=== PATIENT | male | born 1965 | race Caucasian/White ===

== ENCOUNTER 2018-06-21 12:00 | Outpatient (RCR) | payer MEDICARE, MEDICAID, SELFPAY ==
--- NOTE | 2018-04-27 09:53 | HP.PTEVAL_ITS ---
Patient's Visit Information NEYMAR ROME is a 52 year old M referred to Physical Therapy by Andrew Camp MD with a diagnosis of BACK AND NECK PAIN. Date of Evaluation: 04/27/18 Physical Therapist: Jarrod Durham PT, Cert MDT, OCS - Visit Plan Frequency: 2x /Week Duration: 4 Weeks Plan: slow grade DLS,postural ex's,ROM CERVICAL/LUMBAR,MODALTIES FOR PAIN RELEIVE - Subjective Findings: This male presents to physical therapy with back and back pain. Patient has had lumbar pain 2004 injuried at work. Otherwise patient has neck back pain many years. Patient has left cervical and left UT and symmtrical lumbar. Patient symptoms worse with bending ,lifting,siting,walking and standing affects ADL'S. Symptoms better with rest. Patient cerrvical pain worse with UE lifting,turning neck. Patient symptoms affect sleeping. Patient bowel/bladder. Denies parathesia/tingling . Patient denies dizziness/tinnutis/. Patient c/o GEIGER. Patient has PT in past. Patient is under pain managemnt received prior injections.Patient symptosm affeCT QOL and ADL'S.Patient did x-rays DDD. SOCIAL: lives with daughter. VOCATION: disablity - Pain Left Neck Pain Intensity (Out of 10): 6 Pain Intensity Range: 10 Bilateral Buttocks Pain Intensity (Out of 10): 5 Pain Intensity Range: 10 - Objective POSTURE: mild foward head. PALAPTION: tender UT /paraspoinals/ercetor spinals. NEURO: denies parathesia/tingling,C5-6-7 1/3,L3-4,L4-5,L5-S1 1/3. CERVICAL ROM: flexion min loss,lateral flexion /rotation mod loss,extension min loss with pain. BUE: WFL. MMT: BUE 4/5 ,grossly 4-/5 shoulder. LUMBAR ROM: flexion min loss,side glides min loss,extension min loss. FLEXABLITY: hams mod tight. LUMBAR ROM: flexion mod loss,extension - Special Tests C/S Radiculapathy - Left Upper limb tension test: Negative C/S Radiculapathy - Right Upper limb tension test: Negative C/S Radiculapathy - Left Spurlings: Positive C/S Radiculapathy - Right Spurlings: Positive C/S Radiculapathy - Left Cervical distraction: Negative C/S Radiculapathy - Right Cervical distraction: Negative Sharp Laura: Negative Vertebral Artery Test: Negative Alar Ligament Test: Negative Cervical Sitting: Protrusion - Mechanical Response: No effect Cervical Sitting: Protrusion - Symptoms During Testing: Increases Cervical Sitting: Protrusion - Symptoms After Testing: Worse Cervical Sitting: Retraction - Mechanical Response: No effect Cervical Sitting: Retraction - Symptoms During Testing: Increases Cervical Sitting: Retraction - Symptoms After Testing: No better Cervical Sitting: Sidebend Right - Mechanical Response: No effect Cervical Sitting: Sidebend Right - Symptoms During Testing: Increases Cervical Sitting: Sidebend Right - Symptoms After Testing: Worse Cervical Sitting: Sidebend Left - Symptoms During Testing: Increases Cervical Sitting: Sidebend Left - Symptoms After Testing: Worse Cervical Sitting: Rotation Right - Mechanical Response: No effect Cervical Sitting: Rotation Right - Symptoms During Testing: Increases Cervical Sitting: Rotation Right - Symptoms After Testing: Worse Cervical Sitting: Rotation Left - Mechanical Response: No effect Cervical Sitting: Rotation Left - Symptoms During Testing: Increases Cervical Sitting: Rotation Left - Symptoms After Testing: Worse L/S Slump test left side: Negative L/S Slump test right side: Negative L/S Left Straight Leg Raise: Negative L/S Right Straight Leg Raise: Negative Lumbar Standing: Flexion - Mechanical Response: No effect Lumbar Standing: Flexion - Symptoms During Testing: Increases Lumbar Standing: Flexion - Symptoms After Testing: Worse Lumbar Standing: Extension - Mechanical Response: No effect Lumbar Standing: Extension - Symptoms During Testing: Increases Lumbar Standing: Extension - Symptoms After Testing: Worse - Goals Goal 1:: Independant with HEP Goal Time Frame: 4-6 Weeks Goal 2:: Independant with posture for ADL'S Goal Time Frame: 4-6 Weeks Goal 3:: Patient to decrease lumbar pain 50% to improve function. Goal Time Frame: 4-6 Weeks Goal 4:: Patient to improve cervical and lumbar flexion to improve function of recovery Goal Time Frame: 4-6 Weeks Goal 5:: Patient to improve BACK PACO score by 5 points to improve QOL. Goal Time Frame: 4-6 Weeks Goal 6:: Patient to improve function with ADL'S to improve function Goal Time Frame: 4-6 Weeks - Rehabilitation Potential Physical Therapy Diagnosis: This patient has chronic lumbar and cervical pain for many years affects function,motion ,strength,ADL'S thus benifit from skilled PT Rehabilitation Potential: Good - Anticipated Interventions Patient/Client Instruction: Educate patient on: Condition, Plan of Care For the Purpose of:: To decrease pain, To increase ROM, To improve muscle perf ormance and motor function, To improve ability to perform ADL's, To improve performance and independence with ADL's, To improve ability of physical actions for home/community/work/leisure, To improve health of tissue, To decrease soft tissue restriction, To increase flexibility/ROM, To reduce risk of recurrence, To improve ability to perform tasks related to life management Therapeutic Exercise to Include: Strength training, Postural training, Flexibilty training, Active ROM, Dynamic Lumbar Stabilization For the Purpose of:: To decrease pain, To increase ROM, To increase oxygenation perfusion, To improve muscle performance and motor function, To increase tolerance to activity/condition/position, To improve ability of physical actions for home/community/work/leisure, To improve gait and locomotor functions, To improve health of tissue, To decrease soft tissue restriction, To reduce risk of recurrence, To improve ability to perform tasks related to life management TENS: No IF ES: No Cryotherapy (ice pack, ice massage): No Thermo therapy (hot pack): No Ultrasound (thermal/non thermal): No For the Purpose of:: To decrease pain, To increase ROM, To improve muscle performance and motor function, To increase tolerance to activity/condition/position, To improve ability of physical actions for home/community/work/leisure, To improve health of tissue, To decrease soft tissue restriction, To reduce risk of recurrence, To improve ability to perform tasks related to life management Thank you for the opportunity to evaluate your patient. For Medicare and Medicare HMO plans, please review the plan of care and approve it. It will need to be FAXED BACK to us at [phone] for Medicare purposes. For Medicare only, by signing this I certify the plan of care. Please let me know if there are questions or concerns regarding this plan of care. Physician Signature: Date:
--- NOTE | 2018-08-03 10:45 | HP.PT.NRP ---
HP - Discharge Summary (1) - Patient Information NEYMAR ROME was seen in my office for initial evaluation on 04/27/18. The following Plan of Care was established for this patient: Initial Frequency: 2x /Week Initial Duration: 4 Weeks - Anticipated Interventions Patient/Client Instruction: Educate patient on: Condition, Plan of Care For the Purpose of:: To decrease pain, To increase ROM, To improve muscle performance and motor function, To improve ability to perform ADL's, To improve performance and independence with ADL's, To improve ability of physical actions for home/community/work/leisure, To improve health of tissue, To decrease soft tissue restriction, To increase flexibility/ROM, To reduce risk of recurrence, To improve ability to perform tasks related to life management Therapeutic Exercise to Include: Strength training, Postural training, Flexibilty training, Active ROM, Dynamic Lumbar Stabilization For the Purpose of:: To decrease pain, To increase ROM, To increase oxygenation perfusion, To improve muscle performance and motor function, To increase tolerance to activity/condition/position, To improve ability of physical actions for home/community/work/leisure, To improve gait and locomotor functions, To improve health of tissue, To decrease soft tissue restriction, To reduce risk of recurrence, To improve ability to perform tasks related to life management TENS: No IF ES: No Cryotherapy (ice pack, ice massage): No Thermo therapy (hot pack): No Ultrasound (thermal/non thermal): No For the Purpose of:: To decrease pain, To increase ROM, To improve muscle performance and motor function, To increase tolerance to activity/condition/position, To improve ability of physical actions for home/community/work/leisure, To improve health of tissue, To decrease soft tissue restriction, To reduce risk of recurrence, To improve ability to perform tasks related to life management This patient was last seen in our office 06/21/18. Pertinent comments regarding their Physical therapy will appear below: Patient seen for PT neck and back pain focusing on Manual therapy,cervicla traction,DLS ,POSTURAL EX'S . Thus patient is d/c. At this point I will be discontinuing this patient from physical therapy. I would be happy to see this patient again in the future if found appropriate by the physician. Thank you! Jarrod Durham, PT, Cert MDT, OCS
== END 2018-06-21 19:00 | disposition home or self-care (01) ==
LOC: PT 12:00
PROVIDERS: Family Provider Family Medicine; PCP Family Medicine; Referring Provider Anesthesiology Pain Medicine; Visit Provider Anesthesiology Pain Medicine
DX: M54.9 Dorsalgia, unspecified (principal); M54.2 Cervicalgia
CPT/HCPCS: 97012; 97014; 97035; 97110; 97140; 97162; G0283

== ENCOUNTER → 2018-09-20 12:26 | Outpatient (CLI) | payer MEDICARE, MEDICAID, SELFPAY ==
[2018-09-20 14:13] LABS: Amphetamine Urine VISTA NEGATIVE (<1000 ng/mL); Barbiturate Urine VISTA NEGATIVE (< 200 ng/mL); Benzodiazepine Urine VISTA NEGATIVE (< 200 ng/mL); Cocaine Urine VISTA NEGATIVE (< 300 ng/mL); Ecstacy Urine VISTA NEGATIVE (< 500 ng/mL); Methadone Urine VISTA NEGATIVE (< 300 ng/mL); PCP Urine VISTA NEGATIVE (< 25 ng/mL); THC Urine VISTA NEGATIVE (< 50 ng/mL); Vista UDS pH Range 5
== END ==
PROVIDERS: Family Provider Internal Medicine; PCP Internal Medicine; Referring Provider Anesthesiology Pain Medicine; Visit Provider Anesthesiology Pain Medicine
DX: F11.20 Opioid dependence, uncomplicated (principal)
CPT/HCPCS: 80307

== ENCOUNTER → 2019-02-08 11:41 | Outpatient (CLI) | payer MEDICARE, MEDICAID, SELFPAY ==
[2013-07-23 03:07] VITALS: BMI 31.4
[2019-02-08 13:46] LABS: Amphetamine Urine VISTA NEGATIVE (<1000 ng/mL); Barbiturate Urine VISTA NEGATIVE (< 200 ng/mL); Benzodiazepine Urine VISTA NEGATIVE (< 200 ng/mL); Cocaine Urine VISTA NEGATIVE (< 300 ng/mL); Ecstacy Urine VISTA NEGATIVE (< 500 ng/mL); Methadone Urine VISTA NEGATIVE (< 300 ng/mL); PCP Urine VISTA NEGATIVE (< 25 ng/mL); THC Urine VISTA NEGATIVE (< 50 ng/mL); Vista UDS pH Range 5
== END ==
PROVIDERS: Family Provider Internal Medicine; PCP Internal Medicine; Referring Provider Anesthesiology Pain Medicine; Visit Provider Anesthesiology Pain Medicine
DX: F11.20 Opioid dependence, uncomplicated (principal)
CPT/HCPCS: 80307

== ENCOUNTER → 2019-04-05 10:46 | Outpatient (CLI) | payer MEDICARE, MEDICAID, SELFPAY ==
[2013-07-23 03:07] VITALS: BMI 31.4
[2019-04-05 11:21] LABS: Amphetamine Urine VISTA NEGATIVE (<1000 ng/mL); Barbiturate Urine VISTA NEGATIVE (< 200 ng/mL); Benzodiazepine Urine VISTA POSITIVE (< 200 ng/mL); Cocaine Urine VISTA NEGATIVE (< 300 ng/mL); Ecstacy Urine VISTA NEGATIVE (< 500 ng/mL); Methadone Urine VISTA NEGATIVE (< 300 ng/mL); PCP Urine VISTA NEGATIVE (< 25 ng/mL); THC Urine VISTA NEGATIVE (< 50 ng/mL); Vista UDS pH Range 5
== END ==
PROVIDERS: Family Provider Internal Medicine; PCP Internal Medicine; Referring Provider Anesthesiology Pain Medicine; Visit Provider Anesthesiology Pain Medicine
DX: F11.20 Opioid dependence, uncomplicated (principal)
CPT/HCPCS: 80307

== ENCOUNTER → 2019-12-19 11:33 | Outpatient (CLI) | payer MEDICARE, MEDICAID, SELFPAY ==
[2013-07-23 03:07] VITALS: BMI 31.4
[2019-12-19 13:10] LABS: Amphetamine Urine VISTA NEGATIVE (<1000 ng/mL); Barbiturate Urine VISTA NEGATIVE (< 200 ng/mL); Benzodiazepine Urine VISTA NEGATIVE (< 200 ng/mL); Cocaine Urine VISTA NEGATIVE (< 300 ng/mL); Ecstacy Urine VISTA NEGATIVE (< 500 ng/mL); Methadone Urine VISTA NEGATIVE (< 300 ng/mL); PCP Urine VISTA NEGATIVE (< 25 ng/mL); THC Urine VISTA NEGATIVE (< 50 ng/mL); Vista UDS pH Range 6
== END ==
PROVIDERS: PCP Internal Medicine; Referring Provider Anesthesiology Pain Medicine; Visit Provider Anesthesiology Pain Medicine
DX: F11.20 Opioid dependence, uncomplicated (principal)
CPT/HCPCS: 80307

== ENCOUNTER → 2020-05-14 11:57 | Outpatient (CLI) | payer MEDICARE, MEDICAID, SELFPAY ==
[2013-07-23 03:07] VITALS: BMI 31.4
[2020-05-14 12:55] LABS: Amphetamine Urine VISTA NEGATIVE (<1000 ng/mL); Barbiturate Urine VISTA NEGATIVE (< 200 ng/mL); Benzodiazepine Urine VISTA NEGATIVE (< 200 ng/mL); Cocaine Urine VISTA NEGATIVE (< 300 ng/mL); Ecstacy Urine VISTA NEGATIVE (< 500 ng/mL); Methadone Urine VISTA NEGATIVE (< 300 ng/mL); PCP Urine VISTA NEGATIVE (< 25 ng/mL); THC Urine VISTA NEGATIVE (< 50 ng/mL); Vista UDS pH Range 5
== END ==
PROVIDERS: PCP Internal Medicine; Referring Provider Anesthesiology Pain Medicine; Visit Provider Anesthesiology Pain Medicine
DX: F11.20 Opioid dependence, uncomplicated (principal)
CPT/HCPCS: 80307

== ENCOUNTER → 2020-12-25 10:28 | Outpatient (CLI) | payer MEDICARE, MEDICAID, SELFPAY ==
[2020-12-25 12:00] LABS: Amphetamine Urine VISTA NEGATIVE (<1000 ng/mL); Barbiturate Urine VISTA NEGATIVE (< 200 ng/mL); Benzodiazepine Urine VISTA NEGATIVE (< 200 ng/mL); Cocaine Urine VISTA NEGATIVE (< 300 ng/mL); Ecstacy Urine VISTA NEGATIVE (< 500 ng/mL); Methadone Urine VISTA NEGATIVE (< 300 ng/mL); PCP Urine VISTA NEGATIVE (< 25 ng/mL); THC Urine VISTA NEGATIVE (< 50 ng/mL); Vista UDS pH Range 5
== END ==
PROVIDERS: PCP Internal Medicine; Referring Provider Anesthesiology Pain Medicine; Visit Provider Anesthesiology Pain Medicine
DX: F11.20 Opioid dependence, uncomplicated (principal)
CPT/HCPCS: 80307

== ENCOUNTER → 2021-09-03 | Outpatient (CLI) | payer MEDICARE, MEDICAID, SELFPAY ==
[2021-09-03 13:05] LABS: Amphetamine Urine VISTA NEGATIVE (<1000 ng/mL); Barbiturate Urine VISTA NEGATIVE (< 200 ng/mL); Benzodiazepine Urine VISTA NEGATIVE (< 200 ng/mL); Cocaine Urine VISTA NEGATIVE (< 300 ng/mL); Ecstacy Urine VISTA NEGATIVE (< 500 ng/mL); Methadone Urine VISTA NEGATIVE (< 300 ng/mL); PCP Urine VISTA NEGATIVE (< 25 ng/mL); THC Urine VISTA NEGATIVE (< 50 ng/mL); Vista UDS pH Range 5
== END | disposition home or self-care (01) ==
PROVIDERS: PCP Internal Medicine; Referring Provider Anesthesiology Pain Medicine; Visit Provider Anesthesiology Pain Medicine
DX: F11.20 Opioid dependence, uncomplicated (principal)
CPT/HCPCS: 80307

== ENCOUNTER 2022-03-18 11:44 | Outpatient (CLI) | payer MEDICARE, MEDICAID, SELFPAY ==
[2022-03-18 12:57] LABS: Color, Urine Yellow (Yellow); Glucose, Dipstick Normal (Normal); Ketone-Dipstick 5 mg/dl (Negative); Leukocyte Esterase-Dipstick 500 /ul (Negative); Nitrite-Dipstick Negative (Negative); Occult Blood-Urine 250 /ul (Negative); Protein-Dipstick 30 mg/dl (Negative); Urine Bilirubin Dipstick Negative (Negative); Urine Clarity Sl. Cloudy (Clear); Urine Urobilinogen 1 mg/dl (Normal)
[2022-03-18 13:11] LABS: Amphetamine Urine VISTA NEGATIVE (<1000 ng/mL); Barbiturate Urine VISTA NEGATIVE (< 200 ng/mL); Benzodiazepine Urine VISTA NEGATIVE (< 200 ng/mL); Cocaine Urine VISTA NEGATIVE (< 300 ng/mL); Ecstacy Urine VISTA NEGATIVE (< 500 ng/mL); Methadone Urine VISTA NEGATIVE (< 300 ng/mL); PCP Urine VISTA NEGATIVE (< 25 ng/mL); THC Urine VISTA NEGATIVE (< 50 ng/mL); Vista UDS pH Range 5
== END 2022-03-18 23:59 | disposition home or self-care (01) ==
PROVIDERS: PCP Internal Medicine; Referring Provider Anesthesiology Pain Medicine; Visit Provider Anesthesiology Pain Medicine
DX: F11.20 Opioid dependence, uncomplicated (principal); M51.36 Other intervertebral disc degeneration, lumbar region
CPT/HCPCS: 80307; 81002

== ENCOUNTER 2022-08-11 13:18 | Emergency (ER) | payer MEDICARE, MEDICAID, SELFPAY ==
[2022-08-11 13:19] VITALS: BP 160/101; PULSE 133; RESP 26; TEMP 36.8; O2SAT 93; BMI 32.3
--- NOTE | 2022-08-11 13:24 | EKG12_ITS ---
Test Reason : SOB Blood Pressure : / mmHG Vent. Rate : 125 BPM Atrial Rate : 125 BPM P-R Int : 146 ms QRS Dur : 080 ms QT Int : 292 ms P-R-T Axes : 059 050 061 degrees QTc Int : 421 ms Sinus tachycardia Otherwise normal ECG Confirmed by MICHELLE RITTER, LULI ([id number]), videotape editor LUCILLE CRAWFORD ([id number]) on 08/17/2022 9:59:08 AM Referred By: ALISIA/URSULA Confirmed By:LULI MARTINEZ MD
--- NOTE | 2022-08-11 14:06 | RAD_ITS ---
STUDY: X-RAY CHEST REASON FOR EXAM: Male, 57 years old. Cough and shortness of breath with chest congestion. TECHNIQUE: Single AP portable view of the chest. COMPARISON: Comparison is made with prior study July 24, 2013. FINDINGS: Increased bilateral perihilar markings suggest some bilateral perihilar bronchitis. Hyperinflation. There is no demonstrated pleural abnormality. Normal size heart. Normal mediastinum and camron. Normal visualized pulmonary arteries. Normal visualized aortic arch and descending thoracic aorta. Normal visualized thoracic spine. Normal visualized ribs, clavicles, and shoulders. There is no demonstrated abnormality of the visualized soft tissue structures of the upper abdomen. RAD/Chest 1 View (Portable) IMPRESSION: Findings suggestive of bilateral perihilar bronchitis. Electronically Signed: Ciro Gee MD at 14:31 EDT ,
[2022-08-11 14:37] LABS: Absolute Lymphocyte Count 1.66 X10^3/uL (0.83-4.51); Absolute Neutrophil Count 4.9 X10^3/uL (2.0-7.7); Basophil# 0.02 X10^3/uL; Basophil% 0.3 % (0-1); Eosinophil# 0.17 X10^3/uL; Eosinophils% 2.3 % (0-5); Hematocrit 48.3 % (40-54); Hemoglobin 16.5 g/dL (13.0-16.5); Lymphocyte # 1.66 X10^3/ul (0.83-4.51); Lymphocyte % 22.3 % (19-41); Mean Corp Hgb Conc 34.2 g/dL (32-36); Mean Corpuscular Hgb 29.8 pg (27.0-32.0); Mean Corpuscular Volume 87.3 fL (80-94); Mean Platelet Vol. 10.3 fl (6.2-12.0); Monocyte# 0.64 X10^3/uL; Monocyte% 8.6 % (0-10); NRBC Flagged by Analyzer 0 % (0-5); Neutrophil # 4.92 X10^3/uL (2.7-7.7); Neutrophil % 66.2 % (47-70); POSITIVE MORPHOLOGY YES; Platelet Count 199 K/mm3 (150-450); RBC Distribution Width CV 12.6 % (11.6-14.6); RBC Distribution Width SD 40.5 fl (35.1-43.9); Red Blood Count 5.53 M/mm3 (4.6-6.2); White Blood Count 7.4 K/mm3 (4.4-11.0)
[2022-08-11 14:41] LABS: Differential Indicated SCAN CRITERIA MET
[2022-08-11 14:49] LABS: Anion Gap 1 (5-15); BUN 11 mg/dL (7-18); BUN/Creat Ratio 9.8 RATIO (10-20); Calcium,Total 9.1 mg/dL (8.5-10.1); Chloride 101 mmol/L (98-107); Creatinine, Serum 1.12 mg/dL (0.70-1.30); EST Glomerular Filtration Rate 72 mL/min (>60); Est Glom Filt Rate - Afr Amer 87 mL/min (>60); Estimated Creatinine Clearance 76.57 ml/min; Glucose 135 mg/dL (74-106); Potassium 3.8 mmol/L (3.5-5.1); Sodium Level 134 mmol/L (136-145)
[2022-08-11 14:53] VITALS: BP 128/84; PULSE 108; RESP 18; O2SAT 94
[2022-08-11 15:09] LABS: Differential Comment SCANNED; Reactive Lymphocyte 1+
--- NOTE | 2022-08-11 15:42 | ED.VIS.DYS ---
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 He states he has had symptoms for 3 to 4 days. Started with sinus drainage that moved to the back of his throat and then moved into his chest. He has had some sputum production described as white and yellow. He had worsening cough. He does feel short of breath. He does not have any inhalers at home. Denies any fever. Denies any chest pain. Denies any new swelling of his legs. Has not missed any doses of his Xarelto. Has been hesitant to take anything [id number] because he is on anticoagulation. Notes he has been trying to drink fluids but has not been eating much lately. Denies any other symptoms at this time. [facility] Medical History Bronchitis Home Medications amitriptyline 25 mg tablet 25 mg PO QHS 07/22/13 [History Last Taken Unknown] docusate sodium 100 mg capsule (DOK) 100 mg PO DAILY PRN PRN Constipation 07/22/13 [History Last Taken Unknown] fenofibrate 160 mg tablet (Lofibra) 160 mg PO DAILY 07/22/13 [History Last Taken Unknown] fentanyl 75 mcg/hr transdermal patch 75 mcg TRANSDERM. Q72H 07/22/13 [History Last Taken Unknown] ipratropium 20 mcg-albuterol 100 mcg/actuation mist for inhalation (Combivent Respimat) 1 puff inhalation 07/22/13 [History Last Taken Unknown] lisinopril 5 mg tablet 5 mg PO DAILY 07/22/13 [History Last Taken Unknown] meloxicam 7.5 mg tablet 7.5 mg PO DAILY 07/22/13 [History Last Taken Unknown] simvastatin 40 mg tablet 40 mg PO QHS 07/22/13 [History Last Taken Unknown] doxycycline hyclate 100 mg capsule 100 mg PO BID #14 caps 08/11/22 [Rx Last Taken Unknown] prednisone 20 mg tablet 40 mg PO DAILY #8 tabs 08/11/22 [Rx Last Taken Unknown] Allergy/AdvReac Type Severity Reaction Status Date / Time paroxetine Allergy PT UNSURE Verified 08/11/22 13:22 OF REACTION tramadol Allergy Other Verified 08/11/22 13:22 venlafaxine Allergy PT UNSURE Verified 08/11/22 13:22 OF REACTION acetaminophen [From Vicodin] AdvReac Other Verified 08/11/22 13:22 formaldehyde AdvReac Other Verified 08/11/22 13:22 hydrocodone [From Vicodin] AdvReac Other Verified 08/11/22 13:22 Social History Smoking Status: Current every day smoker tobacco type: cigarettes ROS ROS ED Constitutional Constitutional ED: Denies chills or fever(s) Eyes Eyes: Denies change in vision ENT ENT ED: Reports sore throat; Denies rhinorrhea Cardiovascular Cardiovascular: Denies chest pain or palpitations Respiratory/Chest Respiratory/Chest: Reports cough and dyspnea Gastrointestinal Gastrointestinal: Denies abdominal pain, nausea or vomiting Musculoskeletal Musculoskeletal: Denies arthralgias or myalgias Integumentary Denies rash Neurologic Neurologic: Denies weakness Psychiatric Psychiatric: Denies anxiety Hematologic/Lymphatic Hematologic/Lymphatic: Reports easy bleeding and easy bruising EXAM Physical Exam Const Vital Signs: 08/11/22 13:19 08/11/22 14:53 08/11/22 15:58 Temperature 98.3 F 96.7 F L Temperature Source Temporal Temporal Pulse Rate 133 H 108 H 104 H Respiratory Rate 26 H 18 18 Blood Pressure 160/101 H 128/84 H 143/85 H Blood Pressure Mean 120 98 104 Pulse Ox 93 94 93 Oxygen Delivery Method Room Air Room Air Room Air 08/11/22 15:59 08/11/22 19:04 Temperature Temperature Source Pulse Rate 102 H 100 Respiratory Rate 18 18 Blood Pressure Blood Pressure Mean Pulse Ox 93 Oxygen Delivery Method Positive well nourished and well developed General Appearance ED: well developed and NAD HEENT Reports dry mucous membranes HEENT Narrative: Normal oropharynx atraumatic Mouth ED: Yes dry mucous membranes Mouth: dry mucous membranes Eyes PERRL and EOMs intact bilaterally Neck supple Resp normal respiratory effort Resp Narrative: Scattered wheezing. Diminished breath sounds at the bases with coarse breath sounds. Auscultation: wheezes Cardio regular rhythm Rate: tachycardic GI non-tender and non-distended Extremity normal to inspection Extremity Narrative: Hematoma on left proximal rodríguez from recent fall General Extremety ED: Negative for edema General Extremity: Negative for edema Neuro oriented x3 Sensorium / Orientation: alert Speech: speech normal Motor Exam: Negative for general weakness Psych mental status grossly normal Skin no wounds MDM MDM MDM Narrative Medical decision making narrative: Patient evaluated for cough and chest congestion. Presentation most consistent with bronchitis/COPD exacerbation. Differential diagnosis also includes pneumonia. Is been compliant with his Xarelto as well as suspicion for pulmonary emboli. Chest x-ray, CBC and BMP obtained per protocol orders. Chest x-ray to read by myself as well as radiology is consistent with perihilar bronchitis. Patient is given IV fluids for tachycardia, a DuoNeb and a started on prednisone. Will Reevaluate ambulate pulse ox after these interventions. Patient does not have significant movement after DuoNeb. Is given albuterol. He still is pretty coarse and has tight breath sounds. Patient states he is feeling a little better. Is ambulated in the ER and does not desaturate under 90. Discussed admission for COPD exacerbation versus outpatient treatment with close return precautions. Patient states he prefer to go home. Discussed extensively the importance of tobacco cessation. Patient started on doxycycline as well given first dose in the ER just because of his underlying COPD with exacerbation per Gold 2 criteria. Do not think this is community-acquired pneumonia. Patient is given an albuterol inhaler to use at home in the emergency room with instructions. Given strict return precautions. Counseled if he feels like he is getting worse he will need to return to the emergency room. He verbalizes agreement understanding with this. Discharged home in improved and stable condition. Lab Data Attestation: I reviewed the patient's lab results. Labs: Laboratory Results - last 24 hr 08/11/22 08/11/22 14:25 14:25 WBC 7.4 RBC 5.53 Hgb 16.5 Hct 48.3 MCV 87.3 MCH 29.8 MCHC 34.2 RDW Std Deviation 40.5 RDW Coeff of Rafa 12.6 Plt Count 199 MPV 10.3 Immature Gran % (Auto) 0.300 Neut % (Auto) 66.2 Lymph % (Auto) 22.3 [place] % (Auto) 8.6 Eos % (Auto) 2.3 Baso % (Auto) 0.3 Absolute Neuts (auto) 4.9 Absolute Lymphs (auto) 1.66 Nucleated RBC % 0 Differential Comment SCANNED Reactive Lymphocytes 1+ Sodium 134 L Potassium 3.8 Chloride 101 Carbon Dioxide 32.0 Anion Gap 1 L BUN 11 Creatinine 1.12 Estim Creat Clear Calc 76.57 Est GFR (MDRD) Af Amer 87 Est GFR (MDRD) Non-Af 72 BUN/Creatinine Ratio 9.8 L Glucose 135 H Calcium 9.1 Radiography Chest X-Ray - ED: 1 View, Read by ED Physician, Read by Radiologist and No Acute Disease Diagnostic Testing: Clinical Impression(s) from Imaging Studies Chest X-Ray 08/11/22 14:06 IMPRESSION: Findings suggestive of bilateral perihilar bronchitis. Electronically Signed: Ciro Gee MD at 14:31 EDT , Rhythm Strip Rhythm Strip: Sinus Tach Rate: 125 Ectopy: None EKG Initial EKG: Attestation: I personally reviewed and interpreted this EKG as follows: Interpretation: Sinus Tachycardia Comments: Sinus tachycardia rate of 125 bpm Normal intervals Normal axis Normal ST segments No change compared to prior EKG on 07/22/2013 Discharge Plan Triage Chief Complaint: Shortness of Breath ED Provider: Karina Julian Dx/Rx/DC Orders Clinical Impression: COPD with acute exacerbation, Tobacco abuse Instructions: ED COPD Flare Prescriptions: New prednisone 20 mg tablet 40 mg PO DAILY Qty: 8 0RF doxycycline hyclate 100 mg capsule 100 mg PO BID Qty: 14 0RF No Action simvastatin 40 MG tablet 40 mg PO QHS Label Comments: CHOLESTEROL meloxicam 7.5 MG tablet 7.5 mg PO DAILY Label Comments: ARTHRITIS amitriptyline 25 MG tablet 25 mg PO QHS Label Comments: DEPRESSION docusate sodium [DOK] 100 MG capsule 100 mg PO DAILY PRN PRN (Reason: Constipation) Label Comments: STOOL SOFTENER lisinopril 5 MG tablet 5 mg PO DAILY Label Comments: HEART/BLOOD PRESSURE fentanyl 75 MCG patch 75 mcg TRANSDERM. Q72H Label Comments: PAIN fenofibrate [Lofibra] 160 MG tablet 160 mg PO DAILY Label Comments: CHOLESTEROL ipratropium-albuterol [Combivent Respimat] 1 PUFF inhaler 1 puff inhalation Label Comments: BREATHING Primary Care Provider: Kvng Fu Referrals: Kvng Fu MD [Primary Care Provider] - Activity Restrictions/Additional Instructions: Take all medications as prescribed. Use your inhaler 1 to 2 puffs every 4-6 hours as needed for shortness of breath. If you feel like your breathing is worsening you may need to return to the emergency room. Please try to abstain from smoking. Follow-up with your primary care doctor later this week for recheck. Disposition Disposition: Home, Self Care Discharge Date/Time: 08/11/22 19:27
[2022-08-11] MEDS: predniSONE 20 MG Tablet 60 MG PO (15:54)
[2022-08-11] MEDS: 0.9% Normal Saline 1,000 ML 999 ML IV (15:54)
[2022-08-11 15:58] VITALS: BP 143/85; PULSE 104; RESP 18; TEMP 35.9; O2SAT 93
[2022-08-11] MEDS: Ipratropium/Albuterol Sulfate 3 ML AMPUL.NEB INHALATION (15:58)
[2022-08-11 15:59] VITALS: PULSE 102; RESP 18
[2022-08-11] MEDS: Albuterol 2.5 MG/3 ML VIAL.NEB. INHALATION (17:05)
[2022-08-11 19:04] VITALS: PULSE 100; RESP 18; O2SAT 93
[2022-08-11] MEDS: Doxycycline 100 MG CAPSULE PO (19:19)
[2022-08-11] MEDS: Albuterol Sulfate 8 gm Inhaler (60 puffs) 2 PUFF INHALATION (19:19)
== END 2022-08-11 19:27 | disposition home or self-care (01) ==
PROVIDERS: Emergency Provider Emergency Medicine; PCP Internal Medicine; Visit Provider Emergency Medicine
DX: J44.1 Chronic obstructive pulmonary disease with (acute) exacerbation (principal); I10 Essential (primary) hypertension; F17.210 Nicotine dependence, cigarettes, uncomplicated; J32.9 Chronic sinusitis, unspecified; G89.29 Other chronic pain; M54.9 Dorsalgia, unspecified; Z79.01 Long term (current) use of anticoagulants; Z86.718 Personal history of other venous thrombosis and embolism
CPT/HCPCS: 71045; 80048; 85025; 87428; 93005; 94640; 94760; 96360; 99284; A4216

== ENCOUNTER 2022-11-04 10:23 | Emergency (ER) | payer MEDICARE, MEDICAID, SELFPAY ==
[2022-11-04 10:24] VITALS: BP 159/112; PULSE 136; RESP 18; TEMP 38.8; O2SAT 94; BMI 33.7
--- NOTE | 2022-11-04 11:05 | EDS_ITS ---
HPI History of Present Illness Chief Complaint: Sore Throat Informant: patient Narrative Narrative: Patient presents with a sore throat with odynophagia for 1 week. Left ear is hurts some. No coughing or shortness of breath. Some chills today but no fevers that he knows of although he has a fever here in triage. He states his daughter has a sore throat as well for the same period of time. Also, the patient states that he has had a sore swollen area on his right leg that became that way from picking at it, now it is painful and red. He has been able to walk without difficulty. [facility] Medical History (Updated 11/04/22 @ 11:[address] Ankit Vazquez MD) Asthma Bronchitis Chronic back pain HTN (hypertension) Infestation by bed bug Narcotic dependence Home Medications amitriptyline 25 mg tablet 25 mg PO QHS 07/22/13 [History Last Taken Unknown] docusate sodium 100 mg capsule (DOK) 100 mg PO DAILY PRN PRN Constipation 07/22/13 [History Last Taken Unknown] fenofibrate 160 mg tablet (Lofibra) 160 mg PO DAILY 07/22/13 [History Last Taken Unknown] fentanyl 75 mcg/hr transdermal patch 75 mcg TRANSDERM. Q72H 07/22/13 [History Last Taken Unknown] ipratropium 20 mcg-albuterol 100 mcg/actuation mist for inhalation (Combivent Respimat) 1 puff inhalation 07/22/13 [History Last Taken Unknown] lisinopril 5 mg tablet 5 mg PO DAILY 07/22/13 [History Last Taken Unknown] meloxicam 7.5 mg tablet 7.5 mg PO DAILY 07/22/13 [History Last Taken Unknown] simvastatin 40 mg tablet 40 mg PO QHS 07/22/13 [History Last Taken Unknown] doxycycline hyclate 100 mg capsule 100 mg PO BID #14 caps 08/11/22 [Rx Last Taken Unknown] prednisone 20 mg tablet 40 mg (2 x 20 mg) PO DAILY #8 tabs 08/11/22 [Rx Last Taken Unknown] cephalexin 500 mg capsule 500 mg PO Q6 #40 CAPSULES 11/04/22 [Rx Last Taken Unknown] Allergy/AdvReac Type Severity Reaction Status Date / Time paroxetine Allergy PT UNSURE Verified 11/04/22 10:26 OF REACTION tramadol Allergy Other Verified 11/04/22 10:26 venlafaxine Allergy PT UNSURE Verified 11/04/22 10:26 OF REACTION acetaminophen [From Vicodin] AdvReac Other Verified 11/04/22 10:26 formaldehyde AdvReac Other Verified 11/04/22 10:26 hydrocodone [From Vicodin] AdvReac Other Verified 11/04/22 10:26 Social History Smoking Status: Current every day smoker tobacco type: cigarettes ROS ROS ED Constitutional Constitutional ED: Reports chills; Denies fever(s) Eyes Eyes: Denies blurry vision or diplopia ENT ENT ED: Reports ear pain left and sore throat; Denies rhinorrhea Cardiovascular Cardiovascular: Denies chest pain or orthopnea Respiratory/Chest Respiratory/Chest: Reports cough and other Details: Cough chronic no different according to patient ; Denies dyspnea, dyspnea on exertion, orthopnea or sputum Gastrointestinal Gastrointestinal: Denies abdominal pain, nausea or vomiting Musculoskeletal Musculoskeletal: Denies extremity pain or neck pain Integumentary Reports rash Neurologic Neurologic: Denies headache(s) EXAM Physical Exam Const Vital Signs: 11/04/22 10:24 Temperature 101.8 F H Temperature Source Temporal Pulse Rate 136 H Respiratory Rate 18 Blood Pressure 159/112 H Blood Pressure Mean 127 Pulse Ox 94 Oxygen Delivery Method Room Air Positive well nourished, well developed and unkempt General Appearance ED: unkempt, well developed and NAD HEENT Reports TM's clear and moist mucous membranes HEENT Narrative: PIP mild erythema but otherwise clear. No exudates. No asymmetry. No trismus. Tongue normal no elevation. Cerumen bilateral EAC otherwise normal. Tympanic Membrane ED: Yes TM's clear Eyes PERRL and EOMs intact bilaterally Neck no lymphadenopathy and supple Resp normal respiratory effort and clear to auscultation bilaterally Cardio regular rate and regular rhythm Rate: tachycardic Extremity Extremity Narrative: There is a scabbed wound on the right distal rodríguez with surrounding erythema that is mildly tender there is no subcutaneous emphysema, bony tenderness, or lymphangitis. He has full range of motion of all joints and walks without difficulty. It is limited to the rodríguez/anterior lower leg, maybe 5 or 6 cm in diameter total. With uncovering the patient's leg by taking his pants up, 3 bedbugs crawl out. Neuro oriented x3, CN's II-XII intact bilaterally and no sensory deficits noted Sensorium / Orientation: alert Motor Exam: strength 5/5 throughout Psych mental status grossly normal Appearance: unkempt Skin Skin Narrative: Right lower leg wound without abscess. No erythema in the left leg. See above. MDM MDM MDM Narrative Medical decision making narrative: Discussed with the patient, we could test him for strep which this may or may not be, I do not think he has mononucleosis, but is cellulitis from a wound that apparently picked at and looks like it has become secondarily infected looks amenable to antibiotics. There is nothing to drain here, it is not necrotizing fasciitis, and he states it has been there for longer than the sore throat. I think putting him on cephalexin would be reasonable, he is in agreement with that plan. He is not septic although he does have a temperature here. He is advised to come back if this does not help and he is comfortable with that plan. Discharge Plan Triage Chief Complaint: Sore Throat ED Provider: Ankit Vazquez Dx/Rx/DC Orders Clinical Impression: Cellulitis of leg without foot, right, Pharyngitis Instructions: ED Cellulitis Prescriptions: New cephalexin [cephalexin] 500 mg capsule 500 mg PO Q6 Qty: 40 0RF No Action simvastatin 40 MG tablet 40 mg PO QHS Patient Comments: CHOLESTEROL meloxicam 7.5 MG tablet 7.5 mg PO DAILY Patient Comments: ARTHRITIS amitriptyline 25 MG tablet 25 mg PO QHS Patient Comments: DEPRESSION docusate sodium [DOK] 100 MG capsule 100 mg PO DAILY PRN PRN (Reason: Constipation) Patient Comments: STOOL SOFTENER lisinopril 5 MG tablet 5 mg PO DAILY Patient Comments: HEART/BLOOD PRESSURE fentanyl 75 MCG patch 75 mcg TRANSDERM. Q72H Patient Comments: PAIN fenofibrate [Lofibra] 160 MG tablet 160 mg PO DAILY Patient Comments: CHOLESTEROL ipratropium-albuterol [Combivent Respimat] 1 PUFF inhaler 1 puff inhalation Patient Comments: BREATHING prednisone 20 mg tablet 40 mg PO DAILY Qty: 8 0RF doxycycline hyclate 100 mg capsule 100 mg PO BID Qty: 14 0RF Primary Care Provider: Kvng Fu Referrals: Kvng Fu MD [Primary Care Provider] - 3-5 Days (call for appt; may always return to ER if you are feelin worse despite taking the antibiotic for a day or 2, or if you develop trouble breathing) Disposition Disposition: Home, Self Care
[2022-11-04] MEDS: Acetaminophen 500 MG Tablet 1000 MG PO (11:26)
[2022-11-04] MEDS: Cephalexin 250 MG Capsule 500 MG PO (11:26)
[2022-11-04 11:34] VITALS: BP 124/69; PULSE 72; RESP 15; O2SAT 98
== END 2022-11-04 11:34 | disposition home or self-care (01) ==
LOC: ED 11:18
PROVIDERS: Emergency Provider Emergency Medicine; PCP Internal Medicine; Visit Provider Emergency Medicine
DX: L03.115 Cellulitis of right lower limb (principal); J02.9 Acute pharyngitis, unspecified; F17.210 Nicotine dependence, cigarettes, uncomplicated; I10 Essential (primary) hypertension; J45.909 Unspecified asthma, uncomplicated; Z79.899 Other long term (current) drug therapy
CPT/HCPCS: 99283

== ENCOUNTER 2022-11-05 14:17 | Emergency (ER) | payer MEDICARE, MEDICAID, SELFPAY ==
[2022-11-05 14:18] VITALS: BP 129/71; PULSE 135; RESP 16; TEMP 37.1; O2SAT 96
[2022-11-05 14:32] VITALS: BP 134/81; PULSE 127; RESP 18
[2022-11-05 14:36] VITALS: BMI 32.5
--- NOTE | 2022-11-05 14:59 | EX.ED.DYSGE1 ---
HPI History of Present Illness Chief Complaint: Cellulitis Informant: patient and family Onset/Context/Timing Onset: Yesterday Context: Gradual Onset Timing: Continuous Quality: Sharp Location: Right lower leg Worsened by: Weightbearing Relieved by: Nothing Narrative Narrative: Patient presents with cellulitis to his right leg that became worse today. Patient was seen here for this yesterday and was started on antibiotics. Patient took 2 doses of his antibiotics today. Patient states the redness is now spreading up his leg. Patient admits to a low-grade fever of 100 at home. Patient states he is having difficulty ambulating due to the pain in his leg. Patient admits to some nausea and vomiting. Patient states he has been unable to keep anything down today. Patient denies any chest pain or shortness of breath. Patient denies any paresthesias or weakness. PFSH PFSH Medical History Asthma Bronchitis Chronic back pain HTN (hypertension) Infestation by bed bug Narcotic dependence Smoker Home Medications amitriptyline 25 mg tablet 25 mg PO QHS 07/22/13 [History Last Taken Unknown] docusate sodium 100 mg capsule (DOK) 100 mg PO DAILY PRN PRN Constipation 07/22/13 [History Last Taken Unknown] fenofibrate 160 mg tablet (Lofibra) 160 mg PO DAILY 07/22/13 [History Last Taken Unknown] fentanyl 75 mcg/hr transdermal patch 75 mcg TRANSDERM. Q72H 07/22/13 [History Last Taken Unknown] ipratropium 20 mcg-albuterol 100 mcg/actuation mist for inhalation (Combivent Respimat) 1 puff inhalation 07/22/13 [History Last Taken Unknown] lisinopril 5 mg tablet 5 mg PO DAILY 07/22/13 [History Last Taken Unknown] meloxicam 7.5 mg tablet 7.5 mg PO DAILY 07/22/13 [History Last Taken Unknown] simvastatin 40 mg tablet 40 mg PO QHS 07/22/13 [History Last Taken Unknown] doxycycline hyclate 100 mg capsule 100 mg PO BID #14 caps 08/11/22 [Rx Last Taken Unknown] prednisone 20 mg tablet 40 mg (2 x 20 mg) PO DAILY #8 tabs 08/11/22 [Rx Last Taken Unknown] cephalexin 500 mg capsule 500 mg PO Q6 #40 CAPSULES 11/04/22 [Rx Last Taken Unknown] Allergy/AdvReac Type Severity Reaction Status Date / Time paroxetine Allergy PT UNSURE Verified 11/04/22 10:26 OF REACTION tramadol Allergy Other Verified 11/04/22 10:26 venlafaxine Allergy PT UNSURE Verified 11/04/22 10:26 OF REACTION formaldehyde AdvReac Other Verified 11/04/22 10:26 hydrocodone [From Vicodin] AdvReac Other Verified 11/04/22 10:26 Surgical History (Updated 11/05/22 @ 15:[address] Landen Crenshaw DO) History of total replacement of right hip Social History Smoking Status: Heavy Smoker (>10/day) ROS ROS ED Constitutional Constitutional ED: Reports chills and fever(s) Eyes Eyes: Denies blurry vision or change in vision ENT ENT ED: Reports rhinorrhea and sore throat Cardiovascular Cardiovascular: Denies chest pain or palpitations Respiratory/Chest Respiratory/Chest: Denies cough or dyspnea Gastrointestinal Gastrointestinal: Reports nausea and vomiting Genitourinary Genitourinary ED: Denies dysuria or hematuria Musculoskeletal Musculoskeletal: Reports back pain and neck pain Integumentary Reports rash; Denies abscess Neurologic Neurologic: Denies headache(s) or weakness Allergic/Immunologic Allergic/Immunologic ED: Denies mouth swelling or urticaria EXAM Physical Exam Const Vital Signs: 11/05/22 14:18 11/05/22 14:30 11/05/22 14:32 Temperature 98.8 F Temperature Source Temporal Pulse Rate 135 H 127 H Respiratory Rate 16 18 Respiratory Pattern Tachypnea Blood Pressure 129/71 H 134/81 H Blood Pressure Mean 90 98 Pulse Ox 96 Oxygen Delivery Method Room Air Room Air Oxygen Flow Rate (L/min) 93 11/05/22 15:20 11/05/22 16:54 Temperature 98.9 F Temperature Source Oral Pulse Rate 94 100 Respiratory Rate 17 18 Respiratory Pattern Blood Pressure 115/80 119/79 Blood Pressure Mean 91 92 Pulse Ox 95 95 Oxygen Delivery Method Room Air Room Air Oxygen Flow Rate (L/min) Positive well nourished and well developed General Appearance ED: well developed and NAD HEENT Reports moist mucous membranes Neck supple and no JVD Resp normal respiratory effort and clear to auscultation bilaterally Cardio regular rate and regular rhythm GI normal to inspection, nondistended, normoactive bowel sounds and non-tender Palpation: soft Extremity Extremity Narrative: There is erythema and warmth over the right lower leg. There is a small area of erythema over the distal thigh as well. There are no vesicles or pustules noted. There is no discharge or drainage noted. There are some mild tenderness. There is good range of motion of the right lower leg. Pedal pulses are equal bilateral. Sensation was intact to light touch in all digits. Strength is 5/5 bilaterally in the lower extremities. General Extremety ED: Negative for edema General Extremity: Negative for edema Neuro oriented x3, CN's II-XII intact bilaterally and no sensory deficits noted Sensorium / Orientation: alert Motor Exam: strength 5/5 throughout Psych mental status grossly normal Skin no rashes or lesions noted MDM MDM MDM Narrative Medical decision making narrative: Differential diagnosis includes cellulitis, sepsis, dehydration, electrolyte abnormality, and acute kidney injury. CBC will be obtained to assess for leukocytosis and anemia. Basic metabolic profile will be obtained to assess for electrolyte abnormality and renal function. Serum lactate will be obtained to assess for sepsis. History & Record Review Discussion w/independent historian: Patient Additional record(s) reviewed:: Prior ED visit and Prior labs Lab Data Attestation: I reviewed the patient's lab results. Lab results narrative: CBC was reviewed. White blood cell count was slightly elevated at 13.0. The remainder is within normal limits. Basic metabolic profile was reviewed and was essentially within normal limits. Serum lactate was reviewed and was normal at 1.5. Labs: Laboratory Results - last 24 hr 11/05/22 15:25 WBC 13.0 H RBC 5.26 Hgb 15.8 Hct 47.5 MCV 90.3 MCH 30.0 MCHC 33.3 RDW Std Deviation 45.1 H RDW Coeff of Rafa 13.6 Plt Count 219 MPV 9.9 Immature Gran % (Auto) 0.500 Neut % (Auto) 82.7 H Lymph % (Auto) 10.8 L [place] % (Auto) 5.4 Eos % (Auto) 0.3 Baso % (Auto) 0.3 Absolute Neuts (auto) 10.7 H Absolute Lymphs (auto) 1.40 Nucleated RBC % 0 Sodium 135 L Potassium 4.1 Chloride 102 Carbon Dioxide 25.0 Anion Gap 8 BUN 15 Creatinine 1.32 H Estim Creat Clear Calc 62.98 Est GFR (MDRD) Af Amer 72 Est GFR (MDRD) Non-Af 59 L BUN/Creatinine Ratio 11.4 Glucose 90 Lactic Acid 1.5 Calcium 9.0 Treatment and Re-Evaluation :: Patient was given IV fluids. Patient was given morphine and Unasyn. Patient was advised of his findings. Since he was just started on antibiotics yesterday, I do not feel that this is the reason to change his antibiotics. Patient was instructed to continue his antibiotics as prescribed. Patient was instructed to follow-up with his primary care physician in 3 to 5 days. Patient was advised that at that time his blood culture should be resulted. Patient understands and is agreeable with the plan. All questions were answered. Discharge Plan Triage Chief Complaint: Cellulitis ED Provider: Landen Crenshaw Dx/Rx/DC Orders Clinical Impression: Cellulitis of leg without foot, right Instructions: ED Cellulitis Prescriptions: No Action simvastatin 40 MG tablet 40 mg PO QHS Patient Comments: CHOLESTEROL meloxicam 7.5 MG tablet 7.5 mg PO DAILY Patient Comments: ARTHRITIS amitriptyline 25 MG tablet 25 mg PO QHS Patient Comments: DEPRESSION docusate sodium [DOK] 100 MG capsule 100 mg PO DAILY PRN PRN (Reason: Constipation) Patient Comments: STOOL SOFTENER lisinopril 5 MG tablet 5 mg PO DAILY Patient Comments: HEART/BLOOD PRESSURE fentanyl 75 MCG patch 75 mcg TRANSDERM. Q72H Patient Comments: PAIN fenofibrate [Lofibra] 160 MG tablet 160 mg PO DAILY Patient Comments: CHOLESTEROL ipratropium-albuterol [Combivent Respimat] 1 PUFF inhaler 1 puff inhalation Patient Comments: BREATHING prednisone 20 mg tablet 40 mg PO DAILY Qty: 8 0RF doxycycline hyclate 100 mg capsule 100 mg PO BID Qty: 14 0RF cephalexin [cephalexin] 500 mg capsule 500 mg PO Q6 Qty: 40 0RF Primary Care Provider: Kvng Fu Referrals: Kvng Fu MD [Primary Care Provider] - 3-5 Days Activity Restrictions/Additional Instructions: Continue your antibiotics as prescribed until gone. Disposition Disposition: Home, Self Care
[2022-11-05 15:20] VITALS: BP 115/80; PULSE 94; RESP 17; TEMP 37.2; O2SAT 95
[2022-11-05] MEDS: 0.9% Normal Saline 1,000 ML 1000 ML IV (15:29)
[2022-11-05] MEDS: Morphine 4 MG/ML Syringe IV (15:29)
[2022-11-05 15:42] LABS: Absolute Neutrophil Count 10.7 X10^3/uL (2.0-7.7); Basophil# 0.04 X10^3/uL; Basophil% 0.3 % (0-1); Eosinophil# 0.04 X10^3/uL; Eosinophils% 0.3 % (0-5); Hematocrit 47.5 % (40-54); Hemoglobin 15.8 g/dL (13.0-16.5); Lymphocyte % 10.8 % (19-41); Mean Corp Hgb Conc 33.3 g/dL (32-36); Mean Corpuscular Volume 90.3 fL (80-94); Mean Platelet Vol. 9.9 fl (6.2-12.0); Monocyte% 5.4 % (0-10); NRBC Flagged by Analyzer 0 % (0-5); Neutrophil # 10.71 X10^3/uL (2.7-7.7); Neutrophil % 82.7 % (47-70); Platelet Count 219 K/mm3 (150-450); RBC Distribution Width CV 13.6 % (11.6-14.6); RBC Distribution Width SD 45.1 fl (35.1-43.9); Red Blood Count 5.26 M/mm3 (4.6-6.2)
[2022-11-05 15:52] LABS: Anion Gap 8 (5-15); BUN 15 mg/dL (7-18); BUN/Creat Ratio 11.4 RATIO (10-20); Chloride 102 mmol/L (98-107); Creatinine, Serum 1.32 mg/dL (0.70-1.30); EST Glomerular Filtration Rate 59 mL/min (>60); Est Glom Filt Rate - Afr Amer 72 mL/min (>60); Estimated Creatinine Clearance 62.98 ml/min; Glucose 90 mg/dL (74-106); Potassium 4.1 mmol/L (3.5-5.1); Sodium Level 135 mmol/L (136-145)
[2022-11-05 16:31] LABS: Lactic Acid 1.5 mmol/L (0.4-1.9)
[2022-11-05 16:54] VITALS: BP 119/79; PULSE 100; RESP 18; O2SAT 95
[2022-11-05 17:20] VITALS: BP 133/69; PULSE 72; RESP 14; O2SAT 98
== END 2022-11-05 17:40 | disposition home or self-care (01) ==
PROVIDERS: Emergency Provider Emergency Medicine; PCP Internal Medicine; Visit Provider Emergency Medicine
DX: L03.115 Cellulitis of right lower limb (principal); I10 Essential (primary) hypertension; F17.200 Nicotine dependence, unspecified, uncomplicated; M54.9 Dorsalgia, unspecified
CPT/HCPCS: 80048; 83605; 85025; 87040; 96365; 96375; 99285; J7030; A4216; J0295

== ENCOUNTER → 2023-07-28 | Outpatient (CLI) | payer MEDICARE, MEDICAID, SELFPAY ==
[2023-07-28 13:13] LABS: Amphetamine Urine VISTA NEGATIVE (<1000 ng/mL); Barbiturate Urine VISTA NEGATIVE (< 200 ng/mL); Benzodiazepine Urine VISTA NEGATIVE (< 200 ng/mL); Cocaine Urine VISTA NEGATIVE (< 300 ng/mL); Ecstacy Urine VISTA NEGATIVE (< 500 ng/mL); Methadone Urine VISTA NEGATIVE (< 300 ng/mL); PCP Urine VISTA NEGATIVE (< 25 ng/mL); THC Urine VISTA NEGATIVE (< 50 ng/mL); Vista UDS pH Range 5
== END | disposition home or self-care (01) ==
PROVIDERS: PCP Internal Medicine; Referring Provider Anesthesiology Pain Medicine; Visit Provider Anesthesiology Pain Medicine
DX: F11.20 Opioid dependence, uncomplicated (principal)
CPT/HCPCS: 80307

== ENCOUNTER → 2024-02-09 | Outpatient (CLI) | payer MEDICARE, SELFPAY ==
--- NOTE | 2024-02-09 12:55 | RAD_ITS ---
STUDY: X-RAY - LUMBAR SPINE REASON FOR EXAM: Male, 58 years old. FALL TECHNIQUE: 2 view(s) of the lumbar spine were obtained. COMPARISON: None FINDINGS: Normal lumbar lordosis. There is no substantial scoliosis. There is a normal alignment of the vertebrae. Normal vertebral bodies and endplates. Normal disc space heights. Possible transitional vertebrae L5-S1. Possible bilateral uroliths measuring up to 9 x 17 mm on the left. Right total hip arthroplasty and surgical clips. The soft tissue structures are unremarkable. RAD/Lumbar Spine 2 or 3 Views IMPRESSION: Transitional vertebrae. No acute fracture noted. Possible bilateral nephroliths. Electronically Signed: Stephen Hernandez MD at 20:12 EDT ,
--- NOTE | 2024-02-09 12:55 | RAD_ITS ---
STUDY: X-RAY - SACRUM/COCCYX REASON FOR EXAM: Male, 58 years old. FALL TECHNIQUE: 3 views of the sacrum and coccyx were obtained. COMPARISON: None. FINDINGS: There is a right hip arthroplasty in place. There are multiple yojana overlying the right pelvis. Normal bilateral sacroiliac joints. Normal visualized sacral ala and fused sacral bodies. Normal sacrococcygeal junction with a normal angulation. Normal coccygeal segments. The presacral soft tissue structures are unremarkable. There is no demonstrated fracture or destructive osseous process. RAD/Sacrum-Coccyx min 2 Views IMPRESSION: No demonstrated fracture. Electronically Signed: Cisco Kc MD at 16:07 EDT ,
== END | disposition home or self-care (01) ==
PROVIDERS: PCP Internal Medicine; Referring Provider Anesthesiology Pain Medicine; Visit Provider Anesthesiology Pain Medicine
DX: M47.817 Spondylosis without myelopathy or radiculopathy, lumbosacral region (principal); M53.3 Sacrococcygeal disorders, not elsewhere classified
CPT/HCPCS: 72100; 72220

== ENCOUNTER → 2024-06-22 | Outpatient (CLI) | payer MEDICARE, SELFPAY ==
[2024-06-22 16:31] LABS: Amphetamine Urine NEGATIVE (<1000 ng/mL); Barbiturate Urine NEGATIVE (< 200 ng/mL); Benzodiazepine Urine NEGATIVE (< 200 ng/mL); Buprenorphine Urine NEGATIVE (< 200 ng/mL); Cocaine Urine NEGATIVE (< 300 ng/mL); Fentanyl, Urine NEGATIVE; Methadone Urine NEGATIVE (< 300 ng/mL); Opiates Urine PRESUMPTIVE POSITIVE (< 300 ng/mL); Oxycodone, Urine NEGATIVE (< 100 ng/mL); PCP Urine NEGATIVE (< 25 ng/mL); THC Urine NEGATIVE (< 50 ng/mL)
== END | disposition home or self-care (01) ==
PROVIDERS: PCP Internal Medicine; Referring Provider Anesthesiology Pain Medicine; Visit Provider Anesthesiology Pain Medicine
DX: F11.20 Opioid dependence, uncomplicated (principal)
CPT/HCPCS: 80307

== ENCOUNTER 2024-11-06 13:18 | Emergency (ER) | payer MEDICARE, SELFPAY ==
[2024-11-06 13:18] VITALS: BP 143/77; PULSE 118; RESP 14; TEMP 36.8; O2SAT 98; BMI 28.1
[2024-11-06 13:20] VITALS: BP 126/75; PULSE 107; RESP 16; TEMP 36.9; O2SAT 99
--- NOTE | 2024-11-06 14:07 | EX.ED.DYSGE1 ---
HPI History of Present Illness Chief Complaint: Cellulitis Informant: patient Onset/Context/Timing Onset: Days (4) Context: Gradual Onset Timing: Continuous Quality: Cramping, tightness Location: Right lower extremity Worsened by: Walking Relieved by: Nothing Narrative Narrative: Patient presents with cellulitis to his right lower extremity that has been getting worse over the past 4 days. Patient denies any trauma or injury. Patient states the pain is constant. Patient describes it as cramping and tightness. Patient states the pain is worse with walking. Patient states nothing makes it better. Patient denies any paresthesias or weakness. Patient denies any fevers or chills. Patient states he recently stopped his Eliquis due to preparation for bronchoscopy. Patient states that his bronchoscopy was canceled because he had a bedbug on him at the time. [facility] Medical History Smoker Infestation by bed bug Bronchitis Asthma HTN (hypertension) Narcotic dependence Chronic back pain Home Medications ?Medication ?Instructions ?Recorded ?Last Taken ?Type amitriptyline 25 mg tablet 25 mg PO QHS 07/22/13 11/05/24 History docusate sodium 100 mg capsule 100 mg PO DAILY PRN PRN 07/22/13 Unknown History (DOK) Constipation atorvastatin 10 mg tablet 10 mg PO QHS 11/06/24 11/05/24 History cephalexin 500 mg capsule 500 mg PO Q6 #40 CAPSULES 11/06/24 Unknown Rx cetirizine 10 mg tablet 10 mg PO DAILY 11/06/24 11/05/24 History morphine 15 mg tablet,extended 15 mg PO DAILY 11/06/24 11/05/24 History release pregabalin 100 mg capsule 100 mg PO BID 11/06/24 11/05/24 History rivaroxaban 20 mg tablet (Xarelto) 20 mg PO QPM 11/06/24 11/05/24 History tizanidine 4 mg tablet 4 mg PO TID 11/06/24 Unknown History triamcinolone acetonide 0.5 % 1 applic topical TID PRN rash 11/06/24 Unknown History topical cream Allergy/AdvReac Type Severity Reaction Status Date / Time paroxetine Allergy PT UNSURE Verified 11/06/24 13:20 OF REACTION tramadol Allergy Other Verified 11/06/24 13:20 venlafaxine Allergy PT UNSURE Verified 11/06/24 13:20 OF REACTION formaldehyde AdvReac Other Verified 11/06/24 13:20 hydrocodone (From Vicodin) AdvReac Other Verified 11/06/24 13:20 Surgical History History of total replacement of right hip Social History Smoking Status: Heavy Smoker (>10/day) ROS ROS ED Constitutional Constitutional ED: Denies chills or fever(s) Eyes Eyes: Reports blurry vision; Denies diplopia ENT ENT ED: Denies rhinorrhea or sore throat Cardiovascular Cardiovascular: Denies chest pain or palpitations Respiratory/Chest Respiratory/Chest: Denies cough or dyspnea Gastrointestinal Gastrointestinal: Denies nausea or vomiting Genitourinary Genitourinary ED: Denies dysuria or hematuria Musculoskeletal Musculoskeletal: Reports back pain and neck pain Integumentary Reports rash; Denies abscess Neurologic Neurologic: Denies headache(s) or weakness Allergic/Immunologic Allergic/Immunologic ED: Denies mouth swelling or urticaria EXAM Physical Exam Const Vital Signs: 11/06/24 13:18 11/06/24 13:20 11/06/24 14:38 Temperature 98.2 F 98.4 F 98.4 F Temperature Source Oral Oral Oral Pulse Rate 118 H 107 H 108 H Respiratory Rate 14 16 16 Blood Pressure 143/77 H 126/75 H 126/75 H Blood Pressure Mean 99 92 92 Pulse Ox 98 99 97 Oxygen Delivery Method Room Air Room Air 11/06/24 15:24 11/06/24 15:27 11/06/24 16:19 Temperature 98.3 F 98.3 F Temperature Source Temporal Pulse Rate 108 H 108 H 108 H Respiratory Rate 18 19 H 19 H Blood Pressure 125/81 H 125/81 H Blood Pressure Mean 95 95 Pulse Ox 96 95 95 Oxygen Delivery Method Room Air Positive well nourished and well developed General Appearance ED: well developed and NAD HEENT Reports moist mucous membranes Neck supple and no JVD Resp normal respiratory effort and clear to auscultation bilaterally Cardio regular rhythm Rate: tachycardic GI non-tender and non-distended Palpation: soft Extremity Extremity Narrative: There is tenderness, edema, erythema, and warmth over the right lower leg. There are no vesicles or pustules noted. There is no discharge or drainage noted. There is full range of motion. Strength is 5/5 bilaterally in the lower extremities. There are no sensory deficits noted. Pedal pulses are equal bilaterally. Neuro oriented x3, CN's II-XII intact bilaterally and no sensory deficits noted Sensorium / Orientation: alert Motor Exam: strength 5/5 throughout Psych mental status grossly normal MDM MDM MDM Narrative Medical decision making narrative: Differential diagnosis includes DVT, cellulitis, peripheral edema, electrolyte abnormality, and anxiety. Venous duplex of the right lower extremity will be obtained to assess for DVT. CBC will be obtained to assess for leukocytosis and anemia. Basic metabolic profile will be obtained to assess for electrolyte abnormality and renal function. History & Record Review Additional record(s) reviewed:: Prior outpatient record and Prior labs Lab Data Attestation: I reviewed the patient's lab results. Lab results narrative: CBC was reviewed. There is a mild leukocytosis of 11.9. Basic metabolic profile was reviewed. Sodium was slightly low at 130 chloride was slightly low at 93. The remainder is within normal limits. Labs: Laboratory Results - last 24 hr 11/06/24 14:30 WBC 11.9 H RBC 4.66 Hgb 13.9 Hct 38.4 L MCV 82.4 MCH 29.8 MCHC 36.2 H RDW Std Deviation 45.1 H RDW Coeff of Rafa 15.0 H Plt Count 214 MPV 11.4 Immature Gran % (Auto) 0.600 Neut % (Auto) 82.3 H Lymph % (Auto) 7.8 L [place] % (Auto) 8.5 Eos % (Auto) 0.6 Baso % (Auto) 0.2 Absolute Neuts (auto) 9.8 H Absolute Lymphs (auto) 0.93 Nucleated RBC % 0 Sodium 130 L Potassium 3.5 Chloride 93 L Carbon Dioxide 25.1 Anion Gap 13 BUN 11 Creatinine 0.90 Estim Creat Clear Calc 97.98 Est GFR (MDRD) Non-Af 98 BUN/Creatinine Ratio 11.8 Glucose 111 H Calcium 8.4 Radiography Diagnostic Testing: Clinical Impression(s) from Imaging Studies Venous Doppler Study 11/06/24 14:40 Interpretation Summary Chronic venous changes are noted in the right gastrocnemius vein, which is partially compressible and demonstrates bright intraluminal echogenicity. The remainder of the right lower extremity deep venous system is patent and compressible. Valvular competence appears intact within the proximal deep venous system on the right . The right great saphenous vein appears patent and compressible segmentally. The left common femoral vein is patent and compressible . Ordering Physician: Landen Crenshaw Referring Physician: Kvng Fu M.D. Performed By: Lizette Olivera RVT Venous duplex of the right lower extremity was obtained. There is no evidence of DVT. Treatment and Re-Evaluation :: Patient was given a dose of Ancef here. Patient was advised of his findings. I do not feel the patient needs to be admitted to the hospital for IV antibiotics. Patient was given a prescription for Keflex. Patient was instructed to take it 4 times daily. Patient was instructed to continue his other medications as prescribed. Patient was instructed to follow-up with his primary care physician in 3 to 5 days. Patient was instructed to return if worse in any way. Patient understood and was agreeable with the plan. All questions were answered. Discharge Plan Triage Chief Complaint: Cellulitis ED Provider: Landen Crenshaw Dx/Rx/DC Orders Clinical Impression: Cellulitis of right lower leg, Tobacco use Instructions: ED Cellulitis Prescriptions: New cephalexin 500 mg capsule 500 mg PO Q6 Qty: 40 0RF No Action amitriptyline 25 MG tablet 25 mg PO QHS Patient Comments: DEPRESSION docusate sodium [DOK] 100 MG capsule 100 mg PO DAILY PRN PRN (Reason: Constipation) Patient Comments: STOOL SOFTENER cetirizine 10 mg tablet 10 mg PO DAILY atorvastatin 10 mg tablet 10 mg PO QHS morphine 15 mg tablet extended release 15 mg PO DAILY pregabalin 100 mg capsule 100 mg PO BID Xarelto 20 mg tablet 20 mg PO QPM tizanidine 4 mg tablet 4 mg PO TID triamcinolone acetonide 0.5 % cream 1 applic topical TID PRN (Reason: rash) Primary Care Provider: Kvng Fu Referrals: Kvng Fu MD [Primary Care Provider] - 3-5 Days Print Language: Turkmen Disposition Disposition: Home, Self Care Discharge Date/Time: 11/06/24 16:26
[2024-11-06 14:38] VITALS: BP 126/75; PULSE 108; RESP 16; TEMP 36.9; O2SAT 97
--- NOTE | 2024-11-06 14:40 | VDLE_ITS ---
Reason For Study Reason For Study: Right leg pain RIGHT LEFT GSV is normal. CFV is compressible, spontaneous, phasic, competent, CFV is compressible, spontaneous, phasic, competent and demonstrates normal augmentation. and demonstrates normal augmentation. FV is compressible, spontaneous, phasic, competent and demonstrates normal augmentation. POP V is compressible, spontaneous, phasic, competent and demonstrates normal augmentation. T/P Trunk is compressible. PTV is compressible. RT PerV is compressible. GastrocV is partially comrpessible with bright intraluminal echoes consistent with Chronic DVT. Procedure This is a venous duplex using B-mode, color flow and spectral Doppler. Exam performed portable in ED. A preliminary report was called and/or faxed to Dr. Crenshaw. VL/Venous Duplex US, Unilateral Interpretation Summary Chronic venous changes are noted in the right gastrocnemius vein, which is part ially compressible and demonstrates bright intraluminal echogenicity. The remainder of the right lower extremity de ep venous system is patent and compressible. Valvular competence appears intact within the proximal deep venou s system on the right . The right great saphenous vein appears patent and compressible segmentally. The left common fem oral vein is patent and compressible . Ordering Physician: Landen Crenshaw Referring Physician: Kvng Fu M.D. Performed By: Lizette Olivera RVT
[2024-11-06 15:15] LABS: Hematocrit 38.4 % (40-54); Hemoglobin 13.9 g/dL (13.0-16.5); Immature Granulocytes Count 0.070 X10^3/uL (0.0-0.0); Mean Corp Hgb Conc 36.2 g/dL (32-36); Mean Corpuscular Volume 82.4 fL (80-94); Mean Platelet Vol. 11.4 fl (6.2-12.0); NRBC Flagged by Analyzer 0 % (0-5); Platelet Count 214 K/mm3 (150-450); RBC Distribution Width CV 15.0 % (11.6-14.6); RBC Distribution Width SD 45.1 fl (35.1-43.9); Red Blood Count 4.66 M/mm3 (4.6-6.2); White Blood Count 11.9 K/mm3 (4.4-11.0)
[2024-11-06] MEDS: Cefazolin 1 GM/50 ML BAG IV (15:21)
[2024-11-06 15:24] VITALS: PULSE 108; RESP 18; O2SAT 96
[2024-11-06 15:27] VITALS: BP 125/81; PULSE 108; RESP 19; TEMP 36.8; O2SAT 95
[2024-11-06 15:31] LABS: Anion Gap 13 (5-15); BUN 11 mg/dL (4-19); BUN/Creat Ratio 11.8 RATIO (10-20); Calcium,Total 8.4 mg/dL (7.6-11.0); Carbon Dioxide 25.1 mmol/L (21.0-32.0); Chloride 93 mmol/L (98-108); Estimated Creatinine Clearance 97.98 ml/min (50-250); Glucose 111 mg/dL (70-99); Potassium 3.5 mmol/L (3.3-5.1)
[2024-11-06 16:19] VITALS: BP 125/81; PULSE 108; RESP 19; TEMP 36.8; O2SAT 95
--- OUTSIDE RECORDS SUMMARY | 2024-11-06 22:56 | XMS RPT_ITS | CCD ---
Author Organization [facility] Care Team Providers Care Rail Layer Name Role Phone ANA DEL CID Unavailable Unavailable ANA DEL CID Unavailable Unavailable Kvng Fu MD Primary Care Provider Tank RITTER, Kvng Dsouza Primary Care Provider Tank RITTER, Kvng Dsouza Primary Care Provider [phone] Tank RITTER, Kvng Dsouza Primary Care Provider Naomi Light APRN.CNP Unavailable Andrew Camp Attending Unavailable Kvng Fu Primary Care Unavailable Andrew Camp Referring Unavailable Andrew Camp Attending Unavailable Kvng Fu Primary Care Unavailable BasaliAndrew Referring Unavailable Basali, Andrew Referring Unavailable Basali, Andrew Attending Unavailable Kvng Fu Primary Care Unavailable Tank RITTER, Dr. Calderon Primary Care Provider Dr. Andrew Camp MD Attending Provider Dr. Andrew Camp MD Referring Provider [phone] PROVIDER, UNKNOWN Referring Unavailable KVNG FU Primary Care Unavailable KVNG FU Primary Care Unavailable NAOMI LIGHT Referring Unavailable SHAQUILLE BOOKER Attending Unavailable KVNG FU Primary Care Unavailable SHAQUILLE BOOKER Referring Unavailable RENEA RAMSEY Referring Unavailable KVNG FU Primary Care Unavailable TANK, KVNG Dsouza Primary Care Unavailable JIM BOOKERA Referring Unavailable KVNG FU Primary Care Unavailable ADE, SHAQUILLE Referring Unavailable KVNG FU Primary Care Unavailable JIM BOOKERA Referring Unavailable KVNG FU Primary Care Unavailable SHAQUILLE BOOKER Referring Unavailable NAOMI LIGHT Attending Unavailable KVNG FU Primary Care Unavailable NAOMI LIGHT Attending Unavailable KVNG FU Primary Care Unavailable KVNG FU Attending Unavailable KVNG FU Primary Care Unavailable Tank RITTER, Dr. Calderon Primary Care Provider Dr. Landen Crenshaw DO Referring Provider [phone] [address] Landen Crenshaw DO Emergency Provider Allergies Allergy Classification Reported Allergen(s) Allergy Type Date of Onset Reaction(s) Facility (20 sources) Acetaminophen / HYDROcodone; Translations: [HYDROCODONE-ACET AMINOPHEN] Drug Allergy 6 Other: See Comments [facility] Rep[facility] (20 sources) Formaldehyde; Translations: [FORMALDEHYDE] Drug Allergy 3 Other: See Comments [facility] (20 sources) Latex; Translations: [LATEX] Propensity to adverse reactions to drug (disorder) 6 [facility] (20 sources) PARoxetine; Translations: [PAROXETINE HCL] Drug Allergy 3 Other: See Comments [facility] (20 sources) traMADol; Translations: [TRAMADOL] Drug Allergy 7 Mental Status Change [facility] (20 sources) venlafaxine; Translations: [VENLAFAXINE HCL] Drug Allergy 3 Other: See Comments [facility] (1 source) Acetaminophen Drug Allergy 3 Other [facility] (5 sources) HYDROcodone Drug Allergy 3 Other [facility] (5 sources) PARoxetine Drug Allergy 3 PT UNSURE OF REACTION [facility] (5 sources) venlafaxine Drug Allergy 3 PT UNSURE OF REACTION [facility] (1 source) HYDROcodone Drug Allergy 3 [facility] Repository (1 source) PARoxetine Drug Allergy 3 [facility] Repository (1 source) venlafaxine Drug Allergy 3 [facility] Repository Medications Current Medications Medication Drug Class(es) Dates Sig (Normalized) Sig (Original) [id number] actuat albuterol 0.09 mg/actuat metered dose inhaler (20 sources) beta2-Adrenergic Agonist Start: 01-25-2024 take 2 puff(s) by inhalation every four hours as needed albuterol HFA (PROAIR HFA) 90 mcg/actuation inhaler Indications: Chronic obstructive pulmonary disease, unspecified COPD type (HCC) Inhale 2 Puffs as instructed every 4 hours as needed. 18 g 2 01/25/2024 Active Start: 01-16-2021 End: 08-04-2022 take 2 puff(s) by inhalation every four hours as needed albuterol HFA (PROAIR HFA) 90 mcg/actuation inhaler Indications: Chronic obstructive pulmonary disease, unspecified COPD type (HCC) Inhale 2 Puffs as instructed every 4 hours as needed. 18 g 2 01/16/2021 08/04/2022 Discontinued (Course of therapy completed) Comment on above: Inhale 2 Puffs as in structed every 4 hours as needed. amitriptyline hydrochloride 25 mg oral tablet (20 sources) Tricyclic Antidepressant Start: 07-23-19 14 take 1 tablet by mouth once daily at bedtime amitriptyline (ELAVIL) 25 mg tablet Take 1 tablet by mouth daily at bedtime. Dr. Camp 01/10/2021 Active Comment on above: Take 1 tablet by imelda th daily at bedtime. Dr. Camp atorvastatin 10 mg oral tablet (20 sources) HMG-CoA Reductase Inhibitor Start: 03-03-20 End: 09-06-19 take 1 tablet by mouth at bedtime Atorvastatin 10 mg tablet Active 10 mg PO AT BEDTIME November 06, 2024 12:00am Start: 09-27-2020 End: 09-01-2022 take 1 tablet by mouth once daily at bedtime for hyperlipidemia atorvastatin (LIPITOR) 10 mg tablet Indications: Hyperlipidemia, unspecified hyperlipidemia type Take 1 tablet by mouth daily at bedtime. For cholesterol. 30 tablet 5 02/13/2022 09/01/2022 Discontinued Comment on above: Take 1 tablet by imelda th daily at bedtime. For cholesterol. cephalexin 500 mg oral capsule (11 sources) Cephalosporin Antibacterial Start: 3 End: 5 take 1 capsule by mouth every six hours Cephalexin 500 mg capsule Active 500 mg PO EVERY 6 HOURS 40 0 November 06, 2024 12:00am Start: 07-28-2022 End: 08-04-2022 take 1 capsule by mouth four times daily cephALEXin (KEFLEX) 500 mg capsule Take 1 capsule by mouth four times daily for 7 days. 28 capsule 07/28/2022 08/04/2022 End: 10-01-2021 take 1 capsule by mouth every six hours cephALEXin (KEFLEX) 500 mg capsule Take 500 mg by mouth every 6 hours. 0 10/01/2021 Discontinued (Course of therapy completed) Comment on above: Take 500 mg by mouth every 6 hours. Take 1 capsule by mo [facility] four times daily for 7 days. cetirizine hydrochloride 10 mg oral tablet (20 sources) Histamine-1 Receptor Antagonist Start: 4 take 1 tablet by mouth once daily Cetirizine 10 mg tablet Active 10 mg PO DAILY November 06, 2024 12:00am Start: 05-03-2023 End: 02-03-2024 take 1 tablet by mouth once daily cetirizine (ZYRTEC) 10 mg tablet Take 1 tablet by mouth once daily. 30 tablet 2 11/05/2023 02/03/2024 Discontinued Start: 05-01-2022 End: 02-01-2023 take 1 tablet by mouth once daily cetirizine (ZYRTEC) 10 mg tablet Take 1 tablet by mouth once daily. 30 tablet 2 07/28/2022 11/02/2022 Discontinued Start: 01-16-2021 End: 01-26-2022 take 1 tablet by mouth once daily cetirizine (ZYRTEC) 10 mg tablet Indications: Rhinitis, unspecified type Take 1 tablet by mouth once daily. 30 tablet 2 01/26/2022 Active Comment on above: [facility] COMPOUNDED PRESCRIPTION (20 sources) COMPOUNDED PRESC RIPTION 1 capsule as needed. OTC stool softner Active COMPOUNDED PRESC RIPTION 1 capsule as needed. OTC stool softner 0 Active Comment on above: 1 capsule as needed. OTC stool softner docusate sodium 100 mg oral capsule (7 sources) Start: 03-29-201 4 take 1 capsule by mouth once daily as needed for constipation Docusate Sodium (Dok) 100 MG capsule Active 100 mg PO DAILY NEEDED as needed for Constipation July 22, 2013 12:00am furosemide 20 mg oral tablet (20 sources) Loop Diuretic Start: End: take 1 tablet by mouth once daily as needed furosemide (LASIX) 20 mg tablet Take 1 tablet by mouth once daily as needed. 30 tablet 2 01/25/2024 Active Start: 11-18-2022 End: 02-03-2023 take 1 tablet by mouth once daily furosemide (LASIX) 20 mg tablet Indications: Cellulitis of right leg , Edema of right lower leg Take 1 tablet by mouth once daily for 7 days. 7 tablet 0 11/18/2022 02/03/2023 Discontinued (Course of therapy completed) Comment on above: Take 1 tablet by imelda th once daily for 7 days. morphine sulfate 15 mg extended release oral tablet (20 sources) Opioid Agonist Start: 07-28-2024 take 1 tablet by mouth once daily Morphine 15 mg tablet extended release Active 15 mg PO DAILY November 06, 2024 12:00am End: 09-08-2023 take 1 tablet by mouth once daily, then take 1 tablet by mouth every twelve hours morphine SR (MS CONTIN, ORAMORPH SR) 15 mg 12 hr tablet Indications: Intervertebral lumbar disc disorder with myelopathy, lumbar region Take 15 mg by mouth once daily. 09/08/2023 Discontinued Comment on above: Take 15 mg by mouth once daily. polyethylene glycol 3350 282233 mg / potassium chloride 2970 mg / sodium bicarbonate 6740 mg / sodium chloride 5860 mg / sodium sulfate 05061 mg powder for oral solution (13 sources) Osmotic Laxative Start: 11-24-2022 End: 11-24-2022 peg 3350-Electrolytes (GOLYTELY) 236-22.74-6.74 -5.86 gram suspension Take 4,000 mL by mouth one time only for 1 dose. 1 Each 0 11/24/2022 11/24/2022 Active Start: 04-08-2021 End: 08-04-2022 peg 3350-Electrolytes (GOLYT JONEL) 236-22.74-6.74 -5.86 gram suspension Refer to printed prep instructions from your provider. 4000 mL 04/08/2021 08/04/2022 Discontinued Comment on above: Refer to printed pre p instructions from your provider. Take 4,000 mL by imelda th one time only for 1 dose. pregabalin 100 mg oral capsule (20 sources) Start: take 1 capsule by mouth twice daily Pregabalin 100 mg capsule Active 100 mg PO TWICE A DAY November 06, 2024 12:00am Comment on above: Take 1 capsule by mo [facility] twice daily. Per Dr. Camp. rivaroxaban 20 mg oral tablet (20 sources) Factor Xa Inhibitor Start: End: take 1 tablet by mouth once daily at dinner rivaroxaban (XARELTO) 20 mg tablet Take 1 tablet by mouth daily with dinner. 30 tablet 5 09/26/2024 03/25/2025 Active Start: 08-04-2022 End: 09-20-2024 take 1 tablet by mouth once daily at dinner rivaroxaban (XARELTO) 20 mg tablet Take 1 tablet by mouth daily with dinner. 30 tablet 08/21/2024 09/20/2024 Active Comment on above: Take 1 tablet by imelda th daily with dinner. tiZANidine 4 mg oral tablet (20 sources) Central alpha-2 Adrenergic Agonist Start: 08-05-2023 take 1 tablet by mouth three times daily Tizanidine 4 mg tablet Active 4 mg PO THREE TIMES A DAY November 06, 2024 12:00am Start: 10-21-2017 End: 08-05-2023 take 1 tablet by mouth once tiZANidine (ZANAFLEX) 4 mg tablet Take 1 tablet by mouth once daily. Per Dr. Camp 10/21/2017 08/05/2023 Discontinued Comment on above: Take 1 tablet by imelda th once daily. Per Dr. Camp Take 1 tablet by imelda th three times a day. Per Dr. Camp triamcinolone acetonide 5 mg/ml topical cream (20 sources) Corticosteroid Start: 11-06-2024 Triamcinolone Acetonide 0.5 % cream Active 1 NMA TOPICAL THREE TIMES A DAY as needed for rash November 06, 2024 12:00am Start: 02-03-2023 End: 01-18-2024 triamcinolone acetonide (LEON ALOG) 0.5 % cream Apply 1 application to affected area three times a day as needed. For rash/itching. Apply sparingly. Avoid face/skin fold. 30 g 3 08/05/2023 01/18/2024 Discontinued Comment on above: Apply 1 application to affected area three times a day as needed. For rash/itching. Apply sparingly. Avoid face/skin fold. Completed/Discontinued Medications Medication Drug Class(es) Dates Sig (Normalized) Sig (Original) 120 actuat albuterol 0.1 mg/actuat / ipratropium bromide 0.02 mg/actuat inhalation spray (7 sources) Anticholinergic, beta2-Adrenergic Agonist Start: 07-22-2013 End: 11-06-2024 Ipratropium-Albuter ol (Combivent Respimat) 1 PUFF inhaler Discontinued 1 NMA INHALATION July 22, 2013 12:00am November 06, 2024 2:30pm Start: 07-22-2013 Ipratropium-Al buterol (Combivent Respimat) 1 PUFF inhaler Active 1 PUFF INHALATION July 22, 2013 12:00am apixaban 5 mg oral tablet (12 sources) Factor Xa Inhibitor Start: 05-12-2021 End: 08-04-2022 take 1 tablet by mouth twice daily apixaban (ELIQUIS) 5 mg tab(s) Indications: Recurrent deep vein thrombosis (DVT) (HCC) Take 1 tablet by mouth twice daily. 60 tablet 5 02/13/2022 08/04/2022 Discontinued (Clinical Decision) Comment on above: Take 1 tablet by [facility] twice daily. betamethasone 0.5 mg/ml topical lotion (8 sources) Corticosteroid Start: 01-18-2024 End: 07-28-2024 Betamethasone Dipropionate 0.05 % lotion Apply to right lower leg twice a day 60 mL 2 01/18/2024 07/28/2024 Discontinued (Course of therapy completed) doxycycline hyclate 100 mg oral capsule (5 sources) Tetracycline-class Drug Start: 08-11-2022 End: 11-06-2024 take 1 capsule by mouth twice daily Doxycycline Hyclate 100 mg capsule Discontinued 100 mg PO TWICE A DAY 14 0 August 11, 2022 12:00am [place] 14th, 2025 1:46pm DULoxetine 60 mg delayed release oral capsule (7 sources) Serotonin and Norepinephrine Reuptake Inhibitor Start: 07-22-2013 End: 07-24-2013 take 1 capsule by mouth once daily Duloxetine [address] Discontinued 60 mg PO DAILY July 22, 2013 12:00am July 24, 2013 4:24pm fenofibrate 160 mg oral tablet (7 sources) Peroxisome Proliferator Receptor alpha Agonist Start: 07-22-2013 End: 11-06-2024 take 1 tablet by mouth once daily Fenofibrate (Lofibra) 160 MG tablet Discontinued 160 mg PO DAILY July 22, 2013 12:00am November 06, 2024 2:33pm 72 hr fentaNYL 0.075 mg/hr transdermal system (7 sources) Opioid Agonist Start: 07-22-2013 End: 11-06-2024 Fentanyl 75 MCG patch Discontinued 75 ug TRANSDERM. Q72H July 22, 2013 12:00am November 06, 2024 2:30pm hydrOXYzine hydrochloride 25 mg oral tablet (7 sources) Antihistamine Start: 02-03-2023 End: 08-05-2023 take 25-50 mg by mouth every six hours as needed hydrOXYzine HCl (ATARAX) 25 mg tablet Take 1-2 tablets by mouth four times a day as needed for itching/rash. 30 tablet 1 02/03/2023 08/05/2023 Discontinued Comment on above: Take 1-2 tablets by mouth four times a day as needed for itching/rash. lisinopril 5 mg oral tablet (7 sources) Angiotensin Converting Enzyme Inhibitor Start: 07-22-2013 End: 11-06-2024 take 1 tablet by mouth once daily Lisinopril 5 MG tablet Discontinued 5 mg PO DAILY July 22, 2013 12:00am November 06, 2024 2:31pm meloxicam 7.5 mg oral tablet (7 sources) Nonsteroidal Anti-inflammatory Drug Start: 07-22-2013 End: 11-06-2024 take 1 tablet by mouth once daily Meloxicam 7.5 MG tablet Discontinued 7.5 mg PO DAILY July 22, 2013 12:00am November 06, 2024 2:31pm predniSONE 20 mg oral tablet (5 sources) Start: 08-11-2022 End: 11-06-2024 take 2 tablets by mouth once daily Prednisone 20 mg tablet Discontinued 40 mg PO DAILY 8 August 11, 2022 12:00am November 06, 2024 2:31pm Start: 08-11-2022 take 40 mg by mouth once daily Prednisone Active 40 MG PO DAILY August 11, 2022 12:00am simvastatin 40 mg oral tablet (7 sources) HMG-CoA Reductase Inhibitor Start: 07-22-2013 End: 11-06-2024 take 1 tablet by mouth at bedtime Simvastatin 40 MG tablet Discontinued 40 mg PO AT BEDTIME July 22, 2013 12:00am November 06, 2024 2:33pm Problems Active Problems Problem Classification Problem Date Documented Da te Episodic/Chronic Abdominal hernia (3 sources) Umbilical hernia; Translations: [Umbilical hernia without obstruction or gangrene] 09-01-2023 Episodic Allergic reactions (20 sources) Allergic disorder of skin; Translations: [Allergic contact dermatitis, unspecified cause] 04-21-2021 Episodic Blindness and vision defects (20 sources) Blind right eye; 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, one eye, unspecified eye] Onset: 01-11-2015 01-11-2015 Chronic Blindness and vision defects (1 source) Blind right eye; 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, one eye, unspecified eye] 03-15-2023 Chronic Chronic obstructive pulmonary disease and bronchiectasis (20 sources) Chronic obstructive lung disease; Translations: [Chronic obstructive pulmonary disease, unspecified] Onset: 2017 2017 Chronic Diabetes mellitus without complication (3 sources) Increased glucose level; Translations: [Other abnormal glucose] Onset: 08-23-2024 08-05-2023 Episodic Disorders of lipid metabolism (20 sources) Hyperlipidemia; Translations: [Hyperlipidemia, unspecified] Onset: 05-06-2013 05-06-2013 Chronic E Codes: Natural/environment (1 source) Bitten or stung by nonvenomous insect and other nonvenomous arthropods, subsequent encounter; Translations: [Other specified aftercare] 02-03-2023 Episodic Fever of unknown origin (1 source) Low grade pyrexia; Translations: [Fever, unspecified] 11-06-2024 Episodic Immunizations and screening for infectious disease (1 source) Vaccination needed; Translations: [Encounter for immunization] Episodic Other aftercare (2 sources) Long-term current use of anticoagulant; Translations: [FCI (current) use of anticoagulants] Episodic Other and unspecified benign neoplasm (1 source) History of polyp of colon; Translations: [Personal history of colonic polyps] 11-24-2022 Episodic Other connective tissue disease (20 sources) History of total replacement of right hip joint; Translations: [Presence of right artificial hip joint] Onset: 03-15-2023 03-15-2023 Chronic Other diseases of veins and lymphatics (2 sources) Stasis dermatitis; Translations: [Venous insufficiency (chronic) (peripheral)] 01-18-2024 Episodic Other injuries and conditions due to external causes (2 sources) Injury of left knee; Translations: [Unspecified injury of left lower leg, subsequent encounter] Episodic Other liver diseases (20 sources) Steatosis of liver; Translations: [Fatty (change of) liver, not elsewhere classified] Onset: 03-15-2023 03-15-2023 Chronic Other lower respiratory disease (3 sources) Multiple nodules of lung; Translations: [Other nonspecific abnormal finding of lung field] Episodic Other lower respiratory disease (1 source) Hemoptysis; Translations: [Hemoptysis] 10-25-2024 Episodic Other non-traumatic joint disorders (4 sources) Pain in left knee; Translations: [Pain in joint, lower leg] Episodic Other non-traumatic joint disorders (1 source) Hip pain; Translations: [Pain in right hip] 07-20-2022 Episodic Other nutritional; endocrine; and metabolic disorders (20 sources) Obese class I; Translations: [Obesity, unspecified] Onset: 05-12-2021 05-12-2021 Chronic Other upper respiratory disease (1 source) Rhinitis; Translations: [Chronic rhinitis] Chronic Other upper respiratory infections (5 sources) Pharyngitis; Translations: [Acute pharyngitis, unspecified] 11-04-2022 Episodic Phlebitis; thrombophlebitis and thromboembolism (20 sources) Acute deep vein thrombosis of lower limb; Translations: [Acute embolism and thrombosis of unspecified deep veins of right proximal lower extremity] Onset: 08-30-2013 Resolved: 02-13-2022 04-26-2021 Episodic Residual codes; unclassified (1 source) Family history of malignant neoplasm of digestive organs; Translations: [Family history of malignant neoplasm of digestive organs] Onset: 03-23-2018 Episodic Residual codes; unclassified (8 sources) Tobacco user; Translations: [Tobacco use] 08-19-2022 Episodic Residual codes; unclassified (2 sources) Edema of right lower leg; Translations: [Localized edema] 01-18-2024 Episodic Residual codes; unclassified (1 source) Tobacco use; Translations: [Tobacco use current] Onset: 10-25-2024 Episodic Residual codes; unclassified (1 source) Tobacco use and exposure - finding; Translations: [Tobacco use] 11-06-2024 Episodic Screening and history of mental health and substance abuse codes (2 sources) Patient encounter status; Translations: [Encounter for screening for depression] 07-28-2024 Episodic Skin and subcutaneous tissue infections (10 sources) Infection of skin; Translations: [Local infection of the skin and subcutaneous tissue, unspecified] Episodic Spondylosis; intervertebral disc disorders; other back problems (20 sources) Intervertebral disc disorder of lumbar region with myelopathy; Translations: [Intervertebral disc disorders with myelopathy, lumbar region] Onset: 05-17-2006 04-21-2021 Chronic Spondylosis; intervertebral disc disorders; other back problems (7 sources) Chronic back pain ; Translations: [Dorsalgia, unspecified] 11-04-2022 Episodic Substance-related disorders (20 sources) Controlled drug dependence ; Translations: [Opioid dependence, uncomplicated] Onset: 04-07-2016 04-07-2016 Chronic Superficial injury; contusion (2 sources) Hematoma of left knee region; Translations: [Contusion of left knee, initial encounter] Episodic Past or Other Problems Problem Classification Problem Date Documented Date Episodic/Chronic Alcohol-related disorders (20 sources) H/O: alcoholism; Translations: [Alcohol dependence, in remission] Onset: 2017 Resolved: 02-23-2018 02-23-2018 Chronic Asthma (20 sources) Asthma; Translations: [Unspecified asthma, uncomplicated] Onset: 01-10-2015 Resolved: 10-21-2017 11-04-2022 Chronic Calculus of urinary tract (20 sources) Kidney stone; Translations: [Calculus of kidney] Onset: 04-08-2007 Resolved: 08-10-2016 07-23-2013 Episodic Essential hypertension (20 sources) Hypertensive disorder; Translations: [Essential (primary) hypertension] Resolved: 05-13-2015 11-04-2022 Chronic Genitourinary symptoms and ill-defined conditions (20 sources) Blood in urine; Translations: [Hematuria, unspecified] Onset: 10-04-2013 Resolved: 08-10-2016 08-10-2016 Episodic Hyperplasia of prostate (20 sources) Benign prostatic hyperplasia; Translations: [Benign prostatic hyperplasia without lower urinary tract symptoms] Onset: 11-18-2015 Resolved: 07-28-2024 11-18-2015 Chronic Mood disorders (20 sources) Depressive disorder; Translations: [Depression] Resolved: 06-03-2017 06-03-2017 Chronic Osteoarthritis (20 sources) Arthritis of hip; Translations: [Unilateral primary osteoarthritis, unspecified hip] Onset: 08-07-2013 Resolved: 08-10-2016 08-10-2016 Chronic Other aftercare (20 sources) Anticoagulant control - finding; Translations: [car supplier (current) use of anticoagulants] Onset: 10-04-2013 Resolved: 05-13-2015 05-13-2015 Episodic Other and unspecified benign neoplasm (20 sources) Tubular adenoma of colon; Translations: [Benign neoplasm of colon, unspecified] Onset: 04-07-2018 09-20-2018 Episodic Other connective tissue disease (20 sources) History of repair of hip joint; Translations: [Presence of unspecified artificial hip joint] Onset: 11-21-2013 Resolved: 08-10-2016 08-10-2016 Chronic Other diseases of veins and lymphatics (1 source) Venous insufficiency (chronic) (peripheral); Translations: [Venous stasis dermatitis] Onset: 01-25-2024 Episodic Other infections; including parasitic (20 sources) Infestation by bed bug; Translations: [Other specified infestations] Onset: 03-15-2023 02-03-2023 Episodic Other screening for suspected conditions (not mental disorders or infectious disease) (20 sources) Encounter for screening for malignant neoplasm of colon; Translations: [Patient encounter status] Onset: 03-23-2018 Resolved: 09-20-2018 Episodic Pulmonary heart disease (20 sources) H/O: pulmonary embolus; Translations: [Personal history of pulmonary embolism] Onset: 08-12-2012 Resolved: 01-11-2015 01-11-2015 Episodic Residual codes; unclassified (20 sources) Family history of cancer of colon; Translations: [Family history of malignant neoplasm of digestive organs] Onset: 03-23-2018 03-23-2018 Episodic Residual codes; unclassified (1 source) Localized edema; Translations: [Edema of right lower leg] Onset: 01-25-2024 Episodic Unclassified (1 source) Patient encounter status 10-26-2024 Results Test Name Value Interpretation Reference Range Facility Absolute lymphocyte countOrd ered By: Landen Crenshaw on 11-06-2024 Lymphocytes Auto (Unsp spec) [#/Vol] 0.93 10*3/uL 0.83-4.51 [facility] Absolute neutrophil countOrd ered By: Landen Crenshaw on 11-06-2024 Neutrophils (Bld) [#/Vol] 9.8 10*3/uL High 2.0-7.7 [facility] Anion gap in Serum or Plasma Ordered By: Landen Crenshaw on 11-06-2024 Anion gap [Moles/Vol] 13 mmol/L 5-15 [facility] Automated lymphocyte count a s percentage of total leukocytesOrdered By: Landen Crenshaw on 11-06-2024 Lymphocytes/100 WBC Auto (Unsp spec) 7.8 % Low 19-41 [facility] BUN/creatinine ratioOrdered By: Landen Crenshaw on 11-06-2024 Urea nitrogen/Creatinine [Mass ratio] 11.8 mg/mg 10-20 [facility] Basophil percentageOrdered B y: Landen Crenshaw on 11-06-2024 Basophils/100 WBC (Bld) 0.2 % 0-1 [facility] Carbon dioxide, total [Moles /volume] in Central venous bloodOrdered By: Landen Crenshaw on 11-06-2024 CO2 [Moles/Vol] 25.1 mmol/L 21.0-32.0 [facility] Chloride assayOrdered By: Yung Crenshaw on 11-06-2024 Chloride [Moles/Vol] 93 mmol/L Low 98-108 [facility] Eosinophil percentageOrdered By: Landen Crenshaw on 11-06-2024 Eosinophils/100 WBC (Bld) 0.6 % 0-5 [facility] Erythrocyte distribution wid th ratioOrdered By: Landen Crenshaw on 11-06-2024 Erythrocyte distribution width (RBC) [Ratio] 15.0 % High 11.6-14.6 [facility] Erythrocyte distribution wid th standard deviationOrdered By: Landen Crenshaw on 11-06-2024 Erythrocyte distribution width (RBC) [Ratio] 45.1 fl High 35.1-43.9 [facility] Glomerular filtration rate ( GFR) estimation/1.73 sq m using serum, plasma, or whole bOrdered By: Landen Crenshaw on 11-06-2024 GFR/1.73 sq M.predicted among non-blacks MDRD (S/P/Bld) [Vol rate/Area] 98 mL/min/{1.73_m2} >60 [facility] Comment on above: mL/min/1.73m2 CKD-EP I Creatinine Equation (2020) Hematocrit Auto (Bld) [Volum e fraction]Ordered By: Landen Crenshaw on 11-06-2024 Hematocrit (Bld) [Volume fraction] 38.4 % Low 40-54 [facility] Hemoglobin measurementOrdere d By: Landen Crenshaw on 11-06-2024 Hemoglobin (Bld) [Mass/Vol] 13.9 g/dL 13.0-16.5 [facility] Immature granulocytes/100 WB C Auto (Bld)Ordered By: Landen Crenshaw on 11-06-2024 Immature granulocytes/100 WBC (Bld) 0.600 % 0.0-0.9 [facility] Comment on above: IG% - Immature Granu locytes (promyelocytes, myelocytes and metamyelocytes) > 1% indicates that a LEFT SHIFT is Present. MCV (mean corpuscular volume ) determinationOrdered By: Landen Crenshaw on 11-06-2024 MCV (RBC) [Entitic vol] 82.4 fL 80-94 [facility] Mean corpuscular hemoglobin (MCH) determinationOrdered By: Landen Crenshaw on 11-06-2024 MCH (RBC) [Entitic mass] 29.8 pg 27.0-32.0 [facility] Mean corpuscular hemoglobin concentration (MCHC) determinationOrdered By: Landen Crenshaw 11-06-2024 MCHC (RBC) [Mass/Vol] 36.2 g/dL High 32-36 [facility] Mean platelet volume determi nationOrdered By: Landen Crenshaw 11-06-2024 Platelet mean volume (Bld) [Entitic vol] 11.4 fL 6.2-12.0 [facility] Monocyte percentageOrdered B y: Landen Crenshaw on 11-06-2024 Monocytes/100 WBC (Bld) 8.5 % 0-10 [facility] Neutrophil percentageOrdered By: Landen Crenshaw on 11-06-2024 Neutrophils/100 WBC (Bld) 82.3 % High 47-70 [facility] Nucleated red blood cell per centageOrdered By: Landen Crenshaw on 11-06-2024 Nucleated RBC/100 WBC (Bld) [Ratio] 0 % 0-5 [facility] Platelet countOrdered By: Yung Crenshaw on 11-06-2024 Platelets (Bld) [#/Vol] 214 10*3/uL 150-450 [facility] Potassium measurement (mass/ volume)Ordered By: Landen Crenshaw on 11-06-2024 Potassium (Unsp spec) [Mass/Vol] 3.5 mmol/L 3.3-5.1 [facility] RBC Auto (Bld) [#/Vol]Ordere d By: Landen Crenshaw on 11-06-2024 RBC (Bld) [#/Vol] 4.66 10*6/uL 4.6-6.2 [facility] Serum creatinine measurement (mass/volume)Ordered By: Landen Crenshaw on 11-06-2024 Creatinine [Mass/Vol] 0.90 mg/dL 0.70-1.20 [facility] Serum glucose measurement (m ass/volume)Ordered By: Landen Crenshaw on 11-06-2024 Glucose [Mass/Vol] 111 mg/dL High 70-99 [facility] Serum or plasma calcium liam urement (mass/volume)Ordered By: Landen Crenshaw on 11-06-2024 Calcium [Mass/Vol] 8.4 mg/dL 7.6-11.0 [facility] Serum or plasma urea nitroge n measurement (mass/volume)Ordered By: Landen Crenshaw on 11-06-2024 Urea nitrogen [Mass/Vol] 11 mg/dL 4-19 [facility] Sodium levelOrdered By: Landen Crenshaw on 11-06-2024 Sodium [Moles/Vol] 130 mmol/L Low 133-145 [facility] White blood cell (WBC) count Ordered By: Landen Crenshaw on 11-06-2024 WBC (Bld) [#/Vol] 11.9 10*3/uL High 4.4-11.0 [facility] LUNG DIFFUSION CAPACITY (DARRIAN O)on 11-02-2024 LUNG DIFFUSION CAPACITY (DLCO) [facility] [address] [place] [address] Test Date: 2024-11-02 Pat Name: NEYMAR ROME Department: Room: Gender: Male 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 No contraindications or sensitivities were noted. Meds taken: No inhaled respiratory medications taken before testing. The two largest FEV1s were repeatable. The two largest FVCs were repeatable. Extrapolated volume greater than ATS/ERS allows; FEV1 may not be valid. DLCO is repeatable. Best IVC for DLCO is 86% of target. Lung Volumes are repeatable x2. IMPRESSION: Spirometry indicates no obstruction. The reduced FVC could indicate restriction, recommend lung volumes for definitive determination. Decrease in TLC indicates restriction. Elevated lung volumes (RV and/or RV/TLC) indicate air trapping. The diffusion capacity (uncorrected for hemoglobin) is normal. Electronically Signed On 11-02-2024 14:35:25 EDT by María Elena Ribeiro MD ID: [id number] Name: NEYMAR ROME Race: White Ht: 70.67 in Wt: 203.00 lbs Age: 59 Gender: Male : 1965 Dx: Centrilobular emphysema Smoking Hx: Non-smoker Doctor: SHAQUILLE BOOKER Test Date: 11/02/2024 Site: Tech: Alisson Clinton PRE-BRONCH POST-BRONCH Liam LLN Pred ULN %Pred ZScore Liam %Pred %Chg ZScore SPIROMETRY FVC 3.11 3.35 4.46 5.58 69 -2.01 FEV1 2.34 2.56 3.46 4.30 67 -2.04 FEV1/FVC 0.75 0.66 0.78 0.88 96 -0.38 FEFMax 6.71 6.99 9.35 11.71 71 -1.84 FEF50 2.80 2.41 4.53 6.65 61 -1.34 FIF50 3.26 FEF50/FIF50 0.86 90-100 FIVC 2.58 KNH27-28 1.80 1.48 3.02 5.11 59 -1.25 ExpiredTime 8.55 TimeToFEFMax 0.10 JUNAID 0.16 VolExtrap% 5 LUNG VOLUMES FRC(Pleth) 3.67 2.59 3.75 5.21 97 -0.11 ERV 0.81 1.49 54 RV(Pleth) 2.86 1.39 2.27 3.31 125 0.96 SVC 3.23 3.35 4.46 5.58 72 -1.83 IC 2.32 2.97 77 TLC(Pleth) 5.98 5.91 7.37 8.85 81 -1.57 RV/TLC(Pleth) 48 21 30 40 157 2.82 LUNG DIFFUSION DLCOunc 21.26 21.04 28.07 36.37 75 -1.59 DLCOStdPB 20.86 21.04 28.07 36.37 74 -1.69 VA 4.65 5.41 6.69 8.07 69 -2.70 Kco 4.49 3.20 4.22 5.34 106 0.40 Comments: Medications and Allergies were reviewed for possible drug interactions per policy. No contraindications or sensitivities were noted. Meds taken: No inhaled respiratory medications taken before testing. The two largest FEV1s were repeatable. The two largest FVCs were repeatable. Extrapolated volume greater than ATS/ERS allows; FEV1 may not be valid. DLCO is repeatable. Best IVC for DLCO is 86% of target. Lung Volumes are repeatable x2. Normal [facility] LUNG VOLUMESon 11-02-2024 LUNG VOLUMES [facility] [address] 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 No contraindications or sensitivities were noted. Meds taken: No inhaled respiratory medications taken before testing. The two largest FEV1s were repeatable. The two largest FVCs were repeatable. Extrapolated volume greater than ATS/ERS allows; FEV1 may not be valid. DLCO is repeatable. Best IVC for DLCO is 86% of target. Lung Volumes are repeatable x2. IMPRESSION: Spirometry indicates no obstruction. The reduced FVC could indicate restriction, recommend lung volumes for definitive determination. Decrease in TLC indicates restriction. Elevated lung volumes (RV and/or RV/TLC) indicate air trapping. The diffusion capacity (uncorrected for hemoglobin) is normal. Electronically Signed On 11-02-2024 14:35:25 EDT by María Elena Ribeiro MD ID: [id number] Name: NEYMAR ROME Race: White Ht: 70.67 in Wt: 203.00 lbs Age: 59 Gender: Male : 1965 Dx: Centrilobular emphysema Smoking Hx: Non-smoker Doctor: SHAQUILLE BOOKER Test Date: 11/02/2024 Site: Tech: Alisson Clinton PRE-BRONCH POST-BRONCH Liam LLN Pred ULN %Pred ZScore Liam %Pred %Chg ZScore SPIROMETRY FVC 3.11 3.35 4.46 5.58 69 -2.01 FEV1 2.34 2.56 3.46 4.30 67 -2.04 FEV1/FVC 0.75 0.66 0.78 0.88 96 -0.38 FEFMax 6.71 6.99 9.35 11.71 71 -1.84 FEF50 2.80 2.41 4.53 6.65 61 -1.34 FIF50 3.26 FEF50/FIF50 0.86 90-100 FIVC 2.58 EVI87-34 1.80 1.48 3.02 5.11 59 -1.25 ExpiredTime 8.55 TimeToFEFMax 0.10 JUNAID 0.16 VolExtrap% 5 LUNG VOLUMES FRC(Pleth) 3.67 2.59 3.75 5.21 97 -0.11 ERV 0.81 1.49 54 RV(Pleth) 2.86 1.39 2.27 3.31 125 0.96 SVC 3.23 3.35 4.46 5.58 72 -1.83 IC 2.32 2.97 77 TLC(Pleth) 5.98 5.91 7.37 8.85 81 -1.57 RV/TLC(Pleth) 48 21 30 40 157 2.82 LUNG DIFFUSION DLCOunc 21.26 21.04 28.07 36.37 75 -1.59 DLCOStdPB 20.86 21.04 28.07 36.37 74 -1.69 VA 4.65 5.41 6.69 8.07 69 -2.70 Kco 4.49 3.20 4.22 5.34 106 0.40 Comments: Medications and Allergies were reviewed for possible drug interactions per policy. No contraindications or sensitivities were noted. Meds taken: No inhaled respiratory medications taken before testing. The two largest FEV1s were repeatable. The two largest FVCs were repeatable. Extrapolated volume greater than ATS/ERS allows; FEV1 may not be valid. DLCO is repeatable. Best IVC for DLCO is 86% of target. Lung Volumes are repeatable x2. Normal [facility] No Panel Informationon 11-02 [facility] [address] 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 No contraindications or sensitivities were noted. Meds taken: No inhaled respiratory medications taken before testing. The two largest FEV1s were repeatable. The two largest FVCs were repeatable. Extrapolated volume greater than ATS/ERS allows; FEV1 may not be valid. DLCO is repeatable. Best IVC for DLCO is 86% of target. Lung Volumes are repeatable x2. IMPRESSION: Spirometry indicates no obstruction. The reduced FVC could indicate restriction, recommend lung volumes for definitive determination. Decrease in TLC indicates restriction. Elevated lung volumes (RV and/or RV/TLC) indicate air trapping. The diffusion capacity (uncorrected for hemoglobin) is normal. Electronically Signed On 11-02-2024 14:35:25 EDT by María Elena Ribeiro MD ID: [id number] Name: NEYMAR ROME Race: White Ht: 70.67 in Wt: 203.00 lbs Age: 59 Gender: Male : 1965 Dx: Centrilobular emphysema Smoking Hx: Non-smoker Doctor: SHAQUILLE BOOKER Test Date: 11/02/2024 Site: Tech: Alisson Clinton PRE-BRONCH POST-BRONCH Liam LLN Pred ULN %Pred ZScore Liam %Pred %Chg ZScore SPIROMETRY FVC 3.11 3.35 4.46 5.58 69 -2.01 FEV1 2.34 2.56 3.46 4.30 67 -2.04 FEV1/FVC 0.75 0.66 0.78 0.88 96 -0.38 FEFMax 6.71 6.99 9.35 11.71 71 -1.84 FEF50 2.80 2.41 4.53 6.65 61 -1.34 FIF50 3.26 FEF50/FIF50 0.86 90-100 FIVC 2.58 MJS23-31 1.80 1.48 3.02 5.11 59 -1.25 ExpiredTime 8.55 TimeToFEFMax 0.10 JUNAID 0.16 VolExtrap% 5 LUNG VOLUMES FRC(Pleth) 3.67 2.59 3.75 5.21 97 -0.11 ERV 0.81 1.49 54 RV(Pleth) 2.86 1.39 2.27 3.31 125 0.96 SVC 3.23 3.35 4.46 5.58 72 -1.83 IC 2.32 2.97 77 TLC(Pleth) 5.98 5.91 7.37 8.85 81 -1.57 RV/TLC(Pleth) 48 21 30 40 157 2.82 LUNG DIFFUSION DLCOunc 21.26 21.04 28.07 36.37 75 -1.59 DLCOStdPB 20.86 21.04 28.07 36.37 74 -1.69 VA 4.65 5.41 6.69 8.07 69 -2.70 Kco 4.49 3.20 4.22 5.34 106 0.40 Comments: Medications and Allergies were reviewed for possible drug interactions per policy. No contraindications or sensitivities were noted. Meds taken: No inhaled respiratory medications taken before testing. The two largest FEV1s were repeatable. The two largest FVCs were repeatable. Extrapolated volume greater than ATS/ERS allows; FEV1 may not be valid. DLCO is repeatable. Best IVC for DLCO is 86% of target. Lung Volumes are repeatable x2. PULMONARY FUNCTION LAB [facility] SIX MINUTE WALKon 11-02-2024 Renea Lopes M D 11/02/2024 10:23 AM RESPIRATORY THERAPY SIX MINUTE WALK TEST OXIMETRY REPORT Six Minute Walk Test for This Encounter Oxygen Device Liters FIO2 SpO2% HR Activity Feet Speed (MPH) R/A 95 115 Resting R/A 97 125 Six Minute Walk 740 1.4 R/A 100 118 Recovery General Information Height Weight Pulse Oximetry Site Pre Blood Pressure Post Recovery Blood Pressure 179.5 cm (5' 10.67) 92.1 kg (203 lb) Forehead 111/70 116/73 _ Distance Walked (meters) Distance Walked (feet) Male Predicted Walk Distance (feet) Male Lower Limit of Normal (feet) Male % Predicted Total Duration Of The Stops (seconds) 225.55 740 1924.21 1422.21 38.5 -- _ Lowest SpO2 During 6 Minute Walk Pre-Tarun Dyspnea Rating Pre-Tarun Fatigue Rating Post Tarun Dyspnea Rating Post Tarun Fatigue Rating Walking Assistance/O2 Supply Carrier 95 % 0 0 2 3 Wheeled Walker Six Minute Walk Trend (Previous Encounters) None SIGNATURE: PARTH Childs PATIENT NAME: Neymar Rome DATE: November 02, 2024 TIME: 10:20 AM [facility] SIX MINUTE WALKOrdered By: Flor Lopes on 11-02-2024 [facility] Work Phone: SPIROMETRY WITH DILATOR IF O BSTRUCTEDon 11-02-2024 DLCO (ml/min/mmHg) 21.26 ml/min/mmHg [facility] DLCO LLN (ml/min/mmHg) 21.04 ml/min/mmHg [facility] DLCO PREDICTED (ml/min/mmHg) 28.07 ml/min/mmHg [facility] DLCO ULN (ml/min/mmHg) 36.37 ml/min/mmHg [facility] DLCO/VA (ml/min/mmHg/L) 0.05 ml/min/mmHg /L [facility] DLCO/VA PREDICTED (ml/min/mmHg/L) 0.04 ml/min/mmHg /L [facility] DLCO/VAcor (ml/min/mmHg/L) 0.04 ml/min/mmHg /L [facility] DLCOcor (ml/min/mmHg) 20.86 ml/min/mmHg [facility] DLCOcor PREDICTED (ml/min/mmHg) 28.07 ml/min/mmHg [facility] ERV BOX (L) 0.81 L [facility] ERV PREDICTED (L) 1.49 L/S [facility] FEF25% PRE (L/S) 6.4 L[facility] OYY68-73% LLN (L/S) 1.48 L/S [facility] land [facility] EOK91-07% PRE (L/S) 1.8 L/S [facility] SLC98-87% PREDICTED (L/S) 3.02 L/S [facility] FEF75% LLN (L/S) 0.37 L/S [facility] FEF75% PRE (L/S0 0.52 L/S [facility] FEF75% PREDICTED (L/S) 0.93 L/S [facility] FEF75% ULN (L/S) 2.17 L/S [facility] FET PRE (S) 8.55 S [facility] FEV1 LLN (L) 2.56 L [facility] FEV1 PRE (L) 2.34 L [facility] FEV1 PREDICTED (L) 3.46 L [facility] FEV1 ULN (L) 4.3 L [facility] FEV1/FVC LLN (%) 66 % [facility] FEV1/FVC PRE (%) 75 % [facility] FEV1/FVC PREDICTED (%) 78 % Cl [facility] FRC Box (L) 3.67 L [facility] FVC LLN (L) 3.35 L [facility] FVC PRE (L) 3.11 L [facility] FVC PREDICTED (L) 4.46 L [facility] FVC ULN (L) 5.58 L [facility] IC BOX (L) 2.32 L [facility] IC PREDICTED (L) 2.97 L/S [facility] PEF LLN (L/S) 6.99 L/S [facility] PEF PRE (L/S) 6.71 L/S [facility] PEF ULN (L/S) 11.71 L/S [facility] RV Box (L) 2.86 L [facility] RV Box PREDICTED (L) 2.27 L [facility] RV/TLC Box (%) 48 % [facility] RV/TLC Box PREDICTED (%) 30 % [facility] SVC LLN (L) 3.35 L/S [facility] SVC PREDICTED (L) 4.46 L/S [facility] SVC ULN (L) 5.58 L/S [facility] TLC Box (L) 5.98 L [facility] TLC Box PREDICTED (L) 7.37 L [facility] (L) 4.65 L [facility] VA PREDICTED (L) 6.69 L [facility] VC (L) BOX 3.23 L [facility] SPIROMETRY WITH DILATOR IF OBSTRUCTED [facility] [address] [place] [address] Test Date: 2024-11-02 Pat Name: NEYMAR ROME Department: Room: Gender: Male 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 No contraindications or sensitivities were noted. Meds taken: No inhaled respiratory medications taken before testing. The two largest FEV1s were repeatable. The two largest FVCs were repeatable. Extrapolated volume greater than ATS/ERS allows; FEV1 may not be valid. DLCO is repeatable. Best IVC for DLCO is 86% of target. Lung Volumes are repeatable x2. IMPRESSION: Spirometry indicates no obstruction. The reduced FVC could indicate restriction, recommend lung volumes for definitive determination. Decrease in TLC indicates restriction. Elevated lung volumes (RV and/or RV/TLC) indicate air trapping. The diffusion capacity (uncorrected for hemoglobin) is normal. Electronically Signed On 11-02-2024 14:35:25 EDT by María Elena Ribeiro MD ID: [id number] Name: NEYMAR ROME Race: White Ht: 70.67 in Wt: 203.00 lbs Age: 59 Gender: Male : 1965 Dx: Centrilobular emphysema Smoking Hx: Non-smoker Doctor: SHAQUILLE BOOKER Test Date: 11/02/2024 Site: Tech: Alisson Clinton PRE-BRONCH POST-BRONCH Liam LLN Pred ULN %Pred ZScore Liam %Pred %Chg ZScore SPIROMETRY FVC 3.11 3.35 4.46 5.58 69 -2.01 FEV1 2.34 2.56 3.46 4.30 67 -2.04 FEV1/FVC 0.75 0.66 0.78 0.88 96 -0.38 FEFMax 6.71 6.99 9.35 11.71 71 -1.84 FEF50 2.80 2.41 4.53 6.65 61 -1.34 FIF50 3.26 FEF50/FIF50 0.86 90-100 FIVC 2.58 1.80 1.48 3.02 5.11 59 -1.25 ExpiredTime 8.55 TimeToFEFMax 0.10 JUNAID 0.16 VolExtrap% 5 LUNG VOLUMES FRC(Pleth) 3.67 2.59 3.75 5.21 97 -0.11 ERV 0.81 1.49 54 RV(Pleth) 2.86 1.39 2.27 3.31 125 0.96 SVC 3.23 3.35 4.46 5.58 72 -1.83 IC 2.32 2.97 77 TLC(Pleth) 5.98 5.91 7.37 8.85 81 -1.57 RV/TLC(Pleth) 48 21 30 40 157 2.82 LUNG DIFFUSION DLCOunc 21.26 21.04 28.07 36.37 75 -1.59 DLCOStdPB 20.86 21.04 28.07 36.37 74 -1.69 VA 4.65 5.41 6.69 8.07 69 -2.70 Kco 4.49 3.20 4.22 5.34 106 0.40 Comments: Medications and Allergies were reviewed for possible drug interactions per policy. No contraindications or sensitivities were noted. Meds taken: No inhaled respiratory medications taken before testing. The two largest FEV1s were repeatable. The two largest FVCs were repeatable. Extrapolated volume greater than ATS/ERS allows; FEV1 may not be valid. DLCO is repeatable. Best IVC for DLCO is 86% of target. Lung Volumes are repeatable x2. FVC_PRE (L) : 3.11 L FVC_PRED (L) : 4.46 L FVC_LLN (L) : 3.35 L FVC_ULN (L) : 5.58 L FEV1_PRE (L) : 2.34 L FEV1_PRED (L) : 3.46 L FEV1_LLN (L) : 2.56 L FEV1_ULN (L) : 4.30 L FEV1/FVC_PRE (%) : 75 % FEV1/FVC_PRED (%) : 78 % FEV1/FVC_LLN (%) : 66 % BPA58_LSU (L/S) : 6.40 L/S WVR19_XHT (L/S) : 0.52 L/S TOT46_JDJU (L/S) : 0.93 L/S OHL37_XTL (L/S) : 0.37 L/S OUI32_ZIY (L/S) : 2.17 L/S MTD66-29%_PRE (L/S) : 1.80 L/S MKR85-40%_PRED (L/S) : 3.02 L/S UDC84-63%_LLN (L/S) : 1.48 L/S PEF_PRE (L/S) : 6.71 L/S PEFMAX_LLN (L/S) : 6.99 L/S PEFMAX_ULN (L/S) : 11.71 L/S VC BOX (L) : 3.23 L SVC_PRED (L) : 4.46 L/S SVC_LLN (L) : 3.35 L/S SVC_ULN (L/S) : 5.58 L/S IC BOX (L) : 2.32 L IC_PRED (L) : 2.97 L/S ERV BOX (L) : 0.81 L ERV_PREDICTED (L) : 1.49 L/S DLCO (ML/MIN/MMHG) : 21.26 ml/min/mmHg DLCO_PRED (ML/MIN/MMHG) : 28.07 ml/min/mmHg DLCO_LLN(ML/MIN/MMHG) : 21.04 ml/min/mmHg DLCO_ULN (ML/MIN/MMHG) : 36.37 ml/min/mmHg FET_PRE (S) : 8.55 S FRC BOX (L) : 3.67 L RV BOX (L) : 2.86 L RV_PLETH_PRED (L) : 2.27 L TLC BOX (L) : 5.98 L TLC_PLETH_PRED (L) : 7.37 L RV/TLC BOX (%) : 48 % RV_TLC_PLETH_PRED (%) : 30 % VA (L) : 4.65 L VA_PRD (L) : 6.69 L DLCO/VA (ML/MIN/MMHG/L) : 0.05 ml/min/mmHg/L DLCO_VA_PRED (L) : 0.04 ml/min/mmHg/L DLCOCOR (ML/MIN/MMHG) : 20.86 ml/min/mmHg DLCOCOR_PRED (ML/MIN/MMHG) : 28.07 ml/min/mmHg DLCO/VACOR (ML/MIN/MMHG/L) : 0.04 ml/min/mmHg/L Normal [facility] NURSING PROGon 10-30-2024 NURSING PROG HNO ID: [id number] Author: FAINA EMERSON RN Service: Nursing Author Type: Registered Nurse Type: Nursing Progress Note Filed: 10/30/2024 11:32 Note Text: AMBULATORY PATIENT EDUCATION TOPIC: Bronchoscopy READINESS TO LEARN COGNITIVE ABILITY: Alert and oriented MOTIVATION TO LEARN: Interested FAMILY SUPPORT: High - Very involved in pt care INSTRUCTION PROVIDED TO: Patient and Daughter PATIENT LEARNS BEST BY: Individual Instruction Verbal Instruction FACTORS AFFECTING LEARNING: None PHYSICAL LIMITATIONS AFFECTING LEARNING: None LEARNING RESPONSE DIAGNOSIS: Lung disease METHOD OF INSTRUCTION: Verbal instructions PATIENT / FAMILY RESPONSE: Verbalizes understanding of: PRE-PROCEDURE INSTRUCTIONS-Correct action to take to follow pre-procedure instructions FOLLOW-UP PLAN: Complete - No need for follow-up SUPPLEMENTAL MATERIAL: None REFERRAL (RECOMMENDATION): None Normal [facility] CNPNichole 10-26-2024 CNPN Telephone ([id number]) NEYMAR ROME ([id number]) 1965 M Date Time Provider Department 10/26/24 [facility] [id number] During your visit today, we recorded the following information about you: Allergies As of Date: 10/26/2024 Noted Allergy Reaction FORMALDEHYDE 08/12/2012 14 - Other: See Comments Comments: blisters LATEX 03/19/2006 PAROXETINE HCL 08/12/2012 14 - Other: See Comments Comments: sexual dysfunction TRAMADOL 10/29/2006 1 - Mental Status Change VENLAFAXINE HCL 08/12/2012 14 - Other: See Comments Comments: increased BP VICODIN (HYDROCODONE-ACETAMINOPHE*1 05/19/2005 14 - Other: See Comments Comments: causes pain Date Reviewed: 10/25/2024 Reviewed by: Alma Bullock LPN - Fully Assessed Reason for Visit: Appointment [[id number]] Cmt: PreOp Bronch Prescriptions as of 10/26/2024 - rivaroxaban (XARELTO) 20 mg tablet Take 1 tablet by mouth daily with dinner. - atorvastatin (LIPITOR) 10 mg tablet Take 1 tablet by mouth daily at bedtime. For cholesterol. - morphine SR (MS CONTIN) 15 mg 12 hr tablet Take 1 tablet by mouth once daily as needed (per Dr. Camp). - cetirizine (ZYRTEC) 10 mg tablet Take 1 tablet by mouth once daily. - furosemide (LASIX) 20 mg tablet Take 1 tablet by mouth once daily as needed. - albuterol HFA (PROAIR HFA) 90 mcg/actuation inhaler Inhale 2 Puffs as instructed every 4 hours as needed. - tiZANidine (ZANAFLEX) 4 mg tablet Take 1 tablet by mouth three times a day. Per Dr. Camp - amitriptyline (ELAVIL) 25 mg tablet Take 1 tablet by mouth daily at bedtime. Dr. Camp - pregabalin (LYRICA) 100 mg capsule Take 1 capsule by mouth twice daily. Per Dr. Camp. - COMPOUNDED PRESCRIPTION 1 capsule as needed. 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 Renal colic [N23] 04/08/2007 01/10/2015 Calculus of kidney [N20.0] 04/08/2007 01/10/2015 History of pulmonary embolism [Z86.711] 08/12/2012 01/11/2015 HTN (hypertension) [I10] 05/13/2015 Hyperlipemia [E78.5] Depression [F32.A] 06/03/2017 Hip arthritis [M16.10] 08/07/2013 08/10/2016 Acute venous embolism and thrombosis of unspeci*08/30/2013 05/13/2015 DVT (deep venous thrombosis) (HCC) [I82.409] 09/04/2013 05/13/2015 Allergic dermatitis [L23.9] Hematuria [R31.9] 10/04/2013 08/10/2016 Kidney stones [N20.0] 10/04/2013 08/10/2016 Anticoagulation adequate [Z79.01] 10/04/2013 05/13/2015 Hip joint replacement status [Z96.649] 11/21/2013 08/10/2016 Asthmatic bronchitis [J45.909] 01/10/2015 10/21/2017 Blindness of right eye [H54.40] 01/11/2015 Benign non-nodular prostatic hyperplasia withou*11/18/2015 07/28/2024 Tobacco use disorder [F17.200] 04/07/2016 COPD (chronic obstructive pulmonary disease) (H*2017 History of alcoholism (HCC) [F10.21] 2017 02/23/2018 Screening for colon cancer [Z12.11] 03/23/2018 09/20/2018 Family history of colon cancer [Z80.0] 03/23/2018 Tubular adenoma of colon [D12.6] 04/07/2018 Acute deep vein thrombosis (DVT) of proximal ve*04/15/2021 02/13/2022 Recurrent deep vein thrombosis (DVT) (HCC) [I82*04/26/2021 Obesity, Class I, BMI 30-34.9 [E66.811] 05/12/2021 Infestation by humberto lagos [B88.8] 03/15/2023 History of total hip replacement, right [Z96.64*03/15/2023 Fatty liver [K76.0] 03/15/2023 Narcotic dependence (HCC) [F11.20] 08/05/2023 Encounter Status:Closed by UMU SANTIAGO on 10/26/24 [facility] CNOVon 10-25-2024 CNOV Office Visit ([facility] ) NEYMAR ROME ([id number]) 1965 M Date Time Provider Department 10/25/24 11:30 AM SHAQUILLE BOOKER [facility] During your visit today, we recorded the following information about you: Pulse Blood pressure Weight 88/minute 127/86 92.5 kg Shaquille Booker APRN.SEED ANALYST 10/25/2024 2:13 PM Addendum LUNG SCREENING ANNUAL VISIT PRIMARY CARE PHYSICIAN: Kvng Fu MD PULMONARY PROVIDER: none Results will be communicated via letter or electronic record if applicable. Visit Delivery: In Person Patient Visit Type: established Current or Ex-smoker? [Current Exam Type: annual LDCT Number of Pack Years: 50 Current smoker (=0) The patient's smoking history is similar to prior year shared decision visit. The reason for the discrepancy is NA Chief Complaint: Established patient in lung cancer screening program here for annual follow-up. Impression / Recommendations Neymar Rome presents for annual lung cancer screening annual exam and nodule evaluation. Plan: Indeterminate pulmonary nodules: RLL branching opacity has increased in size and now contains cavitations. Case sent for physician review. Discussed possible options for further workup including NM PET, and bronchoscopy. 2. Encounter for screening for malignant neoplasm of respiratory organs I have determined that the patient is eligible for continued low dose CT screening based on age, absence of signs or symptoms of lung cancer, smoking history and total pack years. The patient was counseled on the importance of adherence to annual LDCT lung cancer screening, impact of comorbidities and ability or willingness to undergo diagnosis and treatment. The patient understands and feels comfortable with it: Yes. 3. Nicotine Dependence The patient was counseled on the importance of smoking cessation if current smoker and, if appropriate, offered additional tobacco cessation counseling services - Smoking Cessation Counseling-deferred 4. Centrilobular emphysema (HCC) (Primary) Recommended PFT - SPIROMETRY WITH DILATOR IF OBSTRUCTED; Future - SIX MINUTE WALK ; Future - LUNG VOLUMES; Future - LUNG DIFFUSION CAPACITY (DLCO); Future 5. Hemoptysis: He had one episode a few months ago. He was advised to report these episodes. Shaquille Booker APRN.[facility] October 25, 2024 7:47 AM History of Present Illness: Neymar Rome is a 59 year old male who is presenting today for annual lung cancer screening LDCT and nodule surveillance/management. Patient has multiple nodules found on previous lung cancer screening LDCT. Last LDCT was performed on 09/29/2023 and was LUNG RADS Category 2. Previous potentially significant incidental findings on imaging: None. Patient is a current smoker with a 50 pack year history. Patient is currently still smoking 1 pack cigarettes daily. Patient will continue to be eligible for lung cancer screening until age 76. The patient does not have any symptoms or signs of lung cancer. Patient denies SOB with their daily activity. No wheezing or dyspnea. Patient denies feeling of chest tightness/congestion in the chest. Patient does not have a new or concerning cough, and denies hemoptysis. Patient does not have a chronic daily cough. Denies regular or recent fevers/chills. Patient does have 20 lbs unintentional weight loss over the last year. Patient denies having any respiratory infections or COVID-19 in the past few months. Does not use any maintenance inhaler for COPD. A couple months ago coughed up some red sputum one time in the morning. Has chronic rash to lower legs with redness and scabs, R>L. Modified Medical Research [place] Dyspnea Scale (MMRC) I only get breathless with strenous exercise 0 Last 12 Encounter Wt Readings: Date: Wt: 10/25/2024 92.5 kg (203 lb 14.8 oz) 07/28/2024 93.3 kg (205 lb 11 oz) 01/25/2024 99.2 kg (218 lb 11.1 oz) 01/18/2024 101.2 kg (223 lb 1.7 oz) 09/29/2023 100.6 kg (221 lb 12.5 oz) 09/07/2023 102.1 kg (225 lb) 09/02/2023 102.1 kg (225 lb) 09/02/2023 99.8 kg (220 lb) 09/01/2023 101.6 kg (224 lb) 08/05/2023 101.6 kg (224 lb) 03/12/2023 104.8 kg (231 lb) 02/03/2023 101.2 kg (223 lb)] Social History Tobacco Use: Types: Cigarettes Past Medical History: PAST MEDICAL HISTORY Diagnosis Date Acute deep vein thrombosis (DVT) of proximal vein of right lower extremity ([facility]) 04/15/2021 Acute venous embolism and thrombosis of unspecified deep vessels of lower extremity ([facility]) 08/30/2013 Allergic dermatitis formaldehyde, Carba mix Asthmatic bronchitis ([facility]) 01/10/2015 Benign non-nodular prostatic hyperplasia without lower urinary tract symptoms 11/18/2015 Colon polyps COPD (chronic obstructive pulmonary disease) ([facility]) 07/15 (more content not included)... Normal [facility] Richard 10-25-2024 JALYNN Telephone ([facility]) NEYMAR ROME ([id number]) 1965 M Date Time Provider Department 10/25/24 SHAQUILLE BOOKER [facility] During your visit today, we recorded the following information about you: Shaquille Booker APRN.CNP 10/25/2024 2:17 PM Signed Phone call to patient to discuss recommendations after review with physician champion Dr. Klein. We will proceed with bronchoscopy airway exam and biopsy or lavage as needed. Patient prefers main campus and an E consult was placed. Once approved they will call patient to schedule. He was advised he will need a preop EKG, which can be done at [facility]. FELISHA Blanco Melinda, APRN.CNP 10/25/2024 2:17 PM Signed Correspondence sent to PCP regarding 48 hour hold for Xarelto for bronchoscopy. Shaquille Booker APRN.Kvng Colunga MD 10/25/2024 3:06 PM Signed He can hold Xarelto for 48 hours prior to bronchoscopy. Allergies As of Date: 10/25/2024 Noted Allergy Reaction FORMALDEHYDE 08/12/2012 14 - Other: See Comments Comments: blisters LATEX 03/19/2006 PAROXETINE HCL 08/12/2012 14 - Other: See Comments Comments: sexual dysfunction TRAMADOL 10/29/2006 1 - Mental Status Change VENLAFAXINE HCL 08/12/2012 14 - Other: See Comments Comments: increased BP VICODIN (HYDROCODONE-ACETAMINOPHE*1 05/19/2005 14 - Other: See Comments Comments: causes pain Date Reviewed: 10/25/2024 Reviewed by: Alma Bullock LPN - Fully Assessed Reason for Visit: Patient Update [1234] Prescriptions as of 10/25/2024 - rivaroxaban (XARELTO) 20 mg tablet Take 1 tablet by mouth daily with dinner. - atorvastatin (LIPITOR) 10 mg tablet Take 1 tablet by mouth daily at bedtime. For cholesterol. - morphine SR (MS CONTIN) 15 mg 12 hr tablet Take 1 tablet by mouth once daily as needed (per Dr. Camp). - cetirizine (ZYRTEC) 10 mg tablet Take 1 tablet by mouth once daily. - furosemide (LASIX) 20 mg tablet Take 1 tablet by mouth once daily as needed. - albuterol HFA (PROAIR HFA) 90 mcg/actuation inhaler Inhale 2 Puffs as instructed every 4 hours as needed. - tiZANidine (ZANAFLEX) 4 mg tablet Take 1 tablet by mouth three times a day. Per Dr. Camp - amitriptyline (ELAVIL) 25 mg tablet Take 1 tablet by mouth daily at bedtime. Dr. Camp - pregabalin (LYRICA) 100 mg capsule Take 1 capsule by mouth twice daily. Per Dr. Camp. - COMPOUNDED PRESCRIPTION 1 capsule as needed. 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 Renal colic [N23] 04/08/2007 01/10/2015 Calculus of kidney [N20.0] 04/08/2007 01/10/2015 History of pulmonary embolism [Z86.711] 08/12/2012 01/11/2015 HTN (hypertension) [I10] 05/13/2015 Hyperlipemia [E78.5] Depression [F32.A] 06/03/2017 Hip arthritis [M16.10] 08/07/2013 08/10/2016 Acute venous embolism and thrombosis of unspeci*08/30/2013 05/13/2015 DVT (deep venous thrombosis) ([facility]) [I82.409] 09/04/2013 05/13/2015 Allergic dermatitis [L23.9] Hematuria [R31.9] 10/04/2013 08/10/2016 Kidney stones [N20.0] 10/04/2013 08/10/2016 Anticoagulation adequate [Z79.01] 10/04/2013 05/13/2015 Hip joint replacement status [Z96.649] 11/21/2013 08/10/2016 Asthmatic bronchitis [J45.909] 01/10/2015 10/21/2017 Blindness of right eye [H54.40] 01/11/2015 Benign non-nodular prostatic hyperplasia withou*11/18/2015 07/28/2024 Tobacco use disorder [F17.200] 04/07/2016 COPD (chronic obstructive pulmonary disease) (H*2017 History of alcoholism (HCC) [F10.21] 2017 02/23/2018 Screening for colon cancer [Z12.11] 03/23/2018 09/20/2018 Family history of colon cancer [Z80.0] 03/23/2018 Tubular adenoma of colon [D12.6] 04/07/2018 Acute deep vein thrombosis (DVT) of proximal ve*04/15/2021 02/13/2022 Recurrent deep vein thrombosis (DVT) (HCC) [I82*04/26/2021 Obesity, Class I, BMI 30-34.9 [E66.811] 05/12/2021 Infestation by bed bug [B88.8] 03/15/2023 History of total hip replacement, right [Z96.64*03/15/2023 Fatty liver [K76.0] 03/15/2023 Narcotic dependence (HCC) [F11.20] 08/05/2023 Encounter Status:Closed by SHAQUILLE BOOKER on 10/25/24 Normal [facility] CT LUNG SCREEN WO IVCONon CT LUNG SCREEN WO IVCON * * *Final Report* * * DATE OF EXAM: Oct 25 2024 10:39AM [facility] 0562 - CT LUNG SCREEN WO IVCON / PROCEDURE REASON: Z72.0-Tobacco use current * * * * Physician Interpretation * * * * EXAMINATION: CHEST CT WITHOUT CONTRAST (LOW-DOSE CT LUNG CANCER SCREENING PROTOCOL) CLINICAL HISTORY: Lung cancer LDCT screening ? absence of signs or symptoms of lung cancer. Nicotine dependence (cigarettes). Subsequent (annual) Technique: Spiral CT acquisition of the chest from the thoracic inlet to the upper abdomen without contrast. MQ: [id number]_6 Patient characteristics: * Kwku-ms-Zvrln: 1965; Age at exam: 59 years * Gender: Male * Lung Disease: Asymptomatic (no signs or symptoms of lung disease) * Number of Pack Years: 50 * Current smoker (=0) or Number of Years since Quit: 0 * Ordering provider and NPI: SHAQUILLE BOOKER [id number] * Interpreting radiologist and NPI: Logan [id number] Exam acquisition parameters: * Exam Date: 10/25/2024 10:39 AM * Site: [facility] * * CT System Plate Put In Worker: Quettra * CT System Model: Revolution Evan * Tube Current-Time (mA-sec): 60 * Peak Voltage (kV): 120V * Scan Time (sec): 4.87 * Scan Volume (z-length, cm): 33.70 * Pitch: 0.984 * Slice Thickness (mm): 1.25 * CT Dose-Length Product: 98.89 mGy*cm * CT Dose Index: 2.65mGy * CT Dose Reduction Method: Automated exposure control(AEC) and iterative recon COMPARISON: CT lung screen 09/29/2023 RESULT: Are nodules present? Yes, 1-5 nodules If No, go to IMPRESSION. If yes, proceed with characterization of the FIVE largest nodules. Nodule 1: This perifissural nodule is located in the right midlung on slice number 302:194 with an average diameter of 2.5 mm, stable since 09/29/2023. Nodule 2: This solid nodule is located in the right upper lobe on slice number 302:105 with an average diameter of 3.0 mm, stable since 09/29/2023. Nodule 3: This solid nodule is located in the right lower lobe on slice number 302:280 with an average diameter of 3.0 mm, stable since 09/29/2023. If this is an ANNUAL LDCT for LCS, please ensure nodule number is the same as in the prior evaluation. Other lung nodule comments: None Other findings: A trace amount of retained or aspirated secretions are adherent to the right lateral wall of the intrathoracic trachea. There is mild diffuse bilateral bronchial wall thickening, consistent with chronic airways inflammation. I suspect a broncholith at the origin of the lateral segmental bronchus to the right lower lobe. This finding has likely been present on prior exams since 04/03/2021. Since the prior exam, there has been development of bronchiectasis distal to the broncholith; a few air-fluid levels are noted within the dilated bronchi (for example, 302:275). A consolidative opacity in the periphery of the right lower lobe (302:302) most likely represents atelectasis, possibly post-obstructive in nature. No pleural effusion or pneumothorax is identified. The thyroid gland appears unremarkable. No supraclavicular lymphadenopathy is identified. There is no region of intrathoracic lymphadenopathy. Multiple subcentimeter lymph nodes are identified in both axillae. The thoracic aorta appears normal in course and caliber. There are mild atherosclerotic calcifications of the thoracic aorta. The main and central pulmonary arteries are within normal limits of diameter. The overall heart size is within normal limits. There is no pericardial effusion. Visualized portions of the upper abdomen disclose no acute process. There are nonobstructing bilateral renal calculi. The vertebral body heights appear symmetric and well-maintained. No lytic or destructive osseous lesion is identified. The soft tissues of the chest wall appear unremarkable. Emphysema: Trivial (<5%), Centrilobular, Upper lobe Coronary Artery Calcifications: Circumflex None; Left Anterior Descending None; Right Coronary None Localizer images: There is a mild scoliosis of the thoracolumbar spine. No additional findings IMPRESSION: LungRADS category: 2 LungRADS modifier: None LungRADS 0 reason: n/a Recommendations: Continue annual screening with LDCT in 12 months. Other actionable findings: Suspected broncholith at the origin of a segmental bronchus to the right lower lobe. There has been development of bronchiectasis distal to the broncholith and a few air-fluid levels are noted within dilated bronchi. Consider further evaluation by bronchoscopy. Reference: [employer]. Lung CT Screening Reporting and Data System (Lung-RADS). Available at: http://www.acr.org/Quality- Safety/Resources/LungRADS Awning Finisher: ANNEL Transcribe Date/Time: Oct 28 2024 1:57P Dictated by : DARIUSZ FORD MD This examination was interpreted and the report review (more content not included)... Normal [facility] CBC panel Auto (Bld)on 08-23 Erythrocyte distribution width (RBC) [Ratio] 14.1 % Normal 11.5-15.0 [facility] Comment on above: Order Comment: Speci men Type: BLOOD SPECIMENOrdering Facility: [facility] Address: [address] [place] [address] Performed By: #### 5 8410-2 ####[facility] LABIA [id number] [place] [address] [place] Hematocrit (Bld) [Volume fraction] 46.0 % Normal 39.0-51.0 [facility] Comment on above: Order Comment: Speci men Type: BLOOD SPECIMENOrdering Facility: [facility] Address: [address] [place] [address] Performed By: #### 5 8410-2 ####[facility] LABIA [id number] [place] [address] [place] Hemoglobin (Bld) [Mass/Vol] 14.8 g/dL Normal 13.0-17.0 [facility] Comment on above: Order Comment: Speci men Type: BLOOD SPECIMENOrdering Facility: [facility] Address: [address] [place] [address] Performed By: #### 5 8410-2 ####[facility] [id number] [place] [address] [place] MCH (RBC) [Entitic mass] 28.2 pg Normal 26.0-34.0 [facility] Comment on above: Order Comment: Speci men Type: BLOOD SPECIMENOrdering Facility: [facility] Address: [address] [place] [address] Performed By: #### 5 8410-2 ####[facility] [id number] [place] [address] [place] MCHC (RBC) [Mass/Vol] 32.2 g/dL Normal 30.5-36.[address] [facility] Comment on above: Order Comment: Speci men Type: BLOOD SPECIMENOrdering Facility: [facility] Address: [address] [place] [address] Performed By: #### 5 8410-2 ####[facility] [id number] [place] [address] [place] MCV (RBC) [Entitic vol] 87.8 fL Normal 80.0-100.0 [facility] Comment on above: Order Comment: Speci men Type: BLOOD SPECIMENOrdering Facility: [facility] Address: [address] [place] [address] Performed By: #### 5 8410-2 ####[facility] LABCLIA [id number] [facility] [address] [place] Nucleated RBC (Bld) [#/Vol] 10*3/uL Normal <0.01 [facility] Comment on above: Order Comment: Speci men Type: BLOOD SPECIMENOrdering Facility: [facility] Address: [address] [place] [address] Performed By: #### 5 8410-2 ####[facility] LABIA [id number] [place] [address] [place] Platelet mean volume (Bld) [Entitic vol] 10.6 fL Normal 9.0-12.7 [facility] Comment on above: Order Comment: Speci men Type: BLOOD SPECIMENOrdering Facility: [facility] Address: [address] [place] [address] Performed By: #### 5 8410-2 ####[facility] LABIA [id number] [place] [address] [place] Platelets (Bld) [#/Vol] 244 10*3/uL Normal 150-400 [facility] Comment on above: Order Comment: Speci men Type: BLOOD SPECIMENOrdering Facility: [facility] Address: [address] [place] [address] Performed By: #### 5 8410-2 ####[facility] LABIA [id number] [place] [address] [place] RBC (Bld) [#/Vol] 5.24 10*6/uL Normal 4.20-6.00 [facility] Comment on above: Order Comment: Speci men Type: BLOOD SPECIMENOrdering Facility: [facility] Address: [address] [place] [address] Performed By: #### 5 8410-2 ####[facility] LABIA [id number] [address] [address] [place] WBC (Bld) [#/Vol] 9.92 10*3/uL Normal 3.70-11.00 [facility] Comment on above: Order Comment: Speci men Type: BLOOD SPECIMENOrdering Facility: [facility] Address: [address] [place] [address] Performed By: #### 5 8410-2 ####[facility] LABIA [id number] [place] [address] [place] [facility] Comprehensive metabolic 2000 panelon 08-23-2024 Albumin [Mass/Vol] 3.9 g/dL Normal 3.9-4.9 [facility] Comment on above: Order Comment: Speci men Type: BLOOD SPECIMENOrdering Facility: [facility] Address: [address] [place] [address] Performed By: #### 2 4331-1, 68020-2 ####[facility] LABIA [id number] [place] [address] [place] ALP [Catalytic activity/Vol] 132 U/L High 38-113 [facility] Comment on above: Order Comment: Speci men Type: BLOOD SPECIMENOrdering Facility: [facility] Address: [address] [place] [address] Performed By: #### 2 4331-1, 03656-2 ####[facility] LABIA [id number] [address] [address] [place] ALT [Catalytic activity/Vol] 12 U/L Normal 10-54 [facility] Comment on above: Order Comment: Speci men Type: BLOOD SPECIMENOrdering Facility: [facility] Address: [address] [place], [place] [address] Performed By: #### 2 4331-1, 21580-0 ####[facility] LABCLIA [id number] [facility] [address] [place] [address] [place] Anion gap [Moles/Vol] 11 mmol/L Normal 8-[address] [facility] Comment on above: Order Comment: Speci men Type: BLOOD SPECIMENOrdering Facility: [facility] Address: [address] [place] [address] Performed By: #### 2 4331-1, 25534-2 ####[facility] LABCLIA [id number] [facility] [address] [place] [address] [place] AST [Catalytic activity/Vol] 15 U/L Normal 14-40 [facility] Comment on above: Order Comment: Speci men Type: BLOOD SPECIMENOrdering Facility: [facility] Address: [address] [place] [address] Performed By: #### 2 4331-1, 25674-9 ####[facility] LABCLIA [id number] [place] [id number] [place] Bilirubin [Mass/Vol] 0.7 mg/dL Normal 0.2-1.3 [facility] Comment on above: Order Comment: Speci men Type: BLOOD SPECIMENOrdering Facility: [facility] Address: [address] [place], [place] [address] Performed By: #### 2 4331-1, 23185-5 ####[facility] LABCLIA [id number] [place] [id number] [place] Calcium [Mass/Vol] 9.5 mg/dL Normal 8.5-10.2 [facility] Comment on above: Order Comment: Speci men Type: BLOOD SPECIMENOrdering Facility: [facility] Address: [address] [place], [place] [address] Performed By: #### 2 4331-1, 56425-3 ####[facility] LABCLIA [id number] [address] [address] [place] Chloride [Moles/Vol] 105 mmol/L Normal 98-107 [facility] Comment on above: Order Comment: Speci men Type: BLOOD SPECIMENOrdering Facility: [facility] Address: [address] [place] [address] Performed By: #### 2 4331-1, ####[facility] LABCLIA [id number] [place] [id number] [place] CO2 [Moles/Vol] 24 mmol/L Normal 22-30 [facility] Comment on above: Order Comment: Speci men Type: BLOOD SPECIMENOrdering Facility: [facility] Address: [address] [place] [address] Performed By: #### 2 4331-1, ####[facility] LABIA [id number] [place] [address] [place] Creatinine [Mass/Vol] 0.81 mg/dL Normal 0.73-1.[address] [facility] Comment on above: Order Comment: Speci men Type: BLOOD SPECIMENOrdering Facility: [facility] Address: [address] [place] [address] Performed By: #### 2 4331-1, ####[facility] LABIA [id number] [place] [address] [place] Creatinine and Glomerular filtration rate.predicted panel (S/P/Bld) 101 mL/min/1.73m??? Normal >=60 [facility] Comment on above: Order Comment: Speci men Type: BLOOD SPECIMENOrdering Facility: [facility] Address: [address] [place] [address] Result Comment: Melany mated Glomerular Filtration Rate (eGFR) is calculated using the 2020 CKD-EPI creatinine equation. This equation utilizes serum creatinine, sex, and age as parameters. The creatinine assay has traceable calibration to isotope dilution-mass spectrometry. Refer to KDIGO guidelines for clinical interpretation. In patients with unstable renal function, e.g. those with acute kidney injury, the eGFR may not accurately reflect actual GFR. Performed By: #### 2 4331-1, 16250-4 ####[facility] LABIA [id number] [address] [address] [place] Glucose [Mass/Vol] 111 mg/dL High 74-99 [facility] Comment on above: Order Comment: Speci men Type: BLOOD SPECIMENOrdering Facility: [facility] Address: [address] [place] [address] Result Comment: The [place] [employer] (ADA) provides guidance for cutoff values for fasting glucose and random glucose. The ADA defines fasting as no caloric intake for at least 8 hours. Fasting plasma glucose results between 100 to 125 mg/dL indicate increased risk for diabetes (prediabetes). Fasting plasma glucose results greater than or equal to 126 mg/dL meet the criteria for diagnosis of diabetes. In the absence of unequivocal hyperglycemia, results should be confirmed by repeat testing. In a patient with classic symptoms of hyperglycemia or hyperglycemic crisis, random plasma glucose results greater than or equal to 200 mg/dL meet the criteria for diagnosis of diabetes. Reference: Standards of Medical Care in Diabetes 2016, [place] Diabetes Association. Diabetes Care. 2016.39(Suppl 1). Performed By: #### 2 4331-1, 02328-4 ####[facility] [id number] [place] [id number] [place] Potassium [Moles/Vol] 4.6 mmol/L Normal 3.7-5.[address] [facility] Comment on above: Order Comment: Speci men Type: BLOOD SPECIMENOrdering Facility: [facility] Address: [address] [id number] Performed By: #### 2 4331-1, 17295-7 ####[facility] [id number] [address] [address] [place] Protein [Mass/Vol] 8.3 g/dL High 6.3-8.0 [facility] Comment on above: Order Comment: Speci men Type: BLOOD SPECIMENOrdering Facility: [facility] Address: [address] [id number] Performed By: #### 2 4331-1, 76587-8 ####[facility] LABCLIA [id number] [address] [address] [place] Sodium [Moles/Vol] 140 mmol/L Normal 136-144 [facility] Comment on above: Order Comment: Speci men Type: BLOOD SPECIMENOrdering Facility: [facility] Address: [address] [place] [address] Performed By: #### 2 4331-1, 74117-7 ####[facility] LABIA [id number] [address] [address] [place] Urea nitrogen [Mass/Vol] 10 mg/dL Normal 9-24 [facility] Comment on above: Order Comment: Speci men Type: BLOOD SPECIMENOrdering Facility: [facility] Address: [address] [place] [address] Performed By: #### 2 4331-1, ####[facility] LABIA [id number] [address] [address] [place] HbA1c (Bld)on 08-23-2024 Average glucose Estimated from glycated hemoglobin (Bld) [Mass/Vol] 120 mg/dL Normal [facility] Comment on above: Order Comment: Speci men Type: BLOOD SPECIMENOrdering Facility: [facility] Address: [address] [place] [address] Result Comment: eAG: (Estimated average glucose) is a calculated value from HgbA1c and is student services representative of the average blood glucose level in the last 2-3 month period. Performed By: #### 5 5454-3 ####[facility] LABIA [id number] [address] [address] [place] HbA1c (Bld) [Mass fraction] 5.8 % High 4.3-5.6 [facility] Comment on above: Order Comment: Speci men Type: BLOOD SPECIMENOrdering Facility: [facility] Address: [address] [place] [address] Result Comment: Amer ican Diabetes Association guidelines indicate that patients with HgbA1c in the range 5.7-6.4% are at increased risk for development of diabetes, and intervention by lifestyle modification may be beneficial. HgbA1c greater or equal to 6.5% is considered diagnostic of diabetes. Performed By: #### 5 5454-3 ####[facility] LABCLIA [id number] [place] [address] [place] Lipid 1996 panelon 5 Cholesterol [Mass/Vol] 115 mg/dL Normal <200 [facility] Comment on above: Order Comment: Bhargav scanlon Type: BLOOD SPECIMENOrdering Facility: [facility] Address: [address] [place] [address] Result Comment: <200 mg/dL, Desirable 200-239 mg/dL, Borderline high >239 mg/dL, High Performed By: #### 2 4331-1, 06479-6 ####[facility] LABIA [id number] [place] [id number] [facility] Cholesterol in HDL [Mass/Vol] 34 mg/dL Low >39 [facility] Comment on above: Order Comment: Bhargav scanlon Type: BLOOD SPECIMENOrdering Facility: [facility] Address: [address] [place] [address] Result Comment: 40-5 9 mg/dL, Acceptable >59 mg/dL, High: Negative risk factor for coronary heart disease <40 mg/dL, Low: Positive risk factor for coronary heart disease Performed By: #### 2 4331-1, 57801-8 ####[facility] LABIA [id number] [address] [address] [facility] [place] Cholesterol in LDL [Mass/Vol] 68 mg/dL Normal <100 [facility] Comment on above: Order Comment: Bhargav scanlon Type: BLOOD SPECIMENOrdering Facility: [facility] Address: [address] [place] [address] Result Comment: <100 mg/dL, Optimal 100-129 mg/dL, Near optimal/above optimal 130-159 mg/dL, Borderline high 160-189 mg/dL, High >189 mg/dL, Very high Secondary prevention optimal LDL Cholesterol levels are recommended to be <70 mg/dL LDL cholesterol is calculated using the Frances-NIH equation. Performed By: #### 2 4331-1, ####[facility] LABCLIA [id number] [place] [address] [place] Cholesterol in LDL/Cholesterol in HDL [Mass ratio] 2.00 {ratio} Normal <2.54 [facility] Comment on above: Order Comment: Speci men Type: BLOOD SPECIMENOrdering Facility: [facility] Address: [address] [place] [address] Result Comment: Sarahi teran: 1. National Cholesterol Education Program ATP III Guideline At-A-Glance Quick Desk Reference: National Heart, Lung, and Blood [place]. National Institutes of Health. 2001: NIH Publication No. 01-3305. 2. An International Atherosclerosis Society position paper: global recommendations for the management of dyslipidemia: executive summary, Atherosclerosis. 2014: 232(2):410-413. Performed By: #### 2 4331-, ####[facility] LABIA [id number] [place] [address] [place] Cholesterol in VLDL [Mass/Vol] 9 mg/dL Normal <30 [facility] Comment on above: Order Comment: Bhargav men Type: BLOOD SPECIMENOrdering Facility: [facility] Address: [address] [place] [address] Performed By: #### 2 4331-1, ####[facility] LABIA [id number] [place] [id number] [place] Cholesterol non HDL [Mass/Vol] 81 mg/dL Normal <130 [facility] Comment on above: Order Comment: Bhargav men Type: BLOOD SPECIMENOrdering Facility: [facility] Address: [address] [place] [address] Result Comment: <130 mg/dL, Optimal 130-159 mg/dL, Near optimal/above optimal 160-189 mg/dL, Borderline high 190-219 mg/dL, High >219 mg/dL, Very high Secondary prevention optimal non HDL Cholesterol levels are recommended to be <100 mg/dL Performed By: #### 2 4331-1, ####[facility] LABCLIA [id number] [facility] [address] [place] [address] [place] [facility] Cholesterol.total/Chol esterol in HDL [Mass ratio] 3.38 {ratio} Normal <5.10 [facility] Comment on above: Order Comment: Speci men Type: BLOOD SPECIMENOrdering Facility: [facility] Address: [address] [place] [address] Performed By: #### 2 4331-1, ####[facility] LABCLIA [id number] [address], [address] FASTING TIME 12 hrs Normal [facility] Comment on above: Order Comment: Culleni men Type: BLOOD SPECIMENOrdering Facility: [facility] Address: [address] [place] [address] Performed By: #### 2 4331-1, ####[facility] LABCLIA [id number] [address], [facility] [place] Triglyceride [Mass/Vol] 62 mg/dL Normal <150 [facility] Comment on above: Order Comment: Culleni men Type: BLOOD SPECIMENOrdering Facility: [facility] Address: [address] [place] [address] Result Comment: <150 mg/dL, Normal 150-199 mg/dL, Borderline high 200-499 mg/dL, High >499 mg/dL, Very high Performed By: #### 2 4331-1, ####[facility] LABCLIA [id number] [facility] [address] [place] [address] [place] CNOVon 07-28-2024 CNOV Office Visit (INTMWS ) NEYMAR ROME ([id number]) 1965 M Date Time Provider Department 07/28/24 10:00 AM KVNG FU INTMWS During your visit today, we recorded the following information about you: Temperature Pulse Respiration Blood pressure 99.1 degrees 97/minute 16/minute 124/58 Weight Height 93.3 kg 1.778 m Kvng Fu MD 07/28/2024 11:21 AM Signed Neymar Rome is a 59 year old male here for a Medicare wellness visit. Medicare Health Risk Assessment General Health Fair Exercise: Minutes/Day 10 min Exercise: Days/Week 5 days Alcohol: Daily Use Never Alcohol: Drinks/Day Patient does not drink Alcohol: 6 or more drinks Never Feel off balance No Concerns: Teeth/Dentures No Concerns: Sexual function No Troubled by feelings Stressed; Lonely Frequency: Eating healthy diet Several days ADLs requiring help Housework Safety precautions in home/vehicle Yes Smoke, vape, chews tobacco Yes, but I'm not ready to quit Difficulty hearing No Difficulty seeing No Current Providers Specialists: I have reviewed specialist-related care of the patient in the medical record. Current care team: Patient Care Team: Kvng Fu MD as PCP - General (Internal Medicine) Naomi Light APRN.SEED ANALYST as [employer] (Internal Medicine) Shaquille Booker APRN CNP (Lung Cancer Screening) Outside specialists seen: Andrew Camp MD (Pain Management) [facility] (Ophthalmology) Medical/Family history review Reviewed and updated problem list, medical/surgical/family/soc ial history, medications, and allergies. Opioid use review Opioid Medications (last 90 days) No data to display Anxiety/Depression screening PHQ-2 Score: 2 (Lower risk for depression) GERARDO-2 Score: 0 (Lower risk for anxiety) Recommendation: no further intervention at this time Cognitive screening Mini Cog Score: 5 Cognitive screening reviewed and No further action needed (score 3-5). Functional Observation Was the patient's Timed Up AND Go test unsteady or >= 12 seconds? No Advance Care Planning Patient did not wish or was not able to name a surrogate decision maker or provide an advance care plan Measurements BP 124/58 (BP Site: Right Arm, BP Position: Sitting, BP Cuff Size: Large Adult) Pulse 97 Temp 37.3 ?C (99.1 ?F) (Temporal) Resp 16 Ht 177.8 cm (5' 10) Wt 93.3 kg (205 lb 11 oz) SpO2 95% BMI 29.51 kg/m? Vision Screening: Follows with optometry/ophthalmology Declines visual acuity screen Assessment/Plan Medicare annual wellness visit, subsequent (Z00.00) - Counseled on healthy diet and regular exercise - Fall avoidance information provided - Personalized prevention plan provided - Discussed need for and benefit of weight loss. BMI 29.51 kg/(m2) - Smoking cessation encouraged; discussed risks to health and quitting strategies. Patient is not ready to quit Kvng Fu MD 07/28/2024 10:42 AM Addendum Screening schedule The following prevention plan is recommended: RSV Vaccine(1 - Risk 60-74 years 1-dose series) Never done Depression Screening due on 08/04/2024 Anxiety Screening due on 08/04/2024 WHAT YOU CAN DO TO PREVENT FALLS Many falls can be prevented. By making some changes, you can lower your chances of falling. Four things YOU can do to prevent falls for you* and your caregiver 1. Begin a regular exercise program Exercise is one of the most important ways to lower your chances of falling. It makes you stronger and helps you feel better. Exercises that improve balance and coordination (like William Chi) are the most helpful. Lack of exercise leads to weakness and increases your chances of falling. Ask your doctor or health care provider about the best type of exercise program for you. 2. Have your health care provider review your medicines Have your doctor or pharmacist review all the medicines you take, even hmum-cyi-yojgnnw medicines. As you get older, the way medicines work in your body can change. Some medicines, or combinations of medicines, can make you sleepy or dizzy and can cause you to fall. 3. Have your vision checked Have your eyes checked by an eye doctor at least once a year. You may be wearing the wrong glasses or have a condition like glaucoma or cataracts that limits your vision. Poor vision can increase your chances of falling. 4. Make your home safer About half of all falls happen at home. To make your home safer: Remove things you can trip over (like papers, books, clothes, and shoes) from stairs and places where you walk. Remove small throw rugs or use double-sided tape to keep the rugs from slipping. Keep items you use often in cabinets you can reach easily without using a step stool. Have grab bars put in next to your toilet and in the tub or shower. Use non-slip mats in the bathtub and on shower floors. Im (more content not included)... Normal [facility] L3410.9998on 07-01-2024 [facility]. Normal [facility] Comment on above: Order Comment: 00772 3 URINE TOXICOLOGY Result Comment: [id number] 6+OXYCODONE-BUND (ng/mL) DRUG RESULT SCREEN CUTOFF ____ Amphetamines,Urine Negative ng/mL 1000 Amphetamine test includes Amphetamine and Methamphetamine. Barbiturates Negative ng/mL 200 Benzodiazepines Negative ng/mL 200 Cannabinoid Negative ng/mL 20 Cocaine (Metab) Negative ng/mL 300 Opiates Positive ng/mL 300 Opiates test includes Codeine, Morphine, Hydromorphone, Hydrocodone. Codeine Negative 300 Morphine Positive Morphine Conf,MS,UR >3000 ng/mL 300 Oxycodone/Oxymorphone,Urine Negative ng/mL 300 Test includes Oxycodone and Oxymorphone. TESTING PERFORMED AT [facility]. ORIGINAL REPORT ON FILE IN LAB CONTAINS ADDITIONAL TEST SITE INFORMATION. Performed By: #### L 3410.9998, L505.5000 #### [facility] [address] [place], [address] Amphetamines Screen method > 1000 ng/mL Ql (U)Ordered By: Andrew Camp on 06-22-2024 Amphetamines Ql (U) Negative <1000 ng/mL [facility] Urine Barbiturates Screen Negative < 200 ng/mL [facility] Methadone, urineOrdered By: Andrew Camp on 06-22-2024 Urine Methadone Screen Negative < 300 ng/mL [facility] No Panel InformationOrdered By: Andrew Camp on 06-22-2024 Urine Buprenorphine Qualitative Negative < 200 ng/mL [facility] Urine Oxycodone Screen Negative < 100 ng/mL [facility] Quantitative urine opiates m easurementOrdered By: Andrew Camp on 06-22-2024 Opiates Ql (U) Positive < 300 ng/mL [facility] Comment on above: If confirmation test ing is needed, a separate order will be required to send out testing to the reference laboratory. Urine Drug Screen (VISTA)on 06-22-2024 AMPHETAMINES Negative Normal <1000 ng/mL [facility] Comment on above: Order Comment: URINE TOX Performed By: #### L 3410.9998, L505.5000 #### [facility] [address] [facility] [address] BARBITIURATES Negative Normal < 200 ng/mL [facility] Comment on above: Order Comment: URINE TOX Performed By: #### L 3410.9998, L505.5000 #### [facility] [address] [facility] [address] BENZODIAZIPINE Negative Normal < 200 ng/mL [facility] Comment on above: Order Comment: URINE TOX Performed By: #### L 3410.9998, L505.5000 #### [facility] [address] [place], [address] BUP Ur Drug Scr Negative Normal < 200 ng/mL [facility] Comment on above: Order Comment: URINE TOX Performed By: #### L 3410.9998, L505.5000 #### [facility] [address] [place], [address] COCAINE Negative Normal < 300 ng/mL [facility] Comment on above: Order Comment: URINE TOX Performed By: #### L 3410.9998, L505.5000 #### [facility] [address] [place], [address] Fentanyl Negative Normal [facility] Comment on above: Order Comment: URINE TOX Performed By: #### L 3410.9998, L505.5000 #### [facility] [address] [place], [address] METHADONE Negative Normal < 300 ng/mL [facility] Comment on above: Order Comment: URINE TOX Performed By: #### L 3410.9998, L505.5000 #### [facility] [address] [facility] [address] OPIATES Positive Normal < 300 ng/mL [facility] Comment on above: Order Comment: URINE TOX Result Comment: If c onfirmation testing is needed, a separate order will be required to send out testing to the reference laboratory. Performed By: #### L 3410.9998, L505.5000 #### [facility] [address] [place], [address] OXYCODONE Negative Normal < 100 ng/mL [facility] Comment on above: Order Comment: URINE TOX Performed By: #### L 3410.9998, L505.5000 #### [facility] [address] [place], [address] PCP Negative Normal < 25 ng/mL [facility] Comment on above: Order Comment: URINE TOX Performed By: #### L 3410.9998, L505.5000 #### [facility] [address] [place], [address] THC Negative Normal < 50 ng/mL [facility] Comment on above: Order Comment: URINE TOX Performed By: #### L 3410.9998, L505.5000 #### [facility] [address] [place], [address] Urine benzodiazepine levelOr dered By: Andrew Camp on 06-22-2024 Benzodiazepines Ql (U) Negative < 200 ng/mL [facility] Urine cocaine levelOrdered B y: Andrew Mariei on 06-22-2024 Cocaine Ql (U) Negative < 300 ng/mL [facility] Urine lwtpl-7-sawztusarkibqe abinol (THC) measurementOrdered By: Andrew Camp on 06-22-2024 Cannabinoids Screen Ql (U) Negative < 50 ng/mL [facility] Urine phencyclidine (PCP) de tectionOrdered By: Andrew Camp on 06-22-2024 Phencyclidine Ql (U) Negative < 25 ng/mL [facility] fentaNYL Screen Ql (U)Ordere d By: Andrew Camp on 06-22-2024 Urine Fentanyl Screen Negative [facility] Lumbar Spine 2 or 3 Viewson 02-09-2024 Lumbar Spine 2 or 3 Views [facility] Services [address] [place], [place] [address] Lumbar Spine 2 or 3 Views MR#: [id number] Acct: [id number] Name: NEYMAR ROME Rep #: [id number] : 1965 M 58 From: Stephen Loco PCP: Dr. Kvng Fu MD Status: [facility] CLI Study: Lumbar Spine 2 or 3 Views Date of Exam: Exam# [id number] Ordering Dr: Andrew Camp MD [id number] STUDY: X-RAY - LUMBAR SPINE REASON FOR EXAM: Male, 58 years old. FALL TECHNIQUE: 2 view(s) of the lumbar spine were obtained. COMPARISON: None FINDINGS: Normal lumbar lordosis. There is no substantial scoliosis. There is a normal alignment of the vertebrae. Normal vertebral bodies and endplates. Normal disc space heights. Possible transitional vertebrae L5-S1. Possible bilateral uroliths measuring up to 9 x 17 mm on the left. Right total hip arthroplasty and surgical clips. The soft tissue structures are unremarkable. RAD/Lumbar Spine 2 or 3 Views IMPRESSION: Transitional vertebrae. No acute fracture noted. Possible bilateral nephroliths. Electronically Signed: Stephen Hernandez MD at 20:12 EDT Reading Location ID and State: [facility] / [place] Tel , Service support , CC: Dr. Andrew Camp MD; Dr. Kvng Fu MD Awning Finisher: Signed Normal [facility] Sacrum-Coccyx min 2 Viewson 02-09-2024 Sacrum-Coccyx min 2 Views [facility] Services [address] [place] [address] Sacrum-Coccyx min 2 Views MR#: [id number] Acct: [id number] Name: NEYMAR ROME Rep #: [id number] : 1965 M 58 From: Cisco Kc MD PCP: Dr. Kvng Fu MD Status: REG CLI Study: Sacrum-Coccyx min 2 Views Date of Exam: Exam# [id number] Ordering Dr: Andrew Camp MD [id number] STUDY: X-RAY - SACRUM/COCCYX REASON FOR EXAM: Male, 58 years old. FALL TECHNIQUE: 3 views of the sacrum and coccyx were obtained. COMPARISON: None. FINDINGS: There is a right hip arthroplasty in place. There are multiple yojana overlying the right pelvis. Normal bilateral sacroiliac joints. Normal visualized sacral ala and fused sacral bodies. Normal sacrococcygeal junction with a normal angulation. Normal coccygeal segments. The presacral soft tissue structures are unremarkable. There is no demonstrated fracture or destructive osseous process. RAD/Sacrum-Coccyx min 2 Views IMPRESSION: No demonstrated fracture. Electronically Signed: Cisco Kc MD at 16:07 EDT , CC: Dr. Andrew Camp MD; Dr. Kvng Fu MD Awning Finisher: Signed Normal [facility] CNOVon 01-25-2024 [facility] Office Visit (INTMWS ) ROMENEYMAR Mary ([id number]) 1965 M Date Time Provider Department 01/25/24 12:00 PM NAOMI LIGHT INTMWS During your visit today, we recorded the following information about you: Pulse Respiration Blood pressure Weight 83/minute 16/minute 120/82 99.2 kg Naomi Light, [employer].SEED ANALYST 01/25/2024 12:59 PM Signed CC: Patient presents with: 1 week follow up HPI Neymar Rome is a 58 year old male who presents today for above and routine six month follow-up. He was evaluated on 01/17 for one week history of edema of the right lower leg along with seeping of clear fluid. He was taking Xarelto consistently as prescribed for chronic DVT. Venous stasis dermatitis and insufficiency suspected and he was prescribed Lasix x 7 days and betamethasone lotion. Patient reports swelling has resolved and dermatitis has improved. COPD. Current symptoms: SOB with exertion. Denies frequent cough, wheezing or chest tightness. Symptoms are not limiting daily activities or exercise. Treatment: none, requesting refill of albuterol inhaler Hearing Therapy Teacher: none He smokes 1 ppd for 50 years No recent exacerbations. 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 electrolyte imbalance False positive serological test for hepatitis C 09/2015 Fatty liver disease, nonalcoholic Hematuria 10/04/2013 Hip arthritis 08/07/2013 Hip joint replacement status 11/21/2013 History of alcoholism ([facility]) 1994 sober since 1997 History of pulmonary embolism 08/12/2012 HTN (hypertension) Hyperlipemia Kidney stones 10/04/2013 LUMB DISC DIS W MYELOPAT 05/17/2006 PE (pulmonary embolism) 01/11/2012 DVT and PE Recurrent deep vein thrombosis (DVT) (HCC) 04/26/2021 Renal colic 04/08/2007 Tubular adenoma of colon 04/07/2018 Zoster 05/28/2007 PAST SURGICAL HISTORY Procedure Laterality Date ARTHRP ACETBLR/PROX FEM PROSTC AGRFT/ALGRFT Right 11/08/2013 right MICHAEL CERVICAL OR THORACIC EPIDURAL INJECTION 03/31/2018 of neck 03-31-18 COLONOSCOPY 04/07/2018 COLONOSCOPY AND POLYPECTOMY 08/09/2012 repeat due 2018 COLONOSCOPY AND POLYPECTOMY 03/22/2023 ERCP W/DESTRUCTN STONE(S)-LITHOTRIPSY 2007 multi times for kidney stones IR IVC FILTER PLACEMENT 11/08/2013 [facility] [place] via [facility] PAST SURGICAL HISTORY OF Right 1996 hernia right groin PAST SURGICAL HISTORY OF 2011 gall bladder removed PAST SURGICAL HISTORY OF 2000 cystoscopy REPAIR UMBILICAL HERNIA 09/08/2023 Dr. Gonzalez ALLERGIES Formaldehyde, Latex, Paroxetine Hcl, Tramadol, Venlafaxine Hcl, and Vicodin [Hydrocodone-Acetaminophen] MEDICATIONS furosemide (LASIX) 20 mg tablet Take 1 tablet by mouth once daily for 7 days. Betamethasone Dipropionate 0.05 % lotion Apply to right lower leg twice a day rivaroxaban (XARELTO) 20 mg tablet Take 1 tablet by mouth daily with dinner. cetirizine (ZYRTEC) 10 mg tablet Take 1 tablet by mouth once daily. atorvastatin (LIPITOR) 10 mg tablet Take 1 tablet by mouth daily at bedtime. For cholesterol. tiZANidine (ZANAFLEX) 4 mg tablet Take 1 tablet by mouth three times a day. Per Dr. Camp amitriptyline (ELAVIL) 25 mg tablet Take 1 tablet by mouth daily at bedtime. Dr. Camp pregabalin (LYRICA) 100 mg capsule Take 1 capsule by mouth twice daily. Per Dr. Camp. COMPOUNDED PRESCRIPTION 1 capsule as needed. OTC stool softner FAMILY HISTORY Problem Relation Age of Onset Hypertension Mother Colon Cancer Mother 65 Liver Cancer Mother Diabetes Father Hypertension Father Stroke Father pt states had over 33 strokes Hypertension Sister Diabetes Sister No Known Problems Sister Kidney stones Brother Hypertension Paternal Grandmother Diabetes Paternal Grandmother Hypertension Paternal Grandfather Hypertension Paternal Aunt Social History Tobacco Use Smoking status: Every Day Current packs/day: 1.00 Average packs/day: 1 pack/day for 49.5 years (49.5 ttl pk-yrs) Types: Cigarettes Start date: 1974 Smokeless tobacco: Never Tobacco comments: Started age 8 Vaping Use Vaping status: Never Used Substance Use Topics Alcohol use: No Comment: Hx alcoholism, sober since quit in 1998 Drug use: No Comment: hx marijuana use 1985 BP 120/82 Pulse 83 Resp 16 Wt 99.2 kg (218 lb 11.1 oz) BMI 31.38 kg/m? Physical Exam Vitals reviewed. Constitutional: Appearance: Normal appearance. Cardiovascular: Rate a (more content not included)... Normal [facility] CNOVon 01-18-2024 CNOV Office Visit (INTMWS ) NEYMAR ROME ([id number]) 1965 M Date Time Provider Department 01/18/24 10:00 AM NAOMI LIGHT INTMWS During your visit today, we recorded the following information about you: Temperature Pulse Respiration Blood pressure 98.7 degrees 87/minute 20/minute 133/81 Weight 101.2 kg Naomi Light, [employer].SEED ANALYST 01/18/2024 10:45 AM Signed CC: Patient presents with: right leg and foot swelling: X 1 week HPI Neymar Rome is a 58 year old male who presents today for above. Patient reports swelling of the right lower leg and foot x 1 week. There is chronic redness and scabbing of the lower legs that is no worse than usual however he notes seeping of clear yellow fluid for the past week as well. Swelling is better in the morning and worse as the day progresses. Denies increased warmth, calf/leg pain, fever, chills, injury, SOB, chest pain, palpitations, cough, PND, orthopnea, changes in weight. He has not been wearing compression socks because of the drainage. He does not keep his legs elevated. He has a history of chronic DVT of the right leg. He is taking Xarelto daily as prescribed, denies missing any doses. 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 electrolyte imbalance False positive serological test for hepatitis C 09/2015 Fatty liver disease, nonalcoholic Hematuria 10/04/2013 Hip arthritis 08/07/2013 Hip joint replacement status 11/21/2013 History of alcoholism (HCC) 1994 sober since 1997 History of pulmonary embolism 08/12/2012 HTN (hypertension) Hyperlipemia Kidney stones 10/04/2013 LUMB DISC DIS W MYELOPAT 05/17/2006 PE (pulmonary embolism) 01/11/2012 DVT and PE Recurrent deep vein thrombosis (DVT) (HCC) 04/26/2021 Renal colic 04/08/2007 Tubular adenoma of colon 04/07/2018 Zoster 05/28/2007 PAST SURGICAL HISTORY Procedure Laterality Date ARTHRP ACETBLR/PROX FEM PROSTC AGRFT/ALGRFT Right 11/08/2013 right MICHAEL CERVICAL OR THORACIC EPIDURAL INJECTION 03/31/2018 of neck 03-31-18 COLONOSCOPY 04/07/2018 COLONOSCOPY AND POLYPECTOMY 08/09/2012 repeat due 2017 COLONOSCOPY AND POLYPECTOMY 03/22/2023 ERCP W/DESTRUCTN STONE(S)-LITHOTRIPSY 2007 multi times for kidney stones IR IVC FILTER PLACEMENT 11/08/2013 [facility] [place] via L [facility] PAST SURGICAL HISTORY OF Right 1996 hernia right groin PAST SURGICAL HISTORY OF 2011 gall bladder removed PAST SURGICAL HISTORY OF 2000 cystoscopy REPAIR UMBILICAL HERNIA 09/08/2023 Dr. Gonzalez ALLERGIES Formaldehyde, Latex, Paroxetine Hcl, Tramadol, Venlafaxine Hcl, and Vicodin [Hydrocodone-Acetaminophen] MEDICATIONS rivaroxaban (XARELTO) 20 mg tablet Take 1 tablet by mouth daily with dinner. cetirizine (ZYRTEC) 10 mg tablet Take 1 tablet by mouth once daily. atorvastatin (LIPITOR) 10 mg tablet Take 1 tablet by mouth daily at bedtime. For cholesterol. triamcinolone acetonide (KENALOG) 0.5 % cream Apply 1 application to affected area three times a day as needed. For rash/itching. Apply sparingly. Avoid face/skin fold. tiZANidine (ZANAFLEX) 4 mg tablet Take 1 tablet by mouth three times a day. Per Dr. Camp amitriptyline (ELAVIL) 25 mg tablet Take 1 tablet by mouth daily at bedtime. Dr. Camp pregabalin (LYRICA) 100 mg capsule Take 1 capsule by mouth twice daily. Per Dr. Camp. COMPOUNDED PRESCRIPTION 1 capsule as needed. OTC stool softner FAMILY HISTORY Problem Relation Age of Onset Hypertension Mother Colon Cancer Mother 65 Liver Cancer Mother Diabetes Father Hypertension Father Stroke Father pt states had over 33 strokes Hypertension Sister Diabetes Sister No Known Problems Sister Kidney stones Brother Hypertension Paternal Grandmother Diabetes Paternal Grandmother Hypertension Paternal Grandfather Hypertension Paternal Aunt Social History Tobacco Use Smoking status: Every Day Current packs/day: 1.00 Average packs/day: 1 pack/day for 49.5 years (49.5 ttl pk-yrs) Types: Cigarettes Start date: 1974 Smokeless tobacco: Never Tobacco comments: Started age 8 Vaping Use Vaping status: Never Used Substance Use Topics Alcohol use: No Comment: Hx alcoholism, sober since quit in 1998 Drug use: No Comment: hx marijuana use 1985 BP 133/81 Pulse 87 Temp 37.1 ?C (98.7 ?F) (Temporal) Resp 20 Wt 101.2 kg (223 lb 1.7 oz) BMI 32.01 kg/m? Physical Exam Vitals reviewed. Con (more content not included)... Normal [facility] CNPNon 10-01-2023 [facility] NEYMAR ROME ([id number]) 1965 M Date Time Provider Department 10/01/23 SHAQUILLE BOOKER [facility] During your visit today, we recorded the following information about you: Shaquille Booker APRN.CNP 10/01/2023 6:34 PM Signed Spoke with patient and the following results were discussed: The radiologist and review with Dr. Lopes physician champion report that the new opacities in RLL are inflammatory/infectious process with mucoid impactions present. And recommend a 12 month follow up. LDCT Lung Screen Results LungRADS category: 2 Incidentals: NA Recommendations: Continue annual screening with LDCT in 12 months. Patient verbalized understanding of the results and had no other questions or concerns at this time. Shaquille Booker APRN.JALYN October 01, 2023 6:30 PM Sharona Jackson 10/06/2023 10:26 AM Signed Per RIQ I was unable to schedule sent staff message to Lung Screening Coordinators to assist in arranging this appointment. Allergies As of Date: 10/01/2023 Noted Allergy Reaction FORMALDEHYDE 08/12/2012 14 - Other: See Comments Comments: blisters LATEX 03/19/2006 PAROXETINE HCL 08/12/2012 14 - Other: See Comments Comments: sexual dysfunction TRAMADOL 10/29/2006 1 - Mental Status Change VENLAFAXINE HCL 08/12/2012 14 - Other: See Comments Comments: increased BP VICODIN (HYDROCODONE-ACETAMINOPHE*1 05/19/2005 14 - Other: See Comments Comments: causes pain Date Reviewed: 09/29/2023 Reviewed by: Lexy Martinez LPN - Fully Assessed Reason for Visit: Results [95] Primary Visit Diagnosis:Tobacco use current [Z72.0] Order(s):CT LUNG SCREEN WO ANNA [[id number]] Order #: [id number] FUTURE Prescriptions as of 10/06/2023 - atorvastatin (LIPITOR) 10 mg tablet Take 1 tablet by mouth daily at bedtime. For cholesterol. - triamcinolone acetonide (KENALOG) 0.5 % cream Apply 1 application to affected area three times a day as needed. For rash/itching. Apply sparingly. Avoid face/skin fold. - tiZANidine (ZANAFLEX) 4 mg tablet Take 1 tablet by mouth three times a day. Per Dr. Camp - cetirizine (ZYRTEC) 10 mg tablet Take 1 tablet by mouth once daily. - rivaroxaban (XARELTO) 20 mg tablet Take 1 tablet by mouth daily with dinner. - amitriptyline (ELAVIL) 25 mg tablet Take 1 tablet by mouth daily at bedtime. Dr. Camp - pregabalin (LYRICA) 100 mg capsule Take 1 capsule by mouth twice daily. Per Dr. Camp. - COMPOUNDED PRESCRIPTION 1 capsule as needed. 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 Renal colic [N23] 04/08/2007 01/10/2015 Calculus of kidney [N20.0] 04/08/2007 01/10/2015 History of pulmonary embolism [Z86.711] 08/12/2012 01/11/2015 HTN (hypertension) [I10] 05/13/2015 Hyperlipemia [E78.5] Depression [F32.A] 06/03/2017 Hip arthritis [M16.10] 08/07/2013 08/10/2016 Acute venous embolism and thrombosis of unspeci*08/30/2013 05/13/2015 DVT (deep venous thrombosis) (HCC) [I82.409] 09/04/2013 05/13/2015 Allergic dermatitis [L23.9] Hematuria [R31.9] 10/04/2013 08/10/2016 Kidney stones [N20.0] 10/04/2013 08/10/2016 Anticoagulation adequate [Z79.01] 10/04/2013 05/13/2015 Hip joint replacement status [Z96.649] 11/21/2013 08/10/2016 Asthmatic bronchitis [J45.909] 01/10/2015 10/21/2017 Blindness of right eye [H54.40] 01/11/2015 Benign non-nodular prostatic hyperplasia withou*11/18/2015 Tobacco use disorder [F17.200] 04/07/2016 COPD (chronic obstructive pulmonary disease) (H*2017 History of alcoholism (HCC) [F10.21] 2017 02/23/2018 Screening for colon cancer [Z12.11] 03/23/2018 09/20/2018 Family history of colon cancer [Z80.0] 03/23/2018 Tubular adenoma of colon [D12.6] 04/07/2018 Acute deep vein thrombosis (DVT) of proximal ve*04/15/2021 02/13/2022 Recurrent deep vein thrombosis (DVT) (HCC) [I82*04/26/2021 Obesity, Class I, BMI 30-34.9 [E66.9] 05/12/2021 Infestation by bed bug [B88.8] 03/15/2023 History of total hip replacement, right [Z96.64*03/15/2023 Fatty liver [K76.0] 03/15/2023 Narcotic dependence (HCC) [F11.20] 08/05/2023 Encounter Status:Closed by SHAQUILLE BOOKER on 10/06/23 [facility] CBC panel Auto (Bld)on 08-04 Erythrocyte distribution width (RBC) [Ratio] 12.9 % 11.5 - 15.0 % [facility] Hematocrit (Bld) [Volume fraction] 48.0 % 39.0 - 51.0 % [facility] Hemoglobin (Bld) [Mass/Vol] 15.5 g/dL 13.0 - 17.0 g/dL [facility] MCH (RBC) [Entitic mass] 29.7 pg 26.0 - 34.0 pg [facility] MCHC (RBC) [Mass/Vol] 32.3 g/dL 30.5 - 36.0 g/dL [facility] MCV (RBC) [Entitic vol] 92.0 fL 80.0 - 100.0 fL [facility] Nucleated RBC (Bld) [#/Vol] <0.01 k/uL [facility] Platelet mean volume (Bld) [Entitic vol] 11.1 fL 9.0 - 12.7 fL [facility] Platelets (Bld) [#/Vol] 213 10*3/uL 150 - 400 k/uL [facility] RBC (Bld) [#/Vol] 5.22 10*6/uL 4.20 - 6.0 0 m/uL [facility] WBC (Bld) [#/Vol] 6.95 10*3/uL 3.70 - 11.00 k/uL [facility] HbA1c (Bld)on 08-05-2023 Average glucose Estimated from glycated hemoglobin (Bld) [Mass/Vol] 114 mg/dL [facility] HbA1c (Bld) [Mass fraction] 5.6 % 4.3 - 5.6 % [facility] Miscellaneous Lab Procedureo n 08-03-2023 [facility] LAB TEST Normal [facility] Comment on above: Order Comment: URINE TOX SCREEN RUN LOWEST TEST RT URINE TOX SCREEN RUN LOWEST TEST RT [id number] Result Comment: [id number] 6+OXYCODONE-BUND (ng/mL) DRUG RESULT SCREEN CUTOFF ____ Amphetamines,Urine Negative ng/mL 1000 Amphetamine test includes Amphetamine and Methamphetamine. Barbiturates Negative ng/mL 200 Benzodiazepines Negative ng/mL 200 Cannabinoid Negative ng/mL 20 Cocaine (Metab) Negative ng/mL 300 Opiates Positive ng/mL 300 Opiates test includes Codeine, Morphine, Hydromorphone, Hydrocodone. Please Note: Confirmation performed by [employer] Codeine Negative 300 Morphine POSITIVE Morphine Conf, MS,UR >3000 ng/mL 300 Hydromorphone Negative 300 Hydrocodone Negative 300 Oxycodone/Oxymorphone,Urine Negative ng/mL 300 Test includes Oxycodone and Oxymorphone. TESTING PERFORMED AT [facility]. ORIGINAL REPORT ON FILE IN LAB CONTAINS ADDITIONAL TEST SITE INFORMATION. Performed By: #### L 505.5000, [id number] #### [facility] [address] [place], [address] Laboratory - Drug toxicology Ordered By: Andrew Camp on 07-28-2023 Amphetamines Ql (U) Negative <1000 ng/mL [facility] Benzodiazepines Ql (U) Negative < 200 ng/mL [facility] Cannabinoids Screen Ql (U) Negative < 50 ng/mL [facility] Cocaine Ql (U) Negative < 300 ng/mL [facility] Opiates Ql (U) Positive < 300 ng/mL [facility] No Panel InformationOrdered By: Andrew Camp on 07-28-2023 MDMA (Ecstasy) Screen Negative < 500 ng/mL [facility] Urine Barbiturates Screen Negative < 200 ng/mL [facility] Urine Drug Screen Comment [facility] Comment on above: CONFIRMATORY TESTING FOR ALL POSITIVE URINE DRUG SCREENRESULTS WILL ONLY BE SENT OUT UPON PHYSICIAN ORDER. VISTA Urine Drug Screen methods provide only preliminaryanalytical test results. A more specific alternate chemicalmethod must be used in order to obtain a confirmedanalytical result. Gas chromatography/mass spectrometery(GC/MS) is the preferred confirmatory method. Clinicalconsideration and professional judgement should be appliedto any drug of abuse test result, particularly whenpreliminary positive results are used. URINE TCA TESTING MUST BE ORDERED SEPARATELY. USE TESTMNEMONIC: [facility] Urine Methadone Screen Negative < 300 ng/mL [facility] Urine Drug Screen (VISTA)on 07-28-2023 AMPHETAMINES Negative Normal <1000 ng/mL [facility] Comment on above: Order Comment: URINE TOX SCREEN RUN LOWEST TEST RT URINE TOX SCREEN RUN LOWEST TEST RT UNKNOWN Performed By: #### L 505.5000, [id number] #### [facility] [address] [facility] [address] BARBITIURATES Negative Normal < 200 ng/mL [facility] Comment on above: Order Comment: URINE TOX SCREEN RUN LOWEST TEST RT URINE TOX SCREEN RUN LOWEST TEST RT UNKNOWN Performed By: #### L 505.5000, [id number] #### [facility] [address] [place] [address] BENZODIAZIPINE Negative Normal < 200 ng/mL [facility] Comment on above: Order Comment: URINE TOX SCREEN RUN LOWEST TEST RT URINE TOX SCREEN RUN LOWEST TEST RT UNKNOWN Performed By: #### L 505.5000, [id number] #### [facility] [address] [place] [address] COCAINE Negative Normal < 300 ng/mL [facility] Comment on above: Order Comment: URINE TOX SCREEN RUN LOWEST TEST RT URINE TOX SCREEN RUN LOWEST TEST RT UNKNOWN Performed By: #### L 505.5000, [id number] #### [facility] [address] [facility] [address] ECSTACY Negative Normal < 500 ng/mL [facility] Comment on above: Order Comment: URINE TOX SCREEN RUN LOWEST TEST RT URINE TOX SCREEN RUN LOWEST TEST RT UNKNOWN Performed By: #### L 505.5000, [id number] #### [facility] [address] [place] [address] METHADONE Negative Normal < 300 ng/mL [facility] Comment on above: Order Comment: URINE TOX SCREEN RUN LOWEST TEST RT URINE TOX SCREEN RUN LOWEST TEST RT UNKNOWN Performed By: #### L 505.5000, [id number] #### [facility] [address] [place], [address] OPIATES Positive Abnormal < 300 ng/mL [facility] Comment on above: Order Comment: URINE TOX SCREEN RUN LOWEST TEST RT URINE TOX SCREEN RUN LOWEST TEST RT UNKNOWN Performed By: #### L 505.5000, [id number] #### [facility] [address] [place], [address] PCP Negative Normal < 25 ng/mL [facility] Comment on above: Order Comment: URINE TOX SCREEN RUN LOWEST TEST RT URINE TOX SCREEN RUN LOWEST TEST RT UNKNOWN Performed By: #### L 505.5000, [id number] #### [facility] [address] [place], [address] THC Negative Normal < 50 ng/mL [facility] Comment on above: Order Comment: URINE TOX SCREEN RUN LOWEST TEST RT URINE TOX SCREEN RUN LOWEST TEST RT UNKNOWN Performed By: #### L 505.5000, [id number] #### [facility] [address] [place], [address] VISTA UDS PH 5 Normal [facility] Comment on above: Order Comment: URINE TOX SCREEN RUN LOWEST TEST RT URINE TOX SCREEN RUN LOWEST TEST RT UNKNOWN Performed By: #### L 505.5000, [id number] #### [facility] [address] [place], [address] Urine phencyclidine (PCP) de tectionOrdered By: Andrew Camp on 07-28-2023 Phencyclidine Ql (U) Negative < 25 ng/mL [facility] Absolute lymphocyte countOrd ered By: Landen Crenshaw on 11-05-2022 Lymphocytes Auto (Unsp spec) [#/Vol] 1.40 10*3/uL 0.83-4.51 [facility] Basophil percentageOrdered B y: Landen Crenshaw on 11-05-2022 Basophils/100 WBC (Bld) 0.3 % 0-1 [facility] Chloride [Moles/Vol] 102 mmol/L 98-107 [facility] Eosinophils/100 WBC (Bld) 0.3 % 0-5 [facility] Glucose [Mass/Vol] 90 mg/dL 74-106 [facility] Lactate [Moles/Vol] 1.5 mmol/L 0.4-2.0 [facility] Neutrophils (Bld) [#/Vol] 10.7 10*3/uL 2.0-7.7 [facility] Neutrophils/100 WBC (Bld) 82.7 % 47-70 [facility] Potassium [Moles/Vol] 4.1 mmol/L 3.5-5.1 [facility] Sodium [Moles/Vol] 135 mmol/L 136-145 [facility] WBC (Bld) [#/Vol] 13.0 10*3/uL 4.4-11.0 [facility] Blood erythrocytes count (nu mber/volume)Ordered By: Landen Crenshaw on 11-05-2022 RBC (Bld) [#/Vol] 5.26 10*6/uL 4.6-6.2 [facility] Blood hemoglobin measurement (mass/volume)Ordered By: Landen Crenshaw on 11-05-2022 Hemoglobin (Bld) [Mass/Vol] 15.8 g/dL 13.0-16.5 [facility] Blood lymphocytes/100 leukoc ytesOrdered By: Landen Crenshaw on 11-05-2022 Lymphocytes/100 WBC (Bld) 10.8 % 19-41 [facility] Blood monocytes/100 leukocyt esOrdered By: Landen Crenshaw on 11-05-2022 Monocytes/100 WBC (Bld) 5.4 % 0-10 [facility] Blood platelet mean volumeOr dered By: Landen Crenshaw on 11-05-2022 Platelet mean volume (Bld) [Entitic vol] 9.9 fL 6.2-12.0 [facility] Determination of erythrocyte mean corpuscular volume (MCV)Ordered By: Landen Crenshaw on 11-05-2022 MCV (RBC) [Entitic vol] 90.3 fL 80-94 [facility] Hematocrit Auto (Bld) [Volum e fraction]Ordered By: Landen Crenshaw on 11-05-2022 Hematocrit (Bld) [Volume fraction] 47.5 % 40-54 [facility] Laboratory - Chemistry and C hemistry - challengeOrdered By: Landen Crenshaw on 11-05-2022 CO2 [Moles/Vol] 25.0 mmol/L 21.0-32.0 [facility] Urea nitrogen/Creatinine [Mass ratio] 11.4 mg/mg 10-20 [facility] Laboratory - Hematology and Cell countsOrdered By: Landen Crenshaw on 11-05-2022 Erythrocyte distribution width (RBC) [Entitic vol] 45.1 fL 35.1-43.9 [facility] Erythrocyte distribution width (RBC) [Ratio] 13.6 % 11.6-14.6 [facility] Immature granulocytes/100 WBC (Bld) 0.500 % 0.0-0.9 [facility] Comment on above: IG% - Immature Granu locytes (promyelocytes, myelocytes and metamyelocytes) > 1% indicates that a LEFT SHIFT is Present. MCH (RBC) [Entitic mass] 30.0 pg 27.0-32.0 [facility] Nucleated RBC/100 WBC (Bld) [Ratio] 0 % 0-5 [facility] MCHC Auto (RBC) [Mass/Vol]Or dered By: Landen Crenshaw on 11-05-2022 MCHC (RBC) [Mass/Vol] 33.3 g/dL 32-36 [facility] No Panel InformationOrdered By: Landen Crenshaw on 11-05-2022 Estimated Creatinine Clearance Calc 62.98 ml/min [facility] Estimated GFR (MDRD) Amer 72 mL/min >60 [facility] Comment on above: GFR Calc Estimated GFR (MDRD) Non-Af Amer 59 mL/min >60 [facility] Comment on above: Non- GFR Calc Platelets bldOrdered By: Tiny Crenshaw on 11-05-2022 Platelets (Bld) [#/Vol] 219 10*3/uL 150-450 [facility] Serum or plasma calcium liam urement (mass/volume)Ordered By: Landen Crenshaw on 11-05-2022 Calcium [Mass/Vol] 9.0 mg/dL 8.5-10.1 [facility] Serum or plasma creatinine m easurement (mass/volume)Ordered By: Landen Crenshaw on 11-05-2022 Creatinine [Mass/Vol] 1.32 mg/dL 0.70-1.30 [facility] Comment on above: The validity of the calculated GFR & GFRAA in patients over 70 years has not been determined. Clinical correlation is essential. Serum or plasma urea nitroge n measurement (mass/volume)Ordered By: Landen Crenshaw on 11-05-2022 Urea nitrogen [Mass/Vol] 15 mg/dL 7-18 [facility] Thin prep Papanicolaou smear with manual screeningOrdered By: Landen Crenshaw on 11-05-2022 Thin prep Papanicolaou smear with manual screening 8 5-15 [facility] Absolute lymphocyte countOrd ered By: ED PROVIDER on 08-11-2022 Lymphocytes Auto (Unsp spec) [#/Vol] 1.66 10*3/uL 0.83-4.51 [facility] Basophil percentageOrdered B y: ED PROVIDER on 08-11-2022 Basophils/100 WBC (Bld) 0.3 % 0-1 [facility] Chloride [Moles/Vol] 101 mmol/L 98-107 [facility] Eosinophils/100 WBC (Bld) 2.3 % 0-5 [facility] Glucose [Mass/Vol] 135 mg/dL 74-106 [facility] Comment on above: Fasting Glucose resu lt greater than or equal to 126 mg/dL suggests DIABETES MELLITUS per A.D.A. criteria. Neutrophils (Bld) [#/Vol] 4.9 10*3/uL 2.0-7.7 [facility] Neutrophils/100 WBC (Bld) 66.2 % 47-70 [facility] Potassium [Moles/Vol] 3.8 mmol/L 3.5-5.1 [facility] Sodium [Moles/Vol] 134 mmol/L 136-145 [facility] WBC (Bld) [#/Vol] 7.4 10*3/uL 4.4-11.0 [facility] Blood erythrocytes count (nu mber/volume)Ordered By: ED PROVIDER on 08-11-2022 RBC (Bld) [#/Vol] 5.53 10*6/uL 4.6-6.2 [facility] Blood hemoglobin measurement (mass/volume)Ordered By: ED PROVIDER on 08-11-2022 Hemoglobin (Bld) [Mass/Vol] 16.5 g/dL 13.0-16.5 [facility] Blood lymphocytes/100 leukoc ytesOrdered By: ED PROVIDER on 08-11-2022 Lymphocytes/100 WBC (Bld) 22.3 % 19-41 [facility] Blood manual differential co mment interpretation (narrative result)Ordered By: ED PROVIDER on 08-11-2022 Manual differential comment [place] (Bld) [Interp] SCANNED [facility] Blood monocytes/100 leukocyt esOrdered By: ED PROVIDER on 08-11-2022 Monocytes/100 WBC (Bld) 8.6 % 0-10 [facility] Blood platelet mean volumeOr dered By: ED PROVIDER on 08-11-2022 Platelet mean volume (Bld) [Entitic vol] 10.3 fL 6.2-12.0 [facility] Determination of erythrocyte mean corpuscular volume (MCV)Ordered By: ED PROVIDER on 08-11-2022 MCV (RBC) [Entitic vol] 87.3 fL 80-94 [facility] Hematocrit Auto (Bld) [Volum e fraction]Ordered By: ED PROVIDER on 08-11-2022 Hematocrit (Bld) [Volume fraction] 48.3 % 40-54 [facility] Influenza virus A and B and SARS-CoV-2 (COVID-19) Ag panel - Upper respiratory specimOrdered By: Karina Julian on 08-11-2022 SARS-CoV-2 (COVID-19) RNA KARLA+probe Ql (Resp) [facility] Laboratory - Chemistry and C hemistry - challengeOrdered By: ED PROVIDER on 08-11-2022 CO2 [Moles/Vol] 32.0 mmol/L 21.0-32.0 [facility] Urea nitrogen/Creatinine [Mass ratio] 9.8 mg/mg 10-20 [facility] Laboratory - Hematology and Cell countsOrdered By: ED PROVIDER on 08-11-2022 Erythrocyte distribution width (RBC) [Entitic vol] 40.5 fL 35.1-43.9 [facility] Erythrocyte distribution width (RBC) [Ratio] 12.6 % 11.6-14.6 [facility] Immature granulocytes/100 WBC (Bld) 0.300 % 0.0-0.9 [facility] Comment on above: IG% - Immature Granu locytes (promyelocytes, myelocytes and metamyelocytes) > 1% indicates that a LEFT SHIFT is Present. MCH (RBC) [Entitic mass] 29.8 pg 27.0-32.0 [facility] Nucleated RBC/100 WBC (Bld) [Ratio] 0 % 0-5 [facility] MCHC Auto (RBC) [Mass/Vol]Or dered By: ED PROVIDER on 08-11-2022 MCHC (RBC) [Mass/Vol] 34.2 g/dL 32-36 [facility] No Panel InformationOrdered By: ED PROVIDER on 08-11-2022 Estimated Creatinine Clearance Calc 76.57 ml/min [facility] Estimated GFR (MDRD) Amer 87 mL/min >60 [facility] Comment on above: GFR Calc Estimated GFR (MDRD) Non-Af Amer 72 mL/min >60 [facility] Comment on above: Non- GFR Calc Reactive Lymphocytes 1+ [facility] Platelets bldOrdered By: ED PROVIDER on 08-11-2022 Platelets (Bld) [#/Vol] 199 10*3/uL 150-450 [facility] Serum or plasma calcium liam urement (mass/volume)Ordered By: ED PROVIDER on 08-11-2022 Calcium [Mass/Vol] 9.1 mg/dL 8.5-10.1 [facility] Serum or plasma creatinine m easurement (mass/volume)Ordered By: ED PROVIDER on 08-11-2022 Creatinine [Mass/Vol] 1.12 mg/dL 0.70-1.30 [facility] Comment on above: The validity of the calculated GFR & GFRAA in patients over 70 years has not been determined. Clinical correlation is essential. Serum or plasma urea nitroge n measurement (mass/volume)Ordered By: ED PROVIDER on 08-11-2022 Urea nitrogen [Mass/Vol] 11 mg/dL -18 [facility] Thin prep Papanicolaou smear with manual screeningOrdered By: ED PROVIDER on 08-11-2022 Thin prep Papanicolaou smear with manual screening 1 5-15 [facility] CBC panel Auto (Bld)on 08-04 Erythrocyte distribution width (RBC) [Ratio] 13.2 % 11.5 - 15.0 % [facility] Hematocrit (Bld) [Volume fraction] 46.9 % 39.0 - 51.0 % [facility] Hemoglobin (Bld) [Mass/Vol] 15.7 g/dL 13.0 - 17.0 g/dL [facility] MCH (RBC) [Entitic mass] 30.1 pg 26.0 - 34.0 pg [facility] MCHC (RBC) [Mass/Vol] 33.5 g/dL 30.5 - 36.0 g/dL [facility] MCV (RBC) [Entitic vol] 90.0 fL 80.0 - 100.0 fL [facility] Nucleated RBC (Bld) [#/Vol] <0.01 k/uL [facility] Platelet mean volume (Bld) [Entitic vol] 10.8 fL 9.0 - 12.7 fL [facility] Platelets (Bld) [#/Vol] 215 10*3/uL 150 - 400 k/uL [facility] RBC (Bld) [#/Vol] 5.21 10*6/uL 4.20 - 6.0 0 m/uL [facility] WBC (Bld) [#/Vol] 7.88 10*3/uL 3.70 - 11.00 k/uL [facility] XR KNEE GENERAL 4V AP BOTH/P A BOTH/LAT/MERC LEFTon 07-28-2022 [facility] XR Knee - left 4 Viewson IMPRESSION: Interval improvement of soft tissue swelling. Awning Finisher: PSCB Transcribe Date/Time: Jul 28 2022 10:52A Dictated by : ALYSON SHEPHERD MD This examination was interpreted and the report reviewed and electronically signed by: ALYSON SHEPHERD MD on Jul 28 2022 10:58AM [facility] DIVISION OF RADIOLOGY * * *Final Report* * * DATE OF EXAM: Jul 28 2022 10:38AM WOX 5202 - XR KNEE 4V AP/PA BOTH+LAT/DELFINA LT / PROCEDURE REASON: multiple diagnoses * * * * Physician Interpretation * * * * EXAM TITLE: XR KNEE 4V AP/PA BOTH+LAT/DELFINA LT EXAM DATE/TIME: 07/28/2022 10:38 AM COMPARISON: X-ray knee on 07/20/2022 CLINICAL INDICATION/HISTORY: Acute left knee pain. TECHNIQUE: AP/PA, lateral and sunrise views of the left knee are presented. FINDINGS: No fractures or subluxations are noted. Questionable tiny marginal bony spur seen along the posterior aspect of the patella. The joint spaces are well preserved. There is no evidence of joint effusion. The mineralization of the bones is normal. There is interval improvement of soft tissue swelling along the anterior inferior aspect of the knee. DIVISION OF RADIOLOGY Provider, [facility] - 07/28/2022 * * *Final Report* * * DATE OF EXAM: Jul 28 2022 10:38AM WOX 5202 - XR KNEE 4V AP/PA BOTH+LAT/DELFINA LT / PROCEDURE REASON: multiple diagnoses * * * * Physician Interpretation * * * * EXAM TITLE: XR KNEE 4V AP/PA BOTH+LAT/DELFINA LT EXAM DATE/TIME: 07/28/2022 10:38 AM COMPARISON: X-ray knee on 07/20/2022 CLINICAL INDICATION/HISTORY: Acute left knee pain. TECHNIQUE: AP/PA, lateral and sunrise views of the left knee are presented. FINDINGS: No fractures or subluxations are noted. Questionable tiny marginal bony spur seen along the posterior aspect of the patella. The joint spaces are well preserved. There is no evidence of joint effusion. The mineralization of the bones is normal. There is interval improvement of soft tissue swelling along the anterior inferior aspect of the knee. IMPRESSION IMPRESSION: Interval improvement of soft tissue swelling. Awning Finisher: ANNEL Transcribe Date/Time: Jul 28 2022 10:52A Dictated by : ALYSON SHEPHERD MD This examination was interpreted and the report reviewed and electronically signed by: ALYSON SHEPHERD MD on Jul 28 2022 10:58AM EST [facility] Radiology Study observation (narrative) [facility] XR Knee - left 4 ViewsOrdere d By: [facility] Provider on 07-28-2022 [facility] No Panel Informationon 07-20 Radiology Study observation (narrative) [facility] XR Knee - left 4 Viewson IMPRESSION: Soft tis josue swelling in the left knee. Awning Finisher: ANNEL Transcribe Date/Time: Jul 20 2022 10:44A Dictated by : ALYSON SHEPHERD MD This examination was interpreted and the report reviewed and electronically signed by: ALYSON SHEPHERD MD on Jul 20 2022 10:46AM [facility] DIVISION OF RADIOLOGY * * *Final Report* * * DATE OF EXAM: Jul 20 2022 10:16AM WOX 5202 - XR KNEE 4V AP/PA BOTH+LAT/DELFINA LT / PROCEDURE REASON: Acute pain of left knee * * * * Physician Interpretation * * * * EXAM TITLE: XR KNEE 4V AP/PA BOTH+LAT/DELFINA LT EXAM DATE/TIME: 07/20/2022 10:16 AM COMPARISON: None. CLINICAL INDICATION/HISTORY: Acute left knee pain. TECHNIQUE: AP/PA, lateral and sunrise views of the left knee are presented. FINDINGS: No acute fractures or subluxations are noted. No obvious osteophyte formation. The joint spaces are well preserved. There is no evidence of joint effusion. The mineralization of the bones is normal. There is soft tissue swelling along the anterior aspect of the knee, inferior to the patella. DIVISION OF RADIOLOGY Provider, [facility] - 07/20/2022 * * *Final Report* * * DATE OF EXAM: Jul 20 2022 10:16AM WOX 5202 - XR KNEE 4V AP/PA BOTH+LAT/DELFINA LT / PROCEDURE REASON: Acute pain of left knee * * * * Physician Interpretation * * * * EXAM TITLE: XR KNEE 4V AP/PA BOTH+LAT/DELFINA LT EXAM DATE/TIME: 07/20/2022 10:16 AM COMPARISON: None. CLINICAL INDICATION/HISTORY: Acute left knee pain. TECHNIQUE: AP/PA, lateral and sunrise views of the left knee are presented. FINDINGS: No acute fractures or subluxations are noted. No obvious osteophyte formation. The joint spaces are well preserved. There is no evidence of joint effusion. The mineralization of the bones is normal. There is soft tissue swelling along the anterior aspect of the knee, inferior to the patella. IMPRESSION IMPRESSION: Soft tissue swelling in the left knee. Awning Finisher: PSCB Transcribe Date/Time: Jul 20 2022 10:44A Dictated by : ALYSON SHEPHERD MD This examination was interpreted and the report reviewed and electronically signed by: ALYSON SHEPHERD MD on Jul 20 2022 10:46AM EST [facility] XR Knee - left 4 ViewsOrdere d By: [facility] Provider on 07-20-2022 [facility] XR Pelvis and Hip - right AP and Lateral frogon 07-20-2022 IMPRESSION: Status p ost right hip total replacement. Awning Finisher: ANNEL Transcribe Date/Time: Jul 20 2022 10:46A Dictated by : ALYSON SHEPHERD MD This examination was interpreted and the report reviewed and electronically signed by: ALYSON SHEPHERD MD on Jul 20 2022 10:49AM EST DIVISION OF RADIOLOGY * * *Final Report* * * DATE OF EXAM: Jul 20 2022 10:16AM WOX 5352 - XR HIP 3V PELV+ AP/LAT RT / PROCEDURE REASON: Right hip pain * * * * Physician Interpretation * * * * EXAM TITLE: XR HIP 3V PELV+ AP/LAT RT EXAM DATE/TIME: 07/20/2022 10:16 AM COMPARISON: None. CLINICAL INDICATION/HISTORY: Right hip pain. TECHNIQUE: AP and frog lateral views of the right hip and AP view of the pelvis are presented. FINDINGS: Status post right hip total replacement, with satisfactory alignment. No failure or loosening of the surgical hardware. The visualized pelvic bones are intact. Minimal degenerative changes along the left hip. The mineralization of the bones is normal. There is no significant soft tissue swelling. DIVISION OF RADIOLOGY Provider, [facility] - 07/20/2022 * * *Final Report* * * DATE OF EXAM: Jul 20 2022 10:16AM WOX 5352 - XR HIP 3V PELV+ AP/LAT RT / PROCEDURE REASON: Right hip pain * * * * Physician Interpretation * * * * EXAM TITLE: XR HIP 3V PELV+ AP/LAT RT EXAM DATE/TIME: 07/20/2022 10:16 AM COMPARISON: None. CLINICAL INDICATION/HISTORY: Right hip pain. TECHNIQUE: AP and frog lateral views of the right hip and AP view of the pelvis are presented. FINDINGS: Status post right hip total replacement, with satisfactory alignment. No failure or loosening of the surgical hardware. The visualized pelvic bones are intact. Minimal degenerative changes along the left hip. The mineralization of the bones is normal. There is no significant soft tissue swelling. IMPRESSION IMPRESSION: Status post right hip total replacement. Awning Finisher: PSCB Transcribe Date/Time: Jul 20 2022 10:46A Dictated by : ALYSON SHEPHERD MD This examination was interpreted and the report reviewed and electronically signed by: ALYSON SHEPHERD MD on Jul 20 2022 10:49AM EST [facility] Bilirubin Test strip Ql (U)o n 03-18-2022 Bilirubin Ql (U) Negative Negative [facility] Work Phone: Ketones Test strip Ql (U)on 03-18-2022 Ketones Ql (U) 5 mg/dl Negative [facility] Work Phone: Laboratory - Drug toxicology on 03-18-2022 Amphetamines Ql (U) Negative <1000 ng/mL [facility] Work Phone: Benzodiazepines Ql (U) Negative < 200 ng/mL [facility] Work Phone: Cannabinoids Screen Ql (U) Negative < 50 ng/mL [facility] Work Phone: Cocaine Ql (U) Negative < 300 ng/mL [facility] Work Phone: Opiates Ql (U) Positive < 300 ng/mL [facility] Work Phone: Nitrite Test strip Ql (U)on 03-18-2022 Nitrite Ql (U) Negative Negative [facility] Work Phone: No Panel Informationon 03-18 MDMA (Ecstasy) Screen Negative < 500 ng/mL [facility] Work Phone: Miscellaneous Test See comment [facility] Work Phone: Comment on above: TEST RESULT LIMITSMo rphine, Urine Quant Morphine 5579 ng/mLThis test was developed and its performance characteristicsdetermined by [facility]. It has not been cleared or approvedby the U.S. Food and Drug Administration. TESTING PERFORMED AT [facility]. ORIGINAL REPORT ON FILE IN LAB CONTAINS ADDITIONAL TEST SITE INFORMATION. Urine Barbiturates Screen Negative < 200 ng/mL [facility] Work Phone: Urine Drug Screen Comment [facility] Work Phone: Comment on above: CONFIRMATORY TESTING FOR ALL POSITIVE URINE DRUG SCREENRESULTS WILL ONLY BE SENT OUT UPON PHYSICIAN ORDER. VISTA Urine Drug Screen methods provide only preliminaryanalytical test results. A more specific alternate chemicalmethod must be used in order to obtain a confirmedanalytical result. Gas chromatography/mass spectrometery(GC/MS) is the preferred confirmatory method. Clinicalconsideration and professional judgement should be appliedto any drug of abuse test result, particularly whenpreliminary positive results are used. URINE TCA TESTING MUST BE ORDERED SEPARATELY. USE TESTMNEMONIC: [facility] Urine Methadone Screen Negative < 300 ng/mL [facility] Work Phone: Protein Test strip Ql (U)on 03-18-2022 Protein Ql (U) 30 mg/dl Negative [facility] Work Phone: Urine blood detectionon 02-25 RBC Ql (U) 250 /ul Negative [facility] Work Phone: Urine clarityon 03-18-2022 Clarity (U) Sl. Cloudy Clear [facility] Work Phone: Urine color determinationon 03-18-2022 Color (U) Yellow Yellow [facility] Work Phone: [phone] Urine glucose detectionon Glucose Ql (U) Normal mg/dl Normal [facility] Work Phone: [phone] Urine leukocyte esterase det ection by dipstickon 03-18-2022 Leukocyte esterase Test strip Ql (U) 500 /ul Negative [facility] Work Phone: Urine pHon 03-18-2022 pH (U) 6.0 [pH] 5.0 - 8.0 [facility] Work Phone: Urine phencyclidine (PCP) de tectionon 03-18-2022 Phencyclidine Ql (U) Negative < 25 ng/mL [facility] Work Phone: Urine specific gravity measu rementon 03-18-2022 Specific gravity (U) [Rel density] 1.020 1.002-1.030 [facility] Work Phone: Urobilinogen Auto test strip Ql (U)on 03-18-2022 Urobilinogen Ql (U) 1 mg/dl Normal [facility] Work Phone: Laboratory - Drug toxicology on 09-03-2021 Amphetamines Ql (U) Negative [facility] Work Phone: Benzodiazepines Ql (U) Negative [facility] Work Phone: Cannabinoids Screen Ql (U) Negative [facility] Work Phone: Cocaine Ql (U) Negative [facility] Work Phone: Opiates Ql (U) Positive [facility] Work Phone: No Panel Informationon 09-03 MDMA (Ecstasy) Screen Negative [facility] Work Phone: Urine Barbiturates Screen Negative [facility] Work Phone: Urine Drug Screen Comment [facility] Work Phone: Comment on above: CONFIRMATORY TESTING FOR ALL POSITIVE URINE DRUG SCREENRESULTS WILL ONLY BE SENT OUT UPON PHYSICIAN ORDER. VISTA Urine Drug Screen methods provide only preliminaryanalytical test results. A more specific alternate chemicalmethod must be used in order to obtain a confirmedanalytical result. Gas chromatography/mass spectrometery(GC/MS) is the preferred confirmatory method. Clinicalconsideration and professional judgement should be appliedto any drug of abuse test result, particularly whenpreliminary positive results are used. URINE TCA TESTING MUST BE ORDERED SEPARATELY. USE TESTMNEMONIC: [facility] Urine Methadone Screen Negative [facility] Work Phone: Urine phencyclidine (PCP) de tectionon 09-03-2021 Phencyclidine Ql (U) Negative [facility] Work Phone: Vital Signs Date Time Vital Sign Value Performing Clinician Faci lity 11-06-2024 16:19-0400 Body temperature 98.3 [degF] Dr. Kvng Fu MD Work Phone: [facility] 11-06-2024 16:19-0400 Diastolic blood pressure 81 mm[Hg] Dr. Kvng Fu MD Work Phone: [phone] [place] [address] 11-06-2024 16:19-0400 Heart rate 108 /min Dr. Kvng Fu MD Work Phone: [phone] [place] [address] 11-06-2024 16:19-0400 Respiratory rate 19 /min Dr. Kvng Fu MD Work Phone: [facility] 11-06-2024 16:19-0400 SaO2% (BldA) [Mass fraction] 95 % Dr. Kvng Fu MD Work Phone: [facility] 11-06-2024 16:19-0400 Systolic blood pressure 125 mm[Hg] Dr. Kvng Fu MD Work Phone: [phone] [place] [address] 11-06-2024 13:18-0400 Body height 177.[address] Kvng Fu MD Work Phone: [facility] 11-06-2024 13:18-0400 Body mass index (BMI) [Ratio] 28.1 kg/m2 Dr. Kvng Fu MD Work Phone: [phone] [place] [address] 11-06-2024 13:18-0400 Body weight 88.[address] Kvng Fu MD Work Phone: [phone] [place] [address] 11-06-2024 12:26-0400 Body mass index (BMI) [Ratio] 27.53 kg/m2 Naomi Reed [employer].SEED ANALYST Work Phone: [facility] 11-06-2024 12:26-0400 Body temperature 99.61 [degF] Naomi Reed [employer].SEED ANALYST Work Phone: [facility] 11-06-2024 12:26-0400 Body weight 88.7 kg Naomi Reed [employer].SEED ANALYST Work Phone: [facility] 11-06-2024 12:26-0400 Diastolic blood pressure 76 mm[Hg] Naomi Reed [employer].SEED ANALYST Work Phone: [facility] 11-06-2024 12:26-0400 Heart rate 110 /min Naomi Reed [employer].SEED ANALYST Work Phone: [facility] 11-06-2024 12:26-0400 Respiratory rate 14 /min Naomi Reed [employer].SEED ANALYST Work Phone: [facility] 11-06-2024 12:26-0400 SaO2% (BldA) [Mass fraction] 98 % Naomi Reed [employer].SEED ANALYST Work Phone: [facility] 11-06-2024 12:26-0400 Systolic blood pressure 112 mm[Hg] Naomi Reed [employer].SEED ANALYST Work Phone: [facility] 11-02-2024 10:16-0400 Body height 179.5 cm Pulm Wstr Work Phone: [facility] 11-02-2024 10:16-0400 Body mass index (BMI) [Ratio] 28.58 kg/m2 Pulm Wstr Work Phone: [facility] 11-02-2024 10:16-0400 Body weight 92.08 kg Pulm Wstr Work Phone: [facility] 11-02-2024 10:16-0400 Heart rate 115 /min Pulm Wstr Work Phone: [facility] 11-02-2024 10:16-0400 Respiratory rate 15 /min Pulm Wstr Work Phone: [facility] 11-02-2024 10:16-0400 SaO2% (BldA) [Mass fraction] 95 % Pulm Wstr Work Phone: [facility] 10-25-2024 11:02-0400 Body mass index (BMI) [Ratio] 29.26 kg/m2 Shaquille Drury [employer].SEED ANALYST Work Phone: [facility] 10-25-2024 11:02-0400 Body weight 92.5 kg Shaquille Drury [employer].SEED ANALYST Work Phone: [facility] 10-25-2024 11:02-0400 Diastolic blood pressure 86 mm[Hg] Shaquille Drury [employer]ER.SEED ANALYST Work Phone: [facility] 10-25-2024 11:02-0400 Heart rate 88 /min Shaquille Drury [employer].SEED ANALYST Work Phone: [facility] 10-25-2024 11:02-0400 SaO2% (BldA) [Mass fraction] 96 % Shaquille Drury [employer]ER.SEED ANALYST Work Phone: [facility] 10-25-2024 11:02-0400 Systolic blood pressure 127 mm[Hg] Shaquille Drury [employer]ER.SEED ANALYST Work Phone: [facility] 07-28-2024 09:53-0400 Body height 177.8 cm Kvng Fu MD Work Phone: [facility] 07-28-2024 09:53-0400 Body mass index (BMI) [Ratio] 29.51 kg/m2 Kvng Fu MD Work Phone: [facility] 07-28-2024 09:53-0400 Body temperature 99.1 [degF] Kvng Fu MD Work Phone: [facility] 07-28-2024 09:53-0400 Body weight 93.3 kg Kvng Fu MD Work Phone: [facility] 07-28-2024 09:53-0400 Diastolic blood pressure 58 mm[Hg] Kvng Fu MD Work Phone: [facility] 07-28-2024 09:53-0400 Heart rate 97 /min Kvng Fu MD Work Phone: [facility] 07-28-2024 09:53-0400 Respiratory rate 16 /min Kvng Fu MD Work Phone: [facility] 07-28-2024 09:53-0400 SaO2% (BldA) [Mass fraction] 95 % Kvng Fu MD Work Phone: [facility] 07-28-2024 09:53-0400 Systolic blood pressure 124 mm[Hg] Kvng Fu MD Work Phone: [facility] 01-25-2024 11:35-0400 Body mass index (BMI) [Ratio] 31.38 kg/m2 Naomi Reed [employer].SEED ANALYST Work Phone: [facility] 01-25-2024 11:35-0400 Body weight 99.2 kg Naomi Reed [employer]ER.SEED ANALYST Work Phone: [facility] 01-25-2024 11:35-0400 Diastolic blood pressure 82 mm[Hg] Naomi Reed [employer]ER.SEED ANALYST Work Phone: [facility] 01-25-2024 11:35-0400 Heart rate 83 /min Naomi Reed [employer]ER.SEED ANALYST Work Phone: [facility] 01-25-2024 11:35-0400 Respiratory rate 16 /min Naomi Reed [employer]ER.SEED ANALYST Work Phone: [facility] 01-25-2024 11:35-0400 Systolic blood pressure 120 mm[Hg] Naomi Reed [employer]ER.SEED ANALYST Work Phone: [facility] 01-18-2024 09:52-0400 Body mass index (BMI) [Ratio] 32.01 kg/m2 Naomi Reed [employer].SEED ANALYST Work Phone: [facility] 01-18-2024 09:52-0400 Body temperature 98.71 [degF] Naomi Light [employer] TE[employer]ER.SEED ANALYST Work Phone: [facility] 01-18-2024 09:52-0400 Body weight 101.2 kg Naomi Light [employer] TE[employer]ER.SEED ANALYST Work Phone: [facility] 01-18-2024 09:52-0400 Diastolic blood pressure 81 mm[Hg] Naomi Light [employer].SEED ANALYST Work Phone: [facility] 01-18-2024 09:52-0400 Heart rate 87 /min Naomi Light [employer].SEED ANALYST Work Phone: [facility] 01-18-2024 09:52-0400 Respiratory rate 20 /min Naomi Light [employer]ER.SEED ANALYST Work Phone: [facility] 01-18-2024 09:52-0400 Systolic blood pressure 133 mm[Hg] Naomi Light [employer]ER.SEED ANALYST Work Phone: [facility] 09-29-2023 10:56-0400 Body mass index (BMI) [Ratio] 31.82 kg/m2 Shaquille Booker APRN.SEED ANALYST Work Phone: [facility] 09-29-2023 10:56-0400 Body weight 100.6 kg Shaquille Booker APRN.SEED ANALYST Work Phone: [facility] 09-29-2023 10:56-0400 Diastolic blood pressure 86 mm[Hg] Shaquille Booker [employer]ER.SEED ANALYST Work Phone: [facility] 09-29-2023 10:56-0400 Heart rate 96 /min Shaquille Booker APRN.SEED ANALYST Work Phone: [facility] 09-29-2023 10:56-0400 SaO2% (BldA) [Mass fraction] 96 % Shaquille Booker [employer].SEED ANALYST Work Phone: [facility] 09-29-2023 10:56-0400 Systolic blood pressure 126 mm[Hg] Shaquille Booker APRN.CNP Work Phone: [facility] 09-07-2023 13:31-0400 Body height 177.8 cm Pacc 2 Work Phone: [facility] 09-07-2023 13:31-0400 Body mass index (BMI) [Ratio] 32.28 kg/m2 Pacc 2 Work Phone: [facility] 09-07-2023 13:31-0400 Body temperature 98.49 [degF] Pacc 2 Work Phone: [facility] 09-07-2023 13:31-0400 Body weight 102.06 kg Pacc 2 Work Phone: [facility] 09-07-2023 13:31-0400 Diastolic blood pressure 70 mm[Hg] Pacc 2 Work Phone: [facility] 09-07-2023 13:31-0400 Heart rate 83 /min Pacc 2 Work Phone: [facility] 09-07-2023 13:31-0400 Respiratory rate 18 /min Pacc 2 Work Phone: [facility] 09-07-2023 13:31-0400 SaO2% (BldA) [Mass fraction] 96 % Pacc 2 Work Phone: [facility] 09-07-2023 13:31-0400 Systolic blood pressure 121 mm[Hg] Pacc 2 Work Phone: [facility] 09-02-2023 10:52-0400 Body height 179.7 cm Marquise Gonzalez MD Work Phone: [facility] 09-02-2023 10:52-0400 Body mass index (BMI) [Ratio] 30.9 kg/m2 Marquise Gonzalez MD Work Phone: [facility] 09-02-2023 10:52-0400 Body weight 99.79 kg Marquise Gonzalez MD Work Phone: [facility] 09-02-2023 10:52-0400 Diastolic blood pressure 87 mm[Hg] Marquise Gonzalez MD Work Phone: [facility] 09-02-2023 10:52-0400 Heart rate 79 /min Marquise Gonzalez MD Work Phone: [facility] 09-02-2023 10:52-0400 Systolic blood pressure 134 mm[Hg] Marquise Gonzalez MD Work Phone: [facility] 09-01-2023 16:56-0400 Body mass index (BMI) [Ratio] 31.46 kg/m2 Kvng Fu MD Work Phone: [facility] 09-01-2023 16:56-0400 Body temperature 99 [degF] Kvng Fu MD Work Phone: [facility] 09-01-2023 16:56-0400 Body weight 101.61 kg Kvng Fu MD Work Phone: [facility] 09-01-2023 16:56-0400 Diastolic blood pressure 70 mm[Hg] Kvng Fu MD Work Phone: [facility] 09-01-2023 16:56-0400 Heart rate 88 /min Kvng Fu MD Work Phone: [facility] 09-01-2023 16:56-0400 Respiratory rate 20 /min Kvng Fu MD Work Phone: [facility] 09-01-2023 16:56-0400 Systolic blood pressure 124 mm[Hg] Kvng Fu MD Work Phone: [facility] 08-05-2023 12:55-0400 Body height 179.7 cm Kvng Fu MD Work Phone: [facility] 08-05-2023 12:55-0400 Body temperature 98.6 [degF] Kvng Fu MD Work Phone: [facility] 08-05-2023 12:55-0400 Body weight 101.61 kg Kvng Fu MD Work Phone: [facility] 08-05-2023 12:55-0400 Diastolic blood pressure 68 mm[Hg] Kvng Fu MD Work Phone: [facility] 08-05-2023 12:55-0400 Heart rate 96 /min Kvng Fu MD Work Phone: [facility] 08-05-2023 12:55-0400 Respiratory rate 24 /min Kvng Fu MD Work Phone: [facility] 08-05-2023 12:55-0400 Systolic blood pressure 120 mm[Hg] Kvng Fu MD Work Phone: [facility] 03-12-2023 10:20-0500 Body height 179.7 cm Pacc 1 Work Phone: [facility] 03-12-2023 10:20-0500 Body temperature 98.29 [degF] Pacc 1 Work Phone: [facility] 03-12-2023 10:20-0500 Body weight 104.78 kg Pacc 1 Work Phone: [facility] 03-12-2023 10:20-0500 Diastolic blood pressure 82 mm[Hg] Pacc 1 Work Phone: [facility] 03-12-2023 10:20-0500 Heart rate 102 /min Pacc 1 Work Phone: [facility] 03-12-2023 10:20-0500 Respiratory rate 18 /min Pacc 1 Work Phone: [facility] 03-12-2023 10:20-0500 SaO2% (BldA) [Mass fraction] 97 % Pacc 1 Work Phone: [facility] 03-12-2023 10:20-0500 Systolic blood pressure 138 mm[Hg] Pacc 1 Work Phone: [facility] 02-03-2023 09:44-0400 Body weight 101.15 kg 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 Work Phone: [facility] 02-03-2023 09:44-0400 Diastolic blood pressure 81 mm[Hg] 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 Work Phone: [facility] 02-03-2023 09:44-0400 Heart rate 105 /min 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 Work Phone: [facility] 02-03-2023 09:44-0400 Respiratory rate 18 /min 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 Work Phone: [facility] 02-03-2023 09:44-0400 Systolic blood pressure 131 mm[Hg] 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 Work Phone: [facility] 11-24-2022 08:42-0400 Body height 179.7 cm Comfort [place] PA-C Work Phone: [facility] 11-24-2022 08:42-0400 Body temperature 97.7 [degF] Comfort Caroline PA-C Work Phone: [facility] 11-24-2022 08:42-0400 Body weight 102.97 kg Comfort Caroline PA-C Work Phone: [facility] 11-24-2022 08:42-0400 Diastolic blood pressure 70 mm[Hg] Comfort Caroline PA-C Work Phone: [facility] 11-24-2022 08:42-0400 Heart rate 126 /min Comfort [place] PA-C Work Phone: [facility] 11-24-2022 08:42-0400 SaO2% (BldA) [Mass fraction] 96 % Comfort Caroline PA-C Work Phone: [facility] 11-24-2022 08:42-0400 Systolic blood pressure 122 mm[Hg] Comfort [place] PA-C Work Phone: [facility] 11-05-2022 17:20-0400 Diastolic blood pressure 69 mm[Hg] [facility] 11-05-2022 17:20-0400 Heart rate 72 /min [facility] 11-05-2022 17:20-0400 Respiratory rate 14 /min [facility] 11-05-2022 17:20-0400 SaO2% (BldA) [Mass fraction] 98 % [facility] 11-05-2022 17:20-0400 Systolic blood pressure 133 mm[Hg] [facility] 11-05-2022 15:20-0400 Body temperature 98.9 [degF] [facility] 11-05-2022 14:36-0400 Body mass index (BMI) [Ratio] 32.5 kg/m2 [facility] 11-05-2022 14:36-0400 Body weight 102.8 kg [facility] 11-05-2022 14:32-0400 Inhaled oxygen flow rate 93 L/min [facility] 11-05-2022 14:18-0400 Body height 177.8 cm [facility] 11-04-2022 11:34-0400 Diastolic blood pressure 69 mm[Hg] [facility] 11-04-2022 11:34-0400 Heart rate 72 /min [facility] 11-04-2022 11:34-0400 Respiratory rate 15 /min [facility] 11-04-2022 11:34-0400 SaO2% (BldA) [Mass fraction] 98 % [facility] 11-04-2022 11:34-0400 Systolic blood pressure 124 mm[Hg] [facility] 11-04-2022 10:24-0400 Body height 177.8 cm [facility] 11-04-2022 10:24-0400 Body mass index (BMI) [Ratio] 33.7 kg/m2 [facility] 11-04-2022 10:24-0400 Body temperature 101.8 [degF] [facility] 11-04-2022 10:24-0400 Body weight 106.59 kg [facility] 08-11-2022 19:04-0400 Heart rate 100 /min [facility] 08-11-2022 19:04-0400 Respiratory rate 18 /min [facility] 08-11-2022 19:04-0400 SaO2% (BldA) [Mass fraction] 93 % [facility] 08-11-2022 15:58-0400 Body temperature 96.7 [degF] [facility] 08-11-2022 15:58-0400 Diastolic blood pressure 85 mm[Hg] [facility] 08-11-2022 15:58-0400 Systolic blood pressure 143 mm[Hg] [facility] 08-11-2022 13:19-0400 Body mass index (BMI) [Ratio] 32.3 kg/m2 [facility] 08-11-2022 13:19-0400 Body weight 105.23 kg [facility] 08-04-2022 12:23-0400 Diastolic blood pressure 82 mm[Hg] 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 Work Phone: [facility] 08-04-2022 12:23-0400 Systolic blood pressure 128 mm[Hg] 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 Work Phone: [facility] 08-04-2022 11:50-0400 Body weight 107.5 kg 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 Work Phone: [facility] 08-04-2022 11:50-0400 Heart rate 111 /min 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 Work Phone: [facility] 08-04-2022 11:50-0400 Respiratory rate 20 /min 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 Work Phone: [facility] 07-28-2022 09:52-0400 Body weight 106.59 kg 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 Work Phone: [facility] 07-28-2022 09:52-0400 Diastolic blood pressure 92 mm[Hg] 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 Work Phone: [facility] 07-28-2022 09:52-0400 Heart rate 92 /min 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 Work Phone: [facility] 07-28-2022 09:52-0400 Respiratory rate 16 /min 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 Work Phone: [facility] 07-28-2022 09:52-0400 Systolic blood pressure 147 mm[Hg] Naomi Garcia APRN.SEED ANALYST Work Phone: [facility] 04-08-2022 10:17-0500 Body weight 106.14 kg Mariel Retana APRN.SEED ANALYST Work Phone: [facility] 04-08-2022 10:17-0500 Diastolic blood pressure 85 mm[Hg] Mariel Retana APRN.SEED ANALYST Work Phone: [facility] 04-08-2022 10:17-0500 Heart rate 87 /min Mariel Retana APRN.SEED ANALYST Work Phone: [facility] 04-08-2022 10:17-0500 SaO2% (BldA) [Mass fraction] 97 % Mariel Retana APRN.SEED ANALYST Work Phone: [facility] 04-08-2022 10:17-0500 Systolic blood pressure 127 mm[Hg] Mariel Retana APRN.SEED ANALYST Work Phone: [facility] 02-13-2022 10:26-0400 Diastolic blood pressure 70 mm[Hg] Kvng Fu MD Work Phone: [facility] 02-13-2022 10:26-0400 Systolic blood pressure 110 mm[Hg] Kvng Fu MD Work Phone: [facility] 02-13-2022 09:59-0400 Body weight 104.78 kg Kvng Fu MD Work Phone: [facility] 02-13-2022 09:59-0400 Heart rate 86 /min Kvng Fu MD Work Phone: [facility] Encounters Encounter Date Encounter Type Care Provider Facility Start: 11-06-2024 End: 11-06-2024 Emergency department patient visit Dr. Kvng Fu MD Work Phone: -Emergency Department Work Phone: Start: 11-06-2024 End: 11-06-2024 Office outpatient visit 25 minutes Naomi Light APRN.SEED ANALYST Work Phone: Internal Medicine [place] Comment on above: Cellulitis of right leg (Primary Dx); Recurrent deep vein thrombosis (DVT) (HCC); Low grade fever; Encounter for monitoring direct oral anticoagulant therapy Start: 11-02-2024 End: 11-02-2024 Patient encounter procedure [facility] Work Phone: [facility] Start: 11-02-2024 End: 11-02-2024 ambulatory [facility] Work Phone: [facility] Comment on above: Spirometry Start: 10-31-2024 End: 10-31-2024 Patient encounter procedure Ekg Card [facility] Work Phone: Cardiology Start: 10-31-2024 End: 10-31-2024 Patient encounter status Ekg Wstr Work Phone: [facility] Start: 10-31-2024 End: 10-31-2024 ambulatory RENEA RAMSEY Cardiology Comment on above: EKG Start: 10-31-2024 Encounter for preprocedural respiratory examination KVNG FU [facility] Start: 10-30-2024 End: 10-30-2024 Follow-up encounter Shaquille Booker APRN.SEED ANALYST Work Phone: Pulmonary Medicine Start: 10-26-2024 End: 10-26-2024 ambulatory Renea Ramsey MD Work Phone: Pulmonary Medicine Comment on above: 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[employer]) Start: 10-26-2024 End: 10-26-2024 Patient encounter procedure Renea Ramsey MD Work Phone: Pulmonary Medicine Start: 10-26-2024 End: 10-26-2024 Patient encounter status Renea Ramsey MD Work Phone: [facility] Start: 10-26-2024 End: 10-26-2024 Telephone encounter [address] [place] [id number] Comment on above: Appointment (Harriett frost) Start: 10-25-2024 End: 10-25-2024 Telephone encounter Shaquille Booker APRN.CNP Work Phone: Pulmonary Medicine Comment on above: Patient Update Start: 10-25-2024 End: 10-25-2024 Patient encounter procedure Shaquille Booker APRN.SEED ANALYST Work Phone: Pulmonary Medicine Comment on above: Multiple lung nodule s (Primary Dx); Encounter for screening for lung cancer; Tobacco use current; Centrilobular emphysema (HCC); Hemoptysis Start: 10-25-2024 End: 10-25-2024 ambulatory UNKNOWN PROVIDER Facility:[facility] Start: 10-25-2024 End: 10-25-2024 Subsequent hospital visit by physician [facility] Radiology Comment on above: Tobacco use current [Z72.0] Start: 09-25-2024 End: 09-26-2024 Refill Kvng Fu MD Work Phone: [facility] [place] Comment on above: Refill Request Start: 09-05-2024 End: 09-05-2024 Refill Kvng Fu MD Work Phone: [address] [place] [address] Comment on above: Refill Request Start: 08-25-2024 End: 08-25-2024 Follow-up encounter Naomi Light APRN.SEED ANALYST Work Phone: Internal Medicine [place] Start: 08-23-2024 End: 08-23-2024 ambulatory KVNG FU Facility:[facility] Start: 08-21-2024 End: 08-22-2024 Refill Kvng Fu MD Work Phone: [facility] [place] Comment on above: Refill Request Start: 07-28-2024 End: 07-28-2024 ambulatory KVNG FU Facility:[facility] Start: 07-28-2024 End: 07-28-2024 Patient encounter procedure Kvng Fu MD Work Phone: [facility] [place] Comment on above: Medicare annual well ness visit, subsequent (Primary Dx); Hyperlipidemia, unspecified hyperlipidemia type; Screening for depression; Encounter for screening examination for other mental health and behavioral disorders; Narcotic dependence (HCC); Chronic obstructive pulmonary disease, unspecified COPD type (HCC); Recurrent deep vein thrombosis (DVT) (HCC); Allergic dermatitis Start: 06-22-2024 End: 06-22-[address] Kvng Fu MD Work Phone: [facility] Work Phone: Start: 06-22-2024 End: 06-22-[address] Andrew Camp MD -Laboratory Work Phone: Start: 06-22-2024 End: 06-22-2024 ambulatory Andrew [facility] Facility:[facility] Start: 06-19-2024 End: 06-19-2024 ambulatory Ajay Mathis MA [facility] Start: 06-19-2024 End: 06-19-2024 Patient encounter procedure Ajay Mathis MA [facility] Comment on above: Population Health Na vigation Outreach [facility] Start: 05-24-2024 End: 05-24-2024 Refill Kvng Fu MD Work Phone: [facility] [place] Comment on above: Refill Request Start: 03-06-2024 End: 03-06-2024 Refill Kvng Fu MD Work Phone: [facility] [place] Comment on above: Refill Request Start: 02-16-2024 End: 02-16-2024 Refill Kvng Fu MD Work Phone: [facility] [place] Comment on above: Refill Request Start: 02-09-2024 End: 02-09-[address] [facility] Start: 02-03-2024 End: 02-07-2024 Refill Kvng Fu MD Work Phone: Internal [facility] Comment on above: Refill Request Start: 01-25-2024 End: 01-25-2024 Patient encounter procedure Naomi Light APRN.CNP Work Phone: [facility] [place] Comment on above: Chronic obstructive pulmonary disease, unspecified COPD type (HCC) (Primary Dx); Venous stasis dermatitis; Hyperlipidemia, unspecified hyperlipidemia type; Impaired glucose metabolism; Edema of right lower leg Start: 01-25-2024 End: 01-25-2024 ambulatory NAOMI LIGHT Facility:[facility] Start: 01-18-2024 End: 01-18-2024 ambulatory NAOMI LIGHT Facility:[facility] Start: 01-18-2024 End: 01-18-2024 Patient encounter procedure Naomi Light [employer].SEED ANALYST Work Phone: [facility] [place] Comment on above: Edema of right lower leg (Primary Dx); Venous stasis dermatitis Start: 11-16-2023 Refill Kvng martin MD Work Phone: [facility] [place] Comment on above: Refill Request Start: 11-04-2023 Refill Kvng martin MD Work Phone: Internal Medicine [place] Comment on above: Refill Request Start: 10-04-2023 Telephone encounter Shaquille enciso APRN.SEED ANALYST Work Phone: Pulmonary Medicine Comment on above: Appointment Start: 09-29-2023 End: 09-29-2023 Patient encounter procedure Shaquille Booker APRN.SEED ANALYST Work Phone: Pulmonary Medicine Comment on above: Multiple lung nodule s (Primary Dx); Tobacco use current Start: 09-29-2023 End: 09-29-2023 Subsequent hospital visit by physician [facility] Radiology Comment on above: Encounter for screen ing for malignant neoplasm of lung in current smoker with 30 pack year history or greater [Z12.2, F17.200] Start: 09-24-2023 End: 09-24-2023 Patient encounter procedure Marquise Gonzalez MD Work Phone: General Surgery Comment on above: Umbilical hernia wit hout obstruction and without gangrene (Primary Dx) Start: 09-07-2023 End: 09-07-2023 [facility] 2 Work Phone: Pre Anesthesia Comment on above: Pre-operative examin ation (Primary Dx); Hyperlipidemia, unspecified hyperlipidemia type; Centrilobular emphysema (HCC); Tobacco use disorder; Fatty liver; Recurrent deep vein thrombosis (DVT) (HCC); Narcotic dependence (HCC); Benign non-nodular prostatic hyperplasia without lower urinary tract symptoms; Obesity, Class I, BMI 30-34.9 Start: 09-07-2023 End: 09-07-2023 [facility] Start: 09-03-2023 Telephone encounter Sanam VALERIO Pre Anesthesia Start: 09-02-2023 End: 09-02-2023 Patient encounter procedure Marquise Gonzalez MD Work Phone: General Surgery Comment on above: Umbilical hernia wit hout obstruction and without gangrene Start: 09-01-2023 End: 09-01-2023 Refill Kvng Fu MD Work Phone: [facility] [place] Comment on above: Refill Request Umbilical hernia wit hout obstruction and without gangrene (Primary Dx); Recurrent deep vein thrombosis (DVT) (HCC); Chronic obstructive pulmonary disease, unspecified COPD type (HCC); Cellulitis of right leg Start: 08-05-2023 End: 08-05-2023 Patient encounter procedure Kvng Fu MD Work Phone: [facility] [place] Comment on above: Medicare annual well ness visit, subsequent (Primary Dx); Narcotic dependence (HCC); Chronic obstructive pulmonary disease, unspecified COPD type (HCC); Recurrent deep vein thrombosis (DVT) (HCC); Hyperlipidemia, unspecified hyperlipidemia type; Elevated glucose level Start: 08-02-2023 Refill Kvng martin MD Work Phone: [facility] [place] Comment on above: Refill Request Start: 07-28-2023 End: 07-28-2023 ambulatory [facility] Work Phone: Start: 07-28-2023 End: 07-28-2023 Patient encounter procedure [facility]-Laboratory Work Phone: Start: 07-28-2023 End: 07-28-2023 ambulatory [facility] Facility:[facility] Start: 06-02-2023 Telephone encounter Kvng ott MD Work Phone: Internal [facility] [place] Comment on above: Medication Question Start: 03-30-2023 Orders Only Alessandra Potts APRN.SEED ANALYST Work Phone: Pulmonary Medicine Comment on above: Encounter for screen ing for malignant neoplasm of lung in current smoker with 30 pack year history or greater (Primary Dx); Smoker Start: 03-26-2023 Telephone encounter Rene Kohli MD Work Phone: [place] Provider Adult Comment on above: Results Start: 03-12-2023 End: 03-12-[address] [facility] 1 Work Phone: Pre Anesthesia Comment on above: Pre-operative examin ation (Primary Dx); Benign non-nodular prostatic hyperplasia without lower urinary tract symptoms; Blindness of right eye, unspecified left eye visual impairment category; Chronic obstructive pulmonary disease, unspecified COPD type (HCC); Hyperlipidemia, unspecified hyperlipidemia type; Intervertebral lumbar disc disorder with myelopathy, lumbar region; Recurrent deep vein thrombosis (DVT) (HCC); Infestation by bed bug; History of total hip replacement, right; Fatty liver; Obesity, Class I, BMI 30-34.9 Start: 03-12-2023 End: 03-12-2023 Preprocedural examination done [facility] 1 Work Phone: [facility] Work Phone: Start: 02-03-2023 End: 02-03-2023 Patient encounter procedure Naomi Garcia APRN.SEED ANALYST Work Phone: Internal Medicine [place] Comment on above: Infestation by bed b ug (Primary Dx); Bedbug bite, subsequent encounter; Recurrent deep vein thrombosis (DVT) (HCC); Chronic obstructive pulmonary disease, unspecified COPD type (HCC); Obesity, Class I, BMI 30-34.9 Start: 02-01-2023 Refill Kvng martin MD Work Phone: [facility] [place] Comment on above: Refill Request Start: 11-24-2022 End: 11-24-2022 Patient encounter procedure Comfort Velazquez PA-C Work Phone: General Surgery Comment on above: Encounter for screen ing for malignant neoplasm of colon (Primary Dx); Tubular adenoma of colon; History of colonic polyps Start: 11-05-2022 End: 11-05-2022 [facility] Start: 11-04-2022 End: 11-04-2022 [facility] Start: 11-02-2022 Refill Kvng martin MD Work Phone: [facility] [place] Comment on above: Refill Request Start: 09-01-2022 Refill Kvng martin MD Work Phone: [address] [place] [address] Comment on above: Refill Request Start: 08-11-2022 End: 08-11-2022 [facility] Start: 08-04-2022 End: 08-04-2022 Patient encounter procedure Naomi Garcia APRN.SEED ANALYST Work Phone: Internal Medicine [place] Comment on above: Recurrent deep vein thrombosis (DVT) (HCC) (Primary Dx); Intervertebral lumbar disc disorder with myelopathy, lumbar region; Chronic anticoagulation; Hyperlipidemia, unspecified hyperlipidemia type; Chronic obstructive pulmonary disease, unspecified COPD type (HCC); Acute pain of left knee; Skin infection of left knee; Hematoma of left knee region; Screening for prostate cancer; Screen for colon cancer Start: 07-28-2022 Telephone encounter Kvng ott MD Work Phone: Internal [facility] [place] Comment on above: Results Start: 07-28-2022 End: 07-28-2022 Subsequent hospital visit by physician [facility] Work Phone: Radiology Comment on above: Acute pain of left k nee [M25.562] Start: 07-28-2022 End: 07-28-2022 Patient encounter procedure 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 Work Phone: Internal Medicine [place] Comment on above: Acute pain of left k nee (Primary Dx); Skin infection of left knee; Hematoma of left knee region; Injury of left knee, subsequent encounter Start: 07-20-2022 End: 07-20-2022 Subsequent hospital visit by physician [facility] Work Phone: Radiology Comment on above: Coccyx pain [M53.3] Start: 04-09-2022 Telephone encounter Mariel Wise radha Retana APRN.SEED ANALYST Work Phone: Pulmonary Medicine Comment on above: Results (LDCT ) Start: 04-08-2022 End: 04-08-2022 Patient encounter procedure Mariel James Mazin ARCHIBALD.SEED ANALYST Work Phone: Pulmonary Medicine Comment on above: Encounter for screen ing for lung cancer (Primary Dx); Smoker; Lung nodules Start: 03-18-2022 End: 03-18-2022 ambulatory [facility] Work Phone: Start: 03-18-2022 End: 03-18-2022 Patient encounter procedure [facility] Start: 02-13-2022 End: 02-13-2022 Patient encounter procedure Kvng Fu MD Work Phone: Internal [facility] Comment on above: Recurrent deep vein thrombosis (DVT) (HCC) (Primary Dx); Chronic obstructive pulmonary disease, unspecified COPD type (HCC); Hyperlipidemia, unspecified hyperlipidemia type; Tobacco use disorder; Need for vaccination Start: 01-26-2022 Refill Kvng martin MD Work Phone: Internal [facility] Comment on above: Refill Request Start: 12-23-2021 ambulatory Kristina Lex [facility] Comment on above: Population Health Na vigation Outreach ([facility]) Start: 09-30-2021 Refill Kvng martin MD Work Phone: Internal [facility] Comment on above: Refill Request Start: 09-03-2021 End: 09-03-2021 Patient encounter procedure [facility] Start: 04-15-2021 Telephone encounter Naomi Garcia APRN.SEED ANALYST Work Phone: Family [facility] Comment on above: Patient Update Start: 04-05-2018 End: 04-05-2018 Patient encounter procedure ANA DEL CID [facility] Procedures Date Procedure Procedure Detail Performing Clinician Start: 11-06-[address] Kvng Fu MD Work Phone: Start: 11-02-2024 Pulmonary stress testing Shaquille Booker [employer].SEED ANALYST Work Phone: Start: 11-02-2024 Brncdilat rspse spmt ry pre&post-brncdilat admn Shaquille Booker [employer].SEED ANALYST Work Phone: Start: 08-23-2024 Lipid 1996 panel - S charo or Plasma Naomi Light [employer].SEED ANALYST Work Phone: Start: 07-28-2024 Adult depression screening assessment Kvng Fu MD Work Phone: Start: 08-05-2023 Adult depression screening assessment Xr Jerry Work Phone: Start: 08-05-2023 Lipid 1996 panel - S charo or Plasma Kvng Fu MD Work Phone: Start: 03-22-2023 Colonoscopy Rene savage MD Work Phone: Start: 08-11-2022 Plain chest X-ray Start: 08-11-2022 SARS-CoV-2 & FLU Ant igen (Rapid) Start: 08-04-2022 Lipid 1996 panel - S charo or Plasma Kvng Fu MD Work Phone: Start: 07-28-2022 Radiologic exam knee complete 4/more views Naomi Light [employer].SEED ANALYST Work Phone: Start: 07-20-2022 Radex hip unilateral with pelvis 2-3 views Ashwin FRANCOIS Work Phone: Start: 01-16-2021 Adult depression screening assessment 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 Work Phone: Start: 04-05-2018 Colonoscopy 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 Work Phone: Plan of Treatment Date Care Activity Detail Author Start: 08-23-2029 Lipid panel Lipid Screening [facility] Start: 08-04-2028 Lipid panel Lipid Screening [facility] Start: 08-24-2027 Diabetes Screening Diabetes Screenin g [facility] Start: 08-05-2027 Lipid 1996 panel - S charo or Plasma Lipid Screening [facility] Start: 08-05-2027 Lipid panel Lipid Screening [facility] Start: 08-05-2027 LIPID SCREEN LIPID SCREEN [facility] Start: 08-05-2027 PROSTATE CANCER SCRE ENING DISCUSSION PROSTATE CANCER SCREENING DISCUSSION [facility] Start: 08-05-2027 Prostate specific an tigen measurement Prostate Cancer Screening Discussion [facility] Start: 08-04-2026 Diabetes Screening Diabetes Screenin g [facility] Start: 03-22-2026 Colonoscopy Colonoscopy [facility] Start: 03-22-2026 Colorectal Cancer Screening Colorectal Cancer Screening [facility] Start: 03-22-2026 Screening for malign ant neoplasm of colon [facility] Start: 01-15-2026 LIPID SCREEN LIPID SCREEN [facility] Start: 01-15-2026 PROSTATE CANCER SCRE ENING DISCUSSION PROSTATE CANCER SCREENING DISCUSSION [facility] Start: 11-06-2025 Annual PCP Team Press Tender Star Signal arlen Disease Visit Annual PCP Team Chronic Disease Visit [facility] Start: 10-25-2025 Screening for malign ant neoplasm of lung Lung Cancer Screening [facility] Start: 08-04-2025 DIABETES SCREEN DIABETES SCREEN [facility] Start: 08-04-2025 Diabetes Screening Diabetes Screenin g [facility] Start: 07-28-2025 Annual PCP Team Press Tender Star [employer] arlen Disease Visit Annual PCP Team Chronic Disease Visit [facility] Start: 07-28-2025 Anxiety Screening Anxiety Screening [facility] Start: 07-28-2025 Depression Screening Depression Scre ening [facility] Start: 07-28-2025 RSV Vaccine (1 - Ris k 60-74 years 1-dose series) RSV Vaccine (1 - Risk 60-74 years 1-dose series) [facility] Comment on above: Postponed from 07/15 (Declined at this time) Start: 05-13-2025 Urine microalbumin profile [facility] Start: 02-02-2025 End: 02-02-2025 Patient encounter procedure 02/02/2025 11:00 AM EDT Office Visit [facility] [address] [place] [address] Naomi Light, [employer] TEACHER.SEED ANALYST [address] [place] [address] 6 month follow up [facility] Comment on above: 6 month follow up Start: 01-24-2025 Annual PCP Team Press Tender Star Signal arlen Disease Visit Annual PCP Team Chronic Disease Visit [facility] Start: 01-24-2025 Covid-19 Vaccine ( season) Covid-19 Vaccine ( season) [facility] Comment on above: Postponed from 12/25 (Declined at this time) Start: 01-24-2025 Shingrix Vaccine (1 of 2) Rodríguez grix Vaccine (1 of 2) [facility] Comment on above: Postponed from 07/15 (Declined at this time) Start: 01-17-2025 Annual PCP Team Press Tender Star Signal arlen Disease Visit Annual PCP Team Chronic Disease Visit [facility] Start: 11-06-2024 [facility] Start: 11-03-2024 End: 11-03-2024 Admission to same day surgery center 11/03/2024 7:30 AM EDT - 11/03/2024 9:30 AM EDT Surgery Admitting [address] [id number] Leeanne Ortega MD [address] [place] [address] BRONCHOSCOPY FLEXIBLE ADULT Admitting Comment on above: BRONCHOSCOPY FLEXIBL E ADULT Start: 11-03-2024 End: 11-03-2024 [facility] incl fluor gdnce dx w/cell washg spx BRONCHOSCOPY FLEXIBLE ADULT Bronchiolar disease 11/03/2024 7:30 AM EDT [facility] Start: 11-03-2024 Subsequent hospital visit by physician 11/03/2024 7:30 AM EDT Hospital Encounter Admitting [address] [address] Leeanne Ortega [facility] [address] [place] [address] Bronchiolar disease [J98.09] Admitting Comment on above: Bronchiolar disease [J98.09] Start: 11-02-2024 End: 11-02-2024 [facility] Comment on above: Dx: Centrilobular em physema (HCC) [J43.2] Start: 10-31-2024 End: 10-31-2024 ambulatory 10/31/2024 10:00 AM EDT Procedure Cardiology [address] [place] [address] PreOp Testing Cardiology Comment on above: PreOp Testing Start: 10-30-2024 End: 10-30-2024 ambulatory 10/30/2024 2:30 PM EDT Procedure PULM [facility] [address] [place], [place] [id number] Wstr, Pulm Lab [facility] [address] [place] [address] Centrilobular emphysema (HCC) [J43.2] [facility]ULM [facility] Comment on above: Centrilobular emphys truong (HCC) [J43.2] Start: 10-30-2024 End: 10-30-2024 ambulatory [facility] Comment on above: Centrilobular emphys truong (HCC) [J43.2] Start: 10-25-2024 End: 10-25-2024 Patient encounter procedure Radiology Comment on above: Dx: Tobacco use curr ent [Z72.0] Start: 10-23-2024 Influenza vaccination Influenza Vacc ine (#1) [facility] Comment on above: Postponed from 12/25 (Declined at this time) Start: 09-28-2024 Screening for malign ant neoplasm of lung Lung Cancer Screening [facility] Start: 08-31-2024 Annual PCP Team Press Tender Star Signal arlen Disease Visit Annual PCP Team Chronic Disease Visit [facility] Start: 08-04-2024 Annual PCP Team Press Tender Star Signal arlen Disease Visit Annual PCP Team Chronic Disease Visit [facility] Start: 08-04-2024 Anxiety Screening Anxiety Screening [facility] Start: 08-04-2024 Covid-19 Vaccine (2022- season) Covid-19 Vaccine (2022- season) [facility] Comment on above: Postponed from 12/25 (Declined at this time) Start: 08-04-2024 Depression Screening Depression Scre ening [facility] Start: 07-28-2024 End: 07-28-2024 Patient encounter procedure [facility] Comment on above: 6 month follow-up medicare wellness, h cc gap closure, review due hm, influenza Start: 07-25-2024 End: 10-24-2024 CBC panel - Blood by Automated count COMPLETE BLOOD COUNT Lab Routine Chronic obstructive pulmonary disease, unspecified COPD type (HCC) Expected: 07/25/2024 (Approximate), Expires: 10/24/2024 [facility] Work Phone: Comment on above: Expected: 07/25/2024 (Approximate), Expires: 10/24/2024 Start: 07-25-2024 End: 10-24-2024 Comprehensive metabolic 2000 panel - Serum or Plasma COMPREHENSIVE METABOLIC PANEL Lab Routine Hyperlipidemia, unspecified hyperlipidemia type Impaired glucose metabolism Expected: 07/25/2024 (Approximate), Expires: 10/24/2024 [facility] Comment on above: Expected: 07/25/2024 (Approximate), Expires: 10/24/2024 Start: 07-25-2024 End: 10-24-2024 Hemoglobin A1c in Blood HEMOGLOBIN A1C Lab Routine Impaired glucose metabolism Expected: 07/25/2024 (Approximate), Expires: 10/24/2024 [facility] Comment on above: Expected: 07/25/2024 (Approximate), Expires: 10/24/2024 Start: 07-25-2024 End: 10-24-2024 Lipid 1996 panel - Serum or Plasma LIPID PANEL BASIC Lab Routine Hyperlipidemia, unspecified hyperlipidemia type Expected: 07/25/2024 (Approximate), Expires: 10/24/2024 [facility] Comment on above: Expected: 07/25/2024 (Approximate), Expires: 10/24/2024 Start: 05-17-2024 DIABETES SCREEN DIABETES SCREEN [facility] Start: 02-07-2024 End: 02-07-2024 Patient encounter procedure 02/07/2024 10:40 AM EDT Office Visit Internal Medicine [facility] [address] [facility] [place] [address] Naomi Light, [employer] TEACHER.SEED ANALYST [address] [place] [address] 6 month follow-up [facility] Comment on above: 6 month follow-up Start: 02-04-2024 Annual PCP Team Press Tender Star Signal arlen Disease Visit Annual PCP Team Chronic Disease Visit [facility] Start: 02-04-2024 End: 02-04-2024 Patient encounter procedure 02/04/2024 10:40 AM EDT Office Visit [facility] [address] [place] [address] Kvng Fu MD [address] [place] [address] 6 month follow-up [facility] Medicine [facility] Comment on above: 6 month follow-up Start: 01-25-2024 End: 01-25-2024 Patient encounter procedure 01/25/2024 12:00 PM EDT Office Visit Internal Medicine [facility] [address] [facility] [place] [address] Naomi Light, [employer] TEACHER.SEED ANALYST [address] [facility] [place] [address] 1 week follow up [facility] Comment on above: 1 week follow up Start: 12-26-2023 Covid-19 Vaccine ( season) Covid-19 Vaccine ( season) [facility] Start: 12-26-2023 Influenza vaccination C [facility] Start: 11-19-2023 ANNUAL PCP TEAM WOOD HEEL FLAP TRIMMER ARLEN DISEASE VISIT ANNUAL PCP TEAM CHRONIC DISEASE VISIT [facility] Start: 10-24-2023 Influenza vaccination Influenza Vacc ine (#1) [facility] Comment on above: Postponed from 12/25 (Declined at this time) Start: 09-29-2023 End: 09-29-2023 Patient encounter procedure Radiology Comment on above: LCS ANNUAL LCS Start: 09-22-2023 End: 09-22-2023 Patient encounter procedure 09/22/2023 10:45 AM EDT Office Visit General Surgery [address] [address] Marquise Gonzalez MD [address] [address] REPAIR HERNIA UMBILICAL REDUCIBLE LESS THAN 3cm [56580] General Surgery Comment on above: REPAIR HERNIA UMBILI AG REDUCIBLE LESS THAN 3cm [90990] Start: 09-08-2023 End: 09-08-2023 Admission to same day surgery center 09/08/2023 9:32 AM EDT - 09/08/2023 10:59 AM EDT Surgery [facility] Surgery [address] [place] [address] Marquise Gonzalez MD [address] [address] REPAIR HERNIA UMBILICAL REDUCIBLE LESS THAN 3cm [facility] Surgery Comment on above: REPAIR HERNIA UMBILI AG REDUCIBLE LESS THAN 3cm Start: 09-08-2023 End: 09-08-2023 REPAIR HERNIA UMBILICAL REDUCIBLE LESS THAN 3cm REPAIR HERNIA UMBILICAL REDUCIBLE LESS THAN 3cm Umbilical hernia without obstruction and without gangrene 09/08/2023 9:32 AM EDT ME OR Start: 09-08-2023 Subsequent hospital visit by physician 09/08/2023 9:32 AM EDT Hospital Encounter [facility] Surgery [address] [place] [address] Marquise Gonzalez MD [address] [address] Umbilical hernia without obstruction and without gangrene [K42.9] [facility] Surgery Comment on above: Umbilical hernia wit hout obstruction and without gangrene [K42.9] Start: 09-07-2023 End: 09-07-2023 Anesthesia consultation 09/07/2023 2:00 PM EDT PAT Pre Anesthesia [address] [place] [address] 2, Pacc [place] [address] [place] [address] declined vv Pre Anesthesia Comment on above: declined vv Start: 09-02-2023 End: 09-02-2023 Patient encounter procedure 09/02/2023 11:15 AM EDT Office Visit General Surgery [address] [facility] [address] [place] [address] Marquise Gonzalez MD [address] [facility] [address] [place] [address] Umbilical hernia without obstruction and without gangrene [K42.9] General Surgery Comment on above: Umbilical hernia wit hout obstruction and without gangrene [K42.9] Start: 08-05-2023 ANNUAL PCP TEAM WOOD HEEL FLAP TRIMMER ARLEN DISEASE VISIT ANNUAL PCP TEAM CHRONIC DISEASE VISIT [facility] Start: 08-05-2023 End: 11-04-2023 Comprehensive metabolic 2000 panel - Serum or Plasma [facility] Work Phone: Comment on above: Expected: 08/05/2023 , Expires: 11/04/2023 Start: 08-05-2023 HEPATITIS B (1 of 3 - 3-dose series) HEPATITIS B (1 of 3 - 3-dose series) [facility] Comment on above: Postponed from 07/15 (Declined at this time) Start: 08-05-2023 Hepatitis B Vaccine (1 of 3 - 19+ 3-dose series) Hepatitis B Vaccine (1 of 3 - 19+ 3-dose series) [facility] Comment on above: Postponed from 07/15 (Declined at this time) Start: 08-05-2023 Hepatitis B Vaccine (1 of 3 - 3-dose series) Hepatitis B Vaccine (1 of 3 - 3-dose series) [facility] Comment on above: Postponed from 07/15 (Declined at this time) Start: 08-05-2023 End: 11-04-2023 LIPID PANEL, NONFASTING [facility] Work Phone: Comment on above: Expected: 08/05/2023 , Expires: 11/04/2023 Start: 08-05-2023 SHINGRIX VACCINE (1 of 2) RODRÍGUEZ GRIX VACCINE (1 of 2) [facility] Comment on above: Postponed from 07/15 (Declined at this time) Start: 07-29-2023 ANNUAL PCP TEAM WOOD HEEL FLAP TRIMMER ARLEN DISEASE VISIT ANNUAL PCP TEAM CHRONIC DISEASE VISIT [facility] Start: 07-28-2023 Procedure [facility] Start: 04-26-2023 Behavioral Health Screening Behavioral Health Screening [facility] Start: 04-26-2023 Depression Assessment Depression Ass essment [facility] Start: 04-08-2023 Influenza vaccination LUNG CANCER SC REENING [facility] Start: 04-08-2023 Screening for malign ant neoplasm of lung Lung Cancer Screening [facility] Start: 02-13-2023 ANNUAL PCP TEAM WOOD HEEL FLAP TRIMMER ARLEN DISEASE VISIT ANNUAL PCP TEAM CHRONIC DISEASE VISIT [facility] Start: 02-13-2023 COVID-19 VACCINE (#1) COVID-19 VACCI NE (#1) [facility] Comment on above: Postponed from 01/15 (Declined at this time) Start: 12-25-2022 Covid-19 Vaccine ( season) Covid-19 Vaccine () [facility] Start: 12-25-2022 Influenza vaccination C [facility] Start: 11-05-2022 End: 11-05-2022 Blood culture [facility] Start: 11-05-2022 Bacteria identified in Blood by Culture Blood Culture [facility] Start: 10-23-2022 Influenza vaccination INFLUENZA (#1) [facility] Comment on above: Postponed from 12/25 (Declined at this time) Start: 08-11-2022 End: 08-11-2022 [facility] Start: 08-04-2022 End: 10-04-2022 Comprehensive metabolic 2000 panel - Serum or Plasma [facility] Work Phone: Comment on above: Expected: 08/04/2022 , Expires: 10/04/2022 Start: 08-04-2022 End: 10-04-2022 LIPID PANEL, NONFASTING [facility] Work Phone: Comment on above: Expected: 08/04/2022 , Expires: 10/04/2022 Start: 08-04-2022 End: 10-04-2022 PSA/PROSTSPECAG SCRN [facility] Work Phone: Comment on above: Expected: 08/04/2022 , Expires: 10/04/2022 Start: 05-12-2022 ANNUAL PCP TEAM WOOD HEEL FLAP TRIMMER ARLEN DISEASE VISIT ANNUAL PCP TEAM CHRONIC DISEASE VISIT [facility] Start: 04-26-2022 DEPRESSION ASSESSMENT DEPRESSION ASS [facility] Start: 04-03-2022 Influenza vaccination LUNG CANCER SC REENING [facility] Start: 03-18-2022 Procedure [facility] Work Phone: Start: 02-14-2022 End: 04-16-2022 CBC panel - Blood by Automated count CBC Lab Routine Recurrent deep vein thrombosis (DVT) (HCC) Expected: 02/14/2022, Expires: 04/16/2022 [facility] Work Phone: Comment on above: Expected: 02/14/2022 , Expires: 04/16/2022 Start: 02-14-2022 End: 04-16-2022 Comprehensive metabolic 2000 panel - Serum or Plasma COMP METABOLIC PANEL Lab Routine Hyperlipidemia, unspecified hyperlipidemia type Expected: 02/14/2022, Expires: 04/16/2022 [facility] Work Phone: Comment on above: Expected: 02/14/2022 , Expires: 04/16/2022 Start: 02-14-2022 End: 04-16-2022 Lipid 1996 panel - Serum or Plasma LIPID PANEL BASIC Lab Routine Hyperlipidemia, unspecified hyperlipidemia type Expected: 02/14/2022, Expires: 04/16/2022 [facility] Work Phone: Comment on above: Expected: 02/14/2022 , Expires: 04/16/2022 Start: 01-16-2022 Adult depression screening assessment DEPRESSION SCREENING [facility] Start: 12-25-2021 Influenza vaccination C [facility] Start: 04-26-2021 DEPRESSION ASSESSMENT DEPRESSION ASS ESSMENT [facility] Start: 04-05-2021 Colonoscopy COLONOSCOPY [facility] Start: 04-05-2021 COLORECTAL CANCER SCREENING COLORECTAL CANCER SCREENING [facility] Start: 03-16-2015 PNEUMOCOCCAL (2 - PCV) PNEUMOCOCCAL (2 - PCV) [facility] Start: 2014 SHINGRIX VACCINE (1 of 2) RODRÍGUEZ GRIX VACCINE (1 of 2) [facility] Start: 2009 COLOGUARD (FIT-DNA) COLOGUARD (FIT-D NA) [facility] Start: [address] COLONOGRAPHY [facility] Start: 2009 FECAL OCCULT BLOOD FECAL OCCULT BLOO D [facility] Start: 2009 Screening for malign ant neoplasm of colon [facility] Start: 2009 SIGMOIDOSCOPY SIGMOIDOSCOPY [facility] Start: 1994 Zoledronic acid therapy ALPHA- 1 ANTITRYPSIN DEFICIENCY SCREENING [facility] Start: 1969 COVID-19 VACCINE (#1) COVID-19 VACCI NE (#1) [facility] Start: 01-15-1965 COVID-19 VACCINE (#1) COVID-19 VACCI NE (#1) [facility] Start: 1964 HEPATITIS B (1 of 3 - 3-dose series) HEPATITIS B (1 of 3 - 3-dose series) [facility] Amphetamines [Presen ce] in Urine by Confirmatory method [facility] Work Phone: Benzoylecgonine [Presence] in Urine by Confirmatory method [facility] Work Phone: Cocaine measurement [facility] Work Phone: Cocaine measurement, urine [facility] Work Phone: CT Chest for screeni ng WO contrast CT LUNG SCREEN WO IVCON Radiology Routine Encounter for screening for malignant neoplasm of lung in current smoker with 30 pack year history or greater Smoker 09/29/2023 9:47 AM EDT [facility] Work Phone: CT Chest for screeni ng WO contrast CT LUNG SCREEN WO IVCON Radiology Routine Tobacco use current 10/25/2024 10:39 AM EDT [facility] Work Phone: End: 04-28-2024 CT LUNG SCREEN WO IVCON CT LUNG SCREEN WO IVCON Radiology Routine Encounter for screening for malignant neoplasm of lung in current smoker with 30 pack year history or greater Smoker 1 Occurrences starting 03/30/2023 until 04/28/2024 [facility] Work Phone: Comment on above: 1 Occurrences starti ng 03/30/2023 until 04/28/2024 End: 10-26-2025 ECG COMPLETE ECG COMPLETE ECG Routine Pre-op chest exam 1 Occurrences starting 10/26/2024 until 10/26/2025 [facility] Work Phone: Comment on above: 1 Occurrences starti ng 10/26/2024 until 10/26/2025 Ethanol [Mass/volume ] in Urine [facility] Work Phone: End: 11-24-2025 LUNG DIFFUSION CAPACITY (DLCO) LUNG DIFFUSION CAPACITY (DLCO) PFT Routine Centrilobular emphysema (HCC) 1 Occurrences starting 10/25/2024 until 11/24/2025 [facility] Comment on above: 1 Occurrences starti ng 10/25/2024 until 11/24/2025 End: 11-24-2025 LUNG VOLUMES LUNG VOLUMES PFT Routine Centrilobular emphysema (HCC) 1 Occurrences starting 10/25/2024 until 11/24/2025 [facility] Comment on above: 1 Occurrences starti ng 10/25/2024 until 11/24/2025 Patient Education [facility] Work Phone: Patient referral [facility] Work Phone: Procedure [facility] Work Phone: End: 11-24-2025 SIX MINUTE WALK SIX MINUTE WALK PFT Routine Centrilobular emphysema (HCC) 1 Occurrences starting 10/25/2024 until 11/24/2025 [facility] Comment on above: 1 Occurrences starti ng 10/25/2024 until 11/24/2025 End: 11-24-2025 SPIROMETRY WITH DILATOR IF OBSTRUCTED SPIROMETRY WITH DILATOR IF OBSTRUCTED PFT Routine Centrilobular emphysema (HCC) 1 Occurrences starting 10/25/2024 until 11/24/2025 [facility] Work Phone: Comment on above: 1 Occurrences starti ng 10/25/2024 until 11/24/2025 Urine amphetamine measurement [facility] Work Phone: [facility] Immunizations Immunization Date Immunization Notes Care Provider Jai shankar 02-13-2022 pneumococcal (PCV20) vaccine, 20 valent (PREVNAR 20) Kvng Fu MD Work Phone: [facility] 02-13-2022 pneumococcal Conjuga te, unspecified formulation Kvng Fu MD Work Phone: [facility] Work Phone: 02-23-2018 influenza, injectabl e, quadrivalent, contains preservative 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 Work Phone: [facility] 02-23-2018 influenza virus vacc ine, unspecified formulation Kvng Fu MD Work Phone: [facility] 02-09-2017 influenza, injectabl e, quadrivalent, contains preservative 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 Work Phone: [facility] 04-07-2016 influenza, injectabl e, quadrivalent, contains preservative 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 Work Phone: [facility] 05-13-2015 tetanus toxoid, redu kieran diphtheria toxoid, and acellular pertussis vaccine, adsorbed 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 Work Phone: [facility] 01-10-2015 influenza, injectabl e, quadrivalent, contains preservative 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 Work Phone: [facility] 03-16-2014 influenza, seasonal, injectable 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 Work Phone: [facility] 03-16-2014 pneumococcal polysaccharide vaccine, 23 valent 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 Work Phone: [facility] 01-24-2013 Influenza virus vaccine [facility] 01-24-2013 pneumococcal polysaccharide vaccine, 23 valent 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 Work Phone: [facility] Work Phone: 01-24-2013 Pneumococcal Vaccine [facility] Work Phone: 01-24-2013 pneumococcal vaccine , unspecified formulation [facility] Payers Date Payer Category Payer Medicare [id number] 2023 Self-pay [id number] 2020 Medicare HUMANA MEDICARE HUMANA GOLD PLUS [id number] 2020-Present [phone] [place], [place] [id number] HMO [id number] 2020 Medicare HUMANA MEDICARE HUMANA GOLD PLUS [id number] 2020-Present [phone] [address] [place] [id number] HMO [id number] 2020 Medicare (Managed Care) [id number] 2020 Private Health Insurance [id number] 2012 Medicaid [id number] Unknown [id number] Unknown [id number] Unknown [id number] 62 Unknown [id number] Social History Date Type Detail Facility Start: 07-24-2013 End: 11-05-2022 Tobacco smoking status [facility] Start: 07-23-2013 None [facility] Start: 07-23-2013 With Family [facility] Start: 07-23-2013 Cigarettes [facility] Start: 1965 Sex Assigned At Male [facility] Start: 1974 End: 01-18-2024 Tobacco smoking status NHIS Smokes tobacco daily [facility] Work Phone: Start: 1974 History of tobacco use Cigarette Smo ker [facility] Work Phone: Start: 01-16-2021 End: 11-11-2022 Cigarettes smoked current (pack per day) - Reported 1 [facility] Work Phone: Start: 01-16-2021 End: 01-18-2024 Tobacco use and exposure Smokeless tobacco non-user [facility] Work Phone: Start: 04-08-2021 End: 11-06-2024 Alcohol intake Current non-drinker of alcohol (finding) [facility] Start: 06-22-2013 History SDOH Alcohol Comment Hx alcoholism, sober since quit in 1998 [facility] Start: 01-16-2021 History SDOH Physica l Activity DPW 1 [facility] Start: 01-16-2021 History SDOH Physica l Activity MPS 3 [facility] Start: 1965 Sex Assigned At Not on file C [facility] Start: 04-17-2021 End: 02-13-2022 Exposure to SARS-CoV-2 (event) Not sure [facility] Start: 02-13-2022 History SDOH Physica l Activity DPW 0 [facility] Start: 04-08-2022 Tobacco Comment Started age 8 [facility] Start: 08-04-2022 End: 11-11-2022 Tobacco use panel [facility] Work Phone: Adult Depression Screening Assessment 0 [facility] Work Phone: How often to you hav e a drink containing alcohol? Never [facility] Work Phone: Start: 11-05-2022 End: 11-06-2024 Tobacco smoking status NHIS Current Heavy tobacco smoker [facility] Start: 07-06-2024 Sex Male (finding) [facility] Medical Equipment Procedure Code Equipment Code Equipment Origin al Text Equipment Identifier Dates Fltr Cv Merid Vc Fem Dlv Kt - [id number] Start: 11-08-2013 Shell Actb 54mm Prim Sb Hmsphr - [id number] Start: 11-08-2013 Head Fem 36mm V4 0 Blx D - [id number] Start: 11-08-2013 Ins Actb 36mm 10 d E X3 Trdnt - [id number] Start: 11-08-2013 Fem Stem Acclde 2 Sz 9 127 Deg - [id number] Start: 11-08-2013 Functional Status Date Assessment Result Facility 07-28-2024 Total score [AUDIT-C] 0 07/29/19 25 10:25 AM EDT Kvng Fu MD [facility] 11-15-2014 Are you deaf, or do you have serious difficulty hearing No 11/15/2014 4:18 PM EDT Comfort Cruz MA No [facility] 11-15-2014 Are you blind, or do you have serious difficulty seeing, even when wearing glasses No 11/15/2014 4:18 PM EDT Comfort Cruz MA No [facility] 11-15-2014 Do you have serious difficulty walking or climbing stairs Yes 11/15/2014 4:18 PM EDT Comfort Cruz MA Yes [facility] 11-15-2014 Do you have difficul ty dressing or bathing No 11/15/2014 4:18 PM EDT Comfort Cruz MA No [facility] 11-15-2014 Because of a physica l, mental, or emotional condition, do you have difficulty doing errands alone such as visiting a physician's office or shopping No 11/15/2014 4:18 PM EDT Comfort Cruz MA No [facility] Mental Status Date Assessment Result Facility 11-05-2022 Cognitive function Level Of Cons ciousness Awake;Alert;Appropriate;Fol lows Commands [facility] Work Phone: 11-15-2014 Because of a physica l, mental, or emotional condition, do you have serious difficulty concentrating, remembering, or making decisions No 11/15/2014 4:18 PM EDT Comfort Cruz MA No [facility] Clinical Notes 03-23-2018 to 11-06-2024 Naomi Light, [employer].SEED ANALYST - 11/06/2024 12:48 PM EDTPatient InstructionsTaliaAlisson burrell, RP - 11/02/2024 10:20 AM EDTPetusAlisson dsouza, PARTH - 11/02/2024 10:20 AM EDTPatient Instructions Note Date & Type Note Facility 11-06-2024 History of Presen t illness Narrative CC: Patient presents with: Edema: RT leg/foot x 3 days HPI Recording using ambient AI software for draft documentation of the visit was discussed with the patient/authorized student services representative; all questions welcomed and answered. Patient/authorized student services representative agreed to proceed Neymar Rome is a 59-year-old male presenting with a edema and rapidly progressing erythema on the right lower leg. Neymar reports the onset of edema and erythema on the right lower leg over the weekend, initially localized to the lower calf Wednesday evening but noted to have spread up past the knee by Wednesday morning. The erythema is more pronounced than his baseline, which he describes as normal redness. He also reports new erythematous bumps on both legs, which began around September. He reports feeling feverish and experiencing dizziness over the weekend. He has a history of recurrent DVT and has been off Xarelto for 5 days, from Wednesday to Wednesday, due to a scheduled bronchoscopy that was ultimately canceled. 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 electrolyte imbalance False positive serological test for hepatitis C 09/2015 Fatty liver 03/15/2023 Fatty liver disease, nonalcoholic Hematuria 10/04/2013 Hip arthritis 08/07/2013 Hip joint replacement status 11/21/2013 History of alcoholism ([facility]) 1994 sober since 1997 History of pulmonary embolism 08/12/2012 HTN (hypertension) Hyperlipemia Infestation by bed bug 03/15/2023 Kidney stones 10/04/2013 LUMB DISC DIS W MYELOPAT 05/17/2006 Narcotic dependence (HCC) 08/05/2023 PE (pulmonary embolism) 01/11/2012 DVT and PE Recurrent deep vein thrombosis (DVT) ([facility]) 04/26/2021 Renal colic 04/08/2007 Tobacco use disorder 04/07/2016 Tubular adenoma of colon 04/07/2018 Zoster 05/28/2007 PAST SURGICAL HISTORY Procedure Laterality Date ARTHRP ACETBLR/PROX FEM PROSTC AGRFT/ALGRFT Right 11/08/2013 right MICHAEL CERVICAL OR THORACIC EPIDURAL INJECTION 03/31/2018 of neck 03-31-18 COLONOSCOPY 04/07/2018 COLONOSCOPY & POLYPECTOMY 08/09/2012 repeat due 2017 COLONOSCOPY & POLYPECTOMY 03/22/2023 ERCP W/DESTRUCTN STONE(S)-LITHOTRIPSY 2007 multi times for kidney stones IR IVC FILTER PLACEMENT 11/08/2013 [facility] [place] via L [facility] PAST SURGICAL HISTORY OF Right 1996 hernia right groin PAST SURGICAL HISTORY OF 2011 gall bladder removed PAST SURGICAL HISTORY OF 2000 cystoscopy REPAIR UMBILICAL HERNIA 09/08/2023 Dr. Gonzalez ALLERGIES Formaldehyde, Latex, Paroxetine Hcl, Tramadol, Venlafaxine Hcl, and Vicodin [Hydrocodone-Acetaminophen] MEDICATIONS rivaroxaban (XARELTO) 20 mg tablet Take 1 tablet by mouth daily with dinner. atorvastatin (LIPITOR) 10 mg tablet Take 1 tablet by mouth daily at bedtime. For cholesterol. morphine SR (MS CONTIN) 15 mg 12 hr tablet Take 1 tablet by mouth once daily as needed (per Dr. Camp). cetirizine (ZYRTEC) 10 mg tablet Take 1 tablet by mouth once daily. furosemide (LASIX) 20 mg tablet Take 1 tablet by mouth once daily as needed. albuterol HFA (PROAIR HFA) 90 mcg/actuation inhaler Inhale 2 Puffs as instructed every 4 hours as needed. tiZANidine (ZANAFLEX) 4 mg tablet Take 1 tablet by mouth three times a day. Per Dr. Camp amitriptyline (ELAVIL) 25 mg tablet Take 1 tablet by mouth daily at bedtime. Dr. Camp pregabalin (LYRICA) 100 mg capsule Take 1 capsule by mouth twice daily. Per Dr. Camp. COMPOUNDED PRESCRIPTION 1 capsule as needed. OTC stool softner FAMILY HISTORY Problem Relation Age of Onset Hypertension Mother Colon Cancer Mother 65 Liver Cancer Mother Diabetes Father Hypertension Father Stroke Father pt states had over 33 strokes Hypertension Sister Diabetes Sister No Known Problems Sister Kidney stones Brother Hypertension Paternal Grandmother Diabetes Paternal Grandmother Hypertension Paternal Grandfather Hypertension Paternal Aunt Social History Tobacco Use Smoking status: Every Day Current packs/day: 1.00 Average packs/day: 1 pack/day for 50.3 years (50.3 ttl pk-yrs) Types: Cigarettes Start date: 1974 Smokeless tobacco: Never Tobacco comments: Started age 8 Vaping Use Vaping status: Never Used Substance Use Topics Alcohol use: No Comment: Hx alcoholism, sober since quit in 1998 Drug use: No Comment: hx marijuana use 1985 BP 112/76 Pulse 110 Temp 37.6 C (99.6 F) (Temporal) Resp 14 Wt 88.7 kg (195 lb 8.8 oz) SpO2 98% BMI 27.53 kg/m Physical Exam Vitals reviewed. Constitutional: General: He is not in acute distress. Appearance: He is ill-appearing. He is not toxic-appearing. Musculoskeletal: Right lower leg: Tenderness present. 2+ Pitting Edema present. Legs: Neurological: Mental Status: He is alert. Assessment/Plan 1. Cellulitis of right leg (L03.115) Rapidly progressing erythema and warmth on the right lower leg, with onset over the weekend. Patient has a history of similar presentations. Concerns for potential systemic infection given the rapid progression and presence of fever. - Advised immediate evaluation in the emergency room for further workup, including potential blood cultures and initiation of IV antibiotics. 2. Recurrent deep vein thrombosis (DVT) (HCC) (I82.409) Increased risk due to recent discontinuation of Xarelto for 5 days in preparation for a bronchoscopy that was subsequently canceled. - Emergency room evaluation to include assessment for potential DVT. 3. Low grade fever (R50.9) Low-grade fever present, likely secondary to cellulitis. - Emergency room evaluation for further assessment and management. 4. Encounter for monitoring direct oral anticoagulant therapy (Z51.81) Recent interruption of Xarelto therapy for 5 days. - Resume Xarelto as per previous dosing schedule. I spent a total of 30 minutes on the date of the service which included preparing to see the patient, [id number] patient care, completing clinical documentation, performing a medically appropriate examination, and counseling and educating the patient/family/caregiver. Prescription instructions reviewed with patient as applicable. Potential red flag symptoms discussed with the patient. Reviewed appropriate action plan to take if red flag symptoms occur. Patient agreeable to treatment plan. Naomi Light APRN.CNP documented in this encounter [facility] 11-06-2024 Instructions Naomi Light APRN.CNP - 11/06/2024 12:45 PM EDT We discussed the redness, rash, and swelling on your right lower leg: - The rash and redness on your leg are concerning due to how quickly they are progressing and the presence of a fever. - I am concerned that oral antibiotics may not be sufficient to treat this infection and that it could worsen without more immediate care. - You need to go to the emergency room today for further evaluation and treatment. - At the ER, they may perform blood work and potentially start IV antibiotics to address the infection. - There is also a concern for a possible blood clot, given that you were off Xarelto for five days recently. The ER may evaluate this as well. - If the infection spreads into your bloodstream, it could become very serious, so it is important to seek care promptly. We discussed your symptoms of dizziness and feeling tired: - These symptoms may be related to your immune system fighting the infection, but they could also indicate that the infection is affecting your overall health. This is another reason why immediate evaluation at the ER is necessary. Please go to the emergency room as soon as possible. Let them know about your recent symptoms, including the fever, dizziness, and the rapid progression of the rash and redness on your leg. documented in this encounter [facility] 11-02-2024 Note HNO ID: [id number] Author: ALISSON CLINTON RPFT Service: ? Author Type: Respiratory Therapist Type: Procedures Filed: 11/02/2024 10:21 Note Text: Attestation signed by Renea Lopes MD at 11/02/2024 10:23 AM The patient completed the six minute walk test with No stops. . The patient required Room Air to complete the test. The distance the patient walked in six minutes is extremely reduced. This is the first time patient takes the six minute walk test. The patient perceived their dyspnea during the six minute walk test to be 2-Slight on the modified Tarun scale. The patient perceived their fatigue during the six minute walk test to be 3-Moderate on the modified Tarun scale. I have reviewed the findings and made appropriate revisions as needed. SIGNATURE: Renea Lopes MD PATIENT NAME: Neymar Rome DATE: November 02, 2024 TIME: 10:23 AM RESPIRATORY THERAPY SIX MINUTE WALK TEST OXIMETRY REPORT Six Minute Walk Test for This Encounter Oxygen Device Liters FIO2 SpO2% HR Activity Feet Speed (MPH) R/A 95 115 Resting R/A 97 125 Six Minute Walk 740 1.4 R/A 100 118 Recovery General Information Height Weight Pulse Oximetry Site Pre Blood Pressure Post Recovery Blood Pressure 179.5 cm (5' 10.67) 92.1 kg (203 lb) Forehead 111/70 116/73 _ Distance Walked (meters) Distance Walked (feet) Male Predicted Walk Distance (feet) Male Lower Limit of Normal (feet) Male % Predicted Total Duration Of The Stops (seconds) 225.55 740 1924.21 1422.21 38.5 -- _ Lowest SpO2 During 6 Minute Walk Pre-Tarun Dyspnea Rating Pre-Tarun Fatigue Rating Post Tarun Dyspnea Rating Post Tarun Fatigue Rating Walking Assistance/O2 Supply Carrier 95 % 0 0 2 3 Wheeled Walker Six Minute Walk Trend (Previous Encounters) None SIGNATURE: Alisson PARTH [place] PATIENT NAME: Neymar Rome DATE: November 02, 2024 TIME: 10:20 AM [facility] 11-02-2024 Procedure note Associated Ord er(s): SIX MINUTE WALK RESPIRATORY THERAPY SIX MINUTE WALK TEST OXIMETRY REPORT Six Minute Walk Test for This Encounter Oxygen Device Liters FIO2 SpO2% HR Activity Feet Speed (MPH) R/A 95 115 Resting R/A 97 125 Six Minute Walk 740 1.4 R/A 100 118 Recovery General Information Height Weight Pulse Oximetry Site Pre Blood Pressure Post Recovery Blood Pressure 179.5 cm (5' 10.67) 92.1 kg (203 lb) Forehead 111/70 116/73 _ Distance Walked (meters) Distance Walked (feet) Male Predicted Walk Distance (feet) Male Lower Limit of Normal (feet) Male % Predicted Total Duration Of The Stops (seconds) 225.55 740 1924.21 1422.21 38.5 -- _ Lowest SpO2 During 6 Minute Walk Pre-Tarun Dyspnea Rating Pre-Tarun Fatigue Rating Post Tarun Dyspnea Rating Post Tarun Fatigue Rating Walking Assistance/O2 Supply Carrier 95 % 0 0 2 3 Wheeled Walker Six Minute Walk Trend (Previous Encounters) None SIGNATURE: Alisson PARTH [place] PATIENT NAME: Neymar Rome DATE: November 02, 2024 TIME: 10:20 AM Cosigned by Renea Lopes MD at 11/02/2024 10:23 AM EDT Associated attestation - Renea Lopes MD - 11/02/2024 10:23 AM EDT The patient completed the six minute walk test with No stops. . The patient required Room Air to complete the test. The distance the patient walked in six minutes is extremely reduced. This is the first time patient takes the six minute walk test. The patient perceived their dyspnea during the six minute walk test to be 2-Slight on the modified Tarun scale. The patient perceived their fatigue during the six minute walk test to be 3-Moderate on the modified Tarun scale. I have reviewed the findings and made appropriate revisions as needed. SIGNATURE: Renea Lopes MD PATIENT NAME: Neymar Rome DATE: November 02, 2024 TIME: 10:23 AM [facility] 11-02-2024 Procedure note Associated Ord er(s): SIX MINUTE WALK RESPIRATORY THERAPY SIX MINUTE WALK TEST OXIMETRY REPORT Six Minute Walk Test for This Encounter Oxygen Device Liters FIO2 SpO2% HR Activity Feet Speed (MPH) R/A 95 115 Resting R/A 97 125 Six Minute Walk 740 1.4 R/A 100 118 Recovery General Information Height Weight Pulse Oximetry Site Pre Blood Pressure Post Recovery Blood Pressure 179.5 cm (5' 10.67) 92.1 kg (203 lb) Forehead 111/70 116/73 _ Distance Walked (meters) Distance Walked (feet) Male Predicted Walk Distance (feet) Male Lower Limit of Normal (feet) Male % Predicted Total Duration Of The Stops (seconds) 225.55 740 1924.21 1422.21 38.5 -- _ Lowest SpO2 During 6 Minute Walk Pre-Tarun Dyspnea Rating Pre-Tarun Fatigue Rating Post Tarun Dyspnea Rating Post Tarun Fatigue Rating Walking Assistance/O2 Supply Carrier 95 % 0 0 2 3 Wheeled Walker Six Minute Walk Trend (Previous Encounters) None SIGNATURE: PARTH Childs PATIENT NAME: Neymar Rome DATE: November 02, 2024 TIME: 10:20 AM Cosigned by Renea Lopes MD at 11/02/2024 10:23 AM EDT Associated attestation - Renea Lopes MD - 11/02/2024 10:23 AM EDT The patient completed the six minute walk test with No stops. . The patient required Room Air to complete the test. The distance the patient walked in six minutes is extremely reduced. This is the first time patient takes the six minute walk test. The patient perceived their dyspnea during the six minute walk test to be 2-Slight on the modified Tarun scale. The patient perceived their fatigue during the six minute walk test to be 3-Moderate on the modified Tarun scale. I have reviewed the findings and made appropriate revisions as needed. SIGNATURE: Renea Lopes MD PATIENT NAME: Neymar Rome DATE: November 02, 2024 TIME: 10:23 AM documented in this encounter [facility] 10-31-2024 Note HNO ID: [id number] Author: REKHA VALENCIA RN Service: ? Author Type: Registered Nurse Type: Progress Notes Filed: 10/31/2024 13:25 Note Text: Late Entry- 11:30a- EKG Complete Rekha Valencia RN [facility] 10-31-2024 History of Presen t illness Narrative Late Entry- 11:30a- EKG Complete Rekha Valencia RN documented in this encounter [facility] 10-26-2024 Note HNO ID: [id number] Author: RENEA RAMSEY MD Service: ? Author Type: Physician Type: Progress Notes Filed: 10/26/2024 07:52 Note Text: Bronch request is placed [facility] 10-26-2024 History of Presen t illness Narrative Bronch request is placed documented in this encounter [facility] 10-26-2024 Note HNO ID: [id number] Author: PEGGY CONNOLLY RN Service: ? Author Type: Physician Type: Progress Notes Filed: 10/26/2024 10:16 Note Text: Bronchoscopy Request: Cleared for scheduling October 26, 2024 Please schedule patient for the following: Staging EBUS Schedule as a robot-either one. I'm not sure it needs to be a robot BV +/- robot Clinical Trial Candidate: No Visit and Bronchoscopy: Bronch only, visit not needed. Last HANDP: October 25 Time Allotment/Tier: TIER 2: 2 HOUR Physician Performing Bronchoscopy:[facility] , Dr. Andrews, Dr. Major , and Dr. Fraser Anesthesia Type: General Special Requests: None Needs Labs: No Needs EKG: Yes Needs CT prior: No Does the pt need cardiac clearance? No Is he/she on anticoagulants/anti-plt therapy? Yes Xarelto/Rivaroxaban ok to stop medication for 2 days Nursing Considerations: (ie: penitentiary, TB, respiratory isolation, etc.) none Diagnosis/Reason for Bronchoscopy: RLL nodule Referred by: Ade/Ernie Reviewed by: BRIE Ramsey MD October 26, 2024 7:47 AM Addendum: CBC with diff: WBC 9.92 08/23/2024 RBC 5.24 08/23/2024 Hemoglobin 14.8 08/23/2024 Hematocrit 46.0 08/23/2024 MCV 87.8 08/23/2024 MCH 28.2 08/23/2024 MCHC 32.2 08/23/2024 RDW-CV 14.1 08/23/2024 Platelet Count 244 08/23/2024 MPV 10.6 08/23/2024 Neut% 68.6 03/08/2014 Lymph% 18.3 03/08/2014 Rapides% 10.2 03/08/2014 Eosin% 2.7 03/08/2014 Baso% 0.2 03/08/2014 Abs Neut (ANC) 6.83 03/08/2014 Abs Rapides 1.02 03/08/2014 Abs Eosin 0.27 03/08/2014 Abs Baso 0.02 03/08/2014 Potassium Date Value Ref Range Status 08/23/2024 4.6 3.7 - 5.1 mmol/L Final 08/05/2023 4.2 3.7 - 5.1 mmol/L Final 08/04/2022 4.0 3.7 - 5.1 mmol/L Final Sodium Date Value Ref Range Status 08/23/2024 140 136 - 144 mmol/L Final 08/05/2023 139 136 - 144 mmol/L Final 08/04/2022 139 136 - 144 mmol/L Final BUN Date Value Ref Range Status 08/23/2024 10 9 - 24 mg/dL Final Creatinine Date Value Ref Range Status 08/23/2024 0.81 0.73 - 1.22 mg/dL Final [facility] 10-26-2024 History of Presen t illness Narrative Bronchoscopy Request: Cleared for scheduling October 26, 2024 Please schedule patient for the following: Staging EBUS Schedule as a robot-either one. I'm not sure it needs to be a robot BV +/- robot Clinical Trial Candidate: No Visit and Bronchoscopy: Bronch only, visit not needed. Last H&P: October 25 Time Allotment/Tier: TIER 2: 2 HOUR Physician Performing Bronchoscopy:[facility] , Dr. Andrews, Dr. Major , and Dr. Fraser Anesthesia Type: General Special Requests: None Needs Labs: No Needs EKG: Yes Needs CT prior: No Does the pt need cardiac clearance? No Is he/she on anticoagulants/anti-plt therapy? Yes Xarelto/Rivaroxaban ok to stop medication for 2 days Nursing Considerations: (ie: penitentiary, TB, respiratory isolation, etc.) none Diagnosis/Reason for Bronchoscopy: RLL nodule Referred by: Ade/Ernie Reviewed by: BRIE Ramsey MD October 26, 2024 7:47 AM Addendum: CBC with diff: WBC 9.92 08/23/2024 RBC 5.24 08/23/2024 Hemoglobin 14.8 08/23/2024 Hematocrit 46.0 08/23/2024 MCV 87.8 08/23/2024 MCH 28.2 08/23/2024 MCHC 32.2 08/23/2024 RDW-CV 14.1 08/23/2024 Platelet Count 244 08/23/2024 MPV 10.6 08/23/2024 Neut% 68.6 03/08/2014 Lymph% 18.3 03/08/2014 Rapides% 10.2 03/08/2014 Eosin% 2.7 03/08/2014 Baso% 0.2 03/08/2014 Abs Neut (ANC) 6.83 03/08/2014 Abs Rapides 1.02 03/08/2014 Abs Eosin 0.27 03/08/2014 Abs Baso 0.02 03/08/2014 Potassium Date Value Ref Range Status 08/23/2024 4.6 3.7 - 5.1 mmol/L Final 08/05/2023 4.2 3.7 - 5.1 mmol/L Final 08/04/2022 4.0 3.7 - 5.1 mmol/L Final Sodium Date Value Ref Range Status 08/23/2024 140 136 - 144 mmol/L Final 08/05/2023 139 136 - 144 mmol/L Final 08/04/2022 139 136 - 144 mmol/L Final BUN Date Value Ref Range Status 08/23/2024 10 9 - 24 mg/dL Final Creatinine Date Value Ref Range Status 08/23/2024 0.81 0.73 - 1.22 mg/dL Final documented in this encounter [facility] 10-25-2024 Telephone encounter Note He can hold Xarelto for 48 hours prior to bronchoscopy. [facility] 10-25-2024 Miscellaneous Notes He can hold Xarelto for 48 hours prior to bronchoscopy. Correspondence sent to PCP regarding 48 hour hold for Xarelto for bronchoscopy. Shaquille Booker APRN.JALYN Phone call to patient to discuss recommendations after review with physician champion Dr. Klein. We will proceed with bronchoscopy airway exam and biopsy or lavage as needed. Patient prefers main campus and an E consult was placed. Once approved they will call patient to schedule. He was advised he will need a preop EKG, which can be done at [facility]. Shaquille Booker APRN.CNP documented in this encounter [facility] 10-25-2024 Telephone encounter Note Correspondence sent to PCP regarding 48 hour hold for Xarelto for bronchoscopy. Shaquille Booker APRN.CNP [facility] Work Phone: 10-25-2024 Telephone encounter Note Phone call to patient to discuss recommendations after review with physician champion Dr. Klein. We will proceed with bronchoscopy airway exam and biopsy or lavage as needed. Patient prefers main campus and an E consult was placed. Once approved they will call patient to schedule. He was advised he will need a preop EKG, which can be done at [facility]. Shaquille Booker APRN.CNP [facility] 10-25-2024 Instructions Shaquille Booker APRN.CNP - 10/25/2024 2:06 PM EDT I will contact you after review with lung cancer screening team physician is completed. Thank you, Shaquille Booker APRN.CNP documented in this encounter [facility] 10-25-2024 History of Presen t illness Narrative Images from the original note were not included. LUNG SCREENING ANNUAL VISIT PRIMARY CARE PHYSICIAN: Kvng Fu MD PULMONARY PROVIDER: none Results will be communicated via letter or electronic record if applicable. Visit Delivery: In Person Patient Visit Type: established Current or Ex-smoker? [Current Exam Type: annual LDCT Number of Pack Years: 50 Current smoker (=0) The patient's smoking history is similar to prior year shared decision visit. The reason for the discrepancy is NA Chief Complaint: Established patient in lung cancer screening program here for annual follow-up. Impression / Recommendations Neymar Rome presents for annual lung cancer screening annual exam and nodule evaluation. Plan: Indeterminate pulmonary nodules: RLL branching opacity has increased in size and now contains cavitations. Case sent for physician review. Discussed possible options for further workup including NM PET, and bronchoscopy. 2. Encounter for screening for malignant neoplasm of respiratory organs I have determined that the patient is eligible for continued low dose CT screening based on age, absence of signs or symptoms of lung cancer, smoking history and total pack years. The patient was counseled on the importance of adherence to annual LDCT lung cancer screening, impact of comorbidities and ability or willingness to undergo diagnosis and treatment. The patient understands and feels comfortable with it: Yes. 3. Nicotine Dependence The patient was counseled on the importance of smoking cessation if current smoker and, if appropriate, offered additional tobacco cessation counseling services - Smoking Cessation Counseling-deferred 4. Centrilobular emphysema (HCC) (Primary) Recommended PFT - SPIROMETRY WITH DILATOR IF OBSTRUCTED; Future - SIX MINUTE WALK ; Future - LUNG VOLUMES; Future - LUNG DIFFUSION CAPACITY (DLCO); Future 5. Hemoptysis: He had one episode a few months ago. He was advised to report these episodes. Shaquille Booker APRN.[facility] October 25, 2024 7:47 AM History of Present Illness: Neymar Rome is a 59 year old male who is presenting today for annual lung cancer screening LDCT and nodule surveillance/management. Patient has multiple nodules found on previous lung cancer screening LDCT. Last LDCT was performed on 09/29/2023 and was LUNG RADS Category 2. Previous potentially significant incidental findings on imaging: None. Patient is a current smoker with a 50 pack year history. Patient is currently still smoking 1 pack cigarettes daily. Patient will continue to be eligible for lung cancer screening until age 76. The patient does not have any symptoms or signs of lung cancer. Patient denies SOB with their daily activity. No wheezing or dyspnea. Patient denies feeling of chest tightness/congestion in the chest. Patient does not have a new or concerning cough, and denies hemoptysis. Patient does not have a chronic daily cough. Denies regular or recent fevers/chills. Patient does have 20 lbs unintentional weight loss over the last year. Patient denies having any respiratory infections or COVID-19 in the past few months. Does not use any maintenance inhaler for COPD. A couple months ago coughed up some red sputum one time in the morning. Has chronic rash to lower legs with redness and scabs, R>L. Modified Medical Research [place] Dyspnea Scale (MMRC) I only get breathless with strenous exercise 0 Last 12 Encounter Wt Readings: Date: Wt: 10/25/2024 92.5 kg (203 lb 14.8 oz) 07/28/2024 93.3 kg (205 lb 11 oz) 01/25/2024 99.2 kg (218 lb 11.1 oz) 01/18/2024 101.2 kg (223 lb 1.7 oz) 09/29/2023 100.6 kg (221 lb 12.5 oz) 09/07/2023 102.1 kg (225 lb) 09/02/2023 102.1 kg (225 lb) 09/02/2023 99.8 kg (220 lb) 09/01/2023 101.6 kg (224 lb) 08/05/2023 101.6 kg (224 lb) 03/12/2023 104.8 kg (231 lb) 02/03/2023 101.2 kg (223 lb)] Social History Tobacco Use: Types: Cigarettes Past Medical History: PAST MEDICAL HISTORY Diagnosis Date Acute deep vein thrombosis (DVT) of proximal vein of right lower extremity (HCC) 04/15/2021 Acute venous embolism and thrombosis of unspecified deep vessels of lower extremity (HCC) 08/30/2013 Allergic dermatitis formaldehyde, Carba mix Asthmatic bronchitis (HCC) 01/10/2015 Benign non-nodular prostatic hyperplasia without lower urinary tract symptoms 11/18/2015 Colon polyps COPD (chronic obstructive pulmonary disease) (HCC) 2017 DDD (degenerative disc disease) Depression 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 electrolyte imbalance False positive serological test for hepatitis C 09/2015 Fatty liver 03/15/2023 Fatty liver disease, nonalcoholic Hematuria 10/04/2013 Hip arthritis 08/07/2013 Hip joint replacement status 11/21/2013 History of alcoholism (HCC) 1994 sober since 1997 History of pulmonary embolism 08/12/2012 HTN (hypertension) Hyperlipemia Infestation by bed bug 03/15/2023 Kidney stones 10/04/2013 LUMB DISC DIS W MYELOPAT 05/17/2006 Narcotic dependence (HCC) 08/05/2023 PE (pulmonary embolism) 01/11/2012 DVT and PE Recurrent deep vein thrombosis (DVT) (HCC) 04/26/2021 Renal colic 04/08/2007 Tobacco use disorder 04/07/2016 Tubular adenoma of colon 04/07/2018 Zoster 05/28/2007 Family Hx: FAMILY HISTORY Problem Relation Age of Onset Hypertension Mother Colon Cancer Mother 65 Liver Cancer Mother Diabetes Father Hypertension Father Stroke Father pt states had over 33 strokes Hypertension Sister Diabetes Sister No Known Problems Sister Kidney stones Brother Hypertension Paternal Grandmother Diabetes Paternal Grandmother Hypertension Paternal Grandfather Hypertension Paternal Aunt Surgical Hx: PAST SURGICAL HISTORY Procedure Laterality Date ARTHRP ACETBLR/PROX FEM PROSTC AGRFT/ALGRFT Right 11/08/2013 right MICHAEL CERVICAL OR THORACIC EPIDURAL INJECTION 03/31/2018 of neck 03-31-18 COLONOSCOPY 04/07/2018 COLONOSCOPY & POLYPECTOMY 08/09/2012 repeat due 2018 COLONOSCOPY & POLYPECTOMY 03/22/2023 ERCP W/DESTRUCTN STONE(S)-LITHOTRIPSY 2007 multi times for kidney stones IR IVC FILTER PLACEMENT 11/08/2013 [facility] [place] via L [facility] PAST SURGICAL HISTORY OF Right 1996 hernia right groin PAST SURGICAL HISTORY OF 2011 gall bladder removed PAST SURGICAL HISTORY OF 2000 cystoscopy REPAIR UMBILICAL HERNIA 09/08/2023 Dr. Gonzalez Allergies: ALLERGIES Allergen Reactions Formaldehyde Other: See Comments blisters Latex Paroxetine Hcl Other: See Comments sexual dysfunction Tramadol Mental Status Change Venlafaxine Hcl Other: See Comments increased BP Vicodin [Hydrocodon* Other: See Comments causes pain Review Of Systems: See HPI for ROS All of the remainder systems were reviewed and negative. PHYSICAL EXAMINATION: BP 127/86 Pulse 88 Wt 203 lb 14.8 oz (92.5kg) SpO2 96% General appearance: well appearing, in no acute distress, and alert Skin: skin color, texture, turgor normal, no rashes or lesions Nose/Sinuses: Negative Oropharynx: Lips, mucosa, and tongue normal Neck: Supple, no adenopathy; thyroid symmetric, normal size Respiratory: lungs clear to auscultation no wheezing or rhonchi Cardiovascular: Negative. RRR without murmur, gallop, or rubs. No ectopy Musculoskeletal: Extremities normal. No deformities, edema, or skin discoloration. Good capillary refill. Neuro: Oriented X 3 Data Review I have visually reviewed imaging and testing below CT imaging done today was reviewed and analyzed independently and compared to prior CT chest imaging by practitioner and awaiting radiology review. Imaging Last CT/CTA Chest/Lungs CT LUNG SCREEN WO IVCON Exam End: 09/29/2023 9:47 AM (Final result) Narrative: * * *Final Report* * * DATE OF EXAM: Sep 29 2023 9:47AM [facility] [place] [id number] - CT LUNG SCREEN WO IVCON / PROCEDURE REASON: multiple diagnoses * * * * Physician Interpretation * * * * EXAMINATION: CHEST CT WITHOUT CONTRAST (LOW-DOSE CT LUNG CANCER SCREENING PROTOCOL) CLINICAL HISTORY: Lung cancer LDCT screening ? absence of signs or symptoms of lung cancer. Nicotine dependence (cigarettes). Subsequent (annual) Technique: Spiral CT acquisition of the chest from the thoracic inlet to the upper abdomen without contrast. MQ: CTLCS_6 Patient characteristics: * Stal-to-Dgqjd: 1965; Age at exam: 58 years * Gender: Male * Lung Disease: Asymptomatic (no signs or symptoms of lung disease) * Number of Pack Years: 49 * Current smoker (=0) or Number of Years since Quit: 0 * Ordering provider and NPI: ALESSANDRA POTTS [id number] * Interpreting radiologist and NPI: Gregg [id number] Exam acquisition parameters: * Exam Date: 09/29/2023 9:47 AM * Site: [facility] * * CT System Plate Put In Worker: Quettra * CT System Model: [employer] * Tube Current-Time (mA-sec): 100 * Peak Voltage (kV): 120V * Scan Time (sec): 4.79 * Scan Volume (z-length, cm): 33.10 * Pitch: .984 * Slice Thickness (mm): 1.25 * CT Dose-Length Product: 153 mGy*cm * CT Dose Index: 4.19mGy * CT Dose Reduction Method: Iterative recon and mAs-kVp adjusted using patient size-age COMPARISON: 04/08/2022. RESULT: Are nodules present? Yes, 1-5 nodules 4 mm nodule in the medial right upper lobe on image 81 and 3 mm nodule in the posterior right lower lobe on image 224 and a 3 mm nodule along the right major fissure on image 152 are unchanged. Other lung nodule comments: A cluster branching nodular opacities in the right lower lobe on image 209, compatible with inflammatory/infectious process with mucoid impactions present. Other findings: A small amount retained secretions noted in the trachea. Linear atelectasis in the right lower lobe around the above-mentioned mucus mucoid impaction.. Linear atelectasis in the lingula. No consolidation. Mild diffuse bronchial wall thickening. No pleural effusion. The imaged thyroid gland is unremarkable. Stable borderline sized right hilar lymph node measuring 10 mm in short axis on image 148. Right hilar calcified lymph nodes are consistent with a sequela of prior granulomatous disease. No new or progressive thoracic lymphadenopathy. Mild atherosclerotic calcifications of the thoracic aorta. The thoracic aorta and main pulmonary artery are normal in caliber. The cardiac chambers are normal in size. No distinct coronary artery calcifications. No pericardial effusion or pericardial thickening. Mild degenerative changes of the thoracic spine. The soft tissues of the chest wall are unremarkable. Nonobstructing right renal calculus. The imaged upper abdomen is otherwise unchanged without acute abnormality. Emphysema: Trivial (<5%), Centrilobular, Upper lobe Coronary Artery Calcifications: Circumflex None; Left Anterior Descending None; Right Coronary None Localizer images: No additional findings. Impression: IMPRESSION: LungRADS category: 2 LungRADS modifier: None LungRADS 0 reason: n/a Recommendations: Continue annual screening with LDCT in 12 months. Other actionable findings: Reference: [employer]. Lung CT Screening Reporting and Data System (Lung-RADS). Available at: http://www.acr.org/Quality-Safet y/Resources/LungRADS Awning Finisher: ANNEL Transcribe Date/Time: Sep 30 2023 9:05A Dictated by : SHMUEL JESUS MD This examination was interpreted and the report reviewed and electronically signed by: SHMUEL JESUS MD on Sep 30 2023 9:35AM EST Last CT Chest - Impression Only CT CHEST WO CONTRAST Collected: 10/23/2014 4:25 PM (Final result) Impression: IMPRESSION: 1. Improved appearance of the right lower lobe with a small amount of scarring remaining. 2. A 4 mm right lower lobe is unchanged compared to 06/28/2014. [address] is recommended. 3. Soft tissue density associated with the tail of the pancreas is unchanged compared to the prior imaging which showed features suggesting ... Last XR Chest - Impression Only XR CHEST PA/LAT Collected: 04/13/2016 10:44 AM (Final result) Impression: IMPRESSION: No acute radiographic abnormality. Awning Finisher: ANNEL Transcribe Date/Time: Apr 13 2016 11:08A ... Pulmonary Function Testing: SPIROMETRY - BASELINE AND POST DILATOR ([id number]) - ordered on 01/24/21 No textual results for order. documented in this encounter [facility] 10-25-2024 Note HNO ID: [id number] Author: SHAQUILLE BOOKER APRN.CNP Service: ? Author Type: Nurse Practitioner Type: Progress Notes Filed: 10/25/2024 14:13 Note Text: LUNG SCREENING ANNUAL VISIT PRIMARY CARE PHYSICIAN: Kvng Fu MD PULMONARY PROVIDER: none Results will be communicated via letter or electronic record if applicable. Visit Delivery: In Person Patient Visit Type: established Current or Ex-smoker? [Current Exam Type: annual LDCT Number of Pack Years: 50 Current smoker (=0) The patient's smoking history is similar to prior year shared decision visit. The reason for the discrepancy is NA Chief Complaint: Established patient in lung cancer screening program here for annual follow-up. Impression / Recommendations Neymar Rome presents for annual lung cancer screening annual exam and nodule evaluation. Plan: Indeterminate pulmonary nodules: RLL branching opacity has increased in size and now contains cavitations. Case sent for physician review. Discussed possible options for further workup including NM PET, and bronchoscopy. 2. Encounter for screening for malignant neoplasm of respiratory organs I have determined that the patient is eligible for continued low dose CT screening based on age, absence of signs or symptoms of lung cancer, smoking history and total pack years. The patient was counseled on the importance of adherence to annual LDCT lung cancer screening, impact of comorbidities and ability or willingness to undergo diagnosis and treatment. The patient understands and feels comfortable with it: Yes. 3. Nicotine Dependence The patient was counseled on the importance of smoking cessation if current smoker and, if appropriate, offered additional tobacco cessation counseling services - Smoking Cessation Counseling-deferred 4. Centrilobular emphysema (HCC) (Primary) Recommended PFT - SPIROMETRY WITH DILATOR IF OBSTRUCTED; Future - SIX MINUTE WALK ; Future - LUNG VOLUMES; Future - LUNG DIFFUSION CAPACITY (DLCO); Future 5. Hemoptysis: He had one episode a few months ago. He was advised to report these episodes. Shaquille Booker, DRAGAN.SEED ANALYST October 25, 2024 7:47 AM History of Present Illness: Neymar Rome is a 59 year old male who is presenting today for annual lung cancer screening LDCT and nodule surveillance/management. Patient has multiple nodules found on previous lung cancer screening LDCT. Last LDCT was performed on 09/29/2023 and was LUNG RADS Category 2. Previous potentially significant incidental findings on imaging: None. Patient is a current smoker with a 50 pack year history. Patient is currently still smoking 1 pack cigarettes daily. Patient will continue to be eligible for lung cancer screening until age 76. The patient does not have any symptoms or signs of lung cancer. Patient denies SOB with their daily activity. No wheezing or dyspnea. Patient denies feeling of chest tightness/congestion in the chest. Patient does not have a new or concerning cough, and denies hemoptysis. Patient does not have a chronic daily cough. Denies regular or recent fevers/chills. Patient does have 20 lbs unintentional weight loss over the last year. Patient denies having any respiratory infections or COVID-19 in the past few months. Does not use any maintenance inhaler for COPD. A couple months ago coughed up some red sputum one time in the morning. Has chronic rash to lower legs with redness and scabs, R>L. Modified Medical Research [place] Dyspnea Scale (MMRC) I only get breathless with strenous exercise 0 Last 12 Encounter Wt Readings: Date: Wt: 10/25/2024 92.5 kg (203 lb 14.8 oz) 07/28/2024 93.3 kg (205 lb 11 oz) 01/25/2024 99.2 kg (218 lb 11.1 oz) 01/18/2024 101.2 kg (223 lb 1.7 oz) 09/29/2023 100.6 kg (221 lb 12.5 oz) 09/07/2023 102.1 kg (225 lb) 09/02/2023 102.1 kg (225 lb) 09/02/2023 99.8 kg (220 lb) 09/01/2023 101.6 kg (224 lb) 08/05/2023 101.6 kg (224 lb) 03/12/2023 104.8 kg (231 lb) 02/03/2023 101.2 kg (223 lb)] Social History Tobacco Use: Types: Cigarettes Past Medical History: PAST MEDICAL HISTORY Diagnosis Date Acute deep vein thrombosis (DVT) of proximal vein of right lower extremity (HCC) 04/15/2021 Acute venous embolism and thrombosis of unspecified deep vessels of lower extremity (HCC) 08/30/2013 Allergic dermatitis formaldehyde, Carba mix Asthmatic bronchitis (HCC) 01/10/2015 Benign non-nodular prostatic hyperplasia without lower urinary tract symptoms 11/18/2015 Colon polyps COPD (chronic obstructive pulmonary disease) (HCC) 2017 DDD (degenerative disc disease) Depression 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 electrolyte imbalance False positive serological test for hepatitis C 0 (more content not included)... [facility] 10-25-2024 History of Presen t illness Narrative Radiology Service Progress Note PATIENT NAME: Neymar Rome DATE OF SERVICE: October 25, 2024 TIME: 10:34 AM PATIENT IDENTITY VERIFICATION COMPLETED USING TWO (2) IDENTIFIERS: Name and Date of confirmed by patient verbally and Name and Date of confirmed by identification band. FALL SCREENING: Has the patient had 2 falls in the last year or 1 fall with injury or currently using an Ambulatory Assistive Device (Walker, Cane, Wheelchair, Crutches, etc.)? No PATIENT GENDER DATA: Assigned male at PATIENT RELEVANT IMPLANT DATA REVIEWED: Yes PATIENT PRESENTS WITH AN IMPLANTABLE OR ATTACHED CHORUS DANCER: No RADIOLOGY DEPARTMENT: CT; Exam(s) Completed: Lung Screening PERIPHERAL IV DATA: Not applicable SIGNED BY: TECHNOLOGIST Dianna October 25, 2024 10:34 AM documented in this encounter [facility] 10-25-2024 Note HNO ID: [id number] Author: PHILOMENA MILLER TECHNOLOGIST Service: Radiology Author Type: Technologist Type: Progress Notes Filed: 10/25/2024 10:37 Note Text: Radiology Service Progress Note PATIENT NAME: Neymar Rome DATE OF SERVICE: October 25, 2024 TIME: 10:34 AM PATIENT IDENTITY VERIFICATION COMPLETED USING TWO (2) IDENTIFIERS: Name and Date of confirmed by patient verbally and Name and Date of confirmed by identification band. FALL SCREENING: Has the patient had 2 falls in the last year or 1 fall with injury or currently using an Ambulatory Assistive Device (Walker, Cane, Wheelchair, Crutches, etc.)? No PATIENT GENDER DATA: Assigned male at PATIENT RELEVANT IMPLANT DATA REVIEWED: Yes PATIENT PRESENTS WITH AN IMPLANTABLE OR ATTACHED CHORUS DANCER: No RADIOLOGY DEPARTMENT: CT; Exam(s) Completed: Lung Screening PERIPHERAL IV DATA: Not applicable SIGNED BY: Philomena Miller, TECHNOLOGIST October 25, 2024 10:34 AM [facility] 09-25-2024 Telephone encounter Note Patient has been identified by name and date of : yes Patient phones for refill(s): Requested Prescriptions Pending Prescriptions Disp Refills rivaroxaban (XARELTO) 20 mg tablet 30 tablet 0 Sig: Take 1 tablet by mouth daily with dinner. Date of last office visit in primary care: 07/28/2024 Date of next office visit in primary care: 02/02/2025 Please advise. Thank you. María Elena Wilcox MA. [facility] 09-25-2024 Miscellaneous Notes Patient has been identified by name and date of : yes Patient phones for refill(s): Requested Prescriptions Pending Prescriptions Disp Refills rivaroxaban (XARELTO) 20 mg tablet 30 tablet 0 Sig: Take 1 tablet by mouth daily with dinner. Date of last office visit in primary care: 07/28/2024 Date of next office visit in primary care: 02/02/2025 Please advise. Thank you. María Elena Wilcox MA. Prescription Refill Information The patient has been identified by name and date of : Yes Caregiver verified no other encounters exist for this prescription request: Yes Caregiver confirmed with patient/requestor that no other refills are due, in the near future, with this provider at this time: Yes The last office visit in the department: 07-28-24 Does the patient have a future office visit with this provider/department: Yes Disp Refills Start End rivaroxaban (XARELTO) 20 mg tablet (Discontinued) 30 tablet 2 05/24/2024 08/21/2024 Sig: Take 1 tablet by mouth daily with dinner. Sent to pharmacy as: rivaroxaban (XARELTO) 20 mg tablet Class: Normal Route: ORAL Venita Silva September 25, 2024 12:27 PM documented in this encounter [facility] 09-25-2024 Telephone encounter Note Prescription Refill Information The patient has been identified by name and date of : Yes Caregiver verified no other encounters exist for this prescription request: Yes Caregiver confirmed with patient/requestor that no other refills are due, in the near future, with this provider at this time: Yes The last office visit in the department: 07-28-24 Does the patient have a future office visit with this provider/department: Yes Disp Refills Start End rivaroxaban (XARELTO) 20 mg tablet (Discontinued) 30 tablet 2 05/24/2024 08/21/2024 Sig: Take 1 tablet by mouth daily with dinner. Sent to pharmacy as: rivaroxaban (XARELTO) 20 mg tablet Class: Normal Route: ORAL Venita Silva September 25, 2024 12:27 PM [facility] 09-05-2024 Telephone encounter Note Prescription Refill Information The patient has been identified by name and date of : Yes Caregiver verified no other encounters exist for this prescription request: Yes Caregiver confirmed with patient/requestor that no other refills are due, in the near future, with this provider at this time: Yes The last office visit in the department: Does the patient have a future office visit with this provider/department: Yes Requested Prescriptions Pending Prescriptions Disp Refills atorvastatin (LIPITOR) 10 mg tablet 30 tablet 5 Sig: Take 1 tablet by mouth daily at bedtime. For cholesterol. Sharona Silva September 05, 2024 11:15 AM [facility] 09-05-2024 Miscellaneous Notes Prescription Refill Information The patient has been identified by name and date of : Yes Caregiver verified no other encounters exist for this prescription request: Yes Caregiver confirmed with patient/requestor that no other refills are due, in the near future, with this provider at this time: Yes The last office visit in the department: Does the patient have a future office visit with this provider/department: Yes Requested Prescriptions Pending Prescriptions Disp Refills atorvastatin (LIPITOR) 10 mg tablet 30 tablet 5 Sig: Take 1 tablet by mouth daily at bedtime. For cholesterol. Sharona Silva September 05, 2024 11:15 AM documented in this encounter [facility] 08-22-2024 Telephone encounter Note Patient notified María Elena Wilcox MA [facility] 08-22-2024 Miscellaneous Notes Patient notified María Elena Wilcox MA Patient's lab orders will again. Labs need updating soon. 30 day refill sent with no refills pending labs. Prescription Refill Information The patient has been identified by name and date of : Yes Caregiver verified no other encounters exist for this prescription request: Yes Caregiver confirmed with patient/requestor that no other refills are due, in the near future, with this provider at this time: Yes The last office visit in the department: 07-28-24 Does the patient have a future office visit with this provider/department: Yes Requested Prescriptions Pending Prescriptions Disp Refills rivaroxaban (XARELTO) 20 mg tablet 30 tablet 2 Sig: Take 1 tablet by mouth daily with dinner. Venita Fiore [facility] August 21, 2024 10:39 AM documented in this encounter [facility] 08-21-2024 Telephone encounter Note Patient's lab orders will again. Labs need updating soon. 30 day refill sent with no refills pending labs. [facility] 08-21-2024 Telephone encounter Note Prescription Refill Information The patient has been identified by name and date of : Yes Caregiver verified no other encounters exist for this prescription request: Yes Caregiver confirmed with patient/requestor that no other refills are due, in the near future, with this provider at this time: Yes The last office visit in the department: 07-28-24 Does the patient have a future office visit with this provider/department: Yes Requested Prescriptions Pending Prescriptions Disp Refills rivaroxaban (XARELTO) 20 mg tablet 30 tablet 2 Sig: Take 1 tablet by mouth daily with dinner. Venita Fiore [facility] August 21, 2024 10:39 AM [facility] 07-28-2024 Note HNO ID: [id number] Author: KVNG FU MD Service: ? Author Type: Physician Type: Progress Notes Filed: 07/28/2024 11:21 Note Text: This note was created using [employer], [employer]. Subjective Patient presents with: Medicare Wellness Exam: needs new lab orders but needs non fasting labs and can get today Neymar Rome was here also for a follow up. He had no new concerns. His COPD was stable, and he continued to smoke. His lipids needed rechecked, but he had not done his fasting labs for this appointment. He was on chronic Xarelto for recurrent DVT. His chronic pain regimen was reviewed, and medication list was updated. He sees Dr. Camp. He was noted to have a rash, which he indicated was chronic and from self picking. He has not seen a last inserter. The rash was itchy at times. He still had bed bug issues at home. Review of Systems Constitutional: Negative for fatigue, fever and unexpected weight change. HENT: Negative for congestion. Respiratory: Negative for cough and shortness of breath. Cardiovascular: Positive for leg swelling. Negative for chest pain and palpitations. Gastrointestinal: Negative for abdominal pain, constipation, nausea and vomiting. Genitourinary: Negative for difficulty urinating. Musculoskeletal: Positive for back pain. Skin: Positive for rash. Neurological: Negative for dizziness and headaches. Psychiatric/Behavioral: Negative. ACTIVE PROBLEM LIST Intervertebral Lumbar Disc Disorder With Myelopathy, Lumbar Region Hyperlipemia Allergic Dermatitis Blindness of Right Eye Benign Non-Nodular Prostatic Hyperplasia Without Lower Urinary Tract Symptoms Tobacco Use Disorder Copd (Chronic Obstructive Pulmonary Disease) ([facility]) Family History of Colon Cancer Tubular Adenoma of Colon Recurrent Deep Vein Thrombosis (Dvt) ([facility]) Obesity, Class I, Bmi 30-34.9 Infestation By Bed Bug History of Total Hip Replacement, Right Fatty Liver Narcotic Dependence ([facility]) Social History Tobacco Use Smoking status: Every Day Current packs/day: 1.00 Average packs/day: 1 pack/day for 50.0 years (50.0 ttl pk-yrs) Types: Cigarettes Start date: 1974 Smokeless tobacco: Never Tobacco comments: Started age 8 Vaping Use Vaping status: Never Used Substance Use Topics Alcohol use: No Comment: Hx alcoholism, sober since quit in 1998 Drug use: No Comment: hx marijuana use 1985 Current Outpatient Medications Medication Sig rivaroxaban (XARELTO) 20 mg tablet Take 1 tablet by mouth daily with dinner. atorvastatin (LIPITOR) 10 mg tablet Take 1 tablet by mouth daily at bedtime. For cholesterol. cetirizine (ZYRTEC) 10 mg tablet Take 1 tablet by mouth once daily. furosemide (LASIX) 20 mg tablet Take 1 tablet by mouth once daily as needed. albuterol HFA (PROAIR HFA) 90 mcg/actuation inhaler Inhale 2 Puffs as instructed every 4 hours as needed. tiZANidine (ZANAFLEX) 4 mg tablet Take 1 tablet by mouth three times a day. Per Dr. Camp amitriptyline (ELAVIL) 25 mg tablet Take 1 tablet by mouth daily at bedtime. Dr. Camp pregabalin (LYRICA) 100 mg capsule Take 1 capsule by mouth twice daily. Per Dr. Camp. COMPOUNDED PRESCRIPTION 1 capsule as needed. OTC stool softner morphine SR (MS CONTIN) 15 mg 12 hr tablet Take 1 tablet by mouth once daily as needed (per Dr. Camp). No current facility-administered medications for this visit. Objective BP 124/58 (BP Site: Right Arm, BP Position: Sitting, BP Cuff Size: Large Adult) Pulse 97 Temp 37.3 ?C (99.1 ?F) (Temporal) Resp 16 Ht 177.8 cm (5' 10) Wt 93.3 kg (205 lb 11 oz) SpO2 95% BMI 29.51 kg/m? Physical Exam Constitutional: General: He is not in acute distress. Appearance: He is not ill-appearing or diaphoretic. HENT: Head: Atraumatic. Nose: No rhinorrhea. Eyes: Conjunctiva/sclera: Conjunctivae normal. Cardiovascular: Rate and Rhythm: Normal rate and regular rhythm. Heart sounds: No murmur heard. No gallop. Pulmonary: Effort: No respiratory distress. Breath sounds: No wheezing or rales. Abdominal: Tenderness: There is no abdominal tenderness. Musculoskeletal: Right lower le+ Pitting Edema present. Left lower le+ Pitting Edema present. Skin: Findings: Rash present. Comments: Excoriated discrete lesions, burrows, in hands, arms, neck, upper back. Neurological: Mental Status: He is alert. Assessment and Plan 1. Medicare annual wellness visit, subsequent - ICD9: V70.0, ICD10: Z00.00 (primary diagnosis) - See wellness note. 2. Hyperlipidemia, unspecified hyperlipidemia type - ICD9: 272.4, ICD10: E78.5 - Control undetermined, due for labs - Continue current medications - Counseled on healthy diet and regular exercise 3. Screening for depression - ICD9: V79.0, ICD10: Z13.31 - DEPRESSION SCREENING 4. Encounter for screening examination for other mental health and behavioral disorders - ICD9: V79.8, ICD10: Z13.39 - AN (more content not included)... [facility] 07-28-2024 History of Presen t illness Narrative This note was created using NoteWriter. Subjective Patient presents with: Medicare Wellness Exam: needs new lab orders but needs non fasting labs and can get today Neymar Rome was here also for a follow up. He had no new concerns. His COPD was stable, and he continued to smoke. His lipids needed rechecked, but he had not done his fasting labs for this appointment. He was on chronic Xarelto for recurrent DVT. His chronic pain regimen was reviewed, and medication list was updated. He sees Dr. Camp. He was noted to have a rash, which he indicated was chronic and from self picking. He has not seen a last inserter. The rash was itchy at times. He still had bed bug issues at home. Review of Systems Constitutional: Negative for fatigue, fever and unexpected weight change. HENT: Negative for congestion. Respiratory: Negative for cough and shortness of breath. Cardiovascular: Positive for leg swelling. Negative for chest pain and palpitations. Gastrointestinal: Negative for abdominal pain, constipation, nausea and vomiting. Genitourinary: Negative for difficulty urinating. Musculoskeletal: Positive for back pain. Skin: Positive for rash. Neurological: Negative for dizziness and headaches. Psychiatric/Behavioral: Negative. ACTIVE PROBLEM LIST Intervertebral Lumbar Disc Disorder With Myelopathy, Lumbar Region Hyperlipemia Allergic Dermatitis Blindness of Right Eye Benign Non-Nodular Prostatic Hyperplasia Without Lower Urinary Tract Symptoms Tobacco Use Disorder Copd (Chronic Obstructive Pulmonary Disease) ([facility]) Family History of Colon Cancer Tubular Adenoma of Colon Recurrent Deep Vein Thrombosis (Dvt) ([facility]) Obesity, Class I, Bmi 30-34.9 Infestation By Bed Bug History of Total Hip Replacement, Right Fatty Liver Narcotic Dependence ([facility]) Social History Tobacco Use Smoking status: Every Day Current packs/day: 1.00 Average packs/day: 1 pack/day for 50.0 years (50.0 ttl pk-yrs) Types: Cigarettes Start date: 1974 Smokeless tobacco: Never Tobacco comments: Started age 8 Vaping Use Vaping status: Never Used Substance Use Topics Alcohol use: No Comment: Hx alcoholism, sober since quit in 1998 Drug use: No Comment: hx marijuana use 1985 Current Outpatient Medications Medication Sig rivaroxaban (XARELTO) 20 mg tablet Take 1 tablet by mouth daily with dinner. atorvastatin (LIPITOR) 10 mg tablet Take 1 tablet by mouth daily at bedtime. For cholesterol. cetirizine (ZYRTEC) 10 mg tablet Take 1 tablet by mouth once daily. furosemide (LASIX) 20 mg tablet Take 1 tablet by mouth once daily as needed. albuterol HFA (PROAIR HFA) 90 mcg/actuation inhaler Inhale 2 Puffs as instructed every 4 hours as needed. tiZANidine (ZANAFLEX) 4 mg tablet Take 1 tablet by mouth three times a day. Per Dr. Camp amitriptyline (ELAVIL) 25 mg tablet Take 1 tablet by mouth daily at bedtime. Dr. Camp pregabalin (LYRICA) 100 mg capsule Take 1 capsule by mouth twice daily. Per Dr. Camp. COMPOUNDED PRESCRIPTION 1 capsule as needed. OTC stool softner morphine SR (MS CONTIN) 15 mg 12 hr tablet Take 1 tablet by mouth once daily as needed (per Dr. Camp). No current facility-administered medications for this visit. Objective BP 124/58 (BP Site: Right Arm, BP Position: Sitting, BP Cuff Size: Large Adult) Pulse 97 Temp 37.3 C (99.1 F) (Temporal) Resp 16 Ht 177.8 cm (5' 10) Wt 93.3 kg (205 lb 11 oz) SpO2 95% BMI 29.51 kg/m Physical Exam Constitutional: General: He is not in acute distress. Appearance: He is not ill-appearing or diaphoretic. HENT: Head: Atraumatic. Nose: No rhinorrhea. Eyes: Conjunctiva/sclera: Conjunctivae normal. Cardiovascular: Rate and Rhythm: Normal rate and regular rhythm. Heart sounds: No murmur heard. No gallop. Pulmonary: Effort: No respiratory distress. Breath sounds: No wheezing or rales. Abdominal: Tenderness: There is no abdominal tenderness. Musculoskeletal: Right lower le+ Pitting Edema present. Left lower le+ Pitting Edema present. Skin: Findings: Rash present. Comments: Excoriated discrete lesions, burrows, in hands, arms, neck, upper back. Neurological: Mental Status: He is alert. Assessment and Plan 1. Medicare annual wellness visit, subsequent - ICD9: V70.0, ICD10: Z00.00 (primary diagnosis) - See wellness note. 2. Hyperlipidemia, unspecified hyperlipidemia type - ICD9: 272.4, ICD10: E78.5 - Control undetermined, due for labs - Continue current medications - Counseled on healthy diet and regular exercise 3. Screening for depression - ICD9: V79.0, ICD10: Z13.31 - DEPRESSION SCREENING 4. Encounter for screening examination for other mental health and behavioral disorders - ICD9: V79.8, ICD10: Z13.39 - ANXIETY SCREENING 5. Narcotic dependence (HCC) - ICD9: 304.90, ICD10: F11.20 - Stable. 6. Chronic obstructive pulmonary disease, unspecified COPD type (HCC) - ICD9: 496, ICD10: J44.9 - Stable. 7. Recurrent deep vein thrombosis (DVT) (HCC) - ICD9: 453.40, ICD10: I82.409 - On half-way XARELTO. 8. Allergic dermatitis - ICD9: 692.9, ICD10: L23.9 - I cannot rule out scabies, or bug bites. - Patient declined empiric treatment or dermatology referral. Kvng Fu MD Images from the original note were not included. Neymar Rome is a 59 year old male here for a Medicare wellness visit. Medicare Health Risk Assessment General Health Fair Exercise: Minutes/Day 10 min Exercise: Days/Week 5 days Alcohol: Daily Use Never Alcohol: Drinks/Day Patient does not drink Alcohol: 6 or more drinks Never Feel off balance No Concerns: Teeth/Dentures No Concerns: Sexual function No Troubled by feelings Stressed; Lonely Frequency: Eating healthy diet Several days ADLs requiring help Housework Safety precautions in home/vehicle Yes Smoke, vape, chews tobacco Yes, but I'm not ready to quit Difficulty hearing No Difficulty seeing No Current Providers Specialists: I have reviewed specialist-related care of the patient in the medical record. Current care team: Patient Care Team: Kvng Fu MD as PCP - General (Internal Medicine) Naomi Light APRN.SEED ANALYST as [employer] (Internal Medicine) Shaquille Booker APRN CNP (Lung Cancer Screening) Outside specialists seen: Andrew Camp MD (Pain Management) [facility] (Ophthalmology) Medical/Family history review Reviewed and updated problem list, medical/surgical/family/social history, medications, and allergies. Opioid use review Opioid Medications (last 90 days) No data to display Anxiety/Depression screening PHQ-2 Score: 2 (Lower risk for depression) GERARDO-2 Score: 0 (Lower risk for anxiety) Recommendation: no further intervention at this time Cognitive screening Mini Cog Score: 5 Cognitive screening reviewed and No further action needed (score 3-5). Functional Observation Was the patient's Timed Up & Go test unsteady or >= 12 seconds? No Advance Care Planning Patient did not wish or was not able to name a surrogate decision maker or provide an advance care plan Measurements BP 124/58 (BP Site: Right Arm, BP Position: Sitting, BP Cuff Size: Large Adult) Pulse 97 Temp 37.3 C (99.1 F) (Temporal) Resp 16 Ht 177.8 cm (5' 10) Wt 93.3 kg (205 lb 11 oz) SpO2 95% BMI 29.51 kg/m Vision Screening: Follows with optometry/ophthalmology Declines visual acuity screen Assessment/Plan Medicare annual wellness visit, subsequent (Z00.00) - Counseled on healthy diet and regular exercise - Fall avoidance information provided - Personalized prevention plan provided - Discussed need for and benefit of weight loss. BMI 29.51 kg/(m^2) - Smoking cessation encouraged; discussed risks to health and quitting strategies. Patient is not ready to quit documented in this encounter [facility] 07-28-2024 Instructions Kvng Fu MD - 07/28/2024 10:34 AM EDT Screening schedule The following prevention plan is recommended: RSV Vaccine(1 - Risk 60-74 years 1-dose series) Never done Depression Screening due on 08/04/2024 Anxiety Screening due on 08/04/2024 WHAT YOU CAN DO TO PREVENT FALLS Many falls can be prevented. By making some changes, you can lower your chances of falling. Four things YOU can do to prevent falls for you* and your caregiver 1. Begin a regular exercise program Exercise is one of the most important ways to lower your chances of falling. It makes you stronger and helps you feel better. Exercises that improve balance and coordination (like William Chi) are the most helpful. Lack of exercise leads to weakness and increases your chances of falling. Ask your doctor or health care provider about the best type of exercise program for you. 2. Have your health care provider review your medicines Have your doctor or pharmacist review all the medicines you take, even geaa-ryi-sccklsl medicines. As you get older, the way medicines work in your body can change. Some medicines, or combinations of medicines, can make you sleepy or dizzy and can cause you to fall. 3. Have your vision checked Have your eyes checked by an eye doctor at least once a year. You may be wearing the wrong glasses or have a condition like glaucoma or cataracts that limits your vision. Poor vision can increase your chances of falling. 4. Make your home safer About half of all falls happen at home. To make your home safer: Remove things you can trip over (like papers, books, clothes, and shoes) from stairs and places where you walk. Remove small throw rugs or use double-sided tape to keep the rugs from slipping. Keep items you use often in cabinets you can reach easily without using a step stool. Have grab bars put in next to your toilet and in the tub or shower. Use non-slip mats in the bathtub and on shower floors. Improve the lighting in your home. As you get older, you need brighter lights to see well. Hang light-weight curtains or shades to reduce glare. Have handrails and lights put in on all staircases. Wear shoes both inside and outside the house. Avoid going barefoot or wearing slippers. For more information, contact: Centers for Disease Control and Prevention www.cdc.gov/injury * This information may not apply if you have certain medical conditions. Advance Directive Forms Advanced Directives Forms (Tai[place]ese) FORMS: https://author.portals.ccf.org/P ortals/138/wdan-xatrqa-rlmg-[facility] n-jp-yeajfdxn.pdf INFORMATIONAL BROCHURE: [email or web address].[facility].org/- /scassets/files/org/patients-vis itors/information/advance-direct iris.ashx?la=en Advance Directives (non-Taiwanese) FORMS: [email or web address]://my.[facility].org/p atients/information/medical-deci sions-guide/advance-directives#f orms-tab Please bring completed forms to your next appointment or email them to . Patient Resources How to Get Started Talking with Loved Ones about your Wishes at the End of Life https://theconversationproject.o rg/wp-content/uploads//Co nversationProject-ConvoStAbundio t-Tai[place]ese.pdf How to Navigate Conversations with your Care Team around your Preferences [email or web address] elcome documented in this encounter [facility] 07-28-2024 Note HNO ID: [id number] Author: KVNG FU MD Service: ? Author Type: Physician Type: Progress Notes Filed: 07/28/2024 11:21 Note Text: Neymar Rome is a 59 year old male here for a Medicare wellness visit. Medicare Health Risk Assessment General Health Fair Exercise: Minutes/Day 10 min Exercise: Days/Week 5 days Alcohol: Daily Use Never Alcohol: Drinks/Day Patient does not drink Alcohol: 6 or more drinks Never Feel off balance No Concerns: Teeth/Dentures No Concerns: Sexual function No Troubled by feelings Stressed; Lonely Frequency: Eating healthy diet Several days ADLs requiring help Housework Safety precautions in home/vehicle Yes Smoke, vape, chews tobacco Yes, but I'm not ready to quit Difficulty hearing No Difficulty seeing No Current Providers Specialists: I have reviewed specialist-related care of the patient in the medical record. Current care team: Patient Care Team: Kvng Fu MD as PCP - General (Internal Medicine) Naomi Light APRN.SEED ANALYST as [employer] (Internal Medicine) Shaquille Booker APRN CNP (Lung Cancer Screening) Outside specialists seen: Andrew Camp MD (Pain Management) [facility] (Ophthalmology) Medical/Family history review Reviewed and updated problem list, medical/surgical/family/social history, medications, and allergies. Opioid use review Opioid Medications (last 90 days) No data to display Anxiety/Depression screening PHQ-2 Score: 2 (Lower risk for depression) GERAROD-2 Score: 0 (Lower risk for anxiety) Recommendation: no further intervention at this time Cognitive screening Mini Cog Score: 5 Cognitive screening reviewed and No further action needed (score 3-5). Functional Observation Was the patient's Timed Up AND Go test unsteady or >= 12 seconds? No Advance Care Planning Patient did not wish or was not able to name a surrogate decision maker or provide an advance care plan Measurements BP 124/58 (BP Site: Right Arm, BP Position: Sitting, BP Cuff Size: Large Adult) Pulse 97 Temp 37.3 ?C (99.1 ?F) (Temporal) Resp 16 Ht 177.8 cm (5' 10) Wt 93.3 kg (205 lb 11 oz) SpO2 95% BMI 29.51 kg/m? Vision Screening: Follows with optometry/ophthalmology Declines visual acuity screen Assessment/Plan Medicare annual wellness visit, subsequent (Z00.00) - Counseled on healthy diet and regular exercise - Fall avoidance information provided - Personalized prevention plan provided - Discussed need for and benefit of weight loss. BMI 29.51 kg/(m2) - Smoking cessation encouraged; discussed risks to health and quitting strategies. Patient is not ready to quit [facility] 06-19-2024 Note HNO ID: [id number] Author: AJAY MATHIS MA Service: ? Author Type: Document Control Supervisor Type: Progress Notes Filed: 06/19/2024 15:23 Note Text: POPULATION HEALTH NAVIGATION OUTREACH Action/FYI no need to contact pt- appointment switched to wellness from follow up- 40 min appointment, hcc gap closure, notes added to review due hm, influenza Reason for Outreach Care Gap/HCC or Scheduling Wellness Visits Care Gaps due: Medicare Annual Wellness Visit Flu Vaccine Patient Contacted: Unable or unnecessary to reach patient: HCC related Flipped existing appointment Updated appointment notes Navigation Signature: Ajay Mathis MA June 19, 2024 3:21 PM [facility] 06-19-2024 History of Presen t illness Narrative POPULATION HEALTH NAVIGATION OUTREACH Action/FYI no need to contact pt- appointment switched to wellness from follow up- 40 min appointment, hcc gap closure, notes added to review due hm, influenza Reason for Outreach Care Gap/HCC or Scheduling Wellness Visits Care Gaps due: Medicare Annual Wellness Visit Flu Vaccine Patient Contacted: Unable or unnecessary to reach patient: HCC related Flipped existing appointment Updated appointment notes Navigation Signature: Ajay Mathis MA June 19, 2024 3:21 PM documented in this encounter [facility] 06-19-2024 Note Patient Outreach (NE TNAV) NEYMAR ROME ([id number]) 1965 M Date Time Provider Department 06/19/24 AJAY MATHIS During your visit today, we recorded the following information about you: Ajay Mathis MA 06/19/2024 3:23 PM Signed POPULATION HEALTH NAVIGATION OUTREACH Action/FYI no need to contact pt- appointment switched to wellness from follow up- 40 min appointment, hcc gap closure, notes added to review due hm, influenza Reason for Outreach Care Gap/HCC or Scheduling Wellness Visits Care Gaps due: Medicare Annual Wellness Visit Flu Vaccine Patient Contacted: Unable or unnecessary to reach patient: HCC related Flipped existing appointment Updated appointment notes Navigation Signature: Ajay Mathis MA June 19, 2024 3:21 PM Allergies As of Date: 06/19/2024 Noted Allergy Reaction FORMALDEHYDE 08/12/2012 14 - Other: See Comments Comments: blisters LATEX 03/19/2006 PAROXETINE HCL 08/12/2012 14 - Other: See Comments Comments: sexual dysfunction TRAMADOL 10/29/2006 1 - Mental Status Change VENLAFAXINE HCL 08/12/2012 14 - Other: See Comments Comments: increased BP VICODIN (HYDROCODONE-ACETAMINOPHE*2005 14 - Other: See Comments Comments: causes pain Date Reviewed: 01/25/2024 Reviewed by: Naomi Light, [employer].SEED ANALYST - Fully Assessed Reason for Visit: Population Health Navigation Outreach [3910] Cmt: dafne edwards Prescriptions as of 06/19/2024 - rivaroxaban (XARELTO) 20 mg tablet Take 1 tablet by mouth daily with dinner. - atorvastatin (LIPITOR) 10 mg tablet Take 1 tablet by mouth daily at bedtime. For cholesterol. - cetirizine (ZYRTEC) 10 mg tablet Take 1 tablet by mouth once daily. - furosemide (LASIX) 20 mg tablet Take 1 tablet by mouth once daily as needed. - albuterol HFA (PROAIR HFA) 90 mcg/actuation inhaler Inhale 2 Puffs as instructed every 4 hours as needed. - Betamethasone Dipropionate 0.05 % lotion Apply to right lower leg twice a day - tiZANidine (ZANAFLEX) 4 mg tablet Take 1 tablet by mouth three times a day. Per Dr. Camp - amitriptyline (ELAVIL) 25 mg tablet Take 1 tablet by mouth daily at bedtime. Dr. Camp - pregabalin (LYRICA) 100 mg capsule Take 1 capsule by mouth twice daily. Per Dr. Camp. - COMPOUNDED PRESCRIPTION 1 capsule as needed. 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 Renal colic [N23] 04/08/2007 01/10/2015 Calculus of kidney [N20.0] 04/08/2007 01/10/2015 History of pulmonary embolism [Z86.711] 08/12/2012 01/11/2015 HTN (hypertension) [I10] 05/13/2015 Hyperlipemia [E78.5] Depression [F32.A] 06/03/2017 Hip arthritis [M16.10] 08/07/2013 08/10/2016 Acute venous embolism and thrombosis of unspeci*08/30/2013 05/13/2015 DVT (deep venous thrombosis) (HCC) [I82.409] 09/04/2013 05/13/2015 Allergic dermatitis [L23.9] Hematuria [R31.9] 10/04/2013 08/10/2016 Kidney stones [N20.0] 10/04/2013 08/10/2016 Anticoagulation adequate [Z79.01] 10/04/2013 05/13/2015 Hip joint replacement status [Z96.649] 11/21/2013 08/10/2016 Asthmatic bronchitis [J45.909] 01/10/2015 10/21/2017 Blindness of right eye [H54.40] 01/11/2015 Benign non-nodular prostatic hyperplasia withou*11/18/2015 Tobacco use disorder [F17.200] 04/07/2016 COPD (chronic obstructive pulmonary disease) (H*2017 History of alcoholism (HCC) [F10.21] 2017 02/23/2018 Screening for colon cancer [Z12.11] 03/23/2018 09/20/2018 Family history of colon cancer [Z80.0] 03/23/2018 Tubular adenoma of colon [D12.6] 04/07/2018 Acute deep vein thrombosis (DVT) of proximal ve*04/15/2021 02/13/2022 Recurrent deep vein thrombosis (DVT) (HCC) [I82*04/26/2021 Obesity, Class I, BMI 30-34.9 [E66.811] 05/12/2021 Infestation by bed bug [B88.8] 03/15/2023 History of total hip replacement, right [Z96.64*03/15/2023 Fatty liver [K76.0] 03/15/2023 Narcotic dependence (HCC) [F11.20] 08/05/2023 Encounter Status:Closed by AJAY MATHIS on 06/19/24 [facility] 05-24-2024 Telephone encounter Note Prescription Refill Information The patient has been identified by name and date of : Yes Caregiver verified no other encounters exist for this prescription request: Yes Caregiver confirmed with patient/requestor that no other refills are due, in the near future, with this provider at this time: Yes The last office visit in the department: 01-25-24 Does the patient have a future office visit with this provider/department: Yes Requested Prescriptions Pending Prescriptions Disp Refills rivaroxaban (XARELTO) 20 mg tablet 30 tablet 2 Sig: Take 1 tablet by mouth daily with dinner. Ledy Silva May 24, 2024 8:43 AM [facility] Work Phone: 05-24-2024 Miscellaneous Notes Prescription Refill Information The patient has been identified by name and date of : Yes Caregiver verified no other encounters exist for this prescription request: Yes Caregiver confirmed with patient/requestor that no other refills are due, in the near future, with this provider at this time: Yes The last office visit in the department: 01-25-24 Does the patient have a future office visit with this provider/department: Yes Requested Prescriptions Pending Prescriptions Disp Refills rivaroxaban (XARELTO) 20 mg tablet 30 tablet 2 Sig: Take 1 tablet by mouth daily with dinner. Ledy Silva May 24, 2024 8:43 AM documented in this encounter [facility] 03-06-2024 Telephone encounter Note Patient has been identified by name and date of : Yes, Patient phones for refill(s): Requested Prescriptions Pending Prescriptions Disp Refills atorvastatin (LIPITOR) 10 mg tablet 30 tablet 5 Sig: Take 1 tablet by mouth daily at bedtime. For cholesterol. Date of last office visit in primary care: 01/25/2024 Date of next office visit in primary care: 07/28/2024 Please advise. Thank you. Shira Chaney. [facility] 03-06-2024 Miscellaneous Notes Patient has been identified by name and date of : Yes, Patient phones for refill(s): Requested Prescriptions Pending Prescriptions Disp Refills atorvastatin (LIPITOR) 10 mg tablet 30 tablet 5 Sig: Take 1 tablet by mouth daily at bedtime. For cholesterol. Date of last office visit in primary care: 01/25/2024 Date of next office visit in primary care: 07/28/2024 Please advise. Thank you. Shira Chaney. documented in this encounter [facility] 02-16-2024 Telephone encounter Note Prescription Refill Information The patient has been identified by name and date of : Yes Caregiver verified no other encounters exist for this prescription request: Yes Caregiver confirmed with patient/requestor that no other refills are due, in the near future, with this provider at this time: Yes The last office visit in the department: 01/25/24 Does the patient have a future office visit with this provider/department: Yes Requested Prescriptions Pending Prescriptions Disp Refills rivaroxaban (XARELTO) 20 mg tablet 30 tablet 2 Sig: Take 1 tablet by mouth daily with dinner. Akilah Silva February 16, 2024 11:46 AM [facility] 02-16-2024 Miscellaneous Notes Prescription Refill Information The patient has been identified by name and date of : Yes Caregiver verified no other encounters exist for this prescription request: Yes Caregiver confirmed with patient/requestor that no other refills are due, in the near future, with this provider at this time: Yes The last office visit in the department: 01/25/24 Does the patient have a future office visit with this provider/department: Yes Requested Prescriptions Pending Prescriptions Disp Refills rivaroxaban (XARELTO) 20 mg tablet 30 tablet 2 Sig: Take 1 tablet by mouth daily with dinner. Akilah Silva February 16, 2024 11:46 AM documented in this encounter [facility] 02-03-2024 Telephone encounter Note Patient has been identified by name and date of : Yes, Provider Tank Date 02/03/24 Time 6:21 PM Patient phones for refill(s): Requested Prescriptions Pending Prescriptions Disp Refills cetirizine (ZYRTEC) 10 mg tablet 30 tablet 2 Sig: Take 1 tablet by mouth once daily. Date of last office visit in primary care: 01/25/2024 Date of next office visit in primary care: 07/28/2024 Please advise. Thank you. Mono Whatley. [facility] 02-03-2024 Miscellaneous Notes Patient has been identified by name and date of : Yes, Provider Tank Date 02/03/24 Time 6:21 PM Patient phones for refill(s): Requested Prescriptions Pending Prescriptions Disp Refills cetirizine (ZYRTEC) 10 mg tablet 30 tablet 2 Sig: Take 1 tablet by mouth once daily. Date of last office visit in primary care: 01/25/2024 Date of next office visit in primary care: 07/28/2024 Please advise. Thank you. Mono Whatley. documented in this encounter [facility] 01-25-2024 History of Presen t illness Narrative Images from the original note were not included. CC: Patient presents with: 1 week follow up HPI Neymar Rome is a 58 year old male who presents today for above and routine six month follow-up. He was evaluated on 01/17 for one week history of edema of the right lower leg along with seeping of clear fluid. He was taking Xarelto consistently as prescribed for chronic DVT. Venous stasis dermatitis and insufficiency suspected and he was prescribed Lasix x 7 days and betamethasone lotion. Patient reports swelling has resolved and dermatitis has improved. COPD. Current symptoms: SOB with exertion. Denies frequent cough, wheezing or chest tightness. Symptoms are not limiting daily activities or exercise. Treatment: none, requesting refill of albuterol inhaler Hearing Therapy Teacher: none He smokes 1 ppd for 50 years No recent exacerbations. 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 electrolyte imbalance False positive serological test for hepatitis C 09/2015 Fatty liver disease, nonalcoholic Hematuria 10/04/2013 Hip arthritis 08/07/2013 Hip joint replacement status 11/21/2013 History of alcoholism (HCC) 1994 sober since 1997 History of pulmonary embolism 08/12/2012 HTN (hypertension) Hyperlipemia Kidney stones 10/04/2013 LUMB DISC DIS W MYELOPAT 05/17/2006 PE (pulmonary embolism) 01/11/2012 DVT and PE Recurrent deep vein thrombosis (DVT) (HCC) 04/26/2021 Renal colic 04/08/2007 Tubular adenoma of colon 04/07/2018 Zoster 05/28/2007 PAST SURGICAL HISTORY Procedure Laterality Date ARTHRP ACETBLR/PROX FEM PROSTC AGRFT/ALGRFT Right 11/08/2013 right MICHAEL CERVICAL OR THORACIC EPIDURAL INJECTION 03/31/2018 of neck 03-31-18 COLONOSCOPY 04/07/2018 COLONOSCOPY & POLYPECTOMY 08/09/2012 repeat due 2017 COLONOSCOPY & POLYPECTOMY 03/22/2023 ERCP W/DESTRUCTN STONE(S)-LITHOTRIPSY 2007 multi times for kidney stones IR IVC FILTER PLACEMENT 11/08/2013 [facility] [place] via [facility] PAST SURGICAL HISTORY OF Right 1996 hernia right groin PAST SURGICAL HISTORY OF 2011 gall bladder removed PAST SURGICAL HISTORY OF 2000 cystoscopy REPAIR UMBILICAL HERNIA 09/08/2023 Dr. Gonzalez ALLERGIES Formaldehyde, Latex, Paroxetine Hcl, Tramadol, Venlafaxine Hcl, and Vicodin [Hydrocodone-Acetaminophen] MEDICATIONS furosemide (LASIX) 20 mg tablet Take 1 tablet by mouth once daily for 7 days. Betamethasone Dipropionate 0.05 % lotion Apply to right lower leg twice a day rivaroxaban (XARELTO) 20 mg tablet Take 1 tablet by mouth daily with dinner. cetirizine (ZYRTEC) 10 mg tablet Take 1 tablet by mouth once daily. atorvastatin (LIPITOR) 10 mg tablet Take 1 tablet by mouth daily at bedtime. For cholesterol. tiZANidine (ZANAFLEX) 4 mg tablet Take 1 tablet by mouth three times a day. Per Dr. Camp amitriptyline (ELAVIL) 25 mg tablet Take 1 tablet by mouth daily at bedtime. Dr. Camp pregabalin (LYRICA) 100 mg capsule Take 1 capsule by mouth twice daily. Per Dr. Camp. COMPOUNDED PRESCRIPTION 1 capsule as needed. OTC stool softner FAMILY HISTORY Problem Relation Age of Onset Hypertension Mother Colon Cancer Mother 65 Liver Cancer Mother Diabetes Father Hypertension Father Stroke Father pt states had over 33 strokes Hypertension Sister Diabetes Sister No Known Problems Sister Kidney stones Brother Hypertension Paternal Grandmother Diabetes Paternal Grandmother Hypertension Paternal Grandfather Hypertension Paternal Aunt Social History Tobacco Use Smoking status: Every Day Current packs/day: 1.00 Average packs/day: 1 pack/day for 49.5 years (49.5 ttl pk-yrs) Types: Cigarettes Start date: 1974 Smokeless tobacco: Never Tobacco comments: Started age 8 Vaping Use Vaping status: Never Used Substance Use Topics Alcohol use: No Comment: Hx alcoholism, sober since quit in 1998 Drug use: No Comment: hx marijuana use 1985 BP 120/82 Pulse 83 Resp 16 Wt 99.2 kg (218 lb 11.1 oz) BMI 31.38 kg/m Physical Exam Vitals reviewed. Constitutional: Appearance: Normal appearance. Cardiovascular: Rate and Rhythm: Normal rate and regular rhythm. Heart sounds: Normal heart sounds. No murmur heard. Pulmonary: Effort: Pulmonary effort is normal. Breath sounds: Normal breath sounds. No wheezing, rhonchi or rales. Musculoskeletal: Right lower leg: No edema. Left lower leg: No edema. Skin: Neurological: Mental Status: He is alert. Health maintenance reviewed with patient: Shingrix Vaccine(1 of 2) Never done Influenza Vaccine(1) due on 12/26/2023 Covid-19 Vaccine( - season) Never done Depression Screening due on 08/04/2024 Anxiety Screening due on 08/04/2024 Lung Cancer Screening due on 09/28/2024 Annual PCP Team Chronic Disease Visit due on 01/17/2025 DTaP,Tdap,Td Vaccine(2 - Td or Tdap) due on 05/13/2025 Colorectal Cancer Screening due on 03/22/2026 Diabetes Screening due on 08/04/2026 Prostate Cancer Screening Discussion due on 08/05/2027 Lipid Screening due on 08/04/2028 Spirometry Completed Hepatitis C Screening Completed HIV Screening Completed Pneumococcal Vaccine Completed Alpha-1 Antitrypsin Deficiency Screening Discontinued DATA REVIEWED: Most recent labs ASSESSMENT/PLAN: 1. Chronic obstructive pulmonary disease, unspecified COPD type (HCC) - ICD9: 496, ICD10: J44.9 (primary diagnosis) stable - ALBUTEROL SULFATE HFA 90 MCG/ACTUATION AEROSOL INHALER refilled - COMPLETE BLOOD COUNT 2. Venous stasis dermatitis - ICD9: 454.1, ICD10: I87.2 Resolving. Continue with betamethasone lotion for one more week, then as needed 3. Hyperlipidemia, unspecified hyperlipidemia type - ICD9: 272.4, ICD10: E78.5 - Control undetermined, due for labs - COMPREHENSIVE METABOLIC PANEL - LIPID PANEL BASIC 4. Impaired glucose metabolism - ICD9: 790.29, ICD10: R73.09 Recheck in 6 months - COMPREHENSIVE METABOLIC PANEL - HEMOGLOBIN A1C 5. Edema of right lower leg - ICD9: 782.3, ICD10: R60.0 Resolved. Prescription for Lasix 20 mg daily as needed given, call office if swelling persists despite taking Lasix Prescription instructions reviewed with patient as applicable. Potential red flag symptoms discussed with the patient. Reviewed appropriate action plan to take if red flag symptoms occur. Patient agreeable to treatment plan. Naomi Light APRN.SEED ANALYST documented in this encounter [facility] 01-25-2024 Note HNO ID: [id number] Author: NAOMI LIGHT APRN.SEED ANALYST Service: ? Author Type: Nurse Practitioner Type: Progress Notes Filed: 01/25/2024 12:59 Note Text: CC: Patient presents with: 1 week follow up HPI Neymar Rome is a 58 year old male who presents today for above and routine six month follow-up. He was evaluated on 01/17 for one week history of edema of the right lower leg along with seeping of clear fluid. He was taking Xarelto consistently as prescribed for chronic DVT. Venous stasis dermatitis and insufficiency suspected and he was prescribed Lasix x 7 days and betamethasone lotion. Patient reports swelling has resolved and dermatitis has improved. COPD. Current symptoms: SOB with exertion. Denies frequent cough, wheezing or chest tightness. Symptoms are not limiting daily activities or exercise. Treatment: none, requesting refill of albuterol inhaler Hearing Therapy Teacher: none He smokes 1 ppd for 50 years No recent exacerbations. 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 electrolyte imbalance False positive serological test for hepatitis C 09/2015 Fatty liver disease, nonalcoholic Hematuria 10/04/2013 Hip arthritis 08/07/2013 Hip joint replacement status 11/21/2013 History of alcoholism (HCC) 1994 sober since 1997 History of pulmonary embolism 08/12/2012 HTN (hypertension) Hyperlipemia Kidney stones 10/04/2013 LUMB DISC DIS W MYELOPAT 05/17/2006 PE (pulmonary embolism) 01/11/2012 DVT and PE Recurrent deep vein thrombosis (DVT) (HCC) 04/26/2021 Renal colic 04/08/2007 Tubular adenoma of colon 04/07/2018 Zoster 05/28/2007 PAST SURGICAL HISTORY Procedure Laterality Date ARTHRP ACETBLR/PROX FEM PROSTC AGRFT/ALGRFT Right 11/08/2013 right MICHAEL CERVICAL OR THORACIC EPIDURAL INJECTION 03/31/2018 of neck 03-31-18 COLONOSCOPY 04/07/2018 COLONOSCOPY AND POLYPECTOMY 08/09/2012 repeat due 2017 COLONOSCOPY AND POLYPECTOMY 03/22/2023 ERCP W/DESTRUCTN STONE(S)-LITHOTRIPSY 2007 multi times for kidney stones IR IVC FILTER PLACEMENT 11/08/2013 [facility] [place] [facility] PAST SURGICAL HISTORY OF Right 1996 hernia right groin PAST SURGICAL HISTORY OF 2011 gall bladder removed PAST SURGICAL HISTORY OF 2000 cystoscopy REPAIR UMBILICAL HERNIA 09/08/2023 Dr. Gonzalez ALLERGIES Formaldehyde, Latex, Paroxetine Hcl, Tramadol, Venlafaxine Hcl, and Vicodin [Hydrocodone-Acetaminophen] MEDICATIONS furosemide (LASIX) 20 mg tablet Take 1 tablet by mouth once daily for 7 days. Betamethasone Dipropionate 0.05 % lotion Apply to right lower leg twice a day rivaroxaban (XARELTO) 20 mg tablet Take 1 tablet by mouth daily with dinner. cetirizine (ZYRTEC) 10 mg tablet Take 1 tablet by mouth once daily. atorvastatin (LIPITOR) 10 mg tablet Take 1 tablet by mouth daily at bedtime. For cholesterol. tiZANidine (ZANAFLEX) 4 mg tablet Take 1 tablet by mouth three times a day. Per Dr. Camp amitriptyline (ELAVIL) 25 mg tablet Take 1 tablet by mouth daily at bedtime. Dr. Camp pregabalin (LYRICA) 100 mg capsule Take 1 capsule by mouth twice daily. Per Dr. Camp. COMPOUNDED PRESCRIPTION 1 capsule as needed. OTC stool softner FAMILY HISTORY Problem Relation Age of Onset Hypertension Mother Colon Cancer Mother 65 Liver Cancer Mother Diabetes Father Hypertension Father Stroke Father pt states had over 33 strokes Hypertension Sister Diabetes Sister No Known Problems Sister Kidney stones Brother Hypertension Paternal Grandmother Diabetes Paternal Grandmother Hypertension Paternal Grandfather Hypertension Paternal Aunt Social History Tobacco Use Smoking status: Every Day Current packs/day: 1.00 Average packs/day: 1 pack/day for 49.5 years (49.5 ttl pk-yrs) Types: Cigarettes Start date: 1974 Smokeless tobacco: Never Tobacco comments: Started age 8 Vaping Use Vaping status: Never Used Substance Use Topics Alcohol use: No Comment: Hx alcoholism, sober since quit in 1998 Drug use: No Comment: hx marijuana use 1985 BP 120/82 Pulse 83 Resp 16 Wt 99.2 kg (218 lb 11.1 oz) BMI 31.38 kg/m? Physical Exam Vitals reviewed. Constitutional: Appearance: Normal appearance. Cardiovascular: Rate and Rhythm: Normal rate and regular rhythm. Heart sounds: Normal heart sounds. No murmur heard. Pulmonary: Effort: Pulmonary effort is normal. Breath sounds: Normal breath sounds. No wheezing, rhonchi or rales. Musculoskeletal: Right lower leg: No edema. L (more content not included)... [facility] 01-18-2024 Instructions Naomi Light APRN.JALYN - 01/18/2024 10:25 AM EDT Wash and dry right leg and then apply thin layer of betamethasone lotion twice a day. Consider wrapping the right leg with EVIE bandage compression wrap, remove at bedtime and re-wrap in the morning. Keep legs elevated as high as possible. documented in this encounter [facility] 01-18-2024 Note HNO ID: [id number] Author: NAOMI LIGHT APRN.JALYN Service: ? Author Type: Nurse Practitioner Type: Progress Notes Filed: 01/18/2024 10:45 Note Text: CC: Patient presents with: right leg and foot swelling: X 1 week HPI Neymar Rome is a 58 year old male who presents today for above. Patient reports swelling of the right lower leg and foot x 1 week. There is chronic redness and scabbing of the lower legs that is no worse than usual however he notes seeping of clear yellow fluid for the past week as well. Swelling is better in the morning and worse as the day progresses. Denies increased warmth, calf/leg pain, fever, chills, injury, SOB, chest pain, palpitations, cough, PND, orthopnea, changes in weight. He has not been wearing compression socks because of the drainage. He does not keep his legs elevated. He has a history of chronic DVT of the right leg. He is taking Xarelto daily as prescribed, denies missing any doses. 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 electrolyte imbalance False positive serological test for hepatitis C 09/2015 Fatty liver disease, nonalcoholic Hematuria 10/04/2013 Hip arthritis 08/07/2013 Hip joint replacement status 11/21/2013 History of alcoholism (HCC) 1994 sober since 1997 History of pulmonary embolism 08/12/2012 HTN (hypertension) Hyperlipemia Kidney stones 10/04/2013 LUMB DISC DIS W MYELOPAT 05/17/2006 PE (pulmonary embolism) 01/11/2012 DVT and PE Recurrent deep vein thrombosis (DVT) (HCC) 04/26/2021 Renal colic 04/08/2007 Tubular adenoma of colon 04/07/2018 Zoster 05/28/2007 PAST SURGICAL HISTORY Procedure Laterality Date ARTHRP ACETBLR/PROX FEM PROSTC AGRFT/ALGRFT Right 11/08/2013 right MICHAEL CERVICAL OR THORACIC EPIDURAL INJECTION 03/31/2018 of neck 18 COLONOSCOPY 04/07/2018 COLONOSCOPY AND POLYPECTOMY 08/09/2012 repeat due 2017 COLONOSCOPY AND POLYPECTOMY 03/22/2023 ERCP W/DESTRUCTN STONE(S)-LITHOTRIPSY 2007 multi times for kidney stones IR IVC FILTER PLACEMENT 11/08/2013 [facility] [place] [facility] PAST SURGICAL HISTORY OF Right 1996 hernia right groin PAST SURGICAL HISTORY OF 2011 gall bladder removed PAST SURGICAL HISTORY OF 2000 cystoscopy REPAIR UMBILICAL HERNIA 09/08/2023 Dr. Gonzalez ALLERGIES Formaldehyde, Latex, Paroxetine Hcl, Tramadol, Venlafaxine Hcl, and Vicodin [Hydrocodone-Acetaminophen] MEDICATIONS rivaroxaban (XARELTO) 20 mg tablet Take 1 tablet by mouth daily with dinner. cetirizine (ZYRTEC) 10 mg tablet Take 1 tablet by mouth once daily. atorvastatin (LIPITOR) 10 mg tablet Take 1 tablet by mouth daily at bedtime. For cholesterol. triamcinolone acetonide (KENALOG) 0.5 % cream Apply 1 application to affected area three times a day as needed. For rash/itching. Apply sparingly. Avoid face/skin fold. tiZANidine (ZANAFLEX) 4 mg tablet Take 1 tablet by mouth three times a day. Per Dr. Camp amitriptyline (ELAVIL) 25 mg tablet Take 1 tablet by mouth daily at bedtime. Dr. Camp pregabalin (LYRICA) 100 mg capsule Take 1 capsule by mouth twice daily. Per Dr. Camp. COMPOUNDED PRESCRIPTION 1 capsule as needed. OTC stool softner FAMILY HISTORY Problem Relation Age of Onset Hypertension Mother Colon Cancer Mother 65 Liver Cancer Mother Diabetes Father Hypertension Father Stroke Father pt states had over 33 strokes Hypertension Sister Diabetes Sister No Known Problems Sister Kidney stones Brother Hypertension Paternal Grandmother Diabetes Paternal Grandmother Hypertension Paternal Grandfather Hypertension Paternal Aunt Social History Tobacco Use Smoking status: Every Day Current packs/day: 1.00 Average packs/day: 1 pack/day for 49.5 years (49.5 ttl pk-yrs) Types: Cigarettes Start date: 1974 Smokeless tobacco: Never Tobacco comments: Started age 8 Vaping Use Vaping status: Never Used Substance Use Topics Alcohol use: No Comment: Hx alcoholism, sober since quit in 1998 Drug use: No Comment: hx marijuana use 1985 BP 133/81 Pulse 87 Temp 37.1 ?C (98.7 ?F) (Temporal) Resp 20 Wt 101.2 kg (223 lb 1.7 oz) BMI 32.01 kg/m? Physical Exam Vitals reviewed. Constitutional: Appearance: Normal appearance. Cardiovascular: Rate and Rhythm: Normal rate and regular rhythm. Heart sounds: Normal heart sounds. Pulmonary: Effort: Pulmonary effort is normal. Breath sounds: Normal breath sounds. No wheezing, rhonchi or rales. Skin: Comments: 1+ pit (more content not included)... [facility] 01-18-2024 History of Presen t illness Narrative Images from the original note were not included. CC: Patient presents with: right leg and foot swelling: X 1 week HPI Neymar Rome is a 58 year old male who presents today for above. Patient reports swelling of the right lower leg and foot x 1 week. There is chronic redness and scabbing of the lower legs that is no worse than usual however he notes seeping of clear yellow fluid for the past week as well. Swelling is better in the morning and worse as the day progresses. Denies increased warmth, calf/leg pain, fever, chills, injury, SOB, chest pain, palpitations, cough, PND, orthopnea, changes in weight. He has not been wearing compression socks because of the drainage. He does not keep his legs elevated. He has a history of chronic DVT of the right leg. He is taking Xarelto daily as prescribed, denies missing any doses. 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 electrolyte imbalance False positive serological test for hepatitis C 09/2015 Fatty liver disease, nonalcoholic Hematuria 10/04/2013 Hip arthritis 08/07/2013 Hip joint replacement status 11/21/2013 History of alcoholism (HCC) 1994 sober since 1997 History of pulmonary embolism 08/12/2012 HTN (hypertension) Hyperlipemia Kidney stones 10/04/2013 LUMB DISC DIS W MYELOPAT 05/17/2006 PE (pulmonary embolism) 01/11/2012 DVT and PE Recurrent deep vein thrombosis (DVT) (HCC) 04/26/2021 Renal colic 04/08/2007 Tubular adenoma of colon 04/07/2018 Zoster 05/28/2007 PAST SURGICAL HISTORY Procedure Laterality Date ARTHRP ACETBLR/PROX FEM PROSTC AGRFT/ALGRFT Right 11/08/2013 right MICHAEL CERVICAL OR THORACIC EPIDURAL INJECTION 03/31/2018 of neck 03-31-18 COLONOSCOPY 04/07/2018 COLONOSCOPY & POLYPECTOMY 08/09/2012 repeat due 2017 COLONOSCOPY & POLYPECTOMY 03/22/2023 ERCP W/DESTRUCTN STONE(S)-LITHOTRIPSY 2007 multi times for kidney stones IR IVC FILTER PLACEMENT 11/08/2013 [facility] [place] [facility] PAST SURGICAL HISTORY OF Right 1996 hernia right groin PAST SURGICAL HISTORY OF 2011 gall bladder removed PAST SURGICAL HISTORY OF 2000 cystoscopy REPAIR UMBILICAL HERNIA 09/08/2023 Dr. Gonzalez ALLERGIES Formaldehyde, Latex, Paroxetine Hcl, Tramadol, Venlafaxine Hcl, and Vicodin [Hydrocodone-Acetaminophen] MEDICATIONS rivaroxaban (XARELTO) 20 mg tablet Take 1 tablet by mouth daily with dinner. cetirizine (ZYRTEC) 10 mg tablet Take 1 tablet by mouth once daily. atorvastatin (LIPITOR) 10 mg tablet Take 1 tablet by mouth daily at bedtime. For cholesterol. triamcinolone acetonide (KENALOG) 0.5 % cream Apply 1 application to affected area three times a day as needed. For rash/itching. Apply sparingly. Avoid face/skin fold. tiZANidine (ZANAFLEX) 4 mg tablet Take 1 tablet by mouth three times a day. Per Dr. Camp amitriptyline (ELAVIL) 25 mg tablet Take 1 tablet by mouth daily at bedtime. Dr. Camp pregabalin (LYRICA) 100 mg capsule Take 1 capsule by mouth twice daily. Per Dr. Camp. COMPOUNDED PRESCRIPTION 1 capsule as needed. OTC stool softner FAMILY HISTORY Problem Relation Age of Onset Hypertension Mother Colon Cancer Mother 65 Liver Cancer Mother Diabetes Father Hypertension Father Stroke Father pt states had over 33 strokes Hypertension Sister Diabetes Sister No Known Problems Sister Kidney stones Brother Hypertension Paternal Grandmother Diabetes Paternal Grandmother Hypertension Paternal Grandfather Hypertension Paternal Aunt Social History Tobacco Use Smoking status: Every Day Current packs/day: 1.00 Average packs/day: 1 pack/day for 49.5 years (49.5 ttl pk-yrs) Types: Cigarettes Start date: 1974 Smokeless tobacco: Never Tobacco comments: Started age 8 Vaping Use Vaping status: Never Used Substance Use Topics Alcohol use: No Comment: Hx alcoholism, sober since quit in 1998 Drug use: No Comment: hx marijuana use 1985 BP 133/81 Pulse 87 Temp 37.1 C (98.7 F) (Temporal) Resp 20 Wt 101.2 kg (223 lb 1.7 oz) BMI 32.01 kg/m Physical Exam Vitals reviewed. Constitutional: Appearance: Normal appearance. Cardiovascular: Rate and Rhythm: Normal rate and regular rhythm. Heart sounds: Normal heart sounds. Pulmonary: Effort: Pulmonary effort is normal. Breath sounds: Normal breath sounds. No wheezing, rhonchi or rales. Skin: Comments: 1+ pitting edema right lower leg from below the knee to the toes. Trace pitting edema left lower leg. Neurological: Mental Status: He is alert. ASSESSMENT/PLAN: 1. Edema of right lower leg - ICD9: 782.3, ICD10: R60.0 (primary diagnosis) Suspect due to venous insufficiency along with venous stasis dermatitis. No findings concerning for cellulitis. Patient taking Xarelto consistently without missing doses, recurrent DVT unlikely. - start Lasix 20 mg daily x 7 days - start Betamethasone lotion twice a day - symptom management reviewed, see patient instructions - follow-up in one week for re-evaluation or sooner if any worsening symptoms 2. Venous stasis dermatitis - ICD9: 454.1, ICD10: I87.2 As above Prescription instructions reviewed with patient as applicable. Potential red flag symptoms discussed with the patient. Reviewed appropriate action plan to take if red flag symptoms occur. Patient agreeable to treatment plan. Naomi Light APRN.SEED ANALYST documented in this encounter [facility] 11-16-2023 Telephone encounter Note The patient has been identified by name and date of : Yes Caregiver verified no other encounters exist for this prescription request: Yes Caregiver confirmed with patient/requestor that no other refills are due, in the near future, with this provider at this time: Yes The last office visit in the department: 09/01/2023 Does the patient have a future office visit with this provider/department: Yes 02/04/2024 Requested Prescriptions Pending Prescriptions Disp Refills rivaroxaban (XARELTO) 20 mg tablet 30 tablet 2 Sig: Take 1 tablet by mouth daily with dinner. Flor Perez RN November 16, 2023 10:38 AM [facility] 11-16-2023 Miscellaneous Notes The patient has been identified by name and date of : Yes Caregiver verified no other encounters exist for this prescription request: Yes Caregiver confirmed with patient/requestor that no other refills are due, in the near future, with this provider at this time: Yes The last office visit in the department: 09/01/2023 Does the patient have a future office visit with this provider/department: Yes 02/04/2024 Requested Prescriptions Pending Prescriptions Disp Refills rivaroxaban (XARELTO) 20 mg tablet 30 tablet 2 Sig: Take 1 tablet by mouth daily with dinner. Flor Perez RN November 16, 2023 10:38 AM documented in this encounter [facility] 11-04-2023 Telephone encounter Note Prescription Refill Information The patient has been identified by name and date of : Yes Caregiver verified no other encounters exist for this prescription request: Yes Caregiver confirmed with patient/requestor that no other refills are due, in the near future, with this provider at this time: Yes The last office visit in the department: 08/02/23 Does the patient have a future office visit with this provider/department: Yes Requested Prescriptions Pending Prescriptions Disp Refills cetirizine (ZYRTEC) 10 mg tablet 30 tablet 2 Sig: Take 1 tablet by mouth once daily. Alana Silva November 04, 2023 9:07 AM [facility] Work Phone: 11-04-2023 Miscellaneous Notes Prescription Refill Information The patient has been identified by name and date of : Yes Caregiver verified no other encounters exist for this prescription request: Yes Caregiver confirmed with patient/requestor that no other refills are due, in the near future, with this provider at this time: Yes The last office visit in the department: 08/02/23 Does the patient have a future office visit with this provider/department: Yes Requested Prescriptions Pending Prescriptions Disp Refills cetirizine (ZYRTEC) 10 mg tablet 30 tablet 2 Sig: Take 1 tablet by mouth once daily. Alana Silva November 04, 2023 9:07 AM documented in this encounter [facility] 10-04-2023 Telephone encounter Note Spoke with patient, states he will call back to schedule closer to the date that he needs the appt [facility] 10-04-2023 Telephone encounter Note Images from the original note were not included. Shaquille Booker APRN.CNP P [facility] Scheduling [facility] 12 mos f/u visits Last seen in clinic on: 09/29/2023 Please call and schedule the following visits on the same day in this order: 1. LDCT scan of the chest 2. LCS provider visit Shaquille Aviles APRN.SEED ANALYST [facility] 10-04-2023 Miscellaneous Notes Spoke with patient, states he will call back to schedule closer to the date that he needs the appt Images from the original note were not included. Shaquille Booker APRN.CNP [facility] Sched[facility] 12 mos f/u visits Last seen in clinic on: 09/29/2023 Please call and schedule the following visits on the same day in this order: 1. LDCT scan of the chest 2. LCS provider visit Shaquille Aviles APRN.SEED ANALYST documented in this encounter [facility] 09-29-2023 Instructions Shaquille Booker APRN.CNP - 09/29/2023 11:20 AM EDT There are new concerning lung nodules in the right lower lobe of the lung. The plan is for review with the lung cancer screening team of doctors to get their opinion on further testing. Possible further testing includes a PET scan and a bronchoscopy biopsy of the new nodules. These new nodules may represent cancer, but also may represent inflammation or infection. We will need further testing to determine the cause. documented in this encounter [facility] 09-29-2023 History of Presen t illness Narrative Images from the original note were not included. LUNG SCREENING ANNUAL VISIT PRIMARY CARE PHYSICIAN: Kvng Fu MD PULMONARY PROVIDER: none Results will be communicated via letter or electronic record if applicable. Visit Delivery: In Person Patient Visit Type: established Current or Ex-smoker? [Current Exam Type: annual LDCT Number of Pack Years: 49 Current smoker (=0) The patient's smoking history is similar to prior year shared decision visit. The reason for the discrepancy is NA Chief Complaint: Established patient in lung cancer screening program here for annual follow-up. Impression / Recommendations Neymar Rome presents for annual lung cancer screening annual exam and nodule evaluation. Plan: Indeterminate pulmonary nodules: Previously identified nodules appear stable new RLL lung nodules and RLL bronchiole is opacified. Likely representing mucus plugging. Pt denies any recent illnesses. Low dose CT Scan to be repeated in 3-6 mos vs PET and bronchoscopy. Plan subject to change pending final radiology report and recommendations. Nature of the lung nodule(s) and the options for further evaluation discussed in detail with patient. Neymar Rome expressed understanding and is in agreement with plan. 2. Encounter for screening for malignant neoplasm of respiratory organs I have determined that the patient is eligible for continued low dose CT screening based on age, absence of signs or symptoms of lung cancer, smoking history and total pack years. The patient was counseled on the importance of adherence to annual LDCT lung cancer screening, impact of comorbidities and ability or willingness to undergo diagnosis and treatment. The patient understands and feels comfortable with it: Yes. 3. Nicotine Dependence The patient was counseled on the importance of smoking cessation if current smoker and, if appropriate, offered additional tobacco cessation counseling services - Smoking Cessation Counseling. SMOKING CESSATION COUNSELING Smoking cessation methods including Behavior Modification were discussed with the patient and assistance offered. The medical conditions adversely affected by cigarette use include:COPD, Emphysema, and Lung Cancer. Counseled on benefits of quitting smoking, recommended cessation or reduction to prevent development and/or progression of emphysema. The patient is currently not ready to quit. I personally spent 3 minutes in counseling. The time spent in smoking cessation counseling is exclusive of any other counseling during this visit. I spent a total of 30 minutes on the date of the service which included preparing to see the patient, [id number] patient care, completing clinical documentation, performing a medically appropriate examination, counseling and educating the patient/family/caregiver, ordering medications, tests, or procedures, communicating with other HCPs (not separately reported), independently interpreting results (not separately reported), communicating results to the patient/family/caregiver, and care coordination (not separately reported). Shaquille Booker, [facility] September 29, 2023 11:01 AM History of Present Illness: Neymar Rome is a 58 year old male who is presenting today for annual lung cancer screening LDCT and nodule surveillance/management. Patient has multiple nodules found on previous lung cancer screening LDCT. Last LDCT was performed on 04/08/2022 and was LUNG RADS Category 2. Previous potentially significant incidental findings on imaging: None. Patient is a current smoker with a 49 pack year history. Patient is currently still smoking 1 pack cigarettes daily. Patient will continue to be eligible for lung cancer screening until age 76. The patient does not have any symptoms or signs of lung cancer. Patient denies SOB with their daily activity. No wheezing or dyspnea. Patient denies feeling of chest tightness/congestion in the chest. Patient does not have a new or concerning cough, and denies hemoptysis. Patient does not have a chronic daily cough. Denies regular or recent fevers/chills. Patient does not have any significant unintentional weight loss. Patient denies having any respiratory infections or COVID-19 in the past few months. Does not use any maintenance inhaler for COPD. Pt denies any chest pain or dizziness. Denies any headaches, or GI symptoms. General anesthesia last month 09/08/2023 for umbilical hernia repair. Modified [employer] [place] Dyspnea Scale (MMRC) I only get breathless with strenous exercise 0 Last 12 Encounter Wt Readings: Date: Wt: 09/29/2023 100.6 kg (221 lb 12.5 oz) 09/07/2023 102.1 kg (225 lb) 09/02/2023 102.1 kg (225 lb) 09/02/2023 99.8 kg (220 lb) 09/01/2023 101.6 kg (224 lb) 08/05/2023 101.6 kg (224 lb) 03/12/2023 104.8 kg (231 lb) 02/03/2023 101.2 kg (223 lb) 11/24/2022 103 kg (227 lb) 11/18/2022 100.7 kg (222 lb) 11/11/2022 103 kg (227 lb) 08/04/2022 107.5 kg (237 lb) Social History Tobacco Use: 1 packs/day, for 49 years. Types: Cigarettes Past Medical History: PAST MEDICAL HISTORY Diagnosis Date Acute deep vein thrombosis (DVT) of proximal vein of right lower extremity (HCC) 04/15/2021 Acute venous embolism and thrombosis of unspecified deep vessels of lower extremity (HCC) 08/30/2013 Allergic dermatitis formaldehyde, Carba mix Asthmatic bronchitis 01/10/2015 Colon polyps DDD (degenerative disc disease) Depression 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 electrolyte imbalance False positive serological test for hepatitis C 09/2015 Fatty liver disease, nonalcoholic Hematuria 10/04/2013 Hip arthritis 08/07/2013 Hip joint replacement status 11/21/2013 History of alcoholism (HCC) 1994 sober since 1997 History of pulmonary embolism 08/12/2012 HTN (hypertension) Hyperlipemia Kidney stones 10/04/2013 LUMB DISC DIS W MYELOPAT 05/17/2006 PE (pulmonary embolism) 01/11/2012 DVT and PE Recurrent deep vein thrombosis (DVT) (HCC) 04/26/2021 Renal colic 04/08/2007 Tubular adenoma of colon 04/07/2018 Zoster 05/28/2007 Family Hx: FAMILY HISTORY Problem Relation Age of Onset Hypertension Mother Colon Cancer Mother 65 Liver Cancer Mother Diabetes Father Hypertension Father Stroke Father pt states had over 33 strokes Hypertension Sister Diabetes Sister No Known Problems Sister Kidney stones Brother Hypertension Paternal Grandmother Diabetes Paternal Grandmother Hypertension Paternal Grandfather Hypertension Paternal Aunt Surgical Hx: PAST SURGICAL HISTORY Procedure Laterality Date ARTHRP ACETBLR/PROX FEM PROSTC AGRFT/ALGRFT Right 11/08/2013 right MICHAEL CERVICAL OR THORACIC EPIDURAL INJECTION 03/31/2018 of neck 03-31-18 COLONOSCOPY 04/07/2018 COLONOSCOPY & POLYPECTOMY 08/09/2012 repeat due 2017 COLONOSCOPY & POLYPECTOMY 03/22/2023 ERCP W/DESTRUCTN STONE(S)-LITHOTRIPSY 2007 multi times for kidney stones IR IVC FILTER PLACEMENT 11/08/2013 [facility] [place] via L [facility] PAST SURGICAL HISTORY OF Right 1996 hernia right groin PAST SURGICAL HISTORY OF 2011 gall bladder removed PAST SURGICAL HISTORY OF 2000 cystoscopy REPAIR UMBILICAL HERNIA 09/08/2023 Dr. Gonzalez Allergies: ALLERGIES Allergen Reactions Formaldehyde Other: See Comments blisters Latex Paroxetine Hcl Other: See Comments sexual dysfunction Tramadol Mental Status Change Venlafaxine Hcl Other: See Comments increased BP Vicodin [Hydrocodon* Other: See Comments causes pain Review Of Systems: See HPI for ROS All of the remainder systems were reviewed and negative. PHYSICAL EXAMINATION: BP 126/86 Pulse 96 Wt 221 lb 12.5 oz (100.6kg) SpO2 96% General appearance: well appearing, in no acute distress, and alert Skin: skin color, texture, turgor normal, multiple scabbed superficial areas on patients arms and legs. Umbilical incision is crusted and some mild erythema surrounding. Nose/Sinuses: Negative Oropharynx: Lips, mucosa, and tongue normal, teeth and gums normal, oropharynx normal Neck: Supple, no adenopathy; thyroid symmetric, normal size Respiratory: lungs clear to auscultation no wheezing or rhonchi Cardiovascular: Negative. RRR without murmur, gallop, or rubs. No ectopy Musculoskeletal: Extremities normal. No deformities, edema, or skin discoloration. Good capillary refill. Neuro: Oriented X 3 Data Review I have visually reviewed imaging and testing below CT imaging done today was reviewed and analyzed independently and compared to prior CT chest imaging by practitioner and awaiting radiology review. stable RUL nodule NEW RUL opacities and bronchiole opacification Imaging IMPRESSION: LungRADS category: 2 LungRADS modifier: None LungRADS 0 reason: n/a Recommendations: Continue annual screening with LDCT in 12 months. Other actionable findings: Reference: [employer]. Lung CT Screening Reporting and Data System (Lung-RADS). Available at: http://www.acr.org/Quality-Safet y/Resources/LungRADS Awning Finisher: ANNEL Transcribe Date/Time: Apr 09 2022 9:11A Dictated by : ALICIA VENCES MD This examination was interpreted and the report reviewed and electronically signed by: ALICIA VENCES MD on Apr 09 2022 9:29AM EST Results-Findings * * *Final Report* * * DATE OF EXAM: Apr 08 2022 11:19AM [facility] 0562 - CT LUNG SCREEN WO IVCON / PROCEDURE REASON: Z72.0-Tobacco use * * * * Physician Interpretation * * * * EXAMINATION: CHEST CT WITHOUT CONTRAST (LOW-DOSE CT LUNG CANCER SCREENING PROTOCOL) CLINICAL HISTORY: Lung cancer LDCT screening ? absence of signs or symptoms of lung cancer. Nicotine dependence (cigarettes). Subsequent (annual) Technique: Spiral CT acquisition of the chest from the thoracic inlet to the upper abdomen without contrast. MQ: [id number] Patient characteristics: * Fvna-[id number]-[id number]: 1965; Age at exam: 56 years * Gender: Male * Lung Disease: Asymptomatic (no signs or symptoms of lung disease) * Number of Pack Years: 48 * Current smoker (=0) or Number of Years since Quit: 0 * Ordering provider and NPI: SANAM RUCKER [id number] * Interpreting radiologist and NPI: Lakeisha [id number] Exam acquisition parameters: * Exam Date: 04/08/2022 11:19 AM * Site: [facility] * * CT System Plate Put In Worker: [employer] * CT System Model: Dual Source * Tube Current-Time (mA-sec): 40 * Peak Voltage (kV): 120V * Scan Time (sec): 6.1 * Scan Volume (z-length, cm): 32.35 * Pitch: 1.0 * Slice Thickness (mm): 1.5 * CT Dose-Length Product: 136.6 mGy*cm * CT Dose Index: 3.85mGy * CT Dose Reduction Method: Automated exposure control (AEC) COMPARISON: Chest CT dated 04/03/2021 RESULT: Are nodules present? Yes, 1-5 nodules Nodule 1: This Solid nodule is located in the Right Upper Lobe on slice number 78 with an average diameter of 3.9 mm (5.1 mm x 2.7 mm). This nodule is unchanged since 04/03/2021. Nodule 2: This Solid nodule is located in the Right Lower Lobe on slice number 186 with an average diameter of 3.4 mm (3.9 mm x 2.8 mm). This nodule is unchanged since 04/03/2021. Nodule 3: This Perifissural nodule is located along the right major fissure on slice number 130 with an average diameter of 2.8 mm (2.8 mm x 2.8 mm). This nodule is unchanged since 04/03/2021, possibly a lymph node given the location along the fissure. Other lung nodule comments: Other findings: Bronchial wall thickening is present bilaterally. There is minimal upper lobe predominant centrilobular emphysema. A region of focal bronchiectasis in the right lower lobe, image 193 is unchanged. Stable adjacent linear density in the right lower lobe, image 197, likely atelectasis or scar. No focal consolidation. No enlarged thoracic lymph nodes. Mild atherosclerosis is present within the thoracic aorta which is normal in caliber measuring 3.1 cm in diameter in the mid ascending segment. No coronary artery atherosclerotic calcifications are present however, this exam is not optimized for coronary artery assessment. Unchanged 3 mm nonobstructing right renal stone, image 202. Otherwise, image solid abdominal organs are unremarkable in this noncontrast exam. No destructive lytic or blastic bone lesion. Minimal degenerative changes are present within the thoracic spine. Emphysema: Trivial (<5%), Centrilobular, Upper lobe Coronary Artery Calcifications: Circumflex None; Left Anterior Descending None; Right Coronary None Sustainability Coordinator (topogram) images: No additional findings. Last CT Chest - Impression Only CT CHEST WO CONTRAST Collected: 10/23/2014 4:25 PM (Final result) Impression: IMPRESSION: 1. Improved appearance of the right lower lobe with a small amount of scarring remaining. 2. A 4 mm right lower lobe is unchanged compared to 06/28/2014. [address] is recommended. 3. Soft tissue density associated with the tail of the pancreas is unchanged compared to the prior imaging which showed features suggesting ... Last XR Chest - Impression Only XR CHEST PA/LAT Collected: 04/13/2016 10:44 AM (Final result) Impression: IMPRESSION: No acute radiographic abnormality. Awning Finisher: ANNEL Transcribe Date/Time: Apr 13 2016 11:08A ... Pulmonary Function Testing: SPIROMETRY - BASELINE AND POST DILATOR ([id number]) - ordered on 01/24/21 No textual results for order. documented in this encounter [facility] 09-29-2023 Miscellaneous Notes Radiology Service Progress Note PATIENT NAME: Neymar Rome DATE OF SERVICE: September 29, 2023 TIME: 9:42 AM PATIENT IDENTITY VERIFICATION COMPLETED USING TWO (2) IDENTIFIERS: Name and Date of confirmed by patient verbally and Name and Date of confirmed by identification band. FALL SCREENING: Has the patient had 2 falls in the last year or 1 fall with injury or currently using an Ambulatory Assistive Device (Walker, Cane, Wheelchair, Crutches, etc.)? No PATIENT GENDER DATA: Male PATIENT RELEVANT IMPLANT DATA REVIEWED: Not Applicable PATIENT PRESENTS WITH AN IMPLANTABLE OR ATTACHED CHORUS DANCER: No RADIOLOGY DEPARTMENT: CT; Exam(s) Completed: Chest PERIPHERAL IV DATA: Not applicable SIGNED BY: VICKIE Rush September 29, 2023 9:42 AM documented in this encounter [facility] 09-29-2023 Progress note Formatting of t his note might be different from the original. Radiology Service Progress Note PATIENT NAME: Neymar Rome DATE OF SERVICE: September 29, 2023 TIME: 9:42 AM PATIENT IDENTITY VERIFICATION COMPLETED USING TWO (2) IDENTIFIERS: Name and Date of confirmed by patient verbally and Name and Date of confirmed by identification band. FALL SCREENING: Has the patient had 2 falls in the last year or 1 fall with injury or currently using an Ambulatory Assistive Device (Walker, Cane, Wheelchair, Crutches, etc.)? No PATIENT GENDER DATA: Male PATIENT RELEVANT IMPLANT DATA REVIEWED: Not Applicable PATIENT PRESENTS WITH AN IMPLANTABLE OR ATTACHED CHORUS DANCER: No RADIOLOGY DEPARTMENT: CT; Exam(s) Completed: Chest PERIPHERAL IV DATA: Not applicable SIGNED BY: VICKIE Rush September 29, 2023 9:42 AM [facility] 09-24-2023 History of Presen t illness Narrative PROGRESS NOTES PATIENT NAME: Neymar Rome Assessment ASSESSMENT AND PLAN The patient is a 58-year-old male status post a successful umbilical hernia repair surgery. He is doing well from my standpoint. Follow-up will be as needed. SUBJECTIVE CHIEF COMPLAINT: Patient presents with: Post-Op Visit: 09/07 umbilical hernia repair INTERVAL HISTORY OF PRESENT ILLNESS: The patient is a 58-year-old male status post recent umbilical hernia repair who returns today for postoperative visit. He denies any significant issues or problems. HISTORIES: PAST MEDICAL HISTORY Diagnosis Date Acute deep vein thrombosis (DVT) of proximal vein of right lower extremity (HCC) 04/15/2021 Acute venous embolism and thrombosis of unspecified deep vessels of lower extremity (HCC) 08/30/2013 Allergic dermatitis formaldehyde, Carba mix Asthmatic bronchitis 01/10/2015 Colon polyps DDD (degenerative disc disease) Depression 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 electrolyte imbalance False positive serological test for hepatitis C 09/2015 Fatty liver disease, nonalcoholic Hematuria 10/04/2013 Hip arthritis 08/07/2013 Hip joint replacement status 11/21/2013 History of alcoholism ([facility]) 1994 sober since 1997 History of pulmonary embolism 08/12/2012 HTN (hypertension) Hyperlipemia Kidney stones 10/04/2013 LUMB DISC DIS W MYELOPAT 05/17/2006 PE (pulmonary embolism) 01/11/2012 DVT and PE Recurrent deep vein thrombosis (DVT) (HCC) 04/26/2021 Renal colic 04/08/2007 Tubular adenoma of colon 04/07/2018 Zoster 05/28/2007 PAST SURGICAL HISTORY Procedure Laterality Date ARTHRP ACETBLR/PROX FEM PROSTC AGRFT/ALGRFT Right 11/08/2013 right MICHAEL CERVICAL OR THORACIC EPIDURAL INJECTION 03/31/2018 of neck 03-31-18 COLONOSCOPY 04/07/2018 COLONOSCOPY & POLYPECTOMY 08/09/2012 repeat due 2017 COLONOSCOPY & POLYPECTOMY 03/22/2023 ERCP W/DESTRUCTN STONE(S)-LITHOTRIPSY 2007 multi times for kidney stones IR IVC FILTER PLACEMENT 11/08/2013 [facility] [place] via [facility] PAST SURGICAL HISTORY OF Right 1996 hernia right groin PAST SURGICAL HISTORY OF 2011 gall bladder removed PAST SURGICAL HISTORY OF 2000 cystoscopy REPAIR UMBILICAL HERNIA 09/08/2023 Dr. Gonzalez ALLERGIES: Formaldehyde, Latex, Paroxetine Hcl, Tramadol, Venlafaxine Hcl, and Vicodin [Hydrocodone-Acetaminophen] MEDICATIONS: Current Outpatient Medications Medication Sig atorvastatin (LIPITOR) 10 mg tablet Take 1 tablet by mouth daily at bedtime. For cholesterol. triamcinolone acetonide (KENALOG) 0.5 % cream Apply 1 application to affected area three times a day as needed. For rash/itching. Apply sparingly. Avoid face/skin fold. tiZANidine (ZANAFLEX) 4 mg tablet Take 1 tablet by mouth three times a day. Per Dr. Camp cetirizine (ZYRTEC) 10 mg tablet Take 1 tablet by mouth once daily. rivaroxaban (XARELTO) 20 mg tablet Take 1 tablet by mouth daily with dinner. amitriptyline (ELAVIL) 25 mg tablet Take 1 tablet by mouth daily at bedtime. Dr. Camp pregabalin (LYRICA) 100 mg capsule Take 1 capsule by mouth twice daily. Per Dr. Camp. COMPOUNDED PRESCRIPTION 1 capsule as needed. OTC stool softner No current facility-administered medications for this visit. FAMILY HISTORY Problem Relation Age of Onset Hypertension Mother Colon Cancer Mother 65 Liver Cancer Mother Diabetes Father Hypertension Father Stroke Father pt states had over 33 strokes Hypertension Sister Diabetes Sister No Known Problems Sister Kidney stones Brother Hypertension Paternal Grandmother Diabetes Paternal Grandmother Hypertension Paternal Grandfather Hypertension Paternal Aunt Social History Tobacco Use Smoking status: Every Day Packs/day: 1.00 Years: 49.00 Additional pack years: 0.00 Total pack years: 49.00 Types: Cigarettes Start date: 1974 Smokeless tobacco: Never Tobacco comments: Started age 8 Vaping Use Vaping Use: Never used Substance Use Topics Alcohol use: No Comment: Hx alcoholism, sober since quit in 1998 Drug use: No Comment: hx marijuana use 1985 OBJECTIVE PHYSICAL EXAM: There were no vitals taken for this visit. GENERAL: Alert, no distress, cooperative ABDOMEN: Abdomen soft, non-tender, BS normal, No masses or organomegaly and overall the incision appears to be healing well. No signs of erythema or infection but there is some slight redness right at the incision for which I recommended they apply some Neosporin and keep the wound clean DATA: Diagnostic tests reviewed for today's visit: Most recent labs and imaging results. Marquise Gonzalez MD documented in this encounter [facility] 09-07-2023 History and physical note HISTORY AND PHYSICAL EXAMINATION SERVICE DATE: 09/07/2023 SERVICE TIME: 3:20 PM PRIMARY CARE PHYSICIAN: Kvng Fu MD REASON FOR VISIT: Neymar Rome is a 58 year old male who is scheduled for Procedure(s) with comments: REPAIR HERNIA UMBILICAL REDUCIBLE LESS THAN 3cm (N/A) - REPAIR HERNIA UMBILICAL REDUCIBLE LESS THAN 3cm [[id number]] at the request of Dr. Marquise Gonzalez for consultation. My final recommendation will be communicated back to the requesting physician by way of shared medical record or letter. Subjective The patient has the following: ACTIVE PROBLEM LIST Intervertebral Lumbar Disc Disorder With Myelopathy, Lumbar Region Hyperlipemia Allergic Dermatitis Blindness of Right Eye Benign Non-Nodular Prostatic Hyperplasia Without Lower Urinary Tract Symptoms Tobacco Use Disorder Copd (Chronic Obstructive Pulmonary Disease) (Hcc) Family History of Colon Cancer Tubular Adenoma of Colon Recurrent Deep Vein Thrombosis (Dvt) (Hcc) Obesity, Class I, Bmi 30-34.9 Infestation By Bed Bug History of Total Hip Replacement, Right Fatty Liver Narcotic Dependence (Hcc) COVID-19 Immunization Status Postponed - Covid-19 Vaccine (2022- season) Postponed until 08/04/2024 08/05/2023 Postponed until 08/04/2024 by Liv Milian LPN (Declined at this time) 02/13/2022 Postponed until 02/13/2023 by Kvng Fu MD (Declined at this time) CHIEF COMPLAINT: Pre-Op HPI: Neymar Rome is a 58 year old male presenting for pre-anesthesia consultation. Pt has history of umbilical hernia. Above procedure recommended to manage symptoms. Procedure scheduled on 09/08/2023 at [facility]. REVIEW OF SYSTEMS: General: No weight loss, malaise or fevers. Neurological: Negative for: headaches, Parkinson's disease, seizures and strokes. Respiratory: Positive for: COPD and tobacco use. Negative for: asthma, current cough, dyspnea, URI < 2 weeks and obstructive sleep apnea. Cardiovascular: Positive for: DVT/PE, hyperlipidemia and hypertension Negative for: AICD/PPM, anticoagulation therapy, arrhythmia, CAD, chest pain, CHF, recent [place], murmur/valvular heart disease, open heart surgery and valve surgery. GI: Positive for: abdominal pain Negative for: dysphagia, GERD, liver disease, nausea and vomiting. : Negative for: on dialysis, dysuria, hematuria and renal failure. Endocrine: Negative for: diabetes mellitus, hyperthyroidism and hypothyroidism. Hematology: Negative for: anemia, bruises/bleeds easily, factor V Leiden, hemophilia, thrombocytopenia, von Willebrand disease and chronic anti-coagulation/platelet meds. Oncology: No history of CA metastasis, chemo within 30 days, or radiotherapy within 90 days. No history of oncological symptoms or problems. Psych: Positive for: depression. Negative for: anxiety and bipolar disorder. Musculoskeletal: Negative for joint pain or swelling, back pain or muscle pain. Skin: Chronic skin issues comment: - bug bites with excoriation - no appearance of cellulitis - RLE discoloration PAST MEDICAL HISTORY Diagnosis Date Acute deep vein thrombosis (DVT) of proximal vein of right lower extremity (HCC) 04/15/2021 Acute venous embolism and thrombosis of unspecified deep vessels of lower extremity (HCC) 08/30/2013 Allergic dermatitis formaldehyde, Carba mix Asthmatic bronchitis 01/10/2015 Colon polyps DDD (degenerative disc disease) Depression 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 electrolyte imbalance False positive serological test for hepatitis C 09/2015 Fatty liver disease, nonalcoholic Hematuria 10/04/2013 Hip arthritis 08/07/2013 Hip joint replacement status 11/21/2013 History of alcoholism (HCC) 1994 sober since 1997 History of pulmonary embolism 08/12/2012 HTN (hypertension) Hyperlipemia Kidney stones 10/04/2013 LUMB DISC DIS W MYELOPAT 05/17/2006 PE (pulmonary embolism) 01/11/2012 DVT and PE Recurrent deep vein thrombosis (DVT) (HCC) 04/26/2021 Renal colic 04/08/2007 Tubular adenoma of colon 04/07/2018 Zoster 05/28/2007 PAST SURGICAL HISTORY Procedure Laterality Date ARTHRP ACETBLR/PROX FEM PROSTC AGRFT/ALGRFT Right 11/08/2013 right MICHAEL CERVICAL OR THORACIC EPIDURAL INJECTION 03/31/2018 of neck 03-31-18 COLONOSCOPY 04/07/2018 COLONOSCOPY & POLYPECTOMY 08/09/2012 repeat due 2017 COLONOSCOPY & POLYPECTOMY 03/22/2023 ERCP W/DESTRUCTN STONE(S)-LITHOTRIPSY 2007 multi times for kidney stones IR IVC FILTER PLACEMENT 11/08/2013 [facility] [place] via L [facility] PAST SURGICAL HISTORY OF Right 1996 hernia right groin PAST SURGICAL HISTORY OF 2011 gall bladder removed PAST SURGICAL HISTORY OF 2000 cystoscopy FAMILY HISTORY Problem Relation Age of Onset Hypertension Mother Colon Cancer Mother 65 Liver Cancer Mother Diabetes Father Hypertension Father Stroke Father pt states had over 33 strokes Hypertension Sister Diabetes Sister No Known Problems Sister Kidney stones Brother Hypertension Paternal Grandmother Diabetes Paternal Grandmother Hypertension Paternal Grandfather Hypertension Paternal Aunt Social History Tobacco Use Smoking status: Every Day Packs/day: 1.00 Years: 49.00 Additional pack years: 0.00 Total pack years: 49.00 Types: Cigarettes Start date: 1974 Smokeless tobacco: Never Tobacco comments: Started age 8 Vaping Use Vaping Use: Never used Substance Use Topics Alcohol use: No Comment: Hx alcoholism, sober since quit in 1998 Drug use: No Comment: hx marijuana use 1985 Prior to Admission medications as of 09/07/23 1518 Medication Sig Last Dose Taking atorvastatin (LIPITOR) 10 mg tablet Take 1 tablet by mouth daily at bedtime. For cholesterol. Taking Yes triamcinolone acetonide (KENALOG) 0.5 % cream Apply 1 application to affected area three times a day as needed. For rash/itching. Apply sparingly. Avoid face/skin fold. Taking Yes tiZANidine (ZANAFLEX) 4 mg tablet Take 1 tablet by mouth three times a day. Per Dr. Camp Taking Yes cetirizine (ZYRTEC) 10 mg tablet Take 1 tablet by mouth once daily. Taking Yes rivaroxaban (XARELTO) 20 mg tablet Take 1 tablet by mouth daily with dinner. Taking Yes amitriptyline (ELAVIL) 25 mg tablet Take 1 tablet by mouth daily at bedtime. Dr. Camp Taking Yes morphine SR (MS CONTIN, ORAMORPH SR) 15 mg 12 hr tablet Take 15 mg by mouth once daily. Taking Yes pregabalin (LYRICA) 100 mg capsule Take 1 capsule by mouth twice daily. Per Dr. Camp. Taking Yes COMPOUNDED PRESCRIPTION 1 capsule as needed. OTC stool softner Taking Yes Medication Comments documented by Comfort Velazquez PA-C on 03/23/2018 at 0825. - ALLERGIES Allergen Reactions Formaldehyde Other: See Comments blisters Latex Paroxetine Hcl Other: See Comments sexual dysfunction Tramadol Mental Status Change Venlafaxine Hcl Other: See Comments increased BP Vicodin [Hydrocodon* Other: See Comments causes pain Objective PHYSICAL EXAM: General: alert and oriented, healthy appearance and obese. Pertinent negatives noted - not distressed. Skin: normal color, no rash or lesions. Positive for pigmentation changes and varicosity. + chronic right LE discoloration. No open wounds/lesions.. HEENT: EOM intact, pupils equal round and pupils reactive to light. Pertinent negatives noted - no carotid bruit. Cardiovascular: regular rate and rhythm, normal S1 and S2, no rub, murmurs, or gallop. No radial pulse abnormalities. Respiratory: normal breath sounds, no wheezes or crackles. No chest wall deformity or tenderness. Abdomen: soft. Pertinent negatives noted - not distended and not tender. Extremities: no deformity, no edema or tenderness, no joint swelling or clubbing. Neurological: normal cognition and motor skills. Gait normal. No weakness or sensory deficit. PAIN ASSESSMENT: Pain Pain Level: 5 Pain Location: Abdomen Description: Aching Frequency: Intermittent VITALS: BP 121/70 Pulse 83 Temp 98.5 Resp 18 Ht 5' 10 (1.78m) Wt 225 lb (102.1kg) SpO2 96% BMI 32.28 kg/(m^2). Diagnostic tests reviewed for today's visit: Lab Value Units Date High Low HB 15.5 g/dL 08/05/2023 17.0 13.0 HCT 48.0 % 08/05/2023 51.0 39.0 WBC 6.95 k/uL 08/05/2023 11.00 3.70 PLT 213 k/uL 08/05/2023 400 150 NA 139 mmol/L 08/05/2023 144 136 K 4.2 mmol/L 08/05/2023 5.1 3.7 GLUC 87 mg/dL 08/05/2023 99 74 BUN 11 mg/dL 08/05/2023 24 9 CREAT 0.96 mg/dL 08/05/2023 1.22 0.73 PTSEC No results within date range. INR No results within date range. APTT No results within date range. ALT 23 U/L 08/05/2023 54 10 AST 24 U/L 08/05/2023 40 14 TBILI 0.8 mg/dL 08/05/2023 1.3 0.2 TSH No results within date range. Lab Value Units Date High Low HCGQT No results within date range. UHCG No results within date range. HCG, BODY* No results within date range. Lab Value Units Date High Low ABORHD No results within date range. ABSCREEN No results within date range. Hemoglobin A1C (%) Date Value 08/05/2023 5.6 05/17/2021 5.8 06/15/2014 5.6 No results found for this or any previous visit (from the past 8760 hour(s)). No results found for this or any previous visit (from the past 97764 hour(s)). Assessment Patient has the following medical conditions which may affect kareen-operative course: Hyperlipemia Assessment: Follows with PCP, adherent to statin. COPD (chronic obstructive pulmonary disease) ([facility]) Assessment: Emphysema. Not on any medications/inhalers. Denies CHACON, cough. Feels like he is at his baseline. Encouraged smoking cessation. On exam, lungs clear, SpO2 96% on RA. Tobacco use disorder Assessment: Smoking 1 pack cigarettes/day. Encouraged cessation. No smoking day of surgery. Fatty liver Assessment: Hx ETOH use, no longer drinking. Liver enzymes on 08/05/23 are WNL. Recurrent deep vein thrombosis (DVT) ([facility]) Assessment: DVT x 2, PE x 1. On lifelong AC now with Xarelto. Was instructed to hold 2 days before by prescriber. Last dose was Wednesday evening, 09/04. Narcotic dependence ([facility]) Assessment: Current daily use for pain. Benign non-nodular prostatic hyperplasia without lower urinary tract symptoms Assessment: Hx of, denies current symptoms. Obesity, Class I, BMI 30-34.9 Assessment: Body mass index is 32.28 kg/m . [place] Activity Status Index: METS: Do yardwork, such as raking leaves, weeding, or pushing a power mower (4.50 METs) DASI Score: 4.5 Patient denies any chest pain or undue shortness of breath with the above physical activity. Clinical Frailty Scale: 3. Well, with treated comorbid disease STOP-Bang Score: Patient over 50 years old Male patient Denies snoring loudly Denies feeling tired, fatigued, or sleepy during the daytime Has not been observed to stop breathing or choking/gasping during sleep Denies having high blood pressure BMI less than or equal to 35 kg/m^2 Does not have a large neck STOP-Bang Score: 2 [id number] Score: Age: <65 Sex: male CHF history: No Hypertension history: Yes Stroke/TIA/thromboembolism history: Yes Vascular disease history: No Diabetes history: No [id number] Score: 3 ANESTHESIA FINDINGS: Intubation History: No history of difficult intubation. No abnormal airway history Significant Anesthesia Considerations: none Airway History: No history of difficult airway No abnormal airway history I - PHYSICAL EVALUATION AIRWAY Patient intubated: No. Tracheostomy tube not present Mallampati: II. TM distance: >3 FB. Neck ROM: full ROM without neurological symptoms. Mouth opening: adequate. Short neck: no. Thick neck: no Hernandez present: yes Microretrognathia/Micronagthia/R ecessed Chin: No DENTAL Dental findings: edentulous. II - ANESTHESIA PLAN Beta Snow Monitoring Plan Post Procedure Analgesic Plan Prepared for Surgery: optimally prepared for surgery. CONSULTS: Patient does not require consults for optimization at this time Planned Anesthetic: The Following Tests/Procedures Have Been Initiated: No orders of the defined types were placed in this encounter. Instructions Given to Patient: Instructions located in the after visit summary. Patient given verbal and written preop instructions and voices comprehension and compliance. SIGNATURE: Lizette Arredondo PA-C PATIENT NAME: Neymar Rome DATE: 09/07/2023 TIME: 3:20 PM PAGER/CONTACT #: [facility] 09-07-2023 History and physical note HISTORY AND PHYSICAL EXAMINATION SERVICE DATE: 09/07/2023 SERVICE TIME: 3:20 PM PRIMARY CARE PHYSICIAN: Kvng Fu MD REASON FOR VISIT: Neymar Rome is a 58 year old male who is scheduled for Procedure(s) with comments: REPAIR HERNIA UMBILICAL REDUCIBLE LESS THAN 3cm (N/A) - REPAIR HERNIA UMBILICAL REDUCIBLE LESS THAN 3cm [[id number]] at the request of Dr. Marquise Gonzalez for consultation. My final recommendation will be communicated back to the requesting physician by way of shared medical record or letter. Subjective The patient has the following: ACTIVE PROBLEM LIST Intervertebral Lumbar Disc Disorder With Myelopathy, Lumbar Region Hyperlipemia Allergic Dermatitis Blindness of Right Eye Benign Non-Nodular Prostatic Hyperplasia Without Lower Urinary Tract Symptoms Tobacco Use Disorder Copd (Chronic Obstructive Pulmonary Disease) (Hcc) Family History of Colon Cancer Tubular Adenoma of Colon Recurrent Deep Vein Thrombosis (Dvt) ([facility]) Obesity, Class I, Bmi 30-34.9 Infestation By Bed Bug History of Total Hip Replacement, Right Fatty Liver Narcotic Dependence (Hcc) COVID-19 Immunization Status Postponed - Covid-19 Vaccine (2022-) Postponed until 08/04/2024 08/05/2023 Postponed until 08/04/2024 by Liv Milian LPN (Declined at this time) 02/13/2022 Postponed until 02/13/2023 by Kvng Fu MD (Declined at this time) CHIEF COMPLAINT: Pre-Op HPI: Neymar Rome is a 58 year old male presenting for pre-anesthesia consultation. Pt has history of umbilical hernia. Above procedure recommended to manage symptoms. Procedure scheduled on 09/08/2023 at [facility]. REVIEW OF SYSTEMS: General: No weight loss, malaise or fevers. Neurological: Negative for: headaches, Parkinson's disease, seizures and strokes. Respiratory: Positive for: COPD and tobacco use. Negative for: asthma, current cough, dyspnea, URI < 2 weeks and obstructive sleep apnea. Cardiovascular: Positive for: DVT/PE, hyperlipidemia and hypertension Negative for: AICD/PPM, anticoagulation therapy, arrhythmia, CAD, chest pain, CHF, recent [place], murmur/valvular heart disease, open heart surgery and valve surgery. GI: Positive for: abdominal pain Negative for: dysphagia, GERD, liver disease, nausea and vomiting. : Negative for: on dialysis, dysuria, hematuria and renal failure. Endocrine: Negative for: diabetes mellitus, hyperthyroidism and hypothyroidism. Hematology: Negative for: anemia, bruises/bleeds easily, factor V Leiden, hemophilia, thrombocytopenia, von Willebrand disease and chronic anti-coagulation/platelet meds. Oncology: No history of CA metastasis, chemo within 30 days, or radiotherapy within 90 days. No history of oncological symptoms or problems. Psych: Positive for: depression. Negative for: anxiety and bipolar disorder. Musculoskeletal: Negative for joint pain or swelling, back pain or muscle pain. Skin: Chronic skin issues comment: - bug bites with excoriation - no appearance of cellulitis - RLE discoloration PAST MEDICAL HISTORY Diagnosis Date Acute deep vein thrombosis (DVT) of proximal vein of right lower extremity (HCC) 04/15/2021 Acute venous embolism and thrombosis of unspecified deep vessels of lower extremity (HCC) 08/30/2013 Allergic dermatitis formaldehyde, Carba mix Asthmatic bronchitis 01/10/2015 Colon polyps DDD (degenerative disc disease) Depression 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 electrolyte imbalance False positive serological test for hepatitis C 09/2015 Fatty liver disease, nonalcoholic Hematuria 10/04/2013 Hip arthritis 08/07/2013 Hip joint replacement status 11/21/2013 History of alcoholism (HCC) 1994 sober since 1997 History of pulmonary embolism 08/12/2012 HTN (hypertension) Hyperlipemia Kidney stones 10/04/2013 LUMB DISC DIS W MYELOPAT 05/17/2006 PE (pulmonary embolism) 01/11/2012 DVT and PE Recurrent deep vein thrombosis (DVT) (HCC) 04/26/2021 Renal colic 04/08/2007 Tubular adenoma of colon 04/07/2018 Zoster 05/28/2007 PAST SURGICAL HISTORY Procedure Laterality Date ARTHRP ACETBLR/PROX FEM PROSTC AGRFT/ALGRFT Right 11/08/2013 right MICHAEL CERVICAL OR THORACIC EPIDURAL INJECTION 03/31/2018 of neck 03-31-18 COLONOSCOPY 04/07/2018 COLONOSCOPY & POLYPECTOMY 08/09/2012 repeat due 2017 COLONOSCOPY & POLYPECTOMY 03/22/2023 ERCP W/DESTRUCTN STONE(S)-LITHOTRIPSY 2007 multi times for kidney stones IR IVC FILTER PLACEMENT 11/08/2013 [facility] [place] via [facility] PAST SURGICAL HISTORY OF Right 1996 hernia right groin PAST SURGICAL HISTORY OF 2011 gall bladder removed PAST SURGICAL HISTORY OF 2000 cystoscopy FAMILY HISTORY Problem Relation Age of Onset Hypertension Mother Colon Cancer Mother 65 Liver Cancer Mother Diabetes Father Hypertension Father Stroke Father pt states had over 33 strokes Hypertension Sister Diabetes Sister No Known Problems Sister Kidney stones Brother Hypertension Paternal Grandmother Diabetes Paternal Grandmother Hypertension Paternal Grandfather Hypertension Paternal Aunt Social History Tobacco Use Smoking status: Every Day Packs/day: 1.00 Years: 49.00 Additional pack years: 0.00 Total pack years: 49.00 Types: Cigarettes Start date: 1974 Smokeless tobacco: Never Tobacco comments: Started age 8 Vaping Use Vaping Use: Never used Substance Use Topics Alcohol use: No Comment: Hx alcoholism, sober since quit in 1998 Drug use: No Comment: hx marijuana use 1985 Prior to Admission medications as of 09/07/23 1518 Medication Sig Last Dose Taking atorvastatin (LIPITOR) 10 mg tablet Take 1 tablet by mouth daily at bedtime. For cholesterol. Taking Yes triamcinolone acetonide (KENALOG) 0.5 % cream Apply 1 application to affected area three times a day as needed. For rash/itching. Apply sparingly. Avoid face/skin fold. Taking Yes tiZANidine (ZANAFLEX) 4 mg tablet Take 1 tablet by mouth three times a day. Per Dr. Camp Taking Yes cetirizine (ZYRTEC) 10 mg tablet Take 1 tablet by mouth once daily. Taking Yes rivaroxaban (XARELTO) 20 mg tablet Take 1 tablet by mouth daily with dinner. Taking Yes amitriptyline (ELAVIL) 25 mg tablet Take 1 tablet by mouth daily at bedtime. Dr. Camp Taking Yes morphine SR (MS CONTIN, ORAMORPH SR) 15 mg 12 hr tablet Take 15 mg by mouth once daily. Taking Yes pregabalin (LYRICA) 100 mg capsule Take 1 capsule by mouth twice daily. Per Dr. Camp. Taking Yes COMPOUNDED PRESCRIPTION 1 capsule as needed. OTC stool softner Taking Yes Medication Comments documented by Comfort Velazquez PA-C on 03/23/2018 at 0825. - ALLERGIES Allergen Reactions Formaldehyde Other: See Comments blisters Latex Paroxetine Hcl Other: See Comments sexual dysfunction Tramadol Mental Status Change Venlafaxine Hcl Other: See Comments increased BP Vicodin [Hydrocodon* Other: See Comments causes pain Objective PHYSICAL EXAM: General: alert and oriented, healthy appearance and obese. Pertinent negatives noted - not distressed. Skin: normal color, no rash or lesions. Positive for pigmentation changes and varicosity. + chronic right LE discoloration. No open wounds/lesions.. HEENT: EOM intact, pupils equal round and pupils reactive to light. Pertinent negatives noted - no carotid bruit. Cardiovascular: regular rate and rhythm, normal S1 and S2, no rub, murmurs, or gallop. No radial pulse abnormalities. Respiratory: normal breath sounds, no wheezes or crackles. No chest wall deformity or tenderness. Abdomen: soft. Pertinent negatives noted - not distended and not tender. Extremities: no deformity, no edema or tenderness, no joint swelling or clubbing. Neurological: normal cognition and motor skills. Gait normal. No weakness or sensory deficit. PAIN ASSESSMENT: Pain Pain Level: 5 Pain Location: Abdomen Description: Aching Frequency: Intermittent VITALS: BP 121/70 Pulse 83 Temp 98.5 Resp 18 Ht 5' 10 (1.78m) Wt 225 lb (102.1kg) SpO2 96% BMI 32.28 kg/(m^2). Diagnostic tests reviewed for today's visit: Lab Value Units Date High Low HB 15.5 g/dL 08/05/2023 17.0 13.0 HCT 48.0 % 08/05/2023 51.0 39.0 WBC 6.95 k/uL 08/05/2023 11.00 3.70 PLT 213 k/uL 08/05/2023 400 150 NA 139 mmol/L 08/05/2023 144 136 K 4.2 mmol/L 08/05/2023 5.1 3.7 GLUC 87 mg/dL 08/05/2023 99 74 BUN 11 mg/dL 08/05/2023 24 9 CREAT 0.96 mg/dL 08/05/2023 1.22 0.73 PTSEC No results within date range. INR No results within date range. APTT No results within date range. ALT 23 U/L 08/05/2023 54 10 AST 24 U/L 08/05/2023 40 14 TBILI 0.8 mg/dL 08/05/2023 1.3 0.2 TSH No results within date range. Lab Value Units Date High Low HCGQT No results within date range. UHCG No results within date range. HCG, BODY* No results within date range. Lab Value Units Date High Low ABORHD No results within date range. ABSCREEN No results within date range. Hemoglobin A1C (%) Date Value 08/05/2023 5.6 05/17/2021 5.8 06/15/2014 5.6 No results found for this or any previous visit (from the past 8760 hour(s)). No results found for this or any previous visit (from the past 62649 hour(s)). Assessment Patient has the following medical conditions which may affect kareen-operative course: Hyperlipemia Assessment: Follows with PCP, adherent to statin. COPD (chronic obstructive pulmonary disease) (HCC) Assessment: Emphysema. Not on any medications/inhalers. Denies CHACON, cough. Feels like he is at his baseline. Encouraged smoking cessation. On exam, lungs clear, SpO2 96% on RA. Tobacco use disorder Assessment: Smoking 1 pack cigarettes/day. Encouraged cessation. No smoking day of surgery. Fatty liver Assessment: Hx ETOH use, no longer drinking. Liver enzymes on 08/05/23 are WNL. Recurrent deep vein thrombosis (DVT) (HCC) Assessment: DVT x 2, PE x 1. On lifelong AC now with Xarelto. Was instructed to hold 2 days before by prescriber. Last dose was Wednesday evening, 09/04. Narcotic dependence (HCC) Assessment: Current daily use for pain. Benign non-nodular prostatic hyperplasia without lower urinary tract symptoms Assessment: Hx of, denies current symptoms. Obesity, Class I, BMI 30-34.9 Assessment: Body mass index is 32.28 kg/m . [place] Activity Status Index: METS: Do yardwork, such as raking leaves, weeding, or pushing a power mower (4.50 METs) DASI Score: 4.5 Patient denies any chest pain or undue shortness of breath with the above physical activity. Clinical Frailty Scale: 3. Well, with treated comorbid disease STOP-Bang Score: Patient over 50 years old Male patient Denies snoring loudly Denies feeling tired, fatigued, or sleepy during the daytime Has not been observed to stop breathing or choking/gasping during sleep Denies having high blood pressure BMI less than or equal to 35 kg/m^2 Does not have a large neck STOP-Bang Score: 2 [id number] Score: Age: <65 Sex: male CHF history: No Hypertension history: Yes Stroke/TIA/thromboembolism history: Yes Vascular disease history: No Diabetes history: No [id number] Score: 3 ANESTHESIA FINDINGS: Intubation History: No history of difficult intubation. No abnormal airway history Significant Anesthesia Considerations: none Airway History: No history of difficult airway No abnormal airway history I - PHYSICAL EVALUATION AIRWAY Patient intubated: No. Tracheostomy tube not present Mallampati: II. TM distance: >3 FB. Neck ROM: full ROM without neurological symptoms. Mouth opening: adequate. Short neck: no. Thick neck: no Hernandez present: yes Microretrognathia/Micronagthia/R ecessed Chin: No DENTAL Dental findings: edentulous. II - ANESTHESIA PLAN Beta Snow Monitoring Plan Post Procedure Analgesic Plan Prepared for Surgery: optimally prepared for surgery. CONSULTS: Patient does not require consults for optimization at this time Planned Anesthetic: The Following Tests/Procedures Have Been Initiated: No orders of the defined types were placed in this encounter. Instructions Given to Patient: Instructions located in the after visit summary. Patient given verbal and written preop instructions and voices comprehension and compliance. SIGNATURE: Lizette Arredondo PA-C PATIENT NAME: Neymar Rome DATE: 09/07/2023 TIME: 3:20 PM PAGER/CONTACT #: documented in this encounter [facility] 09-07-2023 Instructions Lizette Arredondo PA-C - 09/07/2023 1:56 PM EDT PATIENT PREOPERATIVE INSTRUCTIONS Marquise Gonzalez MD has scheduled you for your procedure at this surgery center: [facility]: [phone] -- [address] [address]. Please read below carefully for your personalized instructions. Dietary Restrictions: - No solid food after midnight. - You may have 12 ounces of clear liquids (water, clear juices such as apple juice or gatorade, carbonated beverages, clear tea, black coffee, jello) until 2 hours before scheduled arrival at facility. - Do not drink any alcohol after midnight the night before your surgery. Medications: Unless instructed differently below, stay on all of your medications until your surgery. If you start any new medications after today's visit, please contact your surgeon. Do not take any of your medications morning of surgery. Continue holding your Xarelto until after surgery If you take any medications for erectile dysfunction-Cialis (Tadalafil), Levitra, Staxyn (Vardenafil) Viagra (Sildenenafil please do not take these for 48 hours before surgery. If you start any new medications after today's visit, please contact the surgeon's office. Blood Thinning Medications: - Stop NSAIDS (Ibuprofen, Advil, Aleve, Motrin, Celebrex, Mobic, etc.) 7 days before surgery, as directed by your surgeon. - Stop Aspirin 7 days before surgery, as directed by your surgeon. - Stop Vitamin E, ALL multi-vitamins, herbals and dietary supplements 14 days before surgery. - You may take Tylenol (Acetaminophen) or any of your pain medications that do not contain aspirin or NSAIDS as needed. Important Reminders: - If you are prescribed inhalers for breathing, continue using them. - Candy, mints, and tobacco products are NOT permitted the morning of surgery. - Hearing aids, dentures and glasses may be worn the morning of surgery. - NO jewelry, body piercings, makeup, hairpins or contacts are to be worn the day of surgery. If you develop symptoms such as a fever, cold, or flu, or have other changes to your health within TWO DAYS of scheduled surgery or the morning of surgery, please contact the surgery center above. Personal Belongings: -Please have photo ID and insurance cards. -If you do not have a copy of advance directives on file with us, please bring a copy with you on the day of surgery. - Leave ALL valuables and money at home or with family members. For Outpatient Procedures: - YOU MUST HAVE A RESPONSIBLE CPC CODER TAKE YOU HOME. A MOTOR MECHANIC OR PORK CUTLET MAKER CANNOT BE MADE A RESPONSIBLE CPC CODER. - We recommend that a responsible person stays with you overnight to take care of you. - You cannot stay in a hotel alone after outpatient surgery. You will not be permitted to have your surgery, if you do not have someone to take care of you. Arrival Time for Surgery: - The Surgery Center or hospital where you are having surgery will call the afternoon before surgery (or Wednesday for Wednesday surgery) with a scheduled arrival time. - If you have not heard by 4 pm, please contact the surgery center above. Please be aware that emergency situations arise, which may delay or change your surgical time. If this happens, we will notify you as soon as possible and regret any inconvenience. If you already have an Advance Directive, please fax a copy to [phone] or email to for it to be added to your chart. If you do not have an Advance Directive, you can find the appropriate form and more information at [email or web address]. We recommend that you complete the Advance Directive form found on the website and bring it with you the day of your surgery. It can be witnessed and scanned into your chart that day. Lizette Arredondo PA-C documented in this encounter [facility] 09-03-2023 Telephone encounter Note Dear Naomi Light CNP, This is in regards to our mutual patient, Ms. Neymar Rome who will be seen at my office on 09/03/2023 . The patient is scheduled for umbilical hernia repair on 09/08/23 . I am requesting that Neymar Rome stop Xarelto (rivaroxabon) for 2 days prior to procedure. Questions can be referred to the office at ([place] and ask for the Pre Anesthesia Consultation Clinic. Sincerely, Pre Anesthesia Team [facility] 09-03-2023 Miscellaneous Notes Dear Naomi Light CNP, This is in regards to our mutual patient, Ms. Neymar Rome who will be seen at my office on 09/03/2023 . The patient is scheduled for umbilical hernia repair on 09/08/23 . I am requesting that Neymar Rome stop Xarelto (rivaroxabon) for 2 days prior to procedure. Questions can be referred to the office at ([place] and ask for the Pre Anesthesia Consultation Clinic. Sincerely, Pre Anesthesia Team documented in this encounter [facility] 09-02-2023 History of Presen t illness Narrative PROGRESS NOTES PATIENT NAME: Neymar Rome Assessment Consultation requested by Kvng Pang MD [[id number]] for an opinion regarding the local hernia. My final recommendations will be communicated back to the requesting physician by way of shared Medical record or letter to requesting physician via US mail. ASSESSMENT AND PLAN Patient is a 58-year-old male who is being seen today for an umbilical hernia I have offered him surgical repair. I do not suspect that we will need mesh but we did consent him for the possibility of mesh repair if needed. He wishes to proceed. This will be scheduled in a timely manner. SUBJECTIVE CHIEF COMPLAINT: Patient presents with: Consult: Umbilical hernia INTERVAL HISTORY OF PRESENT ILLNESS: Patient is a 58-year-old male who is being seen today for an umbilical hernia. He states that he first noticed this a few weeks ago and states that this has gotten larger. He presents today to have this evaluated this is causing him increasing discomfort. HISTORIES: PAST MEDICAL HISTORY Diagnosis Date Acute deep vein thrombosis (DVT) of proximal vein of right lower extremity (HCC) 04/15/2021 Acute venous embolism and thrombosis of unspecified deep vessels of lower extremity (HCC) 08/30/2013 Allergic dermatitis formaldehyde, Carba mix Asthmatic bronchitis 01/10/2015 Colon polyps DDD (degenerative disc disease) Depression 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 electrolyte imbalance False positive serological test for hepatitis C 09/2015 Fatty liver disease, nonalcoholic Hematuria 10/04/2013 Hip arthritis 08/07/2013 Hip joint replacement status 11/21/2013 History of alcoholism ([facility]) 1994 sober since 1997 History of pulmonary embolism 08/12/2012 HTN (hypertension) Hyperlipemia Kidney stones 10/04/2013 LUMB DISC DIS W MYELOPAT 05/17/2006 PE (pulmonary embolism) 01/11/2012 DVT and PE Recurrent deep vein thrombosis (DVT) (HCC) 04/26/2021 Renal colic 04/08/2007 Tubular adenoma of colon 04/07/2018 Zoster 05/28/2007 PAST SURGICAL HISTORY Procedure Laterality Date ARTHRP ACETBLR/PROX FEM PROSTC AGRFT/ALGRFT Right 11/08/2013 right MICHAEL CERVICAL OR THORACIC EPIDURAL INJECTION 03/31/2018 of neck 03-31-18 COLONOSCOPY 04/07/2018 COLONOSCOPY & POLYPECTOMY 08/09/2012 repeat due 2018 COLONOSCOPY & POLYPECTOMY 03/22/2023 ERCP W/DESTRUCTN STONE(S)-LITHOTRIPSY 2007 multi times for kidney stones IR IVC FILTER PLACEMENT 11/08/2013 [facility] [place] via [facility] PAST SURGICAL HISTORY OF Right 1996 hernia right groin PAST SURGICAL HISTORY OF 2011 gall bladder removed PAST SURGICAL HISTORY OF 2000 cystoscopy ALLERGIES: Formaldehyde, Latex, Paroxetine Hcl, Tramadol, Venlafaxine Hcl, and Vicodin [Hydrocodone-Acetaminophen] MEDICATIONS: Current Outpatient Medications Medication Sig atorvastatin (LIPITOR) 10 mg tablet Take 1 tablet by mouth daily at bedtime. For cholesterol. triamcinolone acetonide (KENALOG) 0.5 % cream Apply 1 application to affected area three times a day as needed. For rash/itching. Apply sparingly. Avoid face/skin fold. tiZANidine (ZANAFLEX) 4 mg tablet Take 1 tablet by mouth three times a day. Per Dr. Camp cetirizine (ZYRTEC) 10 mg tablet Take 1 tablet by mouth once daily. rivaroxaban (XARELTO) 20 mg tablet Take 1 tablet by mouth daily with dinner. amitriptyline (ELAVIL) 25 mg tablet Take 1 tablet by mouth daily at bedtime. Dr. Camp morphine SR (MS CONTIN, ORAMORPH SR) 15 mg 12 hr tablet Take 15 mg by mouth once daily. pregabalin (LYRICA) 100 mg capsule Take 1 capsule by mouth twice daily. Per Dr. Camp. COMPOUNDED PRESCRIPTION 1 capsule as needed. OTC stool softner No current facility-administered medications for this visit. FAMILY HISTORY Problem Relation Age of Onset Hypertension Mother Colon Cancer Mother 65 Liver Cancer Mother Diabetes Father Hypertension Father Stroke Father pt states had over 33 strokes Hypertension Sister Diabetes Sister No Known Problems Sister Kidney stones Brother Hypertension Paternal Grandmother Diabetes Paternal Grandmother Hypertension Paternal Grandfather Hypertension Paternal Aunt Social History Tobacco Use Smoking status: Every Day Packs/day: 1.00 Years: 49.00 Additional pack years: 0.00 Total pack years: 49.00 Types: Cigarettes Start date: 1974 Smokeless tobacco: Never Tobacco comments: Started age 8 Vaping Use Vaping Use: Never used Substance Use Topics Alcohol use: No Comment: Hx alcoholism, sober since quit in 1998 Drug use: No Comment: hx marijuana use 1985 OBJECTIVE PHYSICAL EXAM: BP 134/87 Pulse 79 Ht 5' 10.748 (1.80m) Wt 220 lb (99.8kg) BMI 30.90 kg/(m^2). GENERAL: Alert, no distress, cooperative ABDOMEN: Abdomen soft, non-tender, BS normal, No masses or organomegaly and fat-containing umbilical hernia. Fascial defect size is about a centimeter. The actual bulge is probably 2-1/2 to 3 cm. No overlying skin changes. No evidence to suggest incarceration or strangulation. DATA: Diagnostic tests reviewed for today's visit: Most recent labs and imaging results. Marquise Gonzalez MD documented in this encounter [facility] 09-01-2023 History of Presen t illness Narrative This note was created using [employer]. Subjective Patient presents with: Abdominal Pain Neymar Rome is a 58 year old male who noted umbilical pain and swelling one week ago. He denied injury, constipation, straining, or lifting. Symptoms were stable, or improving. Review of Systems Constitutional: Negative for appetite change, fatigue and fever. Respiratory: Negative for cough, shortness of breath and wheezing. Gastrointestinal: Negative for constipation, nausea and vomiting. Genitourinary: Negative for difficulty urinating. ACTIVE PROBLEM LIST Intervertebral Lumbar Disc Disorder With Myelopathy, Lumbar Region Hyperlipemia Allergic Dermatitis Blindness of Right Eye Benign Non-Nodular Prostatic Hyperplasia Without Lower Urinary Tract Symptoms Tobacco Use Disorder Copd (Chronic Obstructive Pulmonary Disease) (Hcc) Family History of Colon Cancer Tubular Adenoma of Colon Recurrent Deep Vein Thrombosis (Dvt) (Hcc) Obesity, Class I, Bmi 30-34.9 Infestation By Bed Bug History of Total Hip Replacement, Right Fatty Liver Narcotic Dependence (Hcc) Social History Tobacco Use Smoking status: Every Day Packs/day: 1.00 Years: 49.00 Additional pack years: 0.00 Total pack years: 49.00 Types: Cigarettes Start date: 1974 Smokeless tobacco: Never Tobacco comments: Started age 8 Vaping Use Vaping Use: Never used Substance Use Topics Alcohol use: No Comment: Hx alcoholism, sober since quit in 1998 Drug use: No Comment: hx marijuana use 1985 Current Outpatient Medications Medication Sig atorvastatin (LIPITOR) 10 mg tablet Take 1 tablet by mouth daily at bedtime. For cholesterol. triamcinolone acetonide (KENALOG) 0.5 % cream Apply 1 application to affected area three times a day as needed. For rash/itching. Apply sparingly. Avoid face/skin fold. tiZANidine (ZANAFLEX) 4 mg tablet Take 1 tablet by mouth three times a day. Per Dr. Basali cetirizine (ZYRTEC) 10 mg tablet Take 1 tablet by mouth once daily. rivaroxaban (XARELTO) 20 mg tablet Take 1 tablet by mouth daily with dinner. amitriptyline (ELAVIL) 25 mg tablet Take 1 tablet by mouth daily at bedtime. Dr. Camp morphine SR (MS CONTIN, ORAMORPH SR) 15 mg 12 hr tablet Take 15 mg by mouth once daily. pregabalin (LYRICA) 100 mg capsule Take 1 capsule by mouth twice daily. Per Dr. Camp. COMPOUNDED PRESCRIPTION 1 capsule as needed. OTC stool softner No current facility-administered medications for this visit. Objective BP 124/70 (BP Site: Left Arm, BP Position: Sitting, BP Cuff Size: Large Adult) Pulse 88 Temp 37.2 C (99 F) (Temporal) Resp 20 Wt 101.6 kg (224 lb) BMI 31.46 kg/m Physical Exam Constitutional: Appearance: He is not ill-appearing. Pulmonary: Effort: No respiratory distress. Breath sounds: No wheezing or rales. Abdominal: General: Bowel sounds are normal. Palpations: Abdomen is soft. Tenderness: There is abdominal tenderness in the periumbilical area. There is no guarding or rebound. Hernia: A hernia is present. Hernia is present in the umbilical area. Neurological: Mental Status: He is alert. Assessment and Plan 1. Umbilical hernia without obstruction and without gangrene - ICD9: 553.1, ICD10: K42.9 (primary diagnosis) - Shared medical decision making was done. We discussed observation vs. Referral. Symptoms of concern were discussed. - CONSULT TO GENERAL SURGERY 2. Recurrent deep vein thrombosis (DVT) (HCC) - ICD9: 453.40, ICD10: I82.409 - Anticoagulation will need held if surgery is undertaken. 3. Chronic obstructive pulmonary disease, unspecified COPD type (HCC) - ICD9: 496, ICD10: J44.9 - Stable. Kvng Fu MD documented in this encounter [facility] 09-01-2023 Telephone encounter Note Patient has been identified by name and date of : Yes Patient phones for refill(s): Requested Prescriptions Pending Prescriptions Disp Refills atorvastatin (LIPITOR) 10 mg tablet 30 tablet 5 Sig: Take 1 tablet by mouth daily at bedtime. For cholesterol. Date of last office visit in primary care: 08/05/2023 Date of next office visit in primary care: 02/04/2024 Please advise. Thank you. Shira Chaney. [facility] 09-01-2023 Miscellaneous Notes Patient has been identified by name and date of : Yes Patient phones for refill(s): Requested Prescriptions Pending Prescriptions Disp Refills atorvastatin (LIPITOR) 10 mg tablet 30 tablet 5 Sig: Take 1 tablet by mouth daily at bedtime. For cholesterol. Date of last office visit in primary care: 08/05/2023 Date of next office visit in primary care: 02/04/2024 Please advise. Thank you. Shira Chaney. documented in this encounter [facility] 08-05-2023 History of Presen t illness Narrative This note was created using [employer]. Subjective Neymar Rome is a 58 year old male. He had no new concerns other than medication refills. His labs needed updating. ACTIVE PROBLEM LIST Intervertebral Lumbar Disc Disorder With Myelopathy, Lumbar Region Hyperlipemia Allergic Dermatitis Blindness of Right Eye Benign Non-Nodular Prostatic Hyperplasia Without Lower Urinary Tract Symptoms Tobacco Use Disorder Copd (Chronic Obstructive Pulmonary Disease) (Hcc) Family History of Colon Cancer Tubular Adenoma of Colon Recurrent Deep Vein Thrombosis (Dvt) (Hcc) Obesity, Class I, Bmi 30-34.9 Infestation By Bed Bug History of Total Hip Replacement, Right Fatty Liver Narcotic Dependence (Hcc) Social History Tobacco Use Smoking status: Every Day Packs/day: 1.00 Years: 49.00 Additional pack years: 0.00 Total pack years: 49.00 Types: Cigarettes Start date: 1974 Smokeless tobacco: Never Tobacco comments: Started age 8 Vaping Use Vaping Use: Never used Substance Use Topics Alcohol use: No Comment: Hx alcoholism, sober since quit in 1998 Drug use: No Comment: hx marijuana use 1985 Current Outpatient Medications Medication Sig cetirizine (ZYRTEC) 10 mg tablet Take 1 tablet by mouth once daily. rivaroxaban (XARELTO) 20 mg tablet Take 1 tablet by mouth daily with dinner. atorvastatin (LIPITOR) 10 mg tablet Take 1 tablet by mouth daily at bedtime. For cholesterol. amitriptyline (ELAVIL) 25 mg tablet Take 1 tablet by mouth daily at bedtime. Dr. Camp morphine SR (MS CONTIN, ORAMORPH SR) 15 mg 12 hr tablet Take 15 mg by mouth once daily. pregabalin (LYRICA) 100 mg capsule Take 1 capsule by mouth twice daily. Per Dr. Camp. COMPOUNDED PRESCRIPTION 1 capsule as needed. OTC stool softner triamcinolone acetonide (KENALOG) 0.5 % cream Apply 1 application to affected area three times a day as needed. For rash/itching. Apply sparingly. Avoid face/skin fold. tiZANidine (ZANAFLEX) 4 mg tablet Take 1 tablet by mouth three times a day. Per Dr. Camp No current facility-administered medications for this visit. Objective Blood Pressure 120/68 (BP Site: Left Arm, BP Position: Sitting, BP Cuff Size: Large Adult) Pulse 96 Temperature 37 C (98.6 F) (Temporal) Respiration 24 Height 179.7 cm (5' 10.75) Weight 101.6 kg (224 lb) Body Mass Index 31.46 kg/m Physical Exam Constitutional: General: He is not in acute distress. Appearance: He is not ill-appearing. Neurological: General: No focal deficit present. Mental Status: He is alert. Gait: Gait normal. Assessment and Plan 1. Medicare annual wellness visit, subsequent - ICD9: V70.0, ICD10: Z00.00 (primary diagnosis) See wellness note. 2. Narcotic dependence (HCC) - ICD9: 304.90, ICD10: F11.20 Per pain management. 3. Chronic obstructive pulmonary disease, unspecified COPD type (HCC) - ICD9: 496, ICD10: J44.9 Stable. 4. Recurrent deep vein thrombosis (DVT) (HCC) - ICD9: 453.40, ICD10: I82.409 [facility] Xarelto. - COMPLETE BLOOD COUNT 5. Hyperlipidemia, unspecified hyperlipidemia type - ICD9: 272.4, ICD10: E78.5 - Control undetermined, due for labs - Continue current medications - Counseled on healthy diet and regular exercise - COMPREHENSIVE METABOLIC PANEL - LIPID PANEL, NONFASTING 6. Elevated glucose level - ICD9: 790.29, ICD10: R73.09 - HEMOGLOBIN A1C Kvng Fu MD Images from the original note were not included. Neymar Rome is a 58 year old male here for a Medicare wellness visit. Medicare Health Risk Assessment General Health Fair Exercise: Minutes/Day 0 min Exercise: Days/Week 0 days Alcohol: Daily Use Never Alcohol: Drinks/Day Patient does not drink Alcohol: 6 or more drinks Never Feel off balance No Concerns: Teeth/Dentures No Concerns: Sexual function No Troubled by feelings None of the above Frequency: Eating healthy diet Several days ADLs requiring help Cooking; Grocery shopping; Housework Safety precautions in home/vehicle Yes Smoke, vape, chews tobacco Yes, but I'm not ready to quit Difficulty hearing No Difficulty seeing No Current Providers Specialists: I have reviewed specialist-related care of the patient in the medical record. Current care team: Patient Care Team: Kvng Fu MD as PCP - General (Internal Medicine) Outside specialists seen: Andrew Camp MD, Pain Management. [facility]. Medical/Family history review Reviewed and updated problem list, medical/surgical/family/social history, medications, and allergies. Opioid use review Opioid Medications (last 90 days) Row Labels 08/05/2023 Opioid Medications Section Header. No data exists in this row. morphine sulfate 15 mg DAILY ORAL (15 mg TbER) No sig Details Patient-reported medication Prescribed by pain management. Does patient have risk factors for opioid abuse? Yes Pain overview Current pain concerns and treatment plan reviewed. Patient under the care of a specialist. Depression screening Row Labels Depression Screening PHQ-2 Score GERARDO-2 Total Score 08/05/2023 1 0 Depression screening tool completed and reviewed. Based on score and interview, patient is at risk for depression. Screening tool discussed with patient, and I recommended no further intervention at this time. Cognitive screening Cognitive screening reviewed and no further action needed (score 3-5) Functional Observation Was the patient's Timed Up & Go test unsteady or ? 12 seconds? No Advance Care Planning Patient did not wish or was not able to name a surrogate decision maker or provide an advance care plan Measurements BP 120/68 Pulse 96 Temp (Src) 98.6 (Temporal) Resp 24 Ht 5' 10.75 (1.80m) Wt 224 lb (101.6kg) BMI 31.46 kg/(m^2). Vision Screening: Follows with optometry/ophthalmology Declines visual acuity screen Assessment/Plan Medicare annual wellness visit, subsequent (Z00.00) - Counseled on healthy diet and regular exercise - Fall avoidance information provided - Personalized prevention plan provided - Discussed need for and benefit of weight loss. BMI 31.46 kg/(m^2) - Smoking cessation encouraged; discussed risks to health and quitting strategies. Patient is not ready to quit documented in this encounter [facility] 08-02-2023 Miscellaneous Notes Patient has been identified by name and date of : Yes, Provider Dr. Fu Date 08/02/23 Time 11:05 am Patient phones for refill(s): Requested Prescriptions Pending Prescriptions Disp Refills cetirizine (ZYRTEC) 10 mg tablet 30 tablet 2 Sig: Take 1 tablet by mouth once daily. rivaroxaban (XARELTO) 20 mg tablet 30 tablet 5 Sig: Take 1 tablet by mouth daily with dinner. Date of last office visit in primary care: 02/03/2023 Date of next office visit in primary care: 08/05/2023 No call back needed. Thank you. Lida Fiore LPN. documented in this encounter [facility] 06-03-2023 Miscellaneous Notes Jacquie from Dr Camp's office called and is notified of providers results and instructions. She voices understanding and will let Maxine know. Comfort Branch RN Stopping 5 days before is for warfarin. Xarelto is held 24 hour before. Patient can stop Xarelto 24-48 hrs before, and resume 24 hour after procedure. Maxine from Dr Camp's Office called and reports Pt has an order to be scheduled for a Cervical epidural injection C6-7. They need provider permission for the Pt to stop his Xarelto 5 days before the procedure. Please call and notify Dr Camp's office with providers answer. If Pt is approved left office know to notify Maxine to schedule the Pt as she works from home. documented in this encounter [facility] 03-26-2023 Miscellaneous Notes FOLLOW UP ENDOSCOPY - RESULTS AND RECOMMENDATIONS NAME: Neymar Rome CLINIC NO.: [id number] : 1965 DATE: March 26, 2023 PRIMARY CARE PROVIDER: Kvng Fu MD REFERRING PHYSICIAN: [place] Neymar Rome is a patient referred for endoscopy for screening colonoscopy with a family history of colon cancer. I performed lower endoscopy on March 22, 2023. The patient was found to have: Lower Endoscopy Impression: - One medium polyp at the hepatic flexure, removed with a cold snare. Resected and retrieved. Clip (MR conditional) was placed. - One small polyp in the transverse colon, removed with a cold biopsy forceps. Resected and retrieved. - Mucosal nodule in the rectum. Biopsied. - The examination was otherwise normal on direct and retroflexion views. Pathology demonstrated: FINAL DIAGNOSIS A. Hepatic flexure polyp, biopsy: - Tubular adenoma. B. Transverse colon polyp, biopsy: - Tubular adenoma. C. Rectal, nodules, biopsy: - Colonic mucosa with hyperplastic changes and muciphages IMPRESSION: Family history of colon cancer, adenomatous polyps x 2, unremarkable rectal nodules PLAN: INSTRUCTIONS FOLLOWING A POLYP FOUND AT COLONOSCOPY You were found to have adenomatous colon polyps. I recommend you undergo repeat endoscopy in 3 years. If you note bleeding, change in bowel habits, or other suspicious colon related symptoms before that time, those symptoms should be evaluated as necessary. If you have any difficulties or concerns, you should contact our office immediately. The patient is instructed to follow-up with your primary care provider as needed I have instructed my staff to forward the above information to the patient and to the appropriate providers documented in this encounter [facility] 03-12-2023 History and physical note HISTORY AND PHYSICAL EXAMINATION SERVICE DATE: 03/12/2023 SERVICE TIME: 10:25 AM PRIMARY CARE PHYSICIAN: Kvng Fu MD Assessment Patient has the following medical conditions which may affect kareen-operative course: Benign non-nodular prostatic hyperplasia without lower urinary tract symptoms Assessment: hx, no current tx Blindness of right eye Assessment: hx COPD (chronic obstructive pulmonary disease) (HCC) Assessment: mild on chest CT for lung cancer screening, denies frequent cough, wheezing or SOB. Smoker 0.5-1ppd/48+years 02/13/2021 PFT's IMPRESSION: Spirometry shows no obstruction.The reduced FVC suggests restriction. There is no significant bronchodilator response. The shape of the expiratory limb of the flow volume loop is consistent with submaximal expiratory effort from the patient during testing. Clinical correlation is advised. The TLC amd RV are normal. The RV/TLC is elevated indicating air trapping. Electronically Signed On 01-24-2021 12:12:26 EDT by Russell Cuellar Hyperlipemia Assessment: c/w statin Intervertebral lumbar disc disorder with myelopathy, lumbar region Assessment: following pain management Dr. Camp, tx with Salvador, MS contin and Zanaflex, controlled on this regimen Obesity, Class I, BMI 30-34.9 Assessment: Body mass index is 32.45 kg/m . Recurrent deep vein thrombosis (DVT) (HCC) Assessment: lifelong AC tx with Xarelto, informed pt does not have to hold for upcoming procedure per Dr. Kohli's office preference, pt verbalized understanding. Infestation by bed bug Assessment: tx last month by PCP's offfice, after pt left OV, several bed bugs live were found in exam room. Email to transportation project manager. History of total hip replacement, right Assessment: hx Fatty liver Assessment: hx ETOH abuse sober since 1997 per epic Albumin (g/dL) Date Value 08/04/2022 4.1 Bilirubin, Total (mg/dL) Date Value 08/04/2022 0.8 Alkaline Phosphatase (U/L) Date Value 08/04/2022 105 AST (U/L) Date Value 08/04/2022 30 ALT (U/L) Date Value 08/04/2022 32 Protein, Total (g/dL) Date Value 08/04/2022 7.4 [place] Activity Status Index: METS: Climb a flight of stairs or walk up a hill (5.50 METs) DASI Score: 5.5 Patient denies any chest pain or undue shortness of breath with the above physical activity. Clinical Frailty Scale: 3. Well, with treated comorbid disease STOP-Bang Score: Snores loudly Patient over 50 years old Has a large neck Male patient Denies feeling tired, fatigued, or sleepy during the daytime Has not been observed to stop breathing or choking/gasping during sleep Denies having high blood pressure BMI less than or equal to 35 kg/m^2 STOP-Bang Score: 4 [id number] Score: Age: <65 Sex: male CHF history: No Hypertension history: No Stroke/TIA/thromboembolism history: Yes Vascular disease history: No Diabetes history: No [id number] Score: 2 ARISCAT Score: Age: 51-80 Preoperative SpO2: >=96% Respiratory infection in the last month: No Preoperative anemia: Yes Surgical incision: peripheral Duration of surgery: <2 hrs Emergency procedure: No ARISCAT Score: 14 ANESTHESIA FINDINGS: Intubation History: No history of difficult intubation Significant Anesthesia Considerations: none Airway History: No history of difficult airway I - PHYSICAL EVALUATION AIRWAY Patient intubated: No. Tracheostomy tube not present Mallampati: III. TM distance: >3 FB. Neck ROM: limited flexion and extension. Mouth opening: adequate. Short neck: no. Thick neck: yes Hernandez present: yes Lip Bite Test: I Microretrognathia/Micronagthia/R ecessed Chin: No DENTAL Dentures, upper: complete. Dentures, lower: complete. II - ANESTHESIA PLAN Anesthetic Plan: other Beta Snow Monitoring Plan Post Procedure Analgesic Plan Informed Consent Anesthetic risks, benefits, alternatives, personnel and consent discussed: yes. Patient / Responsible Alliance Party agrees to proceed: yes Patient / Surrogate agrees to blood products: blood products not planned Discussed the possibility of lip / dental damage: yes REASON FOR VISIT: Neymar Rome is a 57 year old male who is scheduled for colonoscopy at the request of Dr. Rene Kohli for consultation. My final recommendation will be communicated back to the requesting physician by way of shared medical record or letter. Subjective The patient has the following: ACTIVE PROBLEM LIST Intervertebral Lumbar Disc Disorder With Myelopathy, Lumbar Region Hyperlipemia Allergic Dermatitis Blindness of Right Eye Benign Non-Nodular Prostatic Hyperplasia Without Lower Urinary Tract Symptoms Tobacco Use Disorder Copd (Chronic Obstructive Pulmonary Disease) (Hcc) Family History of Colon Cancer Tubular Adenoma of Colon Recurrent Deep Vein Thrombosis (Dvt) (Hcc) Obesity, Class I, Bmi 30-34.9 Infestation By Bed Bug History of Total Hip Replacement, Right Fatty Liver COVID-19 Immunization Status Overdue - Covid-19 Vaccine (1) Overdue - never done 02/13/2022 Postponed until 02/13/2023 by Kvng Fu MD (Declined at this time) CHIEF COMPLAINT: Pre-op exam HPI: Neymar Rome is a 57 year old seen for PAC due to scheduled above surgery because hx colon polyps. 01/04/2023, Comfort Velazquez PA-C HPI: The patient is a 57 year old male referred for endoscopy. Neymar notes a history of colon polyps and is due for surveillance colonoscopy. Patient denies any change in bowel habits, weight changes, blood in stools, black tarry stools or abdominal pain. NOTES family history of colon cancer in a first-degree relative. The patient notes no upper GI complaints. Neymar has undergone prior endoscopy. Last colonoscopy 04/05/[address] [facility] by Dr. Del Cid with removal of sessile serrated polyp and tubular adenoma. Had recent ED visit for cellulitis, has had follow-up with primary care since that time. Patient is maintained on oral anticoagulation for history of recurrent DVT/PE. He follows with Dr. Fu in primary care. Patient denies chest pain or shortness of breath. Denies problems with sedation in the past. REVIEW OF SYSTEMS: General: No weight loss, malaise or fevers. Neurological: No history of TIA's, stroke, CLEAN ROOM ASSEMBLER tumor, impaired sensorium, hemiplegia, paraplegia or quadraplegia. No neurological symptoms or problems. Respiratory: Positive for: COPD (no rx in a few yrs for inhalers) and tobacco use (1ppd). Negative for: asthma, pneumonia within 6 weeks, URI < 2 weeks and obstructive sleep apnea. Cardiovascular: Positive for: anticoagulation therapy (Xarelto), DVT/PE (recurrent) and hyperlipidemia Negative for: arrhythmia, atrial fibrillation, CAD, chest pain, CHF, congenital heart defect, hypertension, recent [place], murmur/valvular heart disease, open heart surgery and valve surgery. GI: Positive for: liver disease (fatty liver) Negative for: GERD, hepatitis, irritable bowel syndrome, inflammatory bowel disease, nausea, pancreatitis, vomiting and ETOH >2 drinks/day. : Positive for: nephrolithiasis (remote hx). Negative for: BPH, renal failure and urinary tract infection. Endocrine: No history of diabetes. Has not taken steroids within the past 30 days. No history of endocrinological symptoms or problems. Hematology: No history of bleeding or clotting disorder. Patient is not taking anti-coagulation or platelet medications. No history of hematological symptoms or problems. Oncology: No history of CA metastasis, chemo within 30 days, or radiotherapy within 90 days. No history of oncological symptoms or problems. Psych: No history of psychiatric symptoms or problems. Musculoskeletal: Positive for: back pain (and neck, rx as needed). Skin: Negative for lesions, rash and itching. 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 electrolyte imbalance False positive serological test for hepatitis C 09/2015 Fatty liver disease, nonalcoholic Hematuria 10/04/2013 Hip arthritis 08/07/2013 Hip joint replacement status 11/21/2013 History of alcoholism ([facility]) 1994 sober since 1997 History of pulmonary embolism 08/12/2012 HTN (hypertension) Hyperlipemia Kidney stones 10/04/2013 LUMB DISC DIS W MYELOPAT 05/17/2006 PE (pulmonary embolism) 01/11/2012 DVT and PE Recurrent deep vein thrombosis (DVT) (HCC) 04/26/2021 Renal colic 04/08/2007 Tubular adenoma of colon 04/07/2018 Zoster 05/28/2007 PAST SURGICAL HISTORY Procedure Laterality Date ARTHRP ACETBLR/PROX FEM PROSTC AGRFT/ALGRFT Right 11/08/2013 right MICHAEL CERVICAL OR THORACIC EPIDURAL INJECTION 03/31/2018 of neck 03-31-18 COLONOSCOPY 04/07/2018 COLONOSCOPY & POLYPECTOMY 08/09/2012 repeat due 2017 ERCP W/DESTRUCTN STONE(S)-LITHOTRIPSY 2007 multi times for kidney stones IR IVC FILTER PLACEMENT 11/08/2013 [facility] [place] via [facility] PAST SURGICAL HISTORY OF Right 1996 hernia right groin PAST SURGICAL HISTORY OF 2011 gall bladder removed PAST SURGICAL HISTORY OF 2000 cystoscopy FAMILY HISTORY Problem Relation Age of Onset Hypertension Mother Colon Cancer Mother 65 Liver Cancer Mother Diabetes Father Hypertension Father Stroke Father pt states had over 33 strokes Hypertension Sister Diabetes Sister No Known Problems Sister Kidney Disease Brother stones Hypertension Paternal Grandmother Diabetes Paternal Grandmother Hypertension Paternal Grandfather Hypertension Paternal Aunt Social History Tobacco Use Smoking status: Every Day Packs/day: 1.00 Years: 48.00 Additional pack years: 0.00 Total pack years: 48.00 Types: Cigarettes Start date: 1974 Smokeless tobacco: Never Tobacco comments: Started age 8 Vaping Use Vaping Use: Never used Substance Use Topics Alcohol use: No Comment: Hx alcoholism, sober since quit in 1998 Drug use: No Comment: hx marijuana use 1983 Prior to Admission medications as of 03/12/23 1041 Medication Sig Last Dose Taking atorvastatin (LIPITOR) 10 mg tablet Take 1 tablet by mouth daily at bedtime. For cholesterol. Taking Yes hydrOXYzine HCl (ATARAX) 25 mg tablet Take 1-2 tablets by mouth four times a day as needed for itching/rash. Taking Yes triamcinolone acetonide (KENALOG) 0.5 % cream Apply 1 application to affected area three times a day as needed. For rash/itching. Apply sparingly. Avoid face/skin fold. Taking Yes cetirizine (ZYRTEC) 10 mg tablet Take 1 tablet by mouth once daily. Taking Yes rivaroxaban (XARELTO) 20 mg tablet Take 1 tablet by mouth daily with dinner. Taking Yes amitriptyline (ELAVIL) 25 mg tablet Take 1 tablet by mouth daily at bedtime. Dr. Camp Taking Yes tiZANidine (ZANAFLEX) 4 mg tablet Take 1 tablet by mouth once daily. Per Dr. Camp Taking Yes morphine SR (MS CONTIN, ORAMORPH SR) 15 mg 12 hr tablet Take 15 mg by mouth once daily. Taking Yes pregabalin (LYRICA) 100 mg capsule Take 1 capsule by mouth twice daily. Per Dr. Camp. Taking Yes COMPOUNDED PRESCRIPTION 1 capsule as needed. OTC stool softner Taking Yes Medication Comments documented by Comfort Velazquez PA-C on 03/23/2018 at 0825. - ALLERGIES Allergen Reactions Formaldehyde Other: See Comments blisters Latex Paroxetine Hcl Other: See Comments sexual dysfunction Tramadol Mental Status Change Venlafaxine Hcl Other: See Comments increased BP Vicodin [Hydrocodon* Other: See Comments causes pain Objective PHYSICAL EXAM: General: alert and oriented (x3), healthy appearance and obese. Pertinent negatives noted - not distressed. Skin: normal color, no rash or lesions. HEENT: EOM intact and pupils equal round. Pertinent negatives noted - no carotid bruit. Cardiovascular: regular rate and rhythm, normal S1 and S2, no rub, murmurs, or gallop. Respiratory: normal breath sounds, no wheezes or crackles. No chest wall deformity or tenderness. Abdomen: soft. Pertinent negatives noted - not tender. Extremities: no deformity, no edema or tenderness, no joint swelling or clubbing. Neurological: normal cognition and motor skills. Gait normal. No weakness or sensory deficit. PAIN ASSESSMENT: VITALS: BP 138/82 Pulse 102 Temp (Src) 98.3 (Temporal) Resp 18 Ht 5' 10.75 (1.80m) Wt 231 lb (104.8kg) SpO2 97% BMI 32.45 kg/(m^2). Diagnostic tests reviewed for today's visit: Lab Value Units Date High Low HB No results within date range. HCT No results within date range. WBC No results within date range. PLT No results within date range. NA No results within date range. K No results within date range. GLUC No results within date range. BUN No results within date range. CREAT No results within date range. PTSEC No results within date range. INR No results within date range. APTT No results within date range. ALT No results within date range. AST No results within date range. TBILI No results within date range. TSH No results within date range. Lab Value Units Date High Low HCGQT No results within date range. UHCG No results within date range. HCG, BODY* No results within date range. Lab Value Units Date High Low ABORHD No results within date range. ABSCREEN No results within date range. Hemoglobin A1C (%) Date Value 05/17/2021 5.8 06/15/2014 5.6 No results found for this or any previous visit (from the past 8760 hour(s)). No results found for this or any previous visit (from the past 55804 hour(s)). Prepared for Surgery: optimally prepared for surgery. CONSULTS: Patient does not require consults for optimization at this time Planned Anesthetic: other anesthesia choice The Following Tests/Procedures Have Been Initiated: No orders of the defined types were placed in this encounter. Instructions Given to Patient: Instructions located in the after visit summary. Patient given verbal and written preop instructions and voices comprehension and compliance. SIGNATURE: Brandy Blanca APRN.CNP PATIENT NAME: Neymar Rome DATE: March 12, 2023 TIME: 10:48 AM PAGER/CONTACT #: documented in this encounter [facility] 03-12-2023 Instructions Brandy Blanca APRN.CNP - 03/12/2023 10:43 AM EST PATIENT PREOPERATIVE INSTRUCTIONS Rene Kohli MD has scheduled you for your procedure at this surgery center: [facility]: [phone] -- [address] [address]. Please read below carefully for your personalized instructions. Dietary Restrictions: - Follow bowel prep instructions: clear liquids need to be stopped 2 hours prior to schedule arrival at facility Medications: Unless instructed differently below, stay on all of your medications until your surgery. If you start any new medications after today's visit, please contact your surgeon. Pre-Surgery Med Instructions Medication Instructions atorvastatin (LIPITOR) 10 mg tablet Take the day of surgery with a small sip of water hydrOXYzine HCl (ATARAX) 25 mg tablet If needed triamcinolone acetonide (KENALOG) 0.5 % cream Take the day of surgery with a small sip of water cetirizine (ZYRTEC) 10 mg tablet Take the day of surgery with a small sip of water rivaroxaban (XARELTO) 20 mg tablet Take the day of surgery with a small sip of water amitriptyline (ELAVIL) 25 mg tablet Do not take the day of surgery tiZANidine (ZANAFLEX) 4 mg tablet IF needed morphine SR (MS CONTIN, ORAMORPH SR) 15 mg 12 hr tablet IF needed pregabalin (LYRICA) 100 mg capsule Take the day of surgery with a small sip of water If you take any medications for erectile dysfunction-Cialis (Tadalafil), Levitra, Staxyn (Vardenafil) Viagra (Sildenenafil please do not take these for 48 hours before surgery. If you start any new medications after today's visit, please contact the surgeon's office. Blood Thinning Medications: - Stop NSAIDS (Ibuprofen, Advil, Aleve, Motrin, Celebrex, Mobic, etc.) 7 days before surgery, as directed by your surgeon. - Do NOT stop aspirin or other anticoagulants without consulting with your administrator of home health or prescribing physician. - Stop Vitamin E, ALL multi-vitamins, herbals and dietary supplements 7 days before surgery. - You may take Tylenol (Acetaminophen) or any of your pain medications that do not contain aspirin or NSAIDS as needed. Important Reminders: - Candy, mints, and tobacco products are NOT permitted the morning of surgery. - Hearing aids, dentures and glasses may be worn the morning of surgery. - NO jewelry, body piercings, makeup, hairpins or contacts are to be worn the day of surgery. If you develop symptoms such as a fever, cold, or flu, or have other changes to your health within TWO DAYS of scheduled surgery or the morning of surgery, please contact the surgery center above. Personal Belongings: -Please have photo ID and insurance cards. -If you do not have a copy of advance directives on file with us, please bring a copy with you on the day of surgery. - Leave ALL valuables and money at home or with family members. For Outpatient Procedures: - YOU MUST HAVE A RESPONSIBLE CPC CODER TAKE YOU HOME. A MOTOR MECHANIC OR PORK CUTLET MAKER CANNOT BE MADE A RESPONSIBLE CPC CODER. - We recommend that a responsible person stays with you overnight to take care of you. - You cannot stay in a hotel alone after outpatient surgery. You will not be permitted to have your surgery, if you do not have someone to take care of you. Arrival Time for Surgery: - The Surgery Center or hospital where you are having surgery will call the afternoon before surgery (or Wednesday for Wednesday surgery) with a scheduled arrival time. - If you have not heard by 4 pm, please contact the surgery center above. Please be aware that emergency situations arise, which may delay or change your surgical time. If this happens, we will notify you as soon as possible and regret any inconvenience. If you already have an Advance Directive, please fax a copy to [phone] or email to for it to be added to your chart. If you do not have an Advance Directive, you can find the appropriate form and more information at [email or web address]. We recommend that you complete the Advance Directive form found on the website and bring it with you the day of your surgery. It can be witnessed and scanned into your chart that day. Brandy Blanca APRN.JALYN documented in this encounter [facility] 02-03-2023 History of Presen t illness Narrative CC: Patient presents with: F/U 6 months HPI Neymar Rome is a 57 year old male who presents today for above. He reports rash and itching all over including face, arms and legs. This has been present for months. He is wondering if it is due to any of the medications he is taking. He was seen in October and bed bug infestation in his house was dicussed. This is still an issue, he has tried home remedies and over the counter sprays but can't seem to get rid of them. He can't afford to pay an hall director. He is doing well otherwise. Taking all medications as prescribed, denies side effects. He has a history of recurrent DVT's and cellulitis, but no issues since he was here in October. 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 electrolyte imbalance False positive serological test for hepatitis C 09/2015 Fatty liver disease, nonalcoholic Hematuria 10/04/2013 Hip arthritis 08/07/2013 Hip joint replacement status 11/21/2013 History of alcoholism (HCC) 1994 sober since 1997 History of pulmonary embolism 08/12/2012 HTN (hypertension) Hyperlipemia Kidney stones 10/04/2013 LUMB DISC DIS W MYELOPAT 05/17/2006 PE (pulmonary embolism) 01/11/2012 DVT and PE Recurrent deep vein thrombosis (DVT) (HCC) 04/26/2021 Renal colic 04/08/2007 Tubular adenoma of colon 04/07/2018 Zoster 05/28/2007 PAST SURGICAL HISTORY Procedure Laterality Date ARTHRP ACETBLR/PROX FEM PROSTC AGRFT/ALGRFT Right 11/08/2013 right MICHAEL CERVICAL OR THORACIC EPIDURAL INJECTION 03/31/2018 of neck 03-31-18 COLONOSCOPY 04/07/2018 COLONOSCOPY & POLYPECTOMY 08/09/2012 repeat due 2017 ERCP W/DESTRUCTN STONE(S)-LITHOTRIPSY 2007 multi times for kidney stones IR IVC FILTER PLACEMENT 11/08/2013 [facility] [place] via [facility] PAST SURGICAL HISTORY OF Right 1996 hernia right groin PAST SURGICAL HISTORY OF 2011 gall bladder removed PAST SURGICAL HISTORY OF 2000 cystoscopy ALLERGIES Formaldehyde, Latex, Paroxetine Hcl, Tramadol, Venlafaxine Hcl, and Vicodin [Hydrocodone-Acetaminophen] MEDICATIONS amitriptyline (ELAVIL) 25 mg tablet Take 1 tablet by mouth daily at bedtime. Dr. Camp atorvastatin (LIPITOR) 10 mg tablet Take 1 tablet by mouth daily at bedtime. For cholesterol. cetirizine (ZYRTEC) 10 mg tablet Take 1 tablet by mouth once daily. COMPOUNDED PRESCRIPTION 1 capsule as needed. OTC stool softner furosemide (LASIX) 20 mg tablet Take 1 tablet by mouth once daily for 7 days. morphine SR (MS CONTIN, ORAMORPH SR) 15 mg 12 hr tablet Take 15 mg by mouth once daily. pregabalin (LYRICA) 100 mg capsule Take 1 capsule by mouth twice daily. Per Dr. Camp. rivaroxaban (XARELTO) 20 mg tablet Take 1 tablet by mouth daily with dinner. tiZANidine (ZANAFLEX) 4 mg tablet Take 1 tablet by mouth once daily. Per Dr. Camp FAMILY HISTORY Problem Relation Age of Onset Hypertension Mother Colon Cancer Mother 65 Liver Cancer Mother Diabetes Father Hypertension Father Stroke Father pt states had over 33 strokes Hypertension Sister Diabetes Sister No Known Problems Sister Kidney Disease Brother stones Hypertension Paternal Grandmother Diabetes Paternal Grandmother Hypertension Paternal Grandfather Hypertension Paternal Aunt Social History Tobacco Use Smoking status: Every Day Packs/day: 1.00 Years: 48.00 Additional pack years: 0.00 Total pack years: 48.00 Types: Cigarettes Start date: 1974 Smokeless tobacco: Never Tobacco comments: Started age 8 Vaping Use Vaping Use: Never used Substance Use Topics Alcohol use: No Comment: Hx alcoholism, sober since quit in 1998 Drug use: No Comment: hx marijuana use 1982 BP 131/81 Pulse 105 Resp 18 Wt 101.2 kg (223 lb) BMI 31.32 kg/m Physical Exam Vitals reviewed. Constitutional: General: He is not in acute distress. Appearance: He is not ill-appearing. Skin: Comments: scattered, scabbed over lesions visible on the arms, neck and face in a pattern suggesting insect bites. Some are excoriated from patient scratching, none that appear infected. On closer exam he has bed bugs crawling on his jacket and shirt. Neurological: Mental Status: He is alert. Health maintenance reviewed with patient: Colorectal Cancer Screening due on 04/05/2021 Influenza Vaccine(1) due on 12/25/2022 Covid-19 Vaccine(1) due on 02/13/2023 Hepatitis B Vaccine(1 of 3 - 3-dose series) due on 08/05/2023 Shingrix Vaccine(1 of 2) due on 08/05/2023 Lung Cancer Screening due on 04/08/2023 Annual PCP Team Chronic Disease Visit due on 11/19/2023 DTaP,Tdap,Td Vaccine(2 - Td or Tdap) due on 05/13/2025 Diabetes Screening due on 08/04/2025 Lipid Screening due on 08/05/2027 Prostate Cancer Screening Discussion due on 08/05/2027 Spirometry Completed Depression Assessment Completed Hepatitis C Screening Completed HIV Screening Completed Pneumococcal Vaccine Completed Alpha-1 Antitrypsin Deficiency Screening Discontinued DATA REVIEWED: Most recent labs ASSESSMENT/PLAN: 1. Infestation by bed bug - ICD9: 134.8, ICD10: B88.8 (primary diagnosis) Home remedies and OTC treatments are not working but he is unable to afford hall director. I will get in touch with the nursing home social worker to see if there is type of assistance for this. 2. Bedbug bite, subsequent encounter - ICD9: V58.89, 919.4, ICD10: W57.XXXD Itching and skin lesions secondary to bed bug bites. No signs of infection however this is a concern especially due to his history of cellulitis. Start treatment with Triamcinolone cream and Vistaril as needed. See plan above. 3. Recurrent deep vein thrombosis (DVT) (HCC) - ICD9: 453.40, ICD10: I82.409 Taking Xarelto, denies missing any doses 4. Chronic obstructive pulmonary disease, unspecified COPD type (HCC) - ICD9: 496, ICD10: J44.9 Stable 5. Obesity, Class I, BMI 30-34.9 - ICD9: 278.00, ICD10: E66.9 Weight stable Prescription instructions reviewed with patient as applicable. Potential red flag symptoms discussed with the patient. Reviewed appropriate action plan to take if red flag symptoms occur. Patient agreeable to treatment plan. Naomi Garcia APRN.CNP documented in this encounter [facility] 02-01-2023 Miscellaneous Notes Patient has been identified by name and date of : Yes, Patient phones for refill(s): Requested Prescriptions Pending Prescriptions Disp Refills cetirizine (ZYRTEC) 10 mg tablet 30 tablet 2 Sig: Take 1 tablet by mouth once daily. rivaroxaban (XARELTO) 20 mg tablet 30 tablet 5 Sig: Take 1 tablet by mouth daily with dinner. Date of last office visit in primary care: 11/18/2022 6 month follow-up: 02/03/2023 Last 2 Encounter Wt Readings: Date: Wt: 11/24/2022 103 kg (227 lb) 11/18/2022 100.7 kg (222 lb) Previous labs/tests for medication: Not applicable Please advise. Thank you. Liv Milian LPN Patient has been identified by name and date of : Yes Requested Prescriptions Pending Prescriptions Disp Refills cetirizine (ZYRTEC) 10 mg tablet 30 tablet 2 Sig: Take 1 tablet by mouth once daily. rivaroxaban (XARELTO) 20 mg tablet 30 tablet 5 Sig: Take 1 tablet by mouth daily with dinner. RX INSTRUCTIONS: Patient aware RX will be sent to pharmacy. No need to notify patient. Malini Carranza documented in this encounter [facility] 11-24-2022 Nurse Note REVIEW OF SYSTEMS: General: The patient denies fatigue, NOTES weight loss, denies weight gain, denies feeling hot, and denies feelings of cold. Eyes: The patient denies glaucoma, NOTES eye injury/surgery, wears glasses or contacts. Ear/Nose/Throat: The patient NOTES allergies, denies hayfever, denies ear infections, and denies bloody noses. Cardiovascular: The patient denies chest pain, denies heart disease, NOTES high blood pressure,denies cardiac stent, denies prior heart attack, denies irregular heart beat, NOTES high cholesterol, denies poor circulation, denies heart failure, other cardiac issues, denies claudication, denies cold feet, denies peripheral arterial stent. Respiratory: The patient denies tuberculosis, denies pneumonia, denies frequent cough, NOTES pulmonary embolism, denies shortness of breath, and denies coughing up blood. Gastrointestinal: The patient denies difficulty swallowing, denies acid reflux, NOTES ulcers, denies vomiting, denies jaundice/hepatitis, NOTES gallbladder problems, denies black or tarry stools, denies hemorrhoids, denies bleeding from rectum, denies diverticulitis, denies constipation, denies diarrhea, denies loss of stool control, and denies hernias. Kidney/Bladder: The patient NOTES kidney stones, denies urine infections, and NOTES bloody urine. Skin: The patient denies a history of skin cancer, denies bleeding/changing moles, and denies a history of skin rash. Neurologic: The patient denies a history of epilepsy/convulsions, denies headaches, denies head/spinal injuries, and denies stroke/TIA. Psychiatric: The patient denies psychiatric medications, NOTES depression, and denies voices, denies substance abuse. Endocrine: The patient denies thyroid disorders, denies diabetes, and denies hormonal problems. Hematologic: The patient denies a history of bruising, denies bleeding, and denies anemia, NOTES blood clots. Infections: The patient denies a history of measles and mumps, denies rheumatic fever, and denies sexually transmitted diseases. Musculoskeletal: The patient NOTES back pain/injury, NOTES back problems, denies sciatica, denies knee/foot trouble, NOTES arthritis, or denies gout. When was patient's last Mammogram screening? N/A Last Colonoscopy: 04/05/2018 Eliane Ramesh RN documented in this encounter [facility] 11-24-2022 History of Presen t illness Narrative HISTORY AND PHYSICAL Neymar Rome 1965 REFERRING PHYSICIAN: Kvng Fu MD CHIEF COMPLAINT: Consult (Colonoscopy consult.) HPI: The patient is a 57 year old male referred for endoscopy. Neymar notes a history of colon polyps and is due for surveillance colonoscopy. Patient denies any change in bowel habits, weight changes, blood in stools, black tarry stools or abdominal pain. NOTES family history of colon cancer in a first-degree relative. The patient notes no upper GI complaints. Neymar has undergone prior endoscopy. Last colonoscopy 04/05/18 at [facility] by Dr. Del Cid with removal of sessile serrated polyp and tubular adenoma. Had recent ED visit for cellulitis, has had follow-up with primary care since that time. Patient is maintained on oral anticoagulation for history of recurrent DVT/PE. He follows with Dr. Fu in primary care. Patient denies chest pain or shortness of breath. Denies problems with sedation in the past. 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 electrolyte imbalance False positive serological test for hepatitis C 09/2015 Fatty liver disease, nonalcoholic Hematuria 10/04/2013 Hip arthritis 08/07/2013 Hip joint replacement status 11/21/2013 History of alcoholism (HCC) 1994 sober since 1997 History of pulmonary embolism 08/12/2012 HTN (hypertension) Hyperlipemia Kidney stones 10/04/2013 LUMB DISC DIS W MYELOPAT 05/17/2006 PE (pulmonary embolism) 01/11/2012 DVT and PE Recurrent deep vein thrombosis (DVT) (HCC) 04/26/2021 Renal colic 04/08/2007 Tubular adenoma of colon 04/07/2018 Zoster 05/28/2007 PAST SURGICAL HISTORY Procedure Laterality Date ARTHRP ACETBLR/PROX FEM PROSTC AGRFT/ALGRFT Right 11/08/2013 right MICHAEL CERVICAL OR THORACIC EPIDURAL INJECTION 03/31/2018 of neck 03-31-18 COLONOSCOPY 04/07/2018 COLONOSCOPY & POLYPECTOMY 08/09/2012 repeat due 2017 ERCP W/DESTRUCTN STONE(S)-LITHOTRIPSY 2007 multi times for kidney stones IR IVC FILTER PLACEMENT 11/08/2013 [facility] [place] [facility] PAST SURGICAL HISTORY OF Right 1996 hernia right groin PAST SURGICAL HISTORY OF 2011 gall bladder removed PAST SURGICAL HISTORY OF 2000 cystoscopy Current Outpatient Medications Medication Sig furosemide (LASIX) 20 mg tablet Take 1 tablet by mouth once daily for 7 days. cetirizine (ZYRTEC) 10 mg tablet Take 1 tablet by mouth once daily. atorvastatin (LIPITOR) 10 mg tablet Take 1 tablet by mouth daily at bedtime. For cholesterol. rivaroxaban (XARELTO) 20 mg tablet Take 1 tablet by mouth daily with dinner. amitriptyline (ELAVIL) 25 mg tablet Take 1 tablet by mouth daily at bedtime. Dr. Camp tiZANidine (ZANAFLEX) 4 mg tablet Take 1 tablet by mouth once daily. Per Dr. Camp morphine SR (MS CONTIN, ORAMORPH SR) 15 mg 12 hr tablet Take 15 mg by mouth once daily. pregabalin (LYRICA) 100 mg capsule Take 1 capsule by mouth twice daily. Per Dr. Camp. COMPOUNDED PRESCRIPTION 1 capsule as needed. OTC stool softner No current facility-administered medications for this visit. ALLERGIES: Formaldehyde, Latex, Paroxetine Hcl, Tramadol, Venlafaxine Hcl, and Vicodin [Hydrocodone-Acetaminophen] PERSONAL HISTORY: Social History Tobacco Use Smoking status: Every Day Packs/day: 1.00 Years: 48.00 Total pack years: 48.00 Types: Cigarettes Start date: 1974 Smokeless tobacco: Never Tobacco comments: Started age 8 Vaping Use Vaping Use: Never used Substance Use Topics Alcohol use: No Comment: Hx alcoholism, sober since quit in 1998 Drug use: No Comment: hx marijuana use 1982 FAMILY HISTORY: FAMILY HISTORY Problem Relation Age of Onset Hypertension Mother Colon Cancer Mother 65 Liver Cancer Mother Diabetes Father Hypertension Father Stroke Father pt states had over 33 strokes Hypertension Sister Diabetes Sister No Known Problems Sister Kidney Disease Brother stones Hypertension Paternal Grandmother Diabetes Paternal Grandmother Hypertension Paternal Grandfather Hypertension Paternal Aunt REVIEW OF SYMPTOMS: The review of systems data was entered by the nurse and reviewed by nj Nursing Notes: Eliane Ramesh RN 11/24/2022 8:50 AM Signed REVIEW OF SYSTEMS: General: The patient denies fatigue, NOTES weight loss, denies weight gain, denies feeling hot, and denies feelings of cold. Eyes: The patient denies glaucoma, NOTES eye injury/surgery, wears glasses or contacts. Ear/Nose/Throat: The patient NOTES allergies, denies hayfever, denies ear infections, and denies bloody noses. Cardiovascular: The patient denies chest pain, denies heart disease, NOTES high blood pressure,denies cardiac stent, denies prior heart attack, denies irregular heart beat, NOTES high cholesterol, denies poor circulation, denies heart failure, other cardiac issues, denies claudication, denies cold feet, denies peripheral arterial stent. Respiratory: The patient denies tuberculosis, denies pneumonia, denies frequent cough, NOTES pulmonary embolism, denies shortness of breath, and denies coughing up blood. Gastrointestinal: The patient denies difficulty swallowing, denies acid reflux, NOTES ulcers, denies vomiting, denies jaundice/hepatitis, NOTES gallbladder problems, denies black or tarry stools, denies hemorrhoids, denies bleeding from rectum, denies diverticulitis, denies constipation, denies diarrhea, denies loss of stool control, and denies hernias. Kidney/Bladder: The patient NOTES kidney stones, denies urine infections, and NOTES bloody urine. Skin: The patient denies a history of skin cancer, denies bleeding/changing moles, and denies a history of skin rash. Neurologic: The patient denies a history of epilepsy/convulsions, denies headaches, denies head/spinal injuries, and denies stroke/TIA. Psychiatric: The patient denies psychiatric medications, NOTES depression, and denies voices, denies substance abuse. Endocrine: The patient denies thyroid disorders, denies diabetes, and denies hormonal problems. Hematologic: The patient denies a history of bruising, denies bleeding, and denies anemia, NOTES blood clots. Infections: The patient denies a history of measles and mumps, denies rheumatic fever, and denies sexually transmitted diseases. Musculoskeletal: The patient NOTES back pain/injury, NOTES back problems, denies sciatica, denies knee/foot trouble, NOTES arthritis, or denies gout. When was patient's last Mammogram screening? N/A Last Colonoscopy: 04/05/2018 Eliane Ramesh RN PHYSICAL EXAMINATION: General: The patient is 57 year old male, well nourished, well hydrated in no acute distress. The patient is oriented to time, place, and person. VITALS: Blood pressure 122/70, pulse (!) 126, temperature 36.5 C (97.7 F), height 179.7 cm (5' 10.75), weight 103 kg (227 lb), SpO2 96 %. Body mass index is 31.88 kg/m . HEENT: Normal cephalic, ataumatic, pupils are equally round, sclera are anicteric, mucous membranes are moist, oropharynx is clear. Neck has no masses, asymmetry or lymphadenopathy. Respiratory: Clear to auscultation and percussion. Normal respiratory excursion and pattern. Cardiac: Examination is regular rate and rhythm. Normal S1/S2 Abdominal exam: Soft, nontender, with no palpable masses. No hepatosplenomegaly. No palpable hernias. Extremities: no clubbing, cyanosis or edema. No adenopathy. LABORATORY VALUES: As Noted RADIOLOGIC STUDIES: As Noted Assessment IMPRESSION: family history of colon cancer, personal history of colon polyps PLAN: I have reviewed my findings with the surgeon. Will plan for lower endoscopy. We discussed the risks and benefits of the planned endoscopy. I have informed the patient that complications can occur including failure to complete the endoscopy and perforation. The patient had the opportunity to ask questions concerning the planned endoscopy. My staff has also explained the procedure to the patient in understandable terms and has given the patient printed material concerning the procedure. The patient freely consents to surgery. I plan to use Golytely bowel preparation Patient to remain on his anticoagulation for endoscopy procedure. History of DVT/PE The patient takes prescription medications which I feel decrease the chance of successful sedation, therefore we will plan for procedure to be done under Monitored Anesthetic Care. Diagnoses: (Z12.11) Encounter for screening for malignant neoplasm of colon (primary encounter diagnosis) (D12.6) Tubular adenoma of colon (Z86.010) History of colonic polyps Consultation requested by Dr. Fu for an opinion regarding history of colon polyps and need for high-risk surveillance colonoscopy. My final recommendations will be communicated back to the requesting physician by way of shared Medical record or letter to requesting physician via US mail. Comfort Velazquez PA-C documented in this encounter [facility] 11-02-2022 Miscellaneous Notes Patient has been identified by name and date of : Yes Requested Prescriptions Pending Prescriptions Disp Refills cetirizine (ZYRTEC) 10 mg tablet 30 tablet 2 Sig: Take 1 tablet by mouth once daily. KENDRA-08/04/22 Labs-08/04/22 NOV-02/03/23 RX INSTRUCTIONS: Patient aware RX will be sent to pharmacy. No need to notify patient. Venita Fiore Pss documented in this encounter [facility] 09-01-2022 Miscellaneous Notes KENDRA 08/04/22 Appointment 02/03/23 Please review and advise. Thank you. ANA LUISA Holcomb Patient has been identified by name and date of : Yes Last office visit in this department: Visit date not found RX INSTRUCTIONS: Patient aware RX will be sent to pharmacy. No need to notify patient. Patient phones requesting refills as follows: Requested Prescriptions Pending Prescriptions Disp Refills atorvastatin (LIPITOR) 10 mg tablet 30 tablet 5 Sig: Take 1 tablet by mouth daily at bedtime. For cholesterol. Please review and advise. Sharona Silva documented in this encounter [facility] 08-04-2022 History of Presen t illness Narrative CC: Patient presents with: 1 week follow up for left knee injury and routine follow-up HPI Neymar Rome is a 57 year old male who presents today for above. Patient was seen on 07/28 for follow-up of left injury. See office notes in Epic. Knee x-ray repeated due to persistent symptoms and cellulitis. No acute findings. Cellulitis treated with keflex. Today patient reports significant improvement in pain and swelling. Hematoma has decreased in size. He is able to bear more weight now and no longer needs walker. No new or worsening symptoms. Intervertebral lumbar disc disorder with myelopathy, lumbar region Pain is managed by Dr. Camp. Treated with Lyrica, MS Contin and Zanaflex. Patient reports pain is well controlled on this regimen and does not interfere much with daily activities. The only side effect is occasional constipation that he treats with stool softeners. COPD (chronic obstructive pulmonary disease) (HCC) Mild on CT chest for lung cancer screening. Patient denies frequent cough, wheezing or SOB. He continues to smoke about 1/2 PPD, no desire to quit Recurrent deep vein thrombosis (DVT) (HCC) He is on lifelong anticoagulation with Eliquis. Patient admits he often forgets to take the second dose. He denies unusual bleeding. Denies hematuria or black/ bloody stools REVIEW OF SYSTEMS GENERAL: Negative for malaise, significant weight loss and fever RESPIRATORY: see HPI CARDIOVASCULAR: Negative for chest pain, leg swelling, palpitations, claudication, orthopnea, and paroxysmal nocturnal dyspnea PAST MEDICAL HISTORY Diagnosis Date Acute deep vein thrombosis (DVT) of proximal vein of right lower extremity (HCC) 04/15/2021 Acute venous embolism and thrombosis of unspecified deep vessels of lower extremity (HCC) 08/30/2013 Allergic dermatitis formaldehyde, Carba mix Asthmatic bronchitis 01/10/2015 Colon polyps DDD (degenerative disc disease) Depression 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 electrolyte imbalance False positive serological test for hepatitis C 09/2015 Fatty liver disease, nonalcoholic Hematuria 10/04/2013 Hip arthritis 08/07/2013 Hip joint replacement status 11/21/2013 History of alcoholism (HCC) 1994 sober since 1997 History of pulmonary embolism 08/12/2012 HTN (hypertension) Hyperlipemia Kidney stones 10/04/2013 LUMB DISC DIS W MYELOPAT 05/17/2006 PE (pulmonary embolism) 01/11/2012 DVT and PE Recurrent deep vein thrombosis (DVT) (HCC) 04/26/2021 Renal colic 04/08/2007 Tubular adenoma of colon 04/07/2018 Zoster 05/28/2007 PAST SURGICAL HISTORY Procedure Laterality Date ARTHRP ACETBLR/PROX FEM PROSTC AGRFT/ALGRFT Right 11/08/2013 right MICHAEL CERVICAL OR THORACIC EPIDURAL INJECTION 03/31/2018 of neck 12 COLONOSCOPY 04/07/2018 COLONOSCOPY & POLYPECTOMY 08/09/2012 repeat due 2017 ERCP W/DESTRUCTN STONE(S)-LITHOTRIPSY 2007 multi times for kidney stones IR IVC FILTER PLACEMENT 11/08/2013 [facility] [place] via [facility] PAST SURGICAL HISTORY OF Right 1996 hernia right groin PAST SURGICAL HISTORY OF 2011 gall bladder removed PAST SURGICAL HISTORY OF 2000 cystoscopy ALLERGIES Formaldehyde, Latex, Paroxetine Hcl, Tramadol, Venlafaxine Hcl, and Vicodin [Hydrocodone-Acetaminophen] MEDICATIONS cetirizine (ZYRTEC) 10 mg tablet Take 1 tablet by mouth once daily. cephALEXin (KEFLEX) 500 mg capsule Take 1 capsule by mouth four times daily for 7 days. atorvastatin (LIPITOR) 10 mg tablet Take 1 tablet by mouth daily at bedtime. For cholesterol. apixaban (ELIQUIS) 5 mg tab(s) Take 1 tablet by mouth twice daily. peg 3350-Electrolytes (GOLYTELY) 236-22.74-6.74 -5.86 gram suspension Refer to printed prep instructions from your provider. albuterol HFA (PROAIR HFA) 90 mcg/actuation inhaler Inhale 2 Puffs as instructed every 4 hours as needed. (Patient not taking: Reported on 04/08/2022) amitriptyline (ELAVIL) 25 mg tablet Take 1 tablet by mouth daily at bedtime. Dr. Camp tiZANidine (ZANAFLEX) 4 mg tablet Take 1 tablet by mouth once daily. Per Dr. Camp morphine SR (MS CONTIN, ORAMORPH SR) 15 mg 12 hr tablet Take 15 mg by mouth once daily. pregabalin (LYRICA) 100 mg capsule Take 1 capsule by mouth twice daily. Per Dr. Capm. COMPOUNDED PRESCRIPTION 1 capsule as needed. OTC stool softner FAMILY HISTORY Problem Relation Age of Onset Hypertension Mother Colon Cancer Mother 65 Liver Cancer Mother Diabetes Father Hypertension Father Stroke Father pt states had over 33 strokes Hypertension Sister Diabetes Sister No Known Problems Sister Kidney Disease Brother stones Hypertension Paternal Grandmother Diabetes Paternal Grandmother Hypertension Paternal Grandfather Hypertension Paternal Aunt Social History Tobacco Use Smoking status: Every Day Packs/day: 1.00 Years: 48.00 Pack years: 48.00 Types: Cigarettes Start date: 1974 Smokeless tobacco: Never Tobacco comments: Started age 8 Vaping Use Vaping Use: Never used Substance Use Topics Alcohol use: No Comment: Hx alcoholism, sober since quit in 1998 Drug use: No Comment: hx marijuana use 1982 PHYSICAL EXAM BP 148/95 Pulse 111 Resp 20 Wt 107.5 kg (237 lb) BMI 33.53 kg/m General Appearance: well appearing, in no acute distress, alert Pysch: mood and affect broad and appropriate Lungs: Lungs clear to auscultation. No wheezing, rhonchi, rales. Heart: RRR without murmur, gallop, or rubs. No ectopy Left knee- hematoma has decreased in size. Abrasions are scabbed over. Erythema and increased warmth resolved. Health maintenance reviewed with patient: HEPATITIS B(1 of 3 - 3-dose series) Never done ALPHA-1 ANTITRYPSIN DEFICIENCY SCREENING Never done SHINGRIX VACCINE(1 of 2) Never done COLORECTAL CANCER SCREENING due on 04/05/2021 DEPRESSION ASSESSMENT due on 04/26/2022 COVID-19 VACCINE(1) due on 02/13/2023 INFLUENZA(Season Ended) due on 12/25/2022 LUNG CANCER SCREENING due on 04/08/2023 ANNUAL PCP TEAM CHRONIC DISEASE VISIT due on 07/29/2023 DIABETES SCREEN due on 05/17/2024 DTAP,TDAP,TD(2 - Td or Tdap) due on 05/13/2025 LIPID SCREEN due on 01/15/2026 PROSTATE CANCER SCREENING DISCUSSION due on 01/15/2026 SPIROMETRY Completed HEPATITIS C SCREENING Completed HIV SCREENING Completed PNEUMOCOCCAL Completed DATA REVIEWED: Most recent labs and imaging ASSESSMENT/PLAN: 1. Recurrent deep vein thrombosis (DVT) (HCC) - ICD9: 453.40, ICD10: I82.409 (primary diagnosis) Patient forgets frequently to take both doses of Eliquis, almost daily. Will switch to Xarelto since it is only once a day dosing. 2. Intervertebral lumbar disc disorder with myelopathy, lumbar region - ICD9: 722.73, ICD10: M51.06 Stable 3. Chronic anticoagulation - ICD9: V58.61, ICD10: Z79.01 See #1 - CBC - CONSULT TO GENERAL SURGERY 4. Hyperlipidemia, unspecified hyperlipidemia type - ICD9: 272.4, ICD10: E78.5 - to be determined upon return of lab results - LIPID PANEL, NONFASTING - COMP METABOLIC PANEL 5. Chronic obstructive pulmonary disease, unspecified COPD type (HCC) - ICD9: 496, ICD10: J44.9 Mild, stable 6. Acute pain of left knee - ICD9: 719.46, ICD10: M25.562 Resolving 7. Skin infection of left knee - ICD9: 686.9, ICD10: L08.9 Resolved 8. Hematoma of left knee region - ICD9: 924.11, ICD10: S80.02XA Resolving 9. Screening for prostate cancer - ICD9: V76.44, ICD10: Z12.5 - PSA/PROSTSPECAG SCRN 10. Screen for colon cancer - ICD9: V76.51, ICD10: Z12.11 Overdue for colonoscopy - CONSULT TO GENERAL SURGERY Prescription instructions reviewed with patient as applicable. Potential red flag symptoms discussed with the patient. Reviewed appropriate action plan to take if red flag symptoms occur. Patient agreeable to treatment plan. Naomi Garcia APRN.CNP documented in this encounter [facility] 07-28-2022 Miscellaneous Notes Below results left on identified vm. Liv Milian LPN ----- Message from Naomi Garcia APRN.CNP sent at 07/28/2022 3:15 PM EDT ----- Please let the patient know there were no acute findings on the x-ray. The soft tissue swelling of the knee has improved. Naomi Garcia APRN.CNP documented in this encounter [facility] 07-28-2022 History of Presen t illness Narrative Radiology Service Progress Note PATIENT NAME: Neymar Rome DATE OF SERVICE: July 28, 2022 TIME: 10:34 AM PATIENT IDENTITY VERIFICATION COMPLETED USING TWO (2) IDENTIFIERS: Name and Date of confirmed by patient verbally. FALL SCREENING: Has the patient had 2 falls in the last year or 1 fall with injury or currently using an Ambulatory Assistive Device (Walker, Cane, Wheelchair, Crutches, etc.)? Yes, Patient High Risk for Falls What interventions were put in place to prevent falls during this visit? Offered Assistance with Transfers/Clothing and Instructed Patient to Remain Seated (Not on Exam Table) Until Exam PATIENT GENDER DATA: Male PATIENT RELEVANT IMPLANT DATA REVIEWED: Not Applicable RADIOLOGY DEPARTMENT: General X-ray: Exam(s) Completed: Lower Extremity X-Ray(s): Knee, AP / Lat / Tunne / Merchant Left and Wt. Bearing PERIPHERAL IV DATA: Not applicable SIGNED BY: RT Sherman(R) July 28, 2022 10:34 AM documented in this encounter [facility] 07-28-2022 Instructions Naomi Garcia APRN.CNP - 07/28/2022 10:16 AM EDT Keep area(s) clean and dry. Wash with soap and water twice a day and cover clean dressing until oozing or bleeding stops. Once wound is dry, you may leave it open to the air. (Cover if you have an open wound and are going out of the home to prevent infection) Recheck wound as scheduled with office. If any unusual pain, swelling, red streaks, pus, fever or other signs of worsening infection, call immediately. documented in this encounter [facility] 07-28-2022 History of Presen t illness Narrative CC: Patient presents with: fall last week - pain below left knee HPI Neymar Rome is a 57 year old male who presents today for above. Patient was seen in [facility] on 07/20 for left knee and coccyx pain after falling on his carpeted porch. X-ray of the knee, coccyx and hip were unremarkable. Today patient reports coccyx and hip pain resolved, still experiencing pain and swelling in the left knee. There has been minimal improvement in this, no new or worsening symptoms. Rates pain 7 out of 10 at its worst the past two days. Knee pain is aggravated with any weight bearing and flexion. Ambulating with a walker. Treating with ice, rest, compression, elevation and Tylenol. He has some abrasions on the knee that he is putting Neosporin on and keeping covered. Small amount of drainage that is clear yellow. He is on a blood thinner. Denies fever, chills, malaise, body aches, nausea or severe knee pain. 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 electrolyte imbalance False positive serological test for hepatitis C 09/2015 Fatty liver disease, nonalcoholic Hematuria 10/04/2013 Hip arthritis 08/07/2013 Hip joint replacement status 11/21/2013 History of alcoholism (HCC) 1994 sober since 1997 History of pulmonary embolism 08/12/2012 HTN (hypertension) Hyperlipemia Kidney stones 10/04/2013 LUMB DISC DIS W MYELOPAT 05/17/2006 PE (pulmonary embolism) 01/11/2012 DVT and PE Recurrent deep vein thrombosis (DVT) (HCC) 04/26/2021 Renal colic 04/08/2007 Tubular adenoma of colon 04/07/2018 Zoster 05/28/2007 PAST SURGICAL HISTORY Procedure Laterality Date ARTHRP ACETBLR/PROX FEM PROSTC AGRFT/ALGRFT Right 11/08/2013 right MICHAEL CERVICAL OR THORACIC EPIDURAL INJECTION 03/31/2018 of neck 03-31-18 COLONOSCOPY 04/07/2018 COLONOSCOPY & POLYPECTOMY 08/09/2012 repeat due 2017 ERCP W/DESTRUCTN STONE(S)-LITHOTRIPSY 2007 multi times for kidney stones IR IVC FILTER PLACEMENT 11/08/2013 [facility] [place] via L [facility] PAST SURGICAL HISTORY OF Right 1996 hernia right groin PAST SURGICAL HISTORY OF 2011 gall bladder removed PAST SURGICAL HISTORY OF 2000 cystoscopy ALLERGIES Formaldehyde, Latex, Paroxetine Hcl, Tramadol, Venlafaxine Hcl, and Vicodin [Hydrocodone-Acetaminophen] MEDICATIONS cetirizine (ZYRTEC) 10 mg tablet Take 1 tablet by mouth once daily. atorvastatin (LIPITOR) 10 mg tablet Take 1 tablet by mouth daily at bedtime. For cholesterol. apixaban (ELIQUIS) 5 mg tab(s) Take 1 tablet by mouth twice daily. peg 3350-Electrolytes (GOLYTELY) 236-22.74-6.74 -5.86 gram suspension Refer to printed prep instructions from your provider. albuterol HFA (PROAIR HFA) 90 mcg/actuation inhaler Inhale 2 Puffs as instructed every 4 hours as needed. (Patient not taking: Reported on 04/08/2022) amitriptyline (ELAVIL) 25 mg tablet Take 1 tablet by mouth daily at bedtime. Dr. Camp tiZANidine (ZANAFLEX) 4 mg tablet Take 1 tablet by mouth once daily. Per Dr. Camp morphine SR (MS CONTIN, ORAMORPH SR) 15 mg 12 hr tablet Take 15 mg by mouth once daily. pregabalin (LYRICA) 100 mg capsule Take 1 capsule by mouth twice daily. Per Dr. Camp. COMPOUNDED PRESCRIPTION 1 capsule as needed. OTC stool softner FAMILY HISTORY Problem Relation Age of Onset Hypertension Mother Colon Cancer Mother 65 Liver Cancer Mother Diabetes Father Hypertension Father Stroke Father pt states had over 33 strokes Hypertension Sister Diabetes Sister No Known Problems Sister Kidney Disease Brother stones Hypertension Paternal Grandmother Diabetes Paternal Grandmother Hypertension Paternal Grandfather Hypertension Paternal Aunt Social History Tobacco Use Smoking status: Every Day Packs/day: 1.00 Years: 48.00 Pack years: 48.00 Types: Cigarettes Start date: 1974 Smokeless tobacco: Never Tobacco comments: Started age 8 Vaping Use Vaping Use: Never used Substance Use Topics Alcohol use: No Comment: Hx alcoholism, sober since quit in 1998 Drug use: No Comment: hx marijuana use 1982 PHYSICAL EXAM BP 147/92 Pulse 92 Resp 16 Wt 106.6 kg (235 lb) BMI 33.24 kg/m General Appearance: well appearing, in no acute distress, alert Lower Ext: good distal pulses, trace non-pitting edema LLE, capillary refill < 2 seconds. Muscle strength 5/5 bilaterally. Left knee: large hematoma just below the patella, approximately 4 x 3 cm. No deformities, full ROM but painful with flexion. No laxity. No crepitus, erythema, increased warmth or effusion. Gait antalgic on the left. See image below DATA REVIEWED: Most recent imaging ASSESSMENT/PLAN: 1. Acute pain of left knee - ICD9: 719.46, ICD10: M25.562 (primary diagnosis) Minimal improvement. No symptoms or exam findings concerning for septic arthritis. Repeat knee imaging. - XR KNEE GENERAL 4V AP BOTH/PA BOTH/LAT/MERC LEFT 2. Skin infection of left knee - ICD9: 686.9, ICD10: L08.9 - Begin treatment with Cephalaxin (Keflex) - No lymphangetic streaking, this was defined for patient to watch for and to seek medical care immediately if appears - Area of cellulitis defined with pen, seek further attention if this area continues to enlarge - Follow up for recheck in one week or sooner for any worsening 3. Hematoma of left knee region - ICD9: 924.11, ICD10: S80.02XA Secondary to injury and oral anticoagulation 4. Injury of left knee, subsequent encounter - ICD9: V58.89, 959.7, ICD10: S89.92XD As above - XR KNEE GENERAL 4V AP BOTH/PA BOTH/LAT/MERC LEFT Prescription instructions reviewed with patient as applicable. Potential red flag symptoms discussed with the patient. Reviewed appropriate action plan to take if red flag symptoms occur. Patient agreeable to treatment plan. Naomi Garcia APRN.CNP documented in this encounter [facility] 07-20-2022 History of Presen t illness Narrative Radiology Service Progress Note PATIENT NAME: Neymar Rome DATE OF SERVICE: July 20, 2022 TIME: 9:55 AM PATIENT IDENTITY VERIFICATION COMPLETED USING TWO (2) IDENTIFIERS: Name and Date of confirmed by patient verbally. FALL SCREENING: Has the patient had 2 falls in the last year or 1 fall with injury or currently using an Ambulatory Assistive Device (Walker, Cane, Wheelchair, Crutches, etc.)? Yes, Patient High Risk for Falls What interventions were put in place to prevent falls during this visit? Instructed Patient to Call for Help if Needed, Offered Assistance with Transfers/Clothing, and Increased Observations by Caregivers PATIENT GENDER DATA: Male PATIENT RELEVANT IMPLANT DATA REVIEWED: Yes RADIOLOGY DEPARTMENT: General X-ray: Exam(s) Completed: Spine X-Ray(s): Sacrum/Coccyx Pelvis X-Ray: Pelvis with Hip Right Lower Extremity X-Ray(s): Knee, AP / Lat / Tunne / Merchant Left PERIPHERAL IV DATA: Not applicable SIGNED BY: RT Tray(R) July 20, 2022 9:55 AM documented in this encounter [facility] 04-09-2022 Miscellaneous Notes Spoke with patient regarding LDCT category 2 results with follow-up recommended in one year for annual LCS. In addition results letter will be mailed. Mariel Retana APRN.CNP documented in this encounter [facility] 04-08-2022 Instructions Mariel Retana APRN.CNP - 04/08/2022 10:46 AM EST Images from the original note were not included. Cigarette Logs : Record every single smoked cigarette on a cigarette log (either on their smartphone or with paper and pencil) contiguous to the smoking. Logging your smoked cigarettes in real-time (while smoking) helps quantify consumption accurately and helps you and your act of smoking become more mindful versus automatically, habitually without thought or cognizance. You can't change something if you can't measure the change. We discussed behavioral modification methods in order to unpair certain habits of smoking with specific activities and to help wean down the patient's smoking over time in order to minimize withdrawal effects of reduction in nicotine intake. Patient was instructed to smoke every hour on the hour during waking hours and not pair the cigarette with a normal activity such as coffee or driving as he or she normally would have. Patient was instructed to do this for a week and then cut back to smoking one cigarette every other hour for the second week, then cut back to smoking a cigarette every third hour on the third week, and quit on week 4. I instructed patient when starting this method to not smoke any more cigarettes than they normally would have smoked in a day and if they smoke less than 20 cigarettes per day to set those cigarettes out ahead of time and space them out evenly throughout the day to ensure they aren't increasing their cigarette consumption. Oral Substitutes/Hydration Drinking water is a superb coping technique. Snacking on crunchy, nutrient dense, low calorie foods such as chopped peppers, celery, or carrots can be extremely helpful. Using cinnamon sticks, plastic straws, and sugarless gum/ candy are also excellent oral substitutes. Phone [phone] ([phone]) as additional resource. CT Lung Screen Results The CT scan that you will have done today will show if you have any nodules (small spots) in your lungs that are suspicious for cancer. Around 90% of the patients who have this scan done are found to have at least one nodule. Most nodules are benign (not cancer) and of no harm to you at all. A specialist will make a scientific evaluation about whether or not a nodule is worrisome based on its size and shape. The radiologist who will read your scan will put it into one of four categories: LUNG-RADS Category Description Overall Probability of Malignancy Recommended Follow-Up 1 Negative No nodules and definitely benign (non-cancerous nodules) Essentially 0. 1 Year - Follow-up Low dose CT 2 Benign Appearance or Behavior Nodules with a very low likelihood of becoming cancer due to size or lack of growth Less than 1% 1 Year - Follow-up Low dose CT 3 Probably Benign (new 4mm to 6mm nodule) Probably benign finding, short term follow-up recommended 1 to 2% 6 Months - Follow-up Low dose CT 4 Suspicious (new nodule >6mm, or a nodule that has grown by 1.5mm) Findings for which additional diagnostic testing and/or biopsy is recommended Will be calculated based on nodule characteristics. Dependent on what is seen on the exam. At times, we may see something outside of the lungs on the scan that could be a health concern. These will be indicated on the radiology report with an S modifier. S Clinically Significant or Potentially Clinically Significant Findings (non lung cancer) Referral or additional imaging/labs depending on result. Approximately 10% of people receive this result. Lung Cancer Screening Scheduling: [place] [phone], [place] [phone]. And Other locations Billing Questions: or [email or web address] Specialist Providers: (Comfort Fox CNP; Mariel Retana CNP; Sanam Rucker CNP; Alessandra Potts CNP; Maricarmen Carr PA-C; Dione Ford PA-C; Lizette John CNP, Gail Herr CNP, Ronit Decker CNP & Odilia Clinton PA-C): [phone] documented in this encounter [facility] 04-08-2022 History of Presen t illness Narrative Images from the original note were not included. LUNG SCREENING VISIT PRIMARY CARE PHYSICIAN: Kvng Fu MD PULMONARY PROVIDER: None Results will be communicated via letter or electronic record if applicable. Visit Delivery: In Person Patient Visit Type: Established Current Exam Type: annual LDCT Number of Pack Years: 48 Current smoker (=0) The patient's smoking history is similar to prior year shared decision visit. Results will be communicated via letter or electronic record. REQUESTER: The referring provider advised the patient to have screening. HISTORY OF PRESENT ILLNESS: Neymar Rome is a 56 year old active smoker who presents for lung screening. Respiratory symptoms include: SOB: Yes, with ambulating < 1 mile. Limited due to lower back pain. Hx of DDD disease Chest tightness: No Coughing: Yes: With mucus White occasional Hemoptysis: No Wheezing: No Fever/Chills: No Recent Respiratory Infection: No Unintentional weight loss: No Last 6 Encounter Wt Readings: Date: Wt: 04/08/2022 106.1 kg (234 lb) 02/13/2022 104.8 kg (231 lb) 05/12/2021 103.4 kg (228 lb) 04/22/2021 106.6 kg (235 lb) 04/14/2021 107 kg (236 lb) 04/08/2021 106.8 kg (235 lb 6.4 oz) ECOG PERFORMANCE STATUS: 1- Restricted in physically strenuous activity. Carries out light duty. Modified Medical Research [place] Dyspnea Scale (MMRC) I get short of breath when hurrying on level ground or walking up a slight hill 1 Lung Cancer Risk Factors: 1.Tobacco Use: Start Age 8, Quit Age N/A , Average packs per day 1, Pack Years 47. 2. Passive Smoke Exposure: Yes as a child. 3. Personal hx of malignancy: No. 4. Significant exposures (1 year or more of exposure): None. 5. Race: White. 6. Education:Technical Study or Certifications 7. BMI:Body mass index is 33.1 kg/m . 8. COPD: No 9. Pneumonia in the past 5 years: No 10. Is there a history of lung cancer in a first degree relative? No. 11. Is there a history of lung cancer in a non first degree relative? No 12. Is there a history of any other cancer in a first degree relative? Yes. 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 electrolyte imbalance False positive serological test for hepatitis C 09/2015 Fatty liver disease, nonalcoholic Hematuria 10/04/2013 Hip arthritis 08/07/2013 Hip joint replacement status 11/21/2013 History of alcoholism (HCC) 1994 sober since 1997 History of pulmonary embolism 08/12/2012 HTN (hypertension) Hyperlipemia Kidney stones 10/04/2013 LUMB DISC DIS W MYELOPAT 05/17/2006 PE (pulmonary embolism) 01/11/2012 DVT and PE Recurrent deep vein thrombosis (DVT) (HCC) 04/26/2021 Renal colic 04/08/2007 Tubular adenoma of colon 04/07/2018 Zoster 05/28/2007 PAST SURGICAL HISTORY Procedure Laterality Date ARTHRP ACETBLR/PROX FEM PROSTC AGRFT/ALGRFT Right 11/08/2013 right MICHAEL CERVICAL OR THORACIC EPIDURAL INJECTION 03/31/2018 of neck 03-31-18 COLONOSCOPY 04/07/2018 COLONOSCOPY & POLYPECTOMY 08/09/2012 repeat due 2017 ERCP W/DESTRUCTN STONE(S)-LITHOTRIPSY 2007 multi times for kidney stones IR IVC FILTER PLACEMENT 11/08/2013 [facility] [place] via [facility] PAST SURGICAL HISTORY OF Right 1996 hernia right groin PAST SURGICAL HISTORY OF 2011 gall bladder removed PAST SURGICAL HISTORY OF 2000 cystoscopy FAMILY HISTORY Problem Relation Age of Onset Hypertension Mother Colon Cancer Mother 65 Liver Cancer Mother Diabetes Father Hypertension Father Stroke Father pt states had over 33 strokes Hypertension Sister Diabetes Sister No Known Problems Sister Kidney Disease Brother stones Hypertension Paternal Grandmother Diabetes Paternal Grandmother Hypertension Paternal Grandfather Hypertension Paternal Aunt atorvastatin (LIPITOR) 10 mg tablet Take 1 tablet by mouth daily at bedtime. For cholesterol. apixaban (ELIQUIS) 5 mg tab(s) Take 1 tablet by mouth twice daily. cetirizine (ZYRTEC) 10 mg tablet Take 1 tablet by mouth once daily. amitriptyline (ELAVIL) 25 mg tablet Take 1 tablet by mouth daily at bedtime. Dr. Camp tiZANidine (ZANAFLEX) 4 mg tablet Take 1 tablet by mouth once daily. Per Dr. Camp morphine SR (MS CONTIN, ORAMORPH SR) 15 mg 12 hr tablet Take 15 mg by mouth once daily. pregabalin (LYRICA) 100 mg capsule Take 1 capsule by mouth twice daily. Per Dr. Camp. COMPOUNDED PRESCRIPTION 1 capsule as needed. OTC stool softner peg 3350-Electrolytes (GOLYTELY) 236-22.74-6.74 -5.86 gram suspension Refer to printed prep instructions from your provider. albuterol HFA (PROAIR HFA) 90 mcg/actuation inhaler Inhale 2 Puffs as instructed every 4 hours as needed. (Patient not taking: Reported on 04/08/2022) ALLERGIES Allergen Reactions Formaldehyde Other: See Comments blisters Latex Paroxetine Hcl Other: See Comments sexual dysfunction Tramadol Mental Status Change Venlafaxine Hcl Other: See Comments increased BP Vicodin [Hydrocodon* Other: See Comments causes pain The medications and allergies were reviewed and reconciled for this patient and deemed current. Health Maintenance Immunization History Administered Date(s) Administered Influenza Seasonal Inj Age 3+ 03/16/2014 Influenza Seasonal Inj Quad Age 6 Mo - 64 Yrs 01/10/2015 04/07/2016 02/09/2017 02/23/2018 Pneumovax 01/24/2013 03/16/2014 Tdap (Age 7+) 05/13/2015 pneumococcal (PCV20) vaccine, 20 valent (PREVNAR 20) 02/13/2022 Colonoscopy: Mammogram: DATA REVIEW I have directly visualized the testing documented: Prior Imaging: Last CT/CTA Chest/Lungs CT LUNG SCREEN WO IVCON Exam End: 04/03/2021 8:04 AM (Final result) Narrative: * * *Final Report* * * DATE OF EXAM: Apr 03 2021 8:04AM [facility] [place] 0562 - CT LUNG SCREEN WO IVCON / PROCEDURE REASON: Z12.2-Encounter for screening for malignant neoplasm of respiratory organs * * * * Physician Interpretation * * * * EXAMINATION: CHEST CT WITHOUT CONTRAST (LOW-DOSE CT LUNG CANCER SCREENING PROTOCOL) CLINICAL HISTORY: Lung cancer LDCT screening ? absence of signs or symptoms of lung cancer. Nicotine dependence (cigarettes). Baseline (initial) Technique: Spiral CT acquisition of the chest from the thoracic inlet to the upper abdomen without contrast. 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 Yes, 1-5 nodules If No, go to IMPRESSION. If yes, proceed with characterization of the FIVE largest nodules. Nodule 1: This Solid nodule is located in the Right Upper Lobe on slice number 72 with an average diameter of 4.1 mm (5.0 mm x 3.3 mm). Nodule 2: This Solid nodule is located in the right lower lobe on slice number 180 with an average diameter of 3.7 mm (4.5 mm x 2.9 mm). Nodule 3: This Perifissural nodule is located along the right major fissure on slice number 124 with an average diameter of 3.2 mm (3.4 mm x 2.9 mm). Other lung nodule comments: None Other findings: The central airways are patent without evidence of endobronchial lesion. Secretions are seen in the lumen of the trachea and mainstem bronchi. Mild diffuse bronchial wall thickening is seen. Upper lobe predominant centrilobular groundglass nodules likely represent respiratory bronchiolitis. Linear atelectasis is seen in the right lower lobe. There is no acute focal lung consolidation. There is no pleural effusion or pneumothorax. No enlarged supraclavicular, axillary, mediastinal or hilar lymph nodes are seen. The aorta and main pulmonary artery are normal in course and caliber. The heart size is normal. There is no pericardial effusion. The thyroid gland is unremarkable. The esophagus is nondilated. The soft tissues of the chest wall are unremarkable. Calcifications in the right kidney likely represent nonobstructive calculi. No destructive bone lesion is seen. Emphysema: Trivial (<5%), Centrilobular, Upper lobe Coronary Artery Calcifications: Circumflex None; Left Anterior Descending None; Right Coronary None Sustainability Coordinator (topogram) images: No additional findings. Impression: IMPRESSION: LungRADS category: 2 LungRADS modifier: None LungRADS 0 reason: n/a Recommendations: Continue annual screening with LDCT in 12 months. Other actionable findings: Reference: [employer]. Lung CT Screening Reporting and Data System (Lung-RADS). Available at: http://www.acr.org/Quality-Safet y/Resources/LungRADS Awning Finisher: ANNEL Transcribe Date/Time: Apr 03 2021 10:14A Dictated by : JAMES REYES MD This examination was interpreted and the report reviewed and electronically signed by: JAMES REYES MD on Apr 03 2021 11:02AM EST Last CT Chest - Impression Only CT CHEST WO CONTRAST Collected: 10/23/2014 4:25 PM (Final result) Impression: IMPRESSION: 1. Improved appearance of the right lower lobe with a small amount of scarring remaining. 2. A 4 mm right lower lobe is unchanged compared to 06/28/2014. [address] is recommended. 3. Soft tissue density associated with the tail of the pancreas is unchanged compared to the prior imaging which showed features suggesting ... Last XR Chest - Impression Only XR CHEST PA/LAT Collected: 04/13/2016 10:44 AM (Final result) Impression: IMPRESSION: No acute radiographic abnormality. Awning Finisher: ANNEL Transcribe Date/Time: Apr 13 2016 11:08A ... Pulmonary Function Testing: SPIROMETRY - BASELINE AND POST DILATOR ([id number]) - ordered on 01/24/21 Spirometry shows no obstruction. The reduced FVC suggests restriction. There is no significant bronchodilator response. The shape of the expiratory limb of the flow volume loop is consistent with submaximal expiratory effort from the patient during testing. The TLC amd RV are normal. The RV/TLC is elevated indicating air trapping PHYSICAL EXAM: BP 127/85 (BP Site: Left Arm, BP Position: Sitting, BP Cuff Size: Large Adult) Pulse 87 Wt 106.1 kg (234 lb) SpO2 97% BMI 33.10 kg/m Deferred ASSESSMENT and RECOMMENDATIONS: 1. Screening for lung cancer: Encounter for screening for lung cancer - ICD9: V76.0, ICD10: Z12.2 Six year risk for lung cancer: 1.9 Source: Lulu [email or web address]/[email or web address] I have determined that the patient is eligible for a low dose CT based on age, absence of signs or symptoms of lung cancer, and total pack years: Yes. The patient and I engaged in shared decision making, including the use of one or more decision aids, to include benefits, harms, follow-up diagnostic testing, over-diagnosis, false positive rate, and total radiation exposure. The patient understands and feels comfortable with it: Yes. The patient was counseled on the importance of adherence to annual LDCT lung cancer screening, impact of comorbidities and ability or willingness to undergo diagnosis and treatment. The patient understands and feels comfortable with it:Yes. 2. Nicotine dependence: Smoker - ICD9: 305.1, ICD10: F17.200 The patient was counseled on the importance of smoking cessation if current smoker and, if appropriate, offered additional tobacco cessation counseling services - Smoking Cessation Counseling. SMOKING CESSATION COUNSELING Smoking cessation methods including Nicotine Replacement Therapies and Behavior Modification were discussed with the patient and assistance offered. Declined NRTs, not ready Advised to set a quit date. Cigarette Logs : Record every single smoked cigarette on a cigarette log (either on their smartphone or with paper and pencil) contiguous to the smoking. Logging your smoked cigarettes in real-time (while smoking) helps quantify consumption accurately and helps you and your act of smoking become more mindful versus automatically, habitually without thought or cognizance. You can't change something if you can't measure the change. We discussed behavioral modification methods in order to unpair certain habits of smoking with specific activities and to help wean down the patient's smoking over time in order to minimize withdrawal effects of reduction in nicotine intake. Patient was instructed to smoke every hour on the hour during waking hours and not pair the cigarette with a normal activity such as coffee or driving as he or she normally would have. Patient was instructed to do this for a week and then cut back to smoking one cigarette every other hour for the second week, then cut back to smoking a cigarette every third hour on the third week, and quit on week 4. I instructed patient when starting this method to not smoke any more cigarettes than they normally would have smoked in a day and if they smoke 20 cigarettes per day to set those cigarettes out ahead of time and space them out evenly throughout the day to ensure they aren't increasing their cigarette consumption. Oral Substitutes/Hydration Drinking water is a superb coping technique. Snacking on crunchy, nutrient dense, low calorie foods such as chopped peppers, celery, or carrots can be extremely helpful. Using cinnamon sticks, plastic straws, and sugarless gum/ candy are also excellent oral substitutes. Phone [phone] ([phone]) as additional resource. The medical conditions adversely affected by cigarette use include:General health status. The patient is currently not ready to quit. I personally spent 6 minutes in counseling. The time spent in smoking cessation counseling is exclusive of any other counseling during this visit. 3. Lung nodules - ICD9: 793.19, ICD10: R91.8 Previous identified RUL, RLL < 5 mm lung nodules on last LDCT 03/2021. Will continue to assess for stability on annual ldct scan today. I spent a total of 30 minutes on the date of the service which included preparing to see the patient, [id number] patient care, completing clinical documentation, obtaining and/or reviewing separately obtained history, counseling and educating the patient/family/caregiver, and communicating results to the patient/family/caregiver. Mariel Retana APRN.JALYN NPI #: April 08, 2022 10:35 AM documented in this encounter [facility] 02-13-2022 History of Presen t illness Narrative This note was created using [employer]. Subjective Neymar Rome is a 56 year old male. He had no concerns. He was missing his 2nd dose of apixiban often. He was encouraged more regular intake. He continued to smoke. His lipids needed rechecked. He did not exercise at this time. Review of Systems Constitutional: Negative. HENT: Negative for nosebleeds. Respiratory: Negative. Cardiovascular: Negative. Gastrointestinal: Negative for blood in stool. Genitourinary: Negative. Neurological: Negative. Psychiatric/Behavioral: Negative. ACTIVE PROBLEM LIST Intervertebral Lumbar Disc Disorder With Myelopathy, Lumbar Region Hyperlipemia Allergic Dermatitis Blindness of Right Eye Benign Non-Nodular Prostatic Hyperplasia Without Lower Urinary Tract Symptoms Tobacco Use Disorder Copd (Chronic Obstructive Pulmonary Disease) (Hcc) Family History of Colon Cancer Tubular Adenoma of Colon Acute Deep Vein Thrombosis (Dvt) of Proximal Vein of Right Lower Extremity (Hcc) Recurrent Deep Vein Thrombosis (Dvt) (Hcc) Obesity, Class I, Bmi 30-34.9 Current Outpatient Medications Medication Sig cetirizine (ZYRTEC) 10 mg tablet Take 1 tablet by mouth once daily. atorvastatin (LIPITOR) 10 mg tablet Take 1 tablet by mouth daily at bedtime. For cholesterol. apixaban (ELIQUIS) 5 mg tab(s) Take 1 tablet by mouth twice daily. albuterol HFA (PROAIR HFA) 90 mcg/actuation inhaler Inhale 2 Puffs as instructed every 4 hours as needed. amitriptyline (ELAVIL) 25 mg tablet Take 1 tablet by mouth daily at bedtime. Dr. Camp tiZANidine (ZANAFLEX) 4 mg tablet Take 1 tablet by mouth once daily. Per Dr. Camp morphine SR (MS CONTIN, ORAMORPH SR) 15 mg 12 hr tablet Take 15 mg by mouth once daily. pregabalin (LYRICA) 100 mg capsule Take 1 capsule by mouth twice daily. Per Dr. Camp. COMPOUNDED PRESCRIPTION 1 capsule as needed. OTC stool softner peg 3350-Electrolytes (GOLYTELY) 236-22.74-6.74 -5.86 gram suspension Refer to printed prep instructions from your provider. No current facility-administered medications for this visit. Objective BP 110/70 (BP Site: Left Arm, BP Position: Sitting) Pulse 86 Wt 104.8 kg (231 lb) BMI 32.68 kg/m Physical Exam Constitutional: Appearance: He is obese. Eyes: Conjunctiva/sclera: Conjunctivae normal. Cardiovascular: Rate and Rhythm: Normal rate and regular rhythm. Heart sounds: No murmur heard. No gallop. Pulmonary: Breath sounds: No wheezing or rales. Musculoskeletal: General: No tenderness. Right lower leg: No edema. Left lower leg: No edema. Neurological: General: No focal deficit present. Mental Status: He is alert. Psychiatric: Mood and Affect: Mood normal. Assessment and Plan 1. Recurrent deep vein thrombosis (DVT) (HCC) - ICD9: 453.40, ICD10: I82.409 (primary diagnosis) I stressed medication adherence. Risks of anticoagulation were reviewed. - APIXABAN 5 MG TABLET - CBC - Holding apixiban 2 days for procedures like colonoscopy was discussed. He was advised to schedule his colonoscopy. 2. Chronic obstructive pulmonary disease, unspecified COPD type (HCC) - ICD9: 496, ICD10: J44.9 Smoking cessation encouraged. 3. Hyperlipidemia, unspecified hyperlipidemia type - ICD9: 272.4, ICD10: E78.5 - to be determined upon return of lab results - Continue current medication. - ATORVASTATIN 10 MG TABLET - COMP METABOLIC PANEL - LIPID PANEL BASIC 4. Tobacco use disorder - ICD9: 305.1, ICD10: F17.200 He was advised to schedule his low dose CT of the lungs for screening. 5. Need for vaccination - ICD9: V05.9, ICD10: Z23 - PNEUMOCOCCAL VACCINE (PREVNAR 20) Kvng Fu MD documented in this encounter [facility] 01-26-2022 Miscellaneous Notes Spoke with pt and information listed below given. Pt verbalizes understanding. apt booked. Lida Fiore LPN Patient overdue for routine follow-up. Has only been seen for acute visits. Needs to be 40 min appointment Naomi Garcia APRN.CNP Pharmacy verified in [facility] Patient has been identified by name and date of : Yes Patient aware RX will be sent to pharmacy. No need to notify patient. Patient phones for refill(s): Requested Prescriptions Pending Prescriptions Disp Refills cetirizine (ZYRTEC) 10 mg tablet 30 tablet 11 Sig: Take 1 tablet by mouth once daily. Date of last office visit : 05/12/2021 Date of next office visit : Visit date not found Last 2 Encounter Wt Readings: Date: Wt: 05/12/2021 103.4 kg (228 lb) 04/22/2021 106.6 kg (235 lb) Please advise. Ledy Singer Pss documented in this encounter [facility] 12-23-2021 History of Presen t illness Narrative POPULATION HEALTH NAVIGATION OUTREACH Action/FYI Patient is on HCC list for below gaps and needs appt to address : J44.9 - COPD (chronic obstructive pulmonary disease) (HCC)
patient also due for : Well exam COLORECTAL CANCER SCREENING Attempted to call- no answer- unable to LM-no answer no mychart Letter printed to [employer] for mailing. Mailed letter 12/23/2021 MM Pt identified by name and : NO Outreach Outcome/Action Unable to reach patient: Phone number not valid / voicemail full Letter mailed Did you use a PCP flex slot to schedule this appointment? N/A Reason for Outreach HCC or suspected condition Payer: Payor: [employer] MEDICARE / Plan: [employer] PLUS / Product Type: HMO / Care Gap Reviewed:: Annual Wellness visit Colorectal Cancer Screening Reminder: Reminder note to check Health Maintenance for items below Health Maintenance items due: HEPATITIS B(1 of 3 - 3-dose series) Never done COVID-19 VACCINE(1) Never done ALPHA-1 ANTITRYPSIN DEFICIENCY SCREENING Never done SHINGRIX VACCINE(1 of 2) Never done PNEUMOCOCCAL(2 - PCV) due on 03/16/2015 COLORECTAL CANCER SCREENING due on 04/05/2021 Message Sent to Practice: No Navigation Signature: Kristina Burnett MA December 23, 2021 2:41 PM documented in this encounter [facility] 09-30-2021 Miscellaneous Notes Patient has been identified by name and date of : Yes Patient phones for refill(s): Pending Prescriptions Disp Refills ATORVASTATIN 10 MG TABLET 30 tablet Sig: Take 1 tablet by mouth daily at bedtime. For cholesterol. VENU: No Date of last office visit in primary care: 05/12/21, NOV: not scheduled yet Last 2 Encounter Wt Readings: Date: Wt: 05/12/2021 103.4 kg (228 lb) 04/22/2021 106.6 kg (235 lb) Previous labs/tests for medication: Cholesterol: HDL Cholesterol (mg/dL) Date Value 01/15/2021 34 LDL Cholesterol (mg/dL) Date Value 01/15/2021 73 ALT (U/L) Date Value 01/15/2021 22 Non HDL Cholesterol (mg/dL) Date Value 01/15/2021 89 Please advise. Thank you. Sharona Enamorado RN documented in this encounter [facility] 04-15-2021 History of Past i llness Narrative Problem Noted Date Resolved Date Acute deep vein thrombosis ( DVT) of proximal vein of right lower extremity 04/15/2021 02/13/2022 Screening for colon cancer 03/23/201809/20 Overview: Added automatically from request for surgery [id number] History of alcoholism 2017 02/23/2018 Asthmatic bronchitis 01/10/2015 10/21/2017 Hip joint replacement status 11/21/2013 Hematuria 10/04/2013 08/10/2016 Kidney stones 10/04/2013 08/10/2016 Anticoagulation adequate 10/04/2013 016 DVT (deep venous thrombosis) 09/04/2013 Acute venous embolism and th rombosis of unspecified deep vessels of lower extremity 08/30/2013 05/13/2015 Hip arthritis 08/07/2013 08/10/2016 History of pulmonary embolism 08/12/2012 Renal colic 04/08/2007 01/10/2015 Calculus of kidney 04/08/2007 01/10/2015 HTN (hypertension) 05/13/2015 Depression 06/03/2017 documented as of this encounter (statuses as of 02/13/2022) [facility] History of Past illness Narrative* Problem Noted Date Resolved Date Acute deep vein thrombosis ( DVT) of proximal vein of right lower extremity 04/15/2021 02/13/2022 Screening for colon cancer 03/23/201809/20 Overview: Added automatically from request for surgery [id number] History of alcoholism 2017 02/23/2018 Asthmatic bronchitis 01/10/2015 10/21/2017 Hip joint replacement status 11/21/2013 Hematuria 10/04/2013 08/10/2016 Kidney stones 10/04/2013 08/10/2016 Anticoagulation adequate 10/04/2013 016 DVT (deep venous thrombosis) 09/04/2013 Acute venous embolism and th rombosis of unspecified deep vessels of lower extremity 08/30/2013 05/13/2015 Hip arthritis 08/07/2013 08/10/2016 History of pulmonary embolism 08/12/2012 Renal colic 04/08/2007 01/10/2015 Calculus of kidney 04/08/2007 01/10/2015 HTN (hypertension) 05/13/2015 Depression 06/03/2017 documented as of this encounter (statuses as of 04/08/2022) [facility] History of Past illness Narrative* Problem Noted Date Resolved Date Acute deep vein thrombosis ( DVT) of proximal vein of right lower extremity 04/15/2021 02/13/2022 Screening for colon cancer 03/23/201809/20 Overview: Added automatically from request for surgery [id number] History of alcoholism 2017 02/23/2018 Asthmatic bronchitis 01/10/2015 10/21/2017 Hip joint replacement status 11/21/2013 Hematuria 10/04/2013 08/10/2016 Kidney stones 10/04/2013 08/10/2016 Anticoagulation adequate 10/04/2013 016 DVT (deep venous thrombosis) 09/04/2013 Acute venous embolism and th rombosis of unspecified deep vessels of lower extremity 08/30/2013 05/13/2015 Hip arthritis 08/07/2013 08/10/2016 History of pulmonary embolism 08/12/2012 Renal colic 04/08/2007 01/10/2015 Calculus of kidney 04/08/2007 01/10/2015 HTN (hypertension) 05/13/2015 Depression 06/03/2017 documented as of this encounter (statuses as of 04/09/2022) [facility] of Past illness Narrative* Problem Noted Date Resolved Date Acute deep vein thrombosis ( DVT) of proximal vein of right lower extremity 04/15/2021 02/13/2022 Screening for colon cancer 03/23/201809/20 Overview: Added automatically from request for surgery [id number] History of alcoholism 2017 02/23/2018 Asthmatic bronchitis 01/10/2015 10/21/2017 Hip joint replacement status 11/21/2013 Hematuria 10/04/2013 08/10/2016 Kidney stones 10/04/2013 08/10/2016 Anticoagulation adequate 10/04/2013 016 DVT (deep venous thrombosis) 09/04/2013 Acute venous embolism and th rombosis of unspecified deep vessels of lower extremity 08/30/2013 05/13/2015 Hip arthritis 08/07/2013 08/10/2016 History of pulmonary embolism 08/12/2012 Renal colic 04/08/2007 01/10/2015 Calculus of kidney 04/08/2007 01/10/2015 HTN (hypertension) 05/13/2015 Depression 06/03/2017 documented as of this encounter (statuses as of 07/28/2022) [facility] of Past illness Narrative* Problem Noted Date Resolved Date Acute deep vein thrombosis ( DVT) of proximal vein of right lower extremity 04/15/2021 02/13/2022 Screening for colon cancer 03/23/201809/20 Overview: Added automatically from request for surgery [id number] History of alcoholism 2017 02/23/2018 Asthmatic bronchitis 01/10/2015 10/21/2017 Hip joint replacement status 11/21/2013 Hematuria 10/04/2013 08/10/2016 Kidney stones 10/04/2013 08/10/2016 Anticoagulation adequate 10/04/2013 016 DVT (deep venous thrombosis) 09/04/2013 Acute venous embolism and th rombosis of unspecified deep vessels of lower extremity 08/30/2013 05/13/2015 Hip arthritis 08/07/2013 08/10/2016 History of pulmonary embolism 08/12/2012 Renal colic 04/08/2007 01/10/2015 Calculus of kidney 04/08/2007 01/10/2015 HTN (hypertension) 05/13/2015 Depression 06/03/2017 documented as of this encounter (statuses as of 07/29/2022) [facility] of Past illness Narrative* Problem Noted Date Resolved Date Acute deep vein thrombosis ( DVT) of proximal vein of right lower extremity 04/15/2021 02/13/2022 Screening for colon cancer 03/23/201809/20 Overview: Added automatically from request for surgery [id number] History of alcoholism 2017 02/23/2018 Asthmatic bronchitis 01/10/2015 10/21/2017 Hip joint replacement status 11/21/2013 Hematuria 10/04/2013 08/10/2016 Kidney stones 10/04/2013 08/10/2016 Anticoagulation adequate 10/04/2013 016 DVT (deep venous thrombosis) 09/04/2013 Acute venous embolism and th rombosis of unspecified deep vessels of lower extremity 08/30/2013 05/13/2015 Hip arthritis 08/07/2013 08/10/2016 History of pulmonary embolism 08/12/2012 Renal colic 04/08/2007 01/10/2015 Calculus of kidney 04/08/2007 01/10/2015 HTN (hypertension) 05/13/2015 Depression 06/03/2017 documented as of this encounter (statuses as of 08/05/2022) [facility] of Past illness Narrative* Problem Noted Date Resolved Date Acute deep vein thrombosis ( DVT) of proximal vein of right lower extremity 04/15/2021 02/13/2022 Screening for colon cancer 03/23/201809/20 Overview: Added automatically from request for surgery [id number] History of alcoholism 2017 02/23/2018 Asthmatic bronchitis 01/10/2015 10/21/2017 Hip joint replacement status 11/21/2013 Hematuria 10/04/2013 08/10/2016 Kidney stones 10/04/2013 08/10/2016 Anticoagulation adequate 10/04/2013 016 DVT (deep venous thrombosis) 09/04/2013 Acute venous embolism and th rombosis of unspecified deep vessels of lower extremity 08/30/2013 05/13/2015 Hip arthritis 08/07/2013 08/10/2016 History of pulmonary embolism 08/12/2012 Renal colic 04/08/2007 01/10/2015 Calculus of kidney 04/08/2007 01/10/2015 HTN (hypertension) 05/13/2015 Depression 06/03/2017 documented as of this encounter (statuses as of 09/01/2022) [facility] of Past illness Narrative* Problem Noted Date Diagnosed Date Resolved Date Acute deep vein thrombosis ( DVT) of proximal vein of right lower extremity 04/15/2021 02/13/2022 Screening for colon cancer 03/23/2018 0 09/20/2018 Overview: Added automatically from request for surgery [id number] History of alcoholism 07/15/20172017 Asthmatic bronchitis 01/10/2015 018 Hip joint replacement status 11/21/2013 08/10/2016 Hematuria 10/04/2013 08/10/2016 Kidney stones 10/04/2013 08/10/2016 Anticoagulation adequate 10/04/2013 DVT (deep venous thrombosis) 09/04/2013 05/13/2015 Acute venous embolism and th rombosis of unspecified deep vessels of lower extremity 08/30/2013 05/13/2015 Hip arthritis 08/07/2013 08/10/2016 History of pulmonary embolism 08/12/2012 01/11/2015 Renal colic 04/08/2007 01/10/2015 Calculus of kidney 04/08/2007 5 HTN (hypertension) 6 Depression 06/03/2017 documented as of this encounter (statuses as of 11/04/2022) [facility] of Past illness Narrative* Problem Noted Date Diagnosed Date Resolved Date Acute deep vein thrombosis ( DVT) of proximal vein of right lower extremity 04/15/2021 02/13/2022 Screening for colon cancer 03/23/2018 0 09/20/2018 Overview: Added automatically from request for surgery [id number] History of alcoholism 07/15/20172017 Asthmatic bronchitis 01/10/2015 018 Hip joint replacement status 11/21/2013 08/10/2016 Hematuria 10/04/2013 08/10/2016 Kidney stones 10/04/2013 08/10/2016 Anticoagulation adequate 10/04/2013 DVT (deep venous thrombosis) 09/04/2013 05/13/2015 Acute venous embolism and th rombosis of unspecified deep vessels of lower extremity 08/30/2013 05/13/2015 Hip arthritis 08/07/2013 08/10/2016 History of pulmonary embolism 08/12/2012 01/11/2015 Renal colic 04/08/2007 01/10/2015 Calculus of kidney 04/08/2007 5 HTN (hypertension) 6 Depression 06/03/2017 documented as of this encounter (statuses as of 11/24/2022) [facility] Past illness Narrative* Problem Noted Date Diagnosed Date Resolved Date Acute deep vein thrombosis ( DVT) of proximal vein of right lower extremity 04/15/2021 02/13/2022 Screening for colon cancer 03/23/2018 0 09/20/2018 Overview: Added automatically from request for surgery [id number] History of alcoholism 07/15/20172017 Asthmatic bronchitis 01/10/2015 018 Hip joint replacement status 11/21/2013 08/10/2016 Hematuria 10/04/2013 08/10/2016 Kidney stones 10/04/2013 08/10/2016 Anticoagulation adequate 10/04/2013 DVT (deep venous thrombosis) 09/04/2013 05/13/2015 Acute venous embolism and th rombosis of unspecified deep vessels of lower extremity 08/30/2013 05/13/2015 Hip arthritis 08/07/2013 08/10/2016 History of pulmonary embolism 08/12/2012 01/11/2015 Renal colic 04/08/2007 01/10/2015 Calculus of kidney 04/08/2007 5 HTN (hypertension) 6 Depression 06/03/2017 documented as of this encounter (statuses as of 02/01/2023) [facility] Narrative* Problem Noted Date Diagnosed Date Resolved Date Acute deep vein thrombosis ( DVT) of proximal vein of right lower extremity 04/15/2021 02/13/2022 Screening for colon cancer 03/23/2018 0 09/20/2018 Overview: Added automatically from request for surgery [id number] History of alcoholism 07/15/20172017 Asthmatic bronchitis 01/10/2015 018 Hip joint replacement status 11/21/2013 08/10/2016 Hematuria 10/04/2013 08/10/2016 Kidney stones 10/04/2013 08/10/2016 Anticoagulation adequate 10/04/2013 DVT (deep venous thrombosis) 09/04/2013 05/13/2015 Acute venous embolism and th rombosis of unspecified deep vessels of lower extremity 08/30/2013 05/13/2015 Hip arthritis 08/07/2013 08/10/2016 History of pulmonary embolism 08/12/2012 01/11/2015 Renal colic 04/08/2007 01/10/2015 Calculus of kidney 04/08/2007 5 HTN (hypertension) 6 Depression 06/03/2017 documented as of this encounter (statuses as of 02/03/2023) [facility] Narrative* Problem Noted Date Diagnosed Date Resolved Date Acute deep vein thrombosis ( DVT) of proximal vein of right lower extremity 04/15/2021 02/13/2022 Screening for colon cancer 03/23/2018 0 09/20/2018 Overview: Added automatically from request for surgery [id number] History of alcoholism 07/15/20172017 Asthmatic bronchitis 01/10/2015 018 Hip joint replacement status 11/21/2013 08/10/2016 Hematuria 10/04/2013 08/10/2016 Kidney stones 10/04/2013 08/10/2016 Anticoagulation adequate 10/04/2013 DVT (deep venous thrombosis) 09/04/2013 05/13/2015 Acute venous embolism and th rombosis of unspecified deep vessels of lower extremity 08/30/2013 05/13/2015 Hip arthritis 08/07/2013 08/10/2016 History of pulmonary embolism 08/12/2012 01/11/2015 Renal colic 04/08/2007 01/10/2015 Calculus of kidney 04/08/2007 5 HTN (hypertension) 6 Depression 06/03/2017 documented as of this encounter (statuses as of 03/15/2023) [facility] Narrative* Problem Noted Date Diagnosed Date Resolved Date Acute deep vein thrombosis ( DVT) of proximal vein of right lower extremity 04/15/2021 02/13/2022 Screening for colon cancer 03/23/2018 0 09/20/2018 Overview: Added automatically from request for surgery [id number] History of alcoholism 07/15/20172017 Asthmatic bronchitis 01/10/2015 018 Hip joint replacement status 11/21/2013 08/10/2016 Hematuria 10/04/2013 08/10/2016 Kidney stones 10/04/2013 08/10/2016 Anticoagulation adequate 10/04/2013 DVT (deep venous thrombosis) 09/04/2013 05/13/2015 Acute venous embolism and th rombosis of unspecified deep vessels of lower extremity 08/30/2013 05/13/2015 Hip arthritis 08/07/2013 08/10/2016 History of pulmonary embolism 08/12/2012 01/11/2015 Renal colic 04/08/2007 01/10/2015 Calculus of kidney 04/08/2007 5 HTN (hypertension) 6 Depression 06/03/2017 documented as of this encounter (statuses as of 03/26/2023) [facility] Narrative* Problem Noted Date Diagnosed Date Resolved Date Acute deep vein thrombosis ( DVT) of proximal vein of right lower extremity 04/15/2021 02/13/2022 Screening for colon cancer 03/23/2018 0 09/20/2018 Overview: Added automatically from request for surgery [id number] History of alcoholism 07/15/20172017 Asthmatic bronchitis 01/10/2015 018 Hip joint replacement status 11/21/2013 08/10/2016 Hematuria 10/04/2013 08/10/2016 Kidney stones 10/04/2013 08/10/2016 Anticoagulation adequate 10/04/2013 DVT (deep venous thrombosis) 09/04/2013 05/13/2015 Acute venous embolism and th rombosis of unspecified deep vessels of lower extremity 08/30/2013 05/13/2015 Hip arthritis 08/07/2013 08/10/2016 History of pulmonary embolism 08/12/2012 01/11/2015 Renal colic 04/08/2007 01/10/2015 Calculus of kidney 04/08/2007 5 HTN (hypertension) 6 Depression 06/03/2017 documented as of this encounter (statuses as of 03/30/2023) [facility] Narrative* Problem Noted Date Diagnosed Date Resolved Date Acute deep vein thrombosis ( DVT) of proximal vein of right lower extremity 04/15/2021 02/13/2022 Screening for colon cancer 03/23/2018 0 09/20/2018 Overview: Added automatically from request for surgery [id number] History of alcoholism 07/15/20172017 Asthmatic bronchitis 01/10/2015 018 Hip joint replacement status 11/21/2013 08/10/2016 Hematuria 10/04/2013 08/10/2016 Kidney stones 10/04/2013 08/10/2016 Anticoagulation adequate 10/04/2013 DVT (deep venous thrombosis) 09/04/2013 05/13/2015 Acute venous embolism and th rombosis of unspecified deep vessels of lower extremity 08/30/2013 05/13/2015 Hip arthritis 08/07/2013 08/10/2016 History of pulmonary embolism 08/12/2012 01/11/2015 Renal colic 04/08/2007 01/10/2015 Calculus of kidney 04/08/2007 5 HTN (hypertension) 6 Depression 06/03/2017 documented as of this encounter (statuses as of 06/03/2023) [facility] Narrative* Problem Noted Date Diagnosed Date Resolved Date Acute deep vein thrombosis ( DVT) of proximal vein of right lower extremity 04/15/2021 02/13/2022 Screening for colon cancer 03/23/2018 0 09/20/2018 Overview: Added automatically from request for surgery [id number] History of alcoholism 07/15/20172017 Asthmatic bronchitis 01/10/2015 018 Hip joint replacement status 11/21/2013 08/10/2016 Hematuria 10/04/2013 08/10/2016 Kidney stones 10/04/2013 08/10/2016 Anticoagulation adequate 10/04/2013 DVT (deep venous thrombosis) 09/04/2013 05/13/2015 Acute venous embolism and th rombosis of unspecified deep vessels of lower extremity 08/30/2013 05/13/2015 Hip arthritis 08/07/2013 08/10/2016 History of pulmonary embolism 08/12/2012 01/11/2015 Renal colic 04/08/2007 01/10/2015 Calculus of kidney 04/08/2007 5 HTN (hypertension) 6 Depression 06/03/2017 documented as of this encounter (statuses as of 08/02/2023) [facility] History of Past illness Narrative* Problem Noted Date Diagnosed Date Resolved Date Acute deep vein thrombosis ( DVT) of proximal vein of right lower extremity 04/15/2021 02/13/2022 Screening for colon cancer 03/23/2018 0 09/20/2018 Overview: Added automatically from request for surgery [id number] History of alcoholism 07/15/20172017 Asthmatic bronchitis 01/10/2015 018 Hip joint replacement status 11/21/2013 08/10/2016 Hematuria 10/04/2013 08/10/2016 Kidney stones 10/04/2013 08/10/2016 Anticoagulation adequate 10/04/2013 DVT (deep venous thrombosis) 09/04/2013 05/13/2015 Acute venous embolism and th rombosis of unspecified deep vessels of lower extremity 08/30/2013 05/13/2015 Hip arthritis 08/07/2013 08/10/2016 History of pulmonary embolism 08/12/2012 01/11/2015 Renal colic 04/08/2007 01/10/2015 Calculus of kidney 04/08/2007 5 HTN (hypertension) 6 Depression 06/03/2017 documented as of this encounter (statuses as of 08/06/2023) [facility] History of Past illness Narrative* Problem Noted Date Resolved Date Screening for colon cancer 03/23/201809/20 Overview: Added automatically from request for surgery [id number] History of alcoholism 2017 02/23/2018 Asthmatic bronchitis 01/10/2015 10/21/2017 Hip joint replacement status 11/21/2013 Hematuria 10/04/2013 08/10/2016 Kidney stones 10/04/2013 08/10/2016 Anticoagulation adequate 10/04/2013 016 DVT (deep venous thrombosis) 09/04/2013 Acute venous embolism and th rombosis of unspecified deep vessels of lower extremity 08/30/2013 05/13/2015 Hip arthritis 08/07/2013 08/10/2016 History of pulmonary embolism 08/12/2012 Renal colic 04/08/2007 01/10/2015 Calculus of kidney 04/08/2007 01/10/2015 HTN (hypertension) 05/13/2015 Depression 06/03/2017 documented as of this encounter (statuses as of 09/30/2021) [facility] History of Past illness Narrative* Problem Noted Date Resolved Date Screening for colon cancer 03/23/201809/20 Overview: Added automatically from request for surgery [id number] History of alcoholism 2017 02/23/2018 Asthmatic bronchitis 01/10/2015 10/21/2017 Hip joint replacement status 11/21/2013 Hematuria 10/04/2013 08/10/2016 Kidney stones 10/04/2013 08/10/2016 Anticoagulation adequate 10/04/2013 016 DVT (deep venous thrombosis) 09/04/2013 Acute venous embolism and th rombosis of unspecified deep vessels of lower extremity 08/30/2013 05/13/2015 Hip arthritis 08/07/2013 08/10/2016 History of pulmonary embolism 08/12/2012 Renal colic 04/08/2007 01/10/2015 Calculus of kidney 04/08/2007 01/10/2015 HTN (hypertension) 05/13/2015 Depression 06/03/2017 documented as of this encounter (statuses as of 10/01/2021) [facility] History of Past illness Narrative* Problem Noted Date Resolved Date Screening for colon cancer 03/23/201809/20 Overview: Added automatically from request for surgery [id number] History of alcoholism 2017 02/23/2018 Asthmatic bronchitis 01/10/2015 10/21/2017 Hip joint replacement status 11/21/2013 Hematuria 10/04/2013 08/10/2016 Kidney stones 10/04/2013 08/10/2016 Anticoagulation adequate 10/04/2013 016 DVT (deep venous thrombosis) 09/04/2013 Acute venous embolism and th rombosis of unspecified deep vessels of lower extremity 08/30/2013 05/13/2015 Hip arthritis 08/07/2013 08/10/2016 History of pulmonary embolism 08/12/2012 Renal colic 04/08/2007 01/10/2015 Calculus of kidney 04/08/2007 01/10/2015 HTN (hypertension) 05/13/2015 Depression 06/03/2017 documented as of this encounter (statuses as of 12/23/2021) [facility] History of Past illness Narrative* Problem Noted Date Resolved Date Screening for colon cancer 03/23/201809/20 Overview: Added automatically from request for surgery [id number] History of alcoholism 2017 02/23/2018 Asthmatic bronchitis 01/10/2015 10/21/2017 Hip joint replacement status 11/21/2013 Hematuria 10/04/2013 08/10/2016 Kidney stones 10/04/2013 08/10/2016 Anticoagulation adequate 10/04/2013 016 DVT (deep venous thrombosis) 09/04/2013 Acute venous embolism and th rombosis of unspecified deep vessels of lower extremity 08/30/2013 05/13/2015 Hip arthritis 08/07/2013 08/10/2016 History of pulmonary embolism 08/12/2012 Renal colic 04/08/2007 01/10/2015 Calculus of kidney 04/08/2007 01/10/2015 HTN (hypertension) 05/13/2015 Depression 06/03/2017 documented as of this encounter (statuses as of 01/26/2022) [facility] Ankit Vazquez [facility] November 04, 2022 11:17am Note Date/Time November 04, 2022 11:[address] [facility] Medical Records Department [address] [place] [id number] Emergency Department Summary 11/04/22 MR#: [id number] Acct: [id number] Name: NEYMAR ROME Rep #:[id number] : 1965 57 From: Ankit Vazquez MD PCP: Dr. Kvng Fu MD Status:P RE ER Location: ED HPI History of Present Illness Chief Complaint: Sore Throat Informant: patient Narrative Narrative: Patient presents with a sore throat with odynophagia for 1 week. Left ear is hurts some. No coughing or shortness of breath. Some chills today but no fevers that he knows of although he has a fever here in triage. He states his daughter has a sore throat as well for the same period of time. Also, the patient states that he has had a sore swollen area on his right leg that became that way from picking at it, now it is painful and red. He has been able to walk without difficulty. [facility] Medical History (Updated 11/04/22 @ 11:[address] Ankit Vazquez MD) Asthma Bronchitis Chronic back pain HTN (hypertension) Infestation by bed bug Narcotic dependence Home Medications amitriptyline 25 mg tablet 25 mg PO QHS 07/22/13 [History Last Taken Unknown] docusate sodium 100 mg capsule (DOK) 100 mg PO DAILY PRN PRN Constipation 07/22/13 [History Last Taken Unknown] fenofibrate 160 mg tablet (Lofibra) 160 mg PO DAILY 07/22/13 [History Last Taken Unknown] fentanyl 75 mcg/hr transdermal patch 75 mcg TRANSDERM. Q72H 07/22/13 [History Last Taken Unknown] ipratropium 20 mcg-albuterol 100 mcg/actuation mist for inhalation (Combivent Respimat) 1 puff inhalation 07/22/13 [History Last Taken Unknown] lisinopril 5 mg tablet 5 mg PO DAILY 07/22/13 [History Last Taken Unknown] meloxicam 7.5 mg tablet 7.5 mg PO DAILY 07/22/13 [History Last Taken Unknown] simvastatin 40 mg tablet 40 mg PO QHS 07/22/13 [History Last Taken Unknown] doxycycline hyclate 100 mg capsule 100 mg PO BID #14 caps 08/11/22 [Rx Last Taken Unknown] prednisone 20 mg tablet 40 mg (2 x 20 mg) PO DAILY #8 tabs 08/11/22 [Rx Last Taken Unknown] cephalexin 500 mg capsule 500 mg PO Q6 #40 CAPSULES 11/04/22 [Rx Last Taken Unknown] Allergy/AdvReac Type Severity Reaction Status Date / Time paroxetine Allergy PT UNSURE Verified 11/04/22 10:26 OF REACTION tramadol Allergy Other Verified 11/04/22 10:26 venlafaxine Allergy PT UNSURE Verified 11/04/22 10:26 OF REACTION acetaminophen [From Vicodin] AdvReac Other Verified 07/12/23 10:26 formaldehyde AdvReac Other Verified 11/04/22 10:26 hydrocodone [From Vicodin] AdvReac Other Verified 11/04/22 10:26 Social History Smoking Status: Current every day smoker tobacco type: cigarettes ROS ROS ED Constitutional Constitutional ED: Reports chills; Denies fever(s) Eyes Eyes: Denies blurry vision or diplopia ENT ENT ED: Reports ear pain left and sore throat; Denies rhinorrhea Cardiovascular Cardiovascular: Denies chest pain or orthopnea Respiratory/Chest Respiratory/Chest: Reports cough and other Details: Cough chronic no different according to patient ; Denies dyspnea, dyspnea on exertion, orthopnea or sputum Gastrointestinal Gastrointestinal: Denies abdominal pain, nausea or vomiting Musculoskeletal Musculoskeletal: Denies extremity pain or neck pain Integumentary Reports rash Neurologic Neurologic: Denies headache(s) EXAM Physical Exam Const Vital Signs: 11/04/22 10:24 Temperature 101.8 F H Temperature Source Temporal Pulse Rate 136 H Respiratory Rate 18 Blood Pressure 159/112 H Blood Pressure Mean 127 Pulse Ox 94 Oxygen Delivery Method Room Air Positive well nourished, well developed and unkempt General Appearance ED: unkempt, well developed and NAD HEENT Reports TM's clear and moist mucous membranes HEENT Narrative: PIP mild erythema but otherwise clear. No exudates. No asymmetry. No trismus. Tongue normal no elevation. Cerumen bilateral EAC otherwise normal. Tympanic Membrane ED: Yes TM's clear Eyes PERRL and EOMs intact bilaterally Neck no lymphadenopathy and supple Resp normal respiratory effort and clear to auscultation bilaterally Cardio regular rate and regular rhythm Rate: tachycardic Extremity Extremity Narrative: There is a scabbed wound on the right distal rodríguez with surrounding erythema thatis mildly tender there is no subcutaneous emphysema, bony tenderness, or lymphangitis. He has full range of motion of all joints and walks without difficulty. It is limited to the rodríguez/anterior lower leg, maybe 5 or 6 cm in diameter total. With uncovering the patient's leg by taking his pants up, 3 bedbugs crawl out. Neuro oriented x3, CN's II-XII intact bilaterally and no sensory deficits noted Sensorium / Orientation: alert Motor Exam: strength 5/5 throughout Psych mental status grossly normal Appearance: unkempt Skin Skin Narrative: Right lower leg wound without abscess. No erythema in the left leg. See above. MDM MDM MDM Narrative Medical decision making narrative: Discussed with the patient, we could test him for strep which this may or may not be, I do not think he has mononucleosis, but is cellulitis from a wound thatapparently picked at and looks like it has become secondarily infected looks amenable to antibiotics. There is nothing to drain here, it is not necrotizing fasciitis, and he states it has been there for longer than the sore throat. I think putting him on cephalexin would be reasonable, he is in agreement with that plan. He is not septic although he does have a temperature here. He is advised to come back if this does not help and he is comfortable with that plan. Discharge Plan Triage Chief Complaint: Sore Throat ED Provider: Ankit Vazquez Dx/Rx/DC Orders Clinical Impression: Cellulitis of leg without foot, right, Pharyngitis Instructions: ED Cellulitis Prescriptions: New cephalexin [cephalexin] 500 mg capsule 500 mg PO Q6 Qty: 40 0RF No Action simvastatin 40 MG tablet 40 mg PO QHS Patient Comments: CHOLESTEROL meloxicam 7.5 MG tablet 7.5 mg PO DAILY Patient Comments: ARTHRITIS amitriptyline 25 MG tablet 25 mg PO QHS Patient Comments: DEPRESSION docusate sodium [DOK] 100 MG capsule 100 mg PO DAILY PRN PRN (Reason: Constipation) Patient Comments: STOOL SOFTENER lisinopril 5 MG tablet 5 mg PO DAILY Patient Comments: HEART/BLOOD PRESSURE fentanyl 75 MCG patch 75 mcg TRANSDERM. Q72H Patient Comments: PAIN fenofibrate [Lofibra] 160 MG tablet 160 mg PO DAILY Patient Comments: CHOLESTEROL ipratropium-albuterol [Combivent Respimat] 1 PUFF inhaler 1 puff inhalation Patient Comments: BREATHING prednisone 20 mg tablet 40 mg PO DAILY Qty: 8 0RF doxycycline hyclate 100 mg capsule 100 mg PO BID Qty: 14 0RF Primary Care Provider: Kvng Fu Referrals: Kvng Fu MD [Primary Care Provider] - 3-5 Days (call for appt; may always return to ER if you are feelin worse despite taking the antibiotic for a day or 2, or if you develop trouble breathing) Disposition Disposition: Home, Self Care What to do if you have Problems For any increased pain, shortness of breath, bleeding, nausea or vomiting, chestpain, or any unexpected problems, contact your Primary Care Provider. Call [facility] ([phone]) or report to the closest Emergency Room. Call 911 if necessary. 11/04/22 1117 <Electronically signed by Ankit Vazquez MD> Cosigner Signature (if applicable): CC: Dr. Kvng Fu MD ~ Signed [facility] Work Phone: Evaluation noteNo assessment information available [facility] Work Phone: Evaluation note* Diagnosis Hyperlipidemia, unspecified hyperlipidemia type- Primary [facility] Diagnosis Rhinitis, unspecified type [facility] Diagnosis Recurrent deep vein thrombosis (DVT) (HCC)- Primary Chronic obstructive pulmonary disease, unspecified COPD type (HCC) Hyperlipidemia, unspecified hyperlipidemia type Tobacco use disorder Need for vaccination Need for prophylactic vaccination and inoculation against unspecified single disease [facility] Diagnosis Encounter for screening for lung cancer- Primary Smoker Tobacco use disorder Lung nodules Other nonspecific abnormal finding of lung field [facility] Diagnosis Acute pain of left knee- Primary Skin infection of left knee Hematoma of left knee region Injury of left knee, subsequent encounter [facility] Diagnosis Recurrent deep vein thrombosis (DVT) (HCC)- Primary Intervertebral lumbar disc disorder with myelopathy, lumbar region Chronic anticoagulation Long-term (current) use of anticoagulants Hyperlipidemia, unspecified hyperlipidemia type Chronic obstructive pulmonary disease, unspecified COPD type (HCC) Acute pain of left knee Skin infection of left knee Hematoma of left knee region Screening for prostate cancer Special screening for malignant neoplasm of prostate Screen for colon cancer Special screening for malignant neoplasms, colon [facility] Diagnosis Hyperlipidemia, unspecified hyperlipidemia type [facility] Diagnosis Encounter for screening for malignant neoplasm of colon- Primary Special screening for malignant neoplasms, colon Tubular adenoma of colon Benign neoplasm of colon History of colonic polyps Personal history of colonic polyps [facility]* Diagnosis Infestation by bed bug- Primary Other specified infestations Bedbug bite, subsequent encounter Recurrent deep vein thrombosis (DVT) (HCC) Chronic obstructive pulmonary disease, unspecified COPD type (HCC) Obesity, Class I, BMI 30-34.9 Obesity, unspecified documented in this encounter [facility] note* Diagnosis Pre-operative examination- Primary Preoperative examination, unspecified Benign non-nodular prostatic hyperplasia without lower urinary tract symptoms Blindness of right eye, unspecified left eye visual impairment category Chronic obstructive pulmonary disease, unspecified COPD type (HCC) Hyperlipidemia, unspecified hyperlipidemia type Intervertebral lumbar disc disorder with myelopathy, lumbar region Recurrent deep vein thrombosis (DVT) (HCC) Infestation by bed bug Other specified infestations History of total hip replacement, right Fatty liver Other chronic nonalcoholic liver disease Obesity, Class I, BMI 30-34.9 Obesity, unspecified documented in this encounter [facility] note* Diagnosis Encounter for screening for malignant neoplasm of lung in current smoker with 30 pack year history or greater- Primary Smoker Tobacco use disorder documented in this encounter [facility] note* Diagnosis Medicare annual wellness visit, subsequent- Primary Routine general medical examination at a health care facility Narcotic dependence (HCC) Unspecified drug dependence, unspecified Chronic obstructive pulmonary disease, unspecified COPD type (HCC) Recurrent deep vein thrombosis (DVT) (HCC) Hyperlipidemia, unspecified hyperlipidemia type Elevated glucose level documented in this encounter [facility] note* Diagnosis Hyperlipidemia, unspecified hyperlipidemia type documented in this encounter [facility] note* Diagnosis Umbilical hernia without obstruction and without gangrene- Primary Recurrent deep vein thrombosis (DVT) (HCC) Chronic obstructive pulmonary disease, unspecified COPD type (HCC) Cellulitis of right leg Cellulitis and abscess of leg, except foot documented in this encounter [facility] note* Diagnosis Umbilical hernia without obstruction and without gangrene Umbilical hernia without obstruction and without gangrene documented in this encounter [facility] note* Diagnosis Pre-operative examination- Primary Preoperative examination, unspecified Hyperlipidemia, unspecified hyperlipidemia type Centrilobular emphysema (HCC) Other emphysema Tobacco use disorder Fatty liver Other chronic nonalcoholic liver disease Recurrent deep vein thrombosis (DVT) (HCC) Narcotic dependence (HCC) Unspecified drug dependence, unspecified Benign non-nodular prostatic hyperplasia without lower urinary tract symptoms Obesity, Class I, BMI 30-34.9 Obesity, unspecified * Assessment & Plan Note - Lizette Arredondo PA-C - 09/07/2023 3:17 PM EDT Associated Problem(s): Obesity, Class I, BMI 30-34.9 Assessment: Body mass index is 32.28 kg/m . * Assessment & Plan Note - Lizette Arredondo PA-C - 09/07/2023 3:17 PM EDT Associated Problem(s): Benign non-nodular prostatic hyperplasia without lower urinary tract symptoms Assessment: Hx of, denies current symptoms. * Assessment & Plan Note - Lizette Arredondo PA-C - 09/07/2023 3:17 PM EDT Associated Problem(s): Narcotic dependence (HCC) Assessment: Current daily use for pain. * Assessment & Plan Note - Lizette Arredondo PA-C - 09/07/2023 3:16 PM EDT Associated Problem(s): Recurrent deep vein thrombosis (DVT) (HCC) Assessment: DVT x 2, PE x 1. On lifelong AC now with Xarelto. Was instructed to hold 2 days before by prescriber. Last dose was Wednesday evening, 09/04. * Assessment & Plan Note - Lizette Arredondo PA-C - 09/07/2023 3:15 PM EDT Associated Problem(s): Fatty liver Assessment: Hx ETOH use, no longer drinking. Liver enzymes on 08/05/23 are WNL. * Assessment & Plan Note - Lizette Arredondo PA-C - 09/07/2023 3:14 PM EDT Associated Problem(s): Tobacco use disorder Assessment: Smoking 1 pack cigarettes/day. Encouraged cessation. No smoking day of surgery. * Assessment & Plan Note - Lizette Arredondo PA-C - 09/07/2023 3:11 PM EDT Associated Problem(s): COPD (chronic obstructive pulmonary disease) (HCC) Assessment: Emphysema. Not on any medications/inhalers. Denies CHACON, cough. Feels like he is at his baseline. Encouraged smoking cessation. On exam, lungs clear, SpO2 96% on RA. * Assessment & Plan Note - Lizette Arredondo PA-C - 09/07/2023 3:06 PM EDT Associated Problem(s): Hyperlipemia Assessment: Follows with PCP, adherent to statin. [facility] Diagnosis Umbilical hernia without obstruction and without gangrene- Primary [facility]* Diagnosis Multiple lung nodules- Primary Other nonspecific abnormal finding of lung field Tobacco use current [facility] Diagnosis Encounter for screening for malignant neoplasm of lung in current smoker with 30 pack year history or greater Smoker Tobacco use disorder [facility] Diagnosis Acute pain of left knee Injury of left knee, subsequent encounter Recurrent deep vein thrombosis (DVT) (HCC)- Primary Intervertebral lumbar disc disorder with myelopathy, lumbar region Chronic anticoagulation Long-term (current) use of anticoagulants Hyperlipidemia, unspecified hyperlipidemia type Chronic obstructive pulmonary disease, unspecified COPD type (HCC) Acute pain of left knee Skin infection of left knee Hematoma of left knee region Screening for prostate cancer Special screening for malignant neoplasm of prostate Screen for colon cancer Special screening for malignant neoplasms, colon Pre-operative examination- Primary Preoperative examination, unspecified Benign non-nodular prostatic hyperplasia without lower urinary tract symptoms Blindness of right eye, unspecified left eye visual impairment category Chronic obstructive pulmonary disease, unspecified COPD type (HCC) Hyperlipidemia, unspecified hyperlipidemia type Intervertebral lumbar disc disorder with myelopathy, lumbar region Recurrent deep vein thrombosis (DVT) (HCC) Infestation by bed bug Other specified infestations History of total hip replacement, right Fatty liver Other chronic nonalcoholic liver disease Obesity, Class I, BMI 30-34.9 Obesity, unspecified Pre-operative examination- Primary Preoperative examination, unspecified Hyperlipidemia, unspecified hyperlipidemia type Centrilobular emphysema (HCC) Other emphysema Tobacco use disorder Fatty liver Other chronic nonalcoholic liver disease Recurrent deep vein thrombosis (DVT) (HCC) Narcotic dependence (HCC) Unspecified drug dependence, unspecified Benign non-nodular prostatic hyperplasia without lower urinary tract symptoms Obesity, Class I, BMI 30-34.9 Obesity, unspecified [facility] Diagnosis Acute pain of left knee Right hip pain Pain in joint, pelvic region and thigh Recurrent deep vein thrombosis (DVT) (HCC)- Primary Intervertebral lumbar disc disorder with myelopathy, lumbar region Chronic anticoagulation Long-term (current) use of anticoagulants Hyperlipidemia, unspecified hyperlipidemia type Chronic obstructive pulmonary disease, unspecified COPD type (HCC) Acute pain of left knee Skin infection of left knee Hematoma of left knee region Screening for prostate cancer Special screening for malignant neoplasm of prostate Screen for colon cancer Special screening for malignant neoplasms, colon Pre-operative examination- Primary Preoperative examination, unspecified Benign non-nodular prostatic hyperplasia without lower urinary tract symptoms Blindness of right eye, unspecified left eye visual impairment category Chronic obstructive pulmonary disease, unspecified COPD type (HCC) Hyperlipidemia, unspecified hyperlipidemia type Intervertebral lumbar disc disorder with myelopathy, lumbar region Recurrent deep vein thrombosis (DVT) (HCC) Infestation by bed bug Other specified infestations History of total hip replacement, right Fatty liver Other chronic nonalcoholic liver disease Obesity, Class I, BMI 30-34.9 Obesity, unspecified Pre-operative examination- Primary Preoperative examination, unspecified Hyperlipidemia, unspecified hyperlipidemia type Centrilobular emphysema (HCC) Other emphysema Tobacco use disorder Fatty liver Other chronic nonalcoholic liver disease Recurrent deep vein thrombosis (DVT) (HCC) Narcotic dependence (HCC) Unspecified drug dependence, unspecified Benign non-nodular prostatic hyperplasia without lower urinary tract symptoms Obesity, Class I, BMI 30-34.9 Obesity, unspecified [facility] Diagnosis Recurrent deep vein thrombosis (DVT) (HCC)- Primary Intervertebral lumbar disc disorder with myelopathy, lumbar region Chronic anticoagulation Long-term (current) use of anticoagulants Hyperlipidemia, unspecified hyperlipidemia type Chronic obstructive pulmonary disease, unspecified COPD type (HCC) Acute pain of left knee Skin infection of left knee Hematoma of left knee region Screening for prostate cancer Special screening for malignant neoplasm of prostate Screen for colon cancer Special screening for malignant neoplasms, colon Pre-operative examination- Primary Preoperative examination, unspecified Benign non-nodular prostatic hyperplasia without lower urinary tract symptoms Blindness of right eye, unspecified left eye visual impairment category Chronic obstructive pulmonary disease, unspecified COPD type (HCC) Hyperlipidemia, unspecified hyperlipidemia type Intervertebral lumbar disc disorder with myelopathy, lumbar region Recurrent deep vein thrombosis (DVT) (HCC) Infestation by bed bug Other specified infestations History of total hip replacement, right Fatty liver Other chronic nonalcoholic liver disease Obesity, Class I, BMI 30-34.9 Obesity, unspecified Pre-operative examination- Primary Preoperative examination, unspecified Hyperlipidemia, unspecified hyperlipidemia type Centrilobular emphysema (HCC) Other emphysema Tobacco use disorder Fatty liver Other chronic nonalcoholic liver disease Recurrent deep vein thrombosis (DVT) (HCC) Narcotic dependence (HCC) Unspecified drug dependence, unspecified Benign non-nodular prostatic hyperplasia without lower urinary tract symptoms Obesity, Class I, BMI 30-34.9 Obesity, unspecified Edema of right lower leg- Primary Venous stasis dermatitis Varicose veins of lower extremities with inflammation [facility] Diagnosis Recurrent deep vein thrombosis (DVT) (HCC)- Primary Intervertebral lumbar disc disorder with myelopathy, lumbar region Chronic anticoagulation Long-term (current) use of anticoagulants Hyperlipidemia, unspecified hyperlipidemia type Chronic obstructive pulmonary disease, unspecified COPD type (HCC) Acute pain of left knee Skin infection of left knee Hematoma of left knee region Screening for prostate cancer Special screening for malignant neoplasm of prostate Screen for colon cancer Special screening for malignant neoplasms, colon Pre-operative examination- Primary Preoperative examination, unspecified Benign non-nodular prostatic hyperplasia without lower urinary tract symptoms Blindness of right eye, unspecified left eye visual impairment category Chronic obstructive pulmonary disease, unspecified COPD type (HCC) Hyperlipidemia, unspecified hyperlipidemia type Intervertebral lumbar disc disorder with myelopathy, lumbar region Recurrent deep vein thrombosis (DVT) (HCC) Infestation by bed bug Other specified infestations History of total hip replacement, right Fatty liver Other chronic nonalcoholic liver disease Obesity, Class I, BMI 30-34.9 Obesity, unspecified Pre-operative examination- Primary Preoperative examination, unspecified Hyperlipidemia, unspecified hyperlipidemia type Centrilobular emphysema (HCC) Other emphysema Tobacco use disorder Fatty liver Other chronic nonalcoholic liver disease Recurrent deep vein thrombosis (DVT) (HCC) Narcotic dependence (HCC) Unspecified drug dependence, unspecified Benign non-nodular prostatic hyperplasia without lower urinary tract symptoms Obesity, Class I, BMI 30-34.9 Obesity, unspecified Chronic obstructive pulmonary disease, unspecified COPD type (HCC)- Primary Venous stasis dermatitis Varicose veins of lower extremities with inflammation Hyperlipidemia, unspecified hyperlipidemia type Impaired glucose metabolism Impaired glucose tolerance test Edema of right lower leg [facility] Diagnosis Recurrent deep vein thrombosis (DVT) (HCC)- Primary Intervertebral lumbar disc disorder with myelopathy, lumbar region Chronic anticoagulation Long-term (current) use of anticoagulants Hyperlipidemia, unspecified hyperlipidemia type Chronic obstructive pulmonary disease, unspecified COPD type (HCC) Acute pain of left knee Skin infection of left knee Hematoma of left knee region Screening for prostate cancer Special screening for malignant neoplasm of prostate Screen for colon cancer Special screening for malignant neoplasms, colon Pre-operative examination- Primary Preoperative examination, unspecified Benign non-nodular prostatic hyperplasia without lower urinary tract symptoms Blindness of right eye, unspecified left eye visual impairment category Chronic obstructive pulmonary disease, unspecified COPD type (HCC) Hyperlipidemia, unspecified hyperlipidemia type Intervertebral lumbar disc disorder with myelopathy, lumbar region Recurrent deep vein thrombosis (DVT) (HCC) Infestation by bed bug Other specified infestations History of total hip replacement, right Fatty liver Other chronic nonalcoholic liver disease Obesity, Class I, BMI 30-34.9 Obesity, unspecified Pre-operative examination- Primary Preoperative examination, unspecified Hyperlipidemia, unspecified hyperlipidemia type Centrilobular emphysema (HCC) Other emphysema Tobacco use disorder Fatty liver Other chronic nonalcoholic liver disease Recurrent deep vein thrombosis (DVT) (HCC) Narcotic dependence (HCC) Unspecified drug dependence, unspecified Benign non-nodular prostatic hyperplasia without lower urinary tract symptoms Obesity, Class I, BMI 30-34.9 Obesity, unspecified Hyperlipidemia, unspecified hyperlipidemia type [facility] Diagnosis Recurrent deep vein thrombosis (DVT) (HCC)- Primary Intervertebral lumbar disc disorder with myelopathy, lumbar region Chronic anticoagulation Long-term (current) use of anticoagulants Hyperlipidemia, unspecified hyperlipidemia type Chronic obstructive pulmonary disease, unspecified COPD type (HCC) Acute pain of left knee Skin infection of left knee Hematoma of left knee region Screening for prostate cancer Special screening for malignant neoplasm of prostate Screen for colon cancer Special screening for malignant neoplasms, colon Pre-operative examination- Primary Preoperative examination, unspecified Benign non-nodular prostatic hyperplasia without lower urinary tract symptoms Blindness of right eye, unspecified left eye visual impairment category Chronic obstructive pulmonary disease, unspecified COPD type (HCC) Hyperlipidemia, unspecified hyperlipidemia type Intervertebral lumbar disc disorder with myelopathy, lumbar region Recurrent deep vein thrombosis (DVT) (HCC) Infestation by bed bug Other specified infestations History of total hip replacement, right Fatty liver Other chronic nonalcoholic liver disease Obesity, Class I, BMI 30-34.9 Obesity, unspecified Pre-operative examination- Primary Preoperative examination, unspecified Hyperlipidemia, unspecified hyperlipidemia type Centrilobular emphysema (HCC) Other emphysema Tobacco use disorder Fatty liver Other chronic nonalcoholic liver disease Recurrent deep vein thrombosis (DVT) (HCC) Narcotic dependence (HCC) Unspecified drug dependence, unspecified Benign non-nodular prostatic hyperplasia without lower urinary tract symptoms Obesity, Class I, BMI 30-34.9 Obesity, unspecified Medicare annual wellness visit, subsequent- Primary Routine general medical examination at a health care facility Hyperlipidemia, unspecified hyperlipidemia type Screening for depression Encounter for screening examination for other mental health and behavioral disorders Narcotic dependence (HCC) Unspecified drug dependence, unspecified Chronic obstructive pulmonary disease, unspecified COPD type (HCC) Recurrent deep vein thrombosis (DVT) (HCC) Allergic dermatitis Contact dermatitis and other eczema, due to unspecified cause [facility] Diagnosis Recurrent deep vein thrombosis (DVT) (HCC)- Primary Intervertebral lumbar disc disorder with myelopathy, lumbar region Chronic anticoagulation Long-term (current) use of anticoagulants Hyperlipidemia, unspecified hyperlipidemia type Chronic obstructive pulmonary disease, unspecified COPD type (HCC) Acute pain of left knee Skin infection of left knee Hematoma of left knee region Screening for prostate cancer Special screening for malignant neoplasm of prostate Screen for colon cancer Special screening for malignant neoplasms, colon Pre-operative examination- Primary Preoperative examination, unspecified Benign non-nodular prostatic hyperplasia without lower urinary tract symptoms Blindness of right eye, unspecified left eye visual impairment category Chronic obstructive pulmonary disease, unspecified COPD type (HCC) Hyperlipidemia, unspecified hyperlipidemia type Intervertebral lumbar disc disorder with myelopathy, lumbar region Recurrent deep vein thrombosis (DVT) (HCC) Infestation by bed bug Other specified infestations History of total hip replacement, right Fatty liver Other chronic nonalcoholic liver disease Obesity, Class I, BMI 30-34.9 Obesity, unspecified Pre-operative examination- Primary Preoperative examination, unspecified Hyperlipidemia, unspecified hyperlipidemia type Centrilobular emphysema (HCC) Other emphysema Tobacco use disorder Fatty liver Other chronic nonalcoholic liver disease Recurrent deep vein thrombosis (DVT) (HCC) Narcotic dependence (HCC) Unspecified drug dependence, unspecified Benign non-nodular prostatic hyperplasia without lower urinary tract symptoms Obesity, Class I, BMI 30-34.9 Obesity, unspecified Hyperlipidemia, unspecified hyperlipidemia type [facility] Diagnosis Recurrent deep vein thrombosis (DVT) (HCC)- Primary Intervertebral lumbar disc disorder with myelopathy, lumbar region Chronic anticoagulation Long-term (current) use of anticoagulants Hyperlipidemia, unspecified hyperlipidemia type Chronic obstructive pulmonary disease, unspecified COPD type (HCC) Acute pain of left knee Skin infection of left knee Hematoma of left knee region Screening for prostate cancer Special screening for malignant neoplasm of prostate Screen for colon cancer Special screening for malignant neoplasms, colon Pre-operative examination- Primary Preoperative examination, unspecified Benign non-nodular prostatic hyperplasia without lower urinary tract symptoms Blindness of right eye, unspecified left eye visual impairment category Chronic obstructive pulmonary disease, unspecified COPD type (HCC) Hyperlipidemia, unspecified hyperlipidemia type Intervertebral lumbar disc disorder with myelopathy, lumbar region Recurrent deep vein thrombosis (DVT) (HCC) Infestation by bed bug Other specified infestations History of total hip replacement, right Fatty liver Other chronic nonalcoholic liver disease Obesity, Class I, BMI 30-34.9 Obesity, unspecified Pre-operative examination- Primary Preoperative examination, unspecified Hyperlipidemia, unspecified hyperlipidemia type Centrilobular emphysema (HCC) Other emphysema Tobacco use disorder Fatty liver Other chronic nonalcoholic liver disease Recurrent deep vein thrombosis (DVT) (HCC) Narcotic dependence (HCC) Unspecified drug dependence, unspecified Benign non-nodular prostatic hyperplasia without lower urinary tract symptoms Obesity, Class I, BMI 30-34.9 Obesity, unspecified Multiple lung nodules- Primary Other nonspecific abnormal finding of lung field Encounter for screening for lung cancer Tobacco use current Centrilobular emphysema (HCC) Other emphysema Hemoptysis Hemoptysis, unspecified documented in this encounter [facility] note* Diagnosis Recurrent deep vein thrombosis (DVT) (HCC)- Primary Intervertebral lumbar disc disorder with myelopathy, lumbar region Chronic anticoagulation Long-term (current) use of anticoagulants Hyperlipidemia, unspecified hyperlipidemia type Chronic obstructive pulmonary disease, unspecified COPD type (HCC) Acute pain of left knee Skin infection of left knee Hematoma of left knee region Screening for prostate cancer Special screening for malignant neoplasm of prostate Screen for colon cancer Special screening for malignant neoplasms, colon Pre-operative examination- Primary Preoperative examination, unspecified Benign non-nodular prostatic hyperplasia without lower urinary tract symptoms Blindness of right eye, unspecified left eye visual impairment category Chronic obstructive pulmonary disease, unspecified COPD type (HCC) Hyperlipidemia, unspecified hyperlipidemia type Intervertebral lumbar disc disorder with myelopathy, lumbar region Recurrent deep vein thrombosis (DVT) (HCC) Infestation by bed bug Other specified infestations History of total hip replacement, right Fatty liver Other chronic nonalcoholic liver disease Obesity, Class I, BMI 30-34.9 Obesity, unspecified Pre-operative examination- Primary Preoperative examination, unspecified Hyperlipidemia, unspecified hyperlipidemia type Centrilobular emphysema (HCC) Other emphysema Tobacco use disorder Fatty liver Other chronic nonalcoholic liver disease Recurrent deep vein thrombosis (DVT) (HCC) Narcotic dependence (HCC) Unspecified drug dependence, unspecified Benign non-nodular prostatic hyperplasia without lower urinary tract symptoms Obesity, Class I, BMI 30-34.9 Obesity, unspecified Tobacco use current [facility] Diagnosis Recurrent deep vein thrombosis (DVT) (HCC)- Primary Intervertebral lumbar disc disorder with myelopathy, lumbar region Chronic anticoagulation Long-term (current) use of anticoagulants Hyperlipidemia, unspecified hyperlipidemia type Chronic obstructive pulmonary disease, unspecified COPD type (HCC) Acute pain of left knee Skin infection of left knee Hematoma of left knee region Screening for prostate cancer Special screening for malignant neoplasm of prostate Screen for colon cancer Special screening for malignant neoplasms, colon Pre-operative examination- Primary Preoperative examination, unspecified Benign non-nodular prostatic hyperplasia without lower urinary tract symptoms Blindness of right eye, unspecified left eye visual impairment category Chronic obstructive pulmonary disease, unspecified COPD type (HCC) Hyperlipidemia, unspecified hyperlipidemia type Intervertebral lumbar disc disorder with myelopathy, lumbar region Recurrent deep vein thrombosis (DVT) (HCC) Infestation by bed bug Other specified infestations History of total hip replacement, right Fatty liver Other chronic nonalcoholic liver disease Obesity, Class I, BMI 30-34.9 Obesity, unspecified Pre-operative examination- Primary Preoperative examination, unspecified Hyperlipidemia, unspecified hyperlipidemia type Centrilobular emphysema (HCC) Other emphysema Tobacco use disorder Fatty liver Other chronic nonalcoholic liver disease Recurrent deep vein thrombosis (DVT) (HCC) Narcotic dependence (HCC) Unspecified drug dependence, unspecified Benign non-nodular prostatic hyperplasia without lower urinary tract symptoms Obesity, Class I, BMI 30-34.9 Obesity, unspecified Pre-op chest exam- Primary Pre-operative respiratory examination Bronchiolar disease Other diseases of trachea and bronchus [facility] Diagnosis Recurrent deep vein thrombosis (DVT) (HCC)- Primary Intervertebral lumbar disc disorder with myelopathy, lumbar region Chronic anticoagulation Long-term (current) use of anticoagulants Hyperlipidemia, unspecified hyperlipidemia type Chronic obstructive pulmonary disease, unspecified COPD type (HCC) Acute pain of left knee Skin infection of left knee Hematoma of left knee region Screening for prostate cancer Special screening for malignant neoplasm of prostate Screen for colon cancer Special screening for malignant neoplasms, colon Pre-operative examination- Primary Preoperative examination, unspecified Benign non-nodular prostatic hyperplasia without lower urinary tract symptoms Blindness of right eye, unspecified left eye visual impairment category Chronic obstructive pulmonary disease, unspecified COPD type (HCC) Hyperlipidemia, unspecified hyperlipidemia type Intervertebral lumbar disc disorder with myelopathy, lumbar region Recurrent deep vein thrombosis (DVT) (HCC) Infestation by bed bug Other specified infestations History of total hip replacement, right Fatty liver Other chronic nonalcoholic liver disease Obesity, Class I, BMI 30-34.9 Obesity, unspecified Pre-operative examination- Primary Preoperative examination, unspecified Hyperlipidemia, unspecified hyperlipidemia type Centrilobular emphysema (HCC) Other emphysema Tobacco use disorder Fatty liver Other chronic nonalcoholic liver disease Recurrent deep vein thrombosis (DVT) (HCC) Narcotic dependence (HCC) Unspecified drug dependence, unspecified Benign non-nodular prostatic hyperplasia without lower urinary tract symptoms Obesity, Class I, BMI 30-34.9 Obesity, unspecified Pre-op chest exam Pre-operative respiratory examination Bronchiolar disease Other diseases of trachea and bronchus documented in this encounter [facility] note* Diagnosis Recurrent deep vein thrombosis (DVT) (HCC)- Primary Intervertebral lumbar disc disorder with myelopathy, lumbar region Chronic anticoagulation Long-term (current) use of anticoagulants Hyperlipidemia, unspecified hyperlipidemia type Chronic obstructive pulmonary disease, unspecified COPD type (HCC) Acute pain of left knee Skin infection of left knee Hematoma of left knee region Screening for prostate cancer Special screening for malignant neoplasm of prostate Screen for colon cancer Special screening for malignant neoplasms, colon Pre-operative examination- Primary Preoperative examination, unspecified Benign non-nodular prostatic hyperplasia without lower urinary tract symptoms Blindness of right eye, unspecified left eye visual impairment category Chronic obstructive pulmonary disease, unspecified COPD type (HCC) Hyperlipidemia, unspecified hyperlipidemia type Intervertebral lumbar disc disorder with myelopathy, lumbar region Recurrent deep vein thrombosis (DVT) (HCC) Infestation by bed bug Other specified infestations History of total hip replacement, right Fatty liver Other chronic nonalcoholic liver disease Obesity, Class I, BMI 30-34.9 Obesity, unspecified Pre-operative examination- Primary Preoperative examination, unspecified Hyperlipidemia, unspecified hyperlipidemia type Centrilobular emphysema (HCC) Other emphysema Tobacco use disorder Fatty liver Other chronic nonalcoholic liver disease Recurrent deep vein thrombosis (DVT) (HCC) Narcotic dependence (HCC) Unspecified drug dependence, unspecified Benign non-nodular prostatic hyperplasia without lower urinary tract symptoms Obesity, Class I, BMI 30-34.9 Obesity, unspecified Centrilobular emphysema (HCC) Other emphysema documented in this encounter [facility] note* Diagnosis Recurrent deep vein thrombosis (DVT) (HCC)- Primary Intervertebral lumbar disc disorder with myelopathy, lumbar region Chronic anticoagulation Long-term (current) use of anticoagulants Hyperlipidemia, unspecified hyperlipidemia type Chronic obstructive pulmonary disease, unspecified COPD type (HCC) Acute pain of left knee Skin infection of left knee Hematoma of left knee region Screening for prostate cancer Special screening for malignant neoplasm of prostate Screen for colon cancer Special screening for malignant neoplasms, colon Pre-operative examination- Primary Preoperative examination, unspecified Benign non-nodular prostatic hyperplasia without lower urinary tract symptoms Blindness of right eye, unspecified left eye visual impairment category Chronic obstructive pulmonary disease, unspecified COPD type (HCC) Hyperlipidemia, unspecified hyperlipidemia type Intervertebral lumbar disc disorder with myelopathy, lumbar region Recurrent deep vein thrombosis (DVT) (HCC) Infestation by bed bug Other specified infestations History of total hip replacement, right Fatty liver Other chronic nonalcoholic liver disease Obesity, Class I, BMI 30-34.9 Obesity, unspecified Pre-operative examination- Primary Preoperative examination, unspecified Hyperlipidemia, unspecified hyperlipidemia type Centrilobular emphysema (HCC) Other emphysema Tobacco use disorder Fatty liver Other chronic nonalcoholic liver disease Recurrent deep vein thrombosis (DVT) (HCC) Narcotic dependence (HCC) Unspecified drug dependence, unspecified Benign non-nodular prostatic hyperplasia without lower urinary tract symptoms Obesity, Class I, BMI 30-34.9 Obesity, unspecified Centrilobular emphysema (HCC) Other emphysema documented in this encounter [facility] note* Diagnosis Recurrent deep vein thrombosis (DVT) (HCC)- Primary Intervertebral lumbar disc disorder with myelopathy, lumbar region Chronic anticoagulation Long-term (current) use of anticoagulants Hyperlipidemia, unspecified hyperlipidemia type Chronic obstructive pulmonary disease, unspecified COPD type (HCC) Acute pain of left knee Skin infection of left knee Hematoma of left knee region Screening for prostate cancer Special screening for malignant neoplasm of prostate Screen for colon cancer Special screening for malignant neoplasms, colon Pre-operative examination- Primary Preoperative examination, unspecified Benign non-nodular prostatic hyperplasia without lower urinary tract symptoms Blindness of right eye, unspecified left eye visual impairment category Chronic obstructive pulmonary disease, unspecified COPD type (HCC) Hyperlipidemia, unspecified hyperlipidemia type Intervertebral lumbar disc disorder with myelopathy, lumbar region Recurrent deep vein thrombosis (DVT) (HCC) Infestation by bed bug Other specified infestations History of total hip replacement, right Fatty liver Other chronic nonalcoholic liver disease Obesity, Class I, BMI 30-34.9 Obesity, unspecified Pre-operative examination- Primary Preoperative examination, unspecified Hyperlipidemia, unspecified hyperlipidemia type Centrilobular emphysema (HCC) Other emphysema Tobacco use disorder Fatty liver Other chronic nonalcoholic liver disease Recurrent deep vein thrombosis (DVT) (HCC) Narcotic dependence (HCC) Unspecified drug dependence, unspecified Benign non-nodular prostatic hyperplasia without lower urinary tract symptoms Obesity, Class I, BMI 30-34.9 Obesity, unspecified Cellulitis of right leg- Primary Cellulitis and abscess of leg, except foot Recurrent deep vein thrombosis (DVT) (HCC) Low grade fever Fever, unspecified Encounter for monitoring direct oral anticoagulant therapy documented in this encounter [facility] Discharge instructions Additional Instructions Continue your antibiotics as prescribed until gone.[facility] Work Phone: Reason for referral (narrative)* Diagnostic Procedure Only (Urgent) - Closed Specialty Diagnoses / Procedures Referred By Contac t Referred To Contact XR IMAGING Diagnoses Acute pain of left knee Injury of left knee, subsequent encounter Procedures XR KNEE GENERAL 4V AP BOTH/PA BOTH/LAT/MERC LEFT RADIOLOGIC EXAM KNEE COMPLETE 4/MORE VIEWS Naomi Garcia APRN.SEED ANALYST [address] [place] [address] Xr Imaging Referral ID Status Reason Start Date Expiration Date V isits Requested Visits Authorized [id number] Closed Auto-Generate d Referral 07/28/2022 08/27/2023 1 1 [facility] for referral (narrative)* Diagnostic Procedure Only (Urgent) - Closed Specialty Diagnoses / Procedures Referred By Contac t Referred To Contact XR IMAGING Diagnoses Acute pain of left knee Injury of left knee, subsequent encounter Procedures XR KNEE GENERAL 4V AP BOTH/PA BOTH/LAT/MERC LEFT RADIOLOGIC EXAM KNEE COMPLETE 4/MORE VIEWS Naomi Light, [employer].SEED ANALYST [address] [place] [address] [place] [id number] Referral ID Status Reason Start Date Expiration Date V isits Requested Visits Authorized [id number] Closed Auto-Generate d Referral 07/28/2022 08/27/2023 1 1 [facility] for referral (narrative)* Diagnostic Procedure Only (Urgent) - Closed Specialty Diagnoses / Procedures Referred By Contac t Referred To Contact XR IMAGING Diagnoses Right hip pain Procedures XR HIP GENERAL 3V PELV/AP/LAT RIGHT RADEX HIP UNILATERAL WITH PELVIS 2-3 VIEWS [facility] [address] [place] [address] [place] [address] Referral ID Status Reason Start Date Expiration Date V isits Requested Visits Authorized [id number] Closed Auto-Generate d Referral 07/20/2022 08/19/2023 1 1 * Diagnostic Procedure Only (Urgent) - Closed Specialty Diagnoses / Procedures Referred By Contac t Referred To Contact XR IMAGING Diagnoses Acute pain of left knee Procedures XR KNEE GENERAL 4V AP BOTH/PA BOTH/LAT/MERC LEFT RADIOLOGIC EXAM KNEE COMPLETE 4/MORE VIEWS [facility] [address] [address] [place] [address] [place] [address] Referral ID Status Reason Start Date Expiration Date V isits Requested Visits Authorized [id number] Closed Auto-Generate d Referral 07/20/2022 08/19/2023 1 1 [facility] (narrative)No reason for referral information availableWCherrington Hospital Work Phone: Reason for visit Narrative* Diagnostic Procedure Only (Urgent) - Closed Specialty Diagnoses / Procedures Referred By Contac t Referred To Contact XR IMAGING Diagnoses Acute pain of left knee Injury of left knee, subsequent encounter Procedures XR KNEE GENERAL 4V AP BOTH/PA BOTH/LAT/MERC LEFT RADIOLOGIC EXAM KNEE COMPLETE 4/MORE VIEWS Naomi Light, [employer].SEED ANALYST [address] [place] [address] [place] [address] Referral ID Status Reason Start Date Expiration Date V isits Requested Visits Authorized [id number] Closed Auto-Generate d Referral 07/28/2022 08/27/2023 1 1 [facility] Narrative* Diagnostic Procedure Only (Urgent) - Closed Specialty Diagnoses / Procedures Referred By Contac t Referred To Contact XR IMAGING Diagnoses Coccyx pain Procedures XR SACRUM/COCCYX 3V AP/LAT RADEX SACRUM & COCCYX MINIMUM 2 VIEWS [facility] [address] [place] [address] [place] [address] Referral ID Status Reason Start Date Expiration Date V isits Requested Visits Authorized [id number] Closed Auto-Generate d Referral 07/20/2022 08/19/2023 1 1 [facility] Summary Purpose Family History Relationship Condition Age at Onset Recorded Date/T hugo Unknown Family History?- Unknown July 23, 2013 7:10pm Relationship Condition Age at Onset Recorded Date/T hugo Unknown Family History?- Unknown July 23, 2013 6:10pm Advance Directives Advance Directive Response Recorded Date/ Time Advance Directives No July 23, 2 014 3:07am Living Will No July 23, 2013 3:07am Power of Stoper No July 23 3:07am Documents on File 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 Date 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 Advance Directive(s) 04/05/2018 1:12 PM Advance Directive Response Recorded Date/ Time Advance Directives No July 23, 2 014 2:07am Living Will No July 23, 2013 2:07am Power of Stoper No July 23 2:07am Advance Directive Response Recorded Date/ Time Advance Directives No July 23 2 014 3:07am Living Will No November 04, 2022 10:57am Power of Stoper No November 04 10:57am Advance Directive Response Recorded Date/ Time Name of Medical Power of Stoper LUIS ROME November 05, 2022 2:36pm Advance Directives No July 23, 2 014 3:07am Living Will No November 05, 2022 2:36pm Power of Stoper Yes November 05 2:36pm Advance Directive Response Recorded Date/ Time Advance Directives No July 23 2 014 3:07am Living Will No November 05, 2022 2:36pm Power of Stoper Yes November 05 2:36pm Advance Directive Response Recorded Date/ Time Advance Directives No July 23 2 014 3:07am Advance Directive Response Recorded Date/ Time Do you have a Healthcare Power of Stoper? No November 06, 2024 1:45pm Advance Directives No July 23, 2 014 3:07am Reason for Referral Specialty Diagnoses / Procedures Referred By Elham t Referred To Contact General Surgery Diagnoses Chronic anticoagulation Screen for colon cancer Procedures CONSULT TO GENERAL SURGERY OFFICE/OUTPATIENT NEW HIGH MDM 60-74 MINUTES Older, Naomi, [employer].SEED ANALYST [address] [place] [address] Referral ID Status Reason Start Date Expiration Date Visits Requested Visits Authorized [id number] Pending Review PCP Requested Referral 08/04/2022 08/04/2023 1 1 Specialty Diagnoses / Procedures Referred By Contac t Referred To Contact CT IMAGING Diagnoses Encounter for screening for malignant neoplasm of lung in current smoker with 30 pack year history or greater Smoker Procedures CT LUNG SCREEN WO IVCON COMPUTED TOMOGRAPHY THORAX LW DOSE LNG CA SCR Alessandra Fulton, DRAGAN.SEED ANALYST [address] [place] [address] Ct [facility] [place] [address] Referral ID Status Reason Start Date Expiration Date Visits Requested Visits Authorized [id number] Pending Review Auto-Generat ed Referral 03/30/2023 04/28/2024 1 1 Specialty Diagnoses / Procedures Referred By Contac t Referred To Contact General Surgery Diagnoses Umbilical hernia without obstruction and without gangrene Procedures CONSULT TO GENERAL SURGERY OFFICE/OUTPATIENT [facility] 60 MINUTES Kvng Fu MD [address] [place] [address] Referral ID Status Reason Start Date Expiration Date Visits Requested Visits Authorized [id number] Authorized PCP Requested Referral 09/01/2023 08/31/2024 1 1 Chief Complaint and Reason for Visit Chief Complaint SOB sore throat Chief Complaint SOB sore throat CELLULITIS Chief Complaint Admit Date Cellulitis November 06, 2024 1:18 pm Additional Source Comments (unrecognized sect ion and content) No Status Records FoundNo Status Records FoundNo Status Records FoundNo Status Records FoundNo Status Records Found INFORMATION SOURCE (unrecogn ized section and content) DATE CREATED AUTHOR 04/07/2018 [facility] DATE CREATED AUTHOR AUTHOR'S ORGANIZ ATION 10/07/2023 [facility] nt DATE CREATED AUTHOR AUTHOR'S ORGANIZ ATION 07/09/2024 [facility] DATE CREATED AUTHOR AUTHOR'S ORGANIZ ATION 10/30/2024 [facility] DATE CREATED AUTHOR AUTHOR'S ORGANIZ ATION 11/03/2024 [facility] Goals (unrecognized section and content) Goals may be documented in a n alternate sectionGoals may be documented in an alternate sectionGoals may be documented in an alternate sectionGoals may be documented in an alternate sectionGoals may be documented in an alternate sectionGoals may be documented in an alternate sectionGoals may be documented in an alternate section Source Comments (unrecognize d section and content) In the event this informatio n is protected by the Federal Confidentiality of Alcohol and Drug Abuse Patient Records regulations: The Federal rules restrict any use of the information to criminally investigate or prosecute any alcohol or drug abuse patient.[facility] HospitalIn the event this information is protected by the Federal Confidentiality of Alcohol and Drug Abuse Patient Records regulations: The Federal rules restrict any use of the information to criminally investigate or prosecute any alcohol or drug abuse patient.[facility] HospitalIn the event this information is protected by the Federal Confidentiality of Alcohol and Drug Abuse Patient Records regulations: The Federal rules restrict any use of the information to criminally investigate or prosecute any alcohol or drug abuse patient.[facility] HospitalIn the event this information is protected by the Federal Confidentiality of Alcohol and Drug Abuse Patient Records regulations: The Federal rules restrict any use of the information to criminally investigate or prosecute any alcohol or drug abuse patient.[facility] HospitalIn the event this information is protected by the Federal Confidentiality of Alcohol and Drug Abuse Patient Records regulations: The Federal rules restrict any use of the information to criminally investigate or prosecute any alcohol or drug abuse patient.[facility] HospitalIn the event this information is protected by the Federal Confidentiality of Alcohol and Drug Abuse Patient Records regulations: The Federal rules restrict any use of the information to criminally investigate or prosecute any alcohol or drug abuse patient.[facility] HospitalIn the event this information is protected by the Federal Confidentiality of Alcohol and Drug Abuse Patient Records regulations: The Federal rules restrict any use of the information to criminally investigate or prosecute any alcohol or drug abuse patient.[facility] HospitalIn the event this information is protected by the Federal Confidentiality of Alcohol and Drug Abuse Patient Records regulations: The Federal rules restrict any use of the information to criminally investigate or prosecute any alcohol or drug abuse patient.[facility] HospitalIn the event this information is protected by the Federal Confidentiality of Alcohol and Drug Abuse Patient Records regulations: The Federal rules restrict any use of the information to criminally investigate or prosecute any alcohol or drug abuse patient.[facility] HospitalIn the event this information is protected by the Federal Confidentiality of Alcohol and Drug Abuse Patient Records regulations: The Federal rules restrict any use of the information to criminally investigate or prosecute any alcohol or drug abuse patient.[facility] HospitalIn the event this information is protected by the Federal Confidentiality of Alcohol and Drug Abuse Patient Records regulations: The Federal rules restrict any use of the information to criminally investigate or prosecute any alcohol or drug abuse patient.[facility] HospitalIn the event this information is protected by the Federal Confidentiality of Alcohol and Drug Abuse Patient Records regulations: The Federal rules restrict any use of the information to criminally investigate or prosecute any alcohol or drug abuse patient.[facility] HospitalIn the event this information is protected by the Federal Confidentiality of Alcohol and Drug Abuse Patient Records regulations: The Federal rules restrict any use of the information to criminally investigate or prosecute any alcohol or drug abuse patient.[facility] HospitalIn the event this information is protected by the Federal Confidentiality of Alcohol and Drug Abuse Patient Records regulations: The Federal rules restrict any use of the information to criminally investigate or prosecute any alcohol or drug abuse patient.[facility] HospitalIn the event this information is protected by the Federal Confidentiality of Alcohol and Drug Abuse Patient Records regulations: The Federal rules restrict any use of the information to criminally investigate or prosecute any alcohol or drug abuse patient.[facility] HospitalIn the event this information is protected by the Federal Confidentiality of Alcohol and Drug Abuse Patient Records regulations: The Federal rules restrict any use of the information to criminally investigate or prosecute any alcohol or drug abuse patient.[facility] HospitalIn the event this information is protected by the Federal Confidentiality of Alcohol and Drug Abuse Patient Records regulations: The Federal rules restrict any use of the information to criminally investigate or prosecute any alcohol or drug abuse patient.[facility] HospitalIn the event this information is protected by the Federal Confidentiality of Alcohol and Drug Abuse Patient Records regulations: The Federal rules restrict any use of the information to criminally investigate or prosecute any alcohol or drug abuse patient.[facility] HospitalIn the event this information is protected by the Federal Confidentiality of Alcohol and Drug Abuse Patient Records regulations: The Federal rules restrict any use of the information to criminally investigate or prosecute any alcohol or drug abuse patient.[facility] HospitalIn the event this information is protected by the Federal Confidentiality of Alcohol and Drug Abuse Patient Records regulations: The Federal rules restrict any use of the information to criminally investigate or prosecute any alcohol or drug abuse patient.[facility] HospitalIn the event this information is protected by the Federal Confidentiality of Alcohol and Drug Abuse Patient Records regulations: The Federal rules restrict any use of the information to criminally investigate or prosecute any alcohol or drug abuse patient.[facility] HospitalIn the event this information is protected by the Federal Confidentiality of Alcohol and Drug Abuse Patient Records regulations: The Federal rules restrict any use of the information to criminally investigate or prosecute any alcohol or drug abuse patient.[facility] HospitalIn the event this information is protected by the Federal Confidentiality of Alcohol and Drug Abuse Patient Records regulations: The Federal rules restrict any use of the information to criminally investigate or prosecute any alcohol or drug abuse patient.[facility] HospitalIn the event this information is protected by the Federal Confidentiality of Alcohol and Drug Abuse Patient Records regulations: The Federal rules restrict any use of the information to criminally investigate or prosecute any alcohol or drug abuse patient.[facility] HospitalIn the event this information is protected by the Federal Confidentiality of Alcohol and Drug Abuse Patient Records regulations: The Federal rules restrict any use of the information to criminally investigate or prosecute any alcohol or drug abuse patient.[facility] HospitalIn the event this information is protected by the Federal Confidentiality of Alcohol and Drug Abuse Patient Records regulations: The Federal rules restrict any use of the information to criminally investigate or prosecute any alcohol or drug abuse patient.[facility] HospitalIn the event this information is protected by the Federal Confidentiality of Alcohol and Drug Abuse Patient Records regulations: The Federal rules restrict any use of the information to criminally investigate or prosecute any alcohol or drug abuse patient.[facility] HospitalIn the event this information is protected by the Federal Confidentiality of Alcohol and Drug Abuse Patient Records regulations: The Federal rules restrict any use of the information to criminally investigate or prosecute any alcohol or drug abuse patient.[facility] HospitalIn the event this information is protected by the Federal Confidentiality of Alcohol and Drug Abuse Patient Records regulations: The Federal rules restrict any use of the information to criminally investigate or prosecute any alcohol or drug abuse patient.[facility] HospitalIn the event this information is protected by the Federal Confidentiality of Alcohol and Drug Abuse Patient Records regulations: The Federal rules restrict any use of the information to criminally investigate or prosecute any alcohol or drug abuse patient.[facility] HospitalIn the event this information is protected by the Federal Confidentiality of Alcohol and Drug Abuse Patient Records regulations: The Federal rules restrict any use of the information to criminally investigate or prosecute any alcohol or drug abuse patient.[facility] HospitalIn the event this information is protected by the Federal Confidentiality of Alcohol and Drug Abuse Patient Records regulations: The Federal rules restrict any use of the information to criminally investigate or prosecute any alcohol or drug abuse patient.[facility] HospitalIn the event this information is protected by the Federal Confidentiality of Alcohol and Drug Abuse Patient Records regulations: The Federal rules restrict any use of the information to criminally investigate or prosecute any alcohol or drug abuse patient.[facility] HospitalIn the event this information is protected by the Federal Confidentiality of Alcohol and Drug Abuse Patient Records regulations: The Federal rules restrict any use of the information to criminally investigate or prosecute any alcohol or drug abuse patient.[facility] HospitalIn the event this information is protected by the Federal Confidentiality of Alcohol and Drug Abuse Patient Records regulations: The Federal rules restrict any use of the information to criminally investigate or prosecute any alcohol or drug abuse patient.[facility] HospitalIn the event this information is protected by the Federal Confidentiality of Alcohol and Drug Abuse Patient Records regulations: The Federal rules restrict any use of the information to criminally investigate or prosecute any alcohol or drug abuse patient.[facility] HospitalIn the event this information is protected by the Federal Confidentiality of Alcohol and Drug Abuse Patient Records regulations: The Federal rules restrict any use of the information to criminally investigate or prosecute any alcohol or drug abuse patient.[facility] HospitalIn the event this information is protected by the Federal Confidentiality of Alcohol and Drug Abuse Patient Records regulations: The Federal rules restrict any use of the information to criminally investigate or prosecute any alcohol or drug abuse patient.[facility] HospitalIn the event this information is protected by the Federal Confidentiality of Alcohol and Drug Abuse Patient Records regulations: The Federal rules restrict any use of the information to criminally investigate or prosecute any alcohol or drug abuse patient.[facility] HospitalIn the event this information is protected by the Federal Confidentiality of Alcohol and Drug Abuse Patient Records regulations: The Federal rules restrict any use of the information to criminally investigate or prosecute any alcohol or drug abuse patient.[facility] HospitalIn the event this information is protected by the Federal Confidentiality of Alcohol and Drug Abuse Patient Records regulations: The Federal rules restrict any use of the information to criminally investigate or prosecute any alcohol or drug abuse patient.[facility] HospitalIn the event this information is protected by the Federal Confidentiality of Alcohol and Drug Abuse Patient Records regulations: The Federal rules restrict any use of the information to criminally investigate or prosecute any alcohol or drug abuse patient.[facility] HospitalIn the event this information is protected by the Federal Confidentiality of Alcohol and Drug Abuse Patient Records regulations: The Federal rules restrict any use of the information to criminally investigate or prosecute any alcohol or drug abuse patient.[facility] HospitalIn the event this information is protected by the Federal Confidentiality of Alcohol and Drug Abuse Patient Records regulations: The Federal rules restrict any use of the information to criminally investigate or prosecute any alcohol or drug abuse patient.[facility] HospitalIn the event this information is protected by the Federal Confidentiality of Alcohol and Drug Abuse Patient Records regulations: The Federal rules restrict any use of the information to criminally investigate or prosecute any alcohol or drug abuse patient.[facility] HospitalIn the event this information is protected by the Federal Confidentiality of Alcohol and Drug Abuse Patient Records regulations: The Federal rules restrict any use of the information to criminally investigate or prosecute any alcohol or drug abuse patient.[facility] HospitalIn the event this information is protected by the Federal Confidentiality of Alcohol and Drug Abuse Patient Records regulations: The Federal rules restrict any use of the information to criminally investigate or prosecute any alcohol or drug abuse patient.[facility] HospitalIn the event this information is protected by the Federal Confidentiality of Alcohol and Drug Abuse Patient Records regulations: The Federal rules restrict any use of the information to criminally investigate or prosecute any alcohol or drug abuse patient.[facility] HospitalIn the event this information is protected by the Federal Confidentiality of Alcohol and Drug Abuse Patient Records regulations: The Federal rules restrict any use of the information to criminally investigate or prosecute any alcohol or drug abuse patient.[facility] HospitalIn the event this information is protected by the Federal Confidentiality of Alcohol and Drug Abuse Patient Records regulations: The Federal rules restrict any use of the information to criminally investigate or prosecute any alcohol or drug abuse patient.[facility] HospitalIn the event this information is protected by the Federal Confidentiality of Alcohol and Drug Abuse Patient Records regulations: The Federal rules restrict any use of the information to criminally investigate or prosecute any alcohol or drug abuse patient.[facility] HospitalIn the event this information is protected by the Federal Confidentiality of Alcohol and Drug Abuse Patient Records regulations: The Federal rules restrict any use of the information to criminally investigate or prosecute any alcohol or drug abuse patient.[facility] HospitalIn the event this information is protected by the Federal Confidentiality of Alcohol and Drug Abuse Patient Records regulations: The Federal rules restrict any use of the information to criminally investigate or prosecute any alcohol or drug abuse patient.[facility] HospitalIn the event this information is protected by the Federal Confidentiality of Alcohol and Drug Abuse Patient Records regulations: The Federal rules restrict any use of the information to criminally investigate or prosecute any alcohol or drug abuse patient.[facility] HospitalIn the event this information is protected by the Federal Confidentiality of Alcohol and Drug Abuse Patient Records regulations: The Federal rules restrict any use of the information to criminally investigate or prosecute any alcohol or drug abuse patient.[facility] HospitalIn the event this information is protected by the Federal Confidentiality of Alcohol and Drug Abuse Patient Records regulations: The Federal rules restrict any use of the information to criminally investigate or prosecute any alcohol or drug abuse patient.[facility] HospitalIn the event this information is protected by the Federal Confidentiality of Alcohol and Drug Abuse Patient Records regulations: The Federal rules restrict any use of the information to criminally investigate or prosecute any alcohol or drug abuse patient.[facility] HospitalIn the event this information is protected by the Federal Confidentiality of Alcohol and Drug Abuse Patient Records regulations: The Federal rules restrict any use of the information to criminally investigate or prosecute any alcohol or drug abuse patient.[facility] HospitalIn the event this information is protected by the Federal Confidentiality of Alcohol and Drug Abuse Patient Records regulations: The Federal rules restrict any use of the information to criminally investigate or prosecute any alcohol or drug abuse patient.[facility] Reason for Visit (unrecogniz ed section and content) Reason Comments Patient Update Reason Onset Date Comments Refill Request 09/30/2021 Reason Onset Date Comments Population Health Navigation Outreach 12/23/2021 [facility] Reason Onset Date Comments Refill Request 01/26/2022 Reason Comments Follow Up Reason Comments Counseling Reason Comments Results LDCT Reason Comments fall last week - pain below left knee Reason Comments Results Reason Comments 1 week follow up Left knee Reason Onset Date Comments Refill Request 09/01/2022 Reason Comments Refill Request Reason Comments Consult Colonoscopy consult. Specialty Diagnoses / Procedures Referred By Elham arambula Referred To Contact General Surgery Diagnoses Tubular adenoma of colon Procedures CONSULT TO GENERAL SURGERY OFFICE/OUTPATIENT [facility] MDM 60-74 MINUTES Kvng Fu MD [address] [place] [address] Referral ID Status Reason Start Date Expiration Date Visits Requested Visits Authorized [id number] Pending Review PCP Requested Referral 11/18/2022 11/18/2023 1 1 Reason Onset Date Comments Refill Request 02/01/2023 Reason Comments F/U 6 months Reason Comments Consult Reason Comments Medication Question Reason Comments Medicare Wellness Exam F/U 6 months Reason Onset Date Comments Refill Request 09/01/2023 Reason Comments Abdominal Pain Reason Comments Consult Umbilical hernia Specialty Diagnoses / Procedures Referred By Elham arambula Referred To Contact General Surgery Diagnoses Umbilical hernia without obstruction and without gangrene Procedures CONSULT TO GENERAL SURGERY OFFICE/OUTPATIENT [facility] MDM 60 MINUTES Kvng Fu MD [address] [place] [address] Referral ID Status Reason Start Date Expiration Date V isits Requested Visits Authorized [id number] Closed PCP Requested Referral 09/01/2023 08/31/2024 1 1 Reason Comments Anesthesia Consult Reason Comments Post-Op Visit 09/07 umbilical herni a repair Reason Comments Annual LCS Specialty Diagnoses / Procedures Referred By Contac t Referred To Contact CT IMAGING Diagnoses Encounter for screening for malignant neoplasm of lung in current smoker with 30 pack year history or greater Smoker Procedures CT LUNG SCREEN WO IVCON COMPUTED TOMOGRAPHY THORAX LW DOSE LNG CA SCR Alessandra Fulton, [employer]LEMENTARY [employer] TEACHER.SEED ANALYST [address] [place] [address] Ct Imaging [facility] Referral ID Status Reason Start Date Expiration Date V isits Requested Visits Authorized [id number] Closed Auto-Generate d Referral 03/30/2023 04/28/2024 1 1 Reason Comments Appointment Reason Onset Date Comments Refill Request 11/04/2023 Reason Onset Date Comments Refill Request 11/16/2023 Reason Comments right leg and foot swelling X 1 week Reason Comments 1 week follow up Reason Onset Date Comments Refill Request 02/03/2024 Reason Onset Date Comments Refill Request 02/16/2024 Reason Onset Date Comments Refill Request 03/06/2024 Reason Onset Date Comments Refill Request 05/24/2024 Reason Onset Date Comments Population Health Navigation Outreach 06/19/2024 [facility] Reason Comments Medicare Wellness Exam needs new lab ord ers but needs non fasting labs and can get today Reason Onset Date Comments Refill Request 09/05/2024 Reason Onset Date Comments Refill Request 09/25/2024 Reason Comments Follow Up ct scan Specialty Diagnoses / Procedures Referred By Contac t Referred To Contact CT IMAGING Diagnoses Tobacco use current Procedures CT LUNG SCREEN WO IVCON COMPUTED TOMOGRAPHY THORAX LW DOSE LNG CA SCR Key- Shaquille Booker, [employer] TE[employer]ER.SEED ANALYST [address] [place] [address] Phone: tel: fax: CT IMAGING [facility] Referral ID Status Reason Start Date Expiration Date V isits Requested Visits Authorized [id number] Closed Auto-Generate d Referral 10/01/2023 10/30/2024 1 [address] Specialty Diagnoses / Procedures Referred By Contac t Referred To Contact CT IMAGING Diagnoses Tobacco use current Procedures CT LUNG SCREEN WO IVCON COMPUTED TOMOGRAPHY THORAX LW DOSE LNG CA SCR C- Shaquille Booker, [employer] TE[employer]ER.SEED ANALYST [address] [place] [address] Phone: tel: fax: [facility] IMAGING [place] [phone] Referral ID Status Reason Start Date Expiration Date V isits Requested Visits Authorized [id number] Closed Auto-Generate d Referral 10/01/2023 10/30/2024 1 1 Reason Comments Bronchoscopy Scheduling- 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- 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 [facility] Reason Comments Appointment PreOp Bronch Reason Comments EKG Specialty Diagnoses / Procedures Referred By Contac t Referred To Contact [facility] Diagnoses Pre-op chest exam Procedures ECG COMPLETE ECG ROUTINE ECG W/LEAST 12 LDS W/I&R Renea Ramsey MD [address] [place] [address] Phone: tel: fax: [place] [address] Referral ID Status Reason Start Date Expiration Date V isits Requested Visits Authorized [id number] Closed Auto-Generate d Referral 10/26/2024 04/25/2025 1 1 Reason Comments Spirometry Specialty Diagnoses / Procedures Referred [facility] Diagnoses Centrilobular emphysema (HCC) Procedures SPIROMETRY WITH DILATOR IF OBSTRUCTED BRNCDILAT RSPSE SPMTRY PRE&POST-BRNCDILAT ADMN Shaquille Booker, [employer] TE[employer]ER.SEED ANALYST [address] [place] [address] Phone: tel: fax: [facility] [address] [place] [address] Referral ID Status Reason Start Date Expiration Date V isits Requested Visits Authorized [id number] Closed Auto-Generate d Referral 10/25/2024 11/24/2025 1 1 Specialty Diagnoses / Procedures Referred By Contac t Referred [facility] Diagnoses Centrilobular emphysema (HCC) Procedures SIX MINUTE WALK CARDIOPULMONARY EXERCISE STRESS PULMONARY STRESS TESTING Shaquille Booker, [employer] TE[employer]ER.SEED ANALYST [address] [place] [address] Phone: tel: fax: [address] [phone] Referral ID Status Reason Start Date Expiration Date V isits Requested Visits Authorized [id number] Closed Auto-Generate d Referral 10/25/2024 04/25/2025 1 1 Specialty Diagnoses / Procedures Referred By Contac t Referred To Contact [facility] Diagnoses Centrilobular emphysema (HCC) Procedures LUNG DIFFUSION CAPACITY (DLCO) DIFFUSING CAPACITY Shaquille Booker, [employer] TE[employer]ER.SEED ANALYST [address] [place] [address] Phone: tel: fax: [address] [address] Referral ID Status Reason Start Date Expiration Date V isits Requested Visits Authorized [id number] Closed Auto-Generate d Referral 10/25/2024 11/24/2025 1 1 Specialty Diagnoses / Procedures Referred By Contac t Referred To [facility] Diagnoses Centrilobular emphysema (HCC) Procedures LUNG VOLUMES PLETHYSMOGRAPHY LUNG VOLUMES W/WO AIRWAY RESIST Shaquille Booker, [employer] TEACHER.SEED ANALYST [address] [place] [address] Phone: tel: fax: [address] [address] Referral ID Status Reason Start Date Expiration Date V isits Requested Visits Authorized [id number] Closed Auto-Generate d Referral 10/25/2024 04/25/2025 1 1 Reason Comments Edema RT leg/foot x 3 days Care Teams (unrecognized sec tion and content) Rail Layer Relationship Specialty Start Date End Date Kvng Fu MD [address] [place], [place] [address] PCP - General Internal Medicine 01/10/15 Rail Layer Relationship Specialty Start Date End Date Kvng Fu MD [address] [place] [address] PCP - General Internal Medicine 01/10/15 Rail Layer Relationship Specialty Start Date End Date Kvng Fu MD [address] [facility] [place] [address] PCP - General Internal Medicine 01/10/15 Rail Layer Relationship Specialty Start Date End Date Kvng Fu MD [address] [facility] [place] [address] PCP - General Internal Medicine 01/10/15 Rail Layer Relationship Specialty Start Date End Date Kvng Fu MD [address] [place] [address] PCP - General Internal Medicine 01/10/15 Rail Layer Relationship Specialty Start Date End Date Kvng Fu MD [address] [facility] [place] [address] PCP - General Internal Medicine 01/10/15 Rail Layer Relationship Specialty Start Date End Date Kvng Fu MD [address] [place] [address] PCP - General Internal Medicine 01/10/15 Rail Layer Relationship Specialty Start Date End Date Kvng Fu MD [address] [place] [address] PCP - General Internal Medicine 01/10/15 Rail Layer Relationship Specialty Start Date End Date Kvng Fu MD [address] [place] [address] PCP - General Internal Medicine 01/10/15 Rail Layer Relationship Specialty Start Date End Date Kvng Fu MD [address] [place] [address] PCP - General Internal Medicine 01/10/15 Team Status: Active Member Role Status Dates Dr. Kvng Fu MD Family Provider Active Dr. Kvng Fu MD Primary Care Provider Active Team Status: Inactive Member Role Status Dates Dr. Kvng Fu MD Primary Care Provider Active Dr. Karina Julian DO Attending Provider, Trino pagan Active Team Status: Inactive Member Role Status Dates Dr. Kvng Fu MD Primary Care Provider Active Dr. Ankit Vazquez MD Emergency Provider Active Team Status: Inactive Member Role Status Dates Dr. Kvng Fu MD Primary Care Provider Active Dr. Landen Crenshaw DO Emergency Provider Active Rail Layer Relationship Specialty Start Date End Date Kvng Fu MD [address] [place] [address] PCP - General Internal Medicine 01/10/15 Rail Layer Relationship Specialty Start Date End Date Kvng Fu MD [address] [place] [address] PCP - General Internal Medicine 01/10/15 Rail Layer Relationship Specialty Start Date End Date Kvng Fu MD [address] [place] [address] PCP - General Internal Medicine 01/10/15 Rail Layer Relationship Specialty Start Date End Date Kvng Fu MD [address] [place] [address] PCP - General Internal Medicine 01/10/15 Rail Layer Relationship Specialty Start Date End Date Kvng Fu MD [address] [place] [address] PCP - General Internal Medicine 01/10/15 Rail Layer Relationship Specialty Start Date End Date Kvng Fu MD [address] [facility] [place] [address] PCP - General Internal Medicine 01/10/15 Rail Layer Relationship Specialty Start Date End Date Kvng Fu MD [address] [place] [address] PCP - General Internal Medicine 01/10/15 Team Status: Inactive Member Role Status Dates Dr. Kvng Fu MD Primary Care Provider Active Dr. Andrew Camp MD Attending Provider, Referring Pr ovider Active Rail Layer Relationship Specialty Start Date End Date Kvng Fu MD [address] [place] [address] PCP - General Internal Medicine 01/10/15 Rail Layer Relationship Specialty Start Date End Date Kvng Fu MD [address] [place] [address] PCP - General Internal Medicine 01/10/15 Rail Layer Relationship Specialty Start Date End Date Kvng Fu MD [address] [place] [address] PCP - General Internal Medicine 01/10/15 Rail Layer Relationship Specialty Start Date End Date Kvng Fu MD [address] [place] [address] PCP - General Internal Medicine 01/10/15 Rail Layer Relationship Specialty Start Date End Date Kvng Fu MD [address] [place] [address] PCP - General Internal Medicine 01/10/15 Rail Layer Relationship Specialty Start Date End Date Kvng Fu MD [address] [facility] [place] [address] PCP - General Internal Medicine 01/10/15 Rail Layer Relationship Specialty Start Date End Date Kvng Fu MD [address] [facility] [place] [address] PCP - General Internal Medicine 01/10/15 Rail Layer Relationship Specialty Start Date End Date Kvng Fu MD [address] [facility] [place] [address] PCP - General Internal Medicine 01/10/15 Rail Layer Relationship Specialty Start Date End Date Kvng Fu MD [address] [facility] [place] [address] PCP - General Internal Medicine 01/10/15 Rail Layer Relationship Specialty Start Date End Date Kvng Fu MD [address] [facility] [place] [address] PCP - General Internal Medicine 01/10/15 Rail Layer Relationship Specialty Start Date End Date Kvng Fu MD [address] [facility] [place] [address] PCP - General Internal Medicine 01/10/15 Rail Layer Relationship Specialty Start Date End Date Kvng Fu MD [address] [facility] [place] [address] PCP - General Internal Medicine 01/10/15 Rail Layer Relationship Specialty Start Date End Date Kvng Fu MD [address] [facility] [place] [address] PCP - General Internal Medicine 01/10/15 Rail Layer Relationship Specialty Start Date End Date Kvng Fu MD [address] [place] [address] PCP - General Internal Medicine 01/10/15 Rail Layer Relationship Specialty Start Date End Date Kvng Fu MD [address] [facility], [place] [address] PCP - General Internal Medicine 01/10/15 Naomi Light, [employer] TE[employer]ER.SEED ANALYST [address] [facility], [place] [address] [employer] Internal Medicine 04/03/24 Rail Layer Relationship Specialty Start Date End Date Kvng Fu MD [address] [facility], [place] [address] PCP - General Internal Medicine 01/10/15 Naomi Light, [employer] TE[employer]ER.SEED ANALYST [address] [facility], [place] [address] [employer] Internal Medicine 04/03/24 Team Status: Inactive Member Role Status Dates Dr. Kvng Fu MD Primary Care Provider Active Start: June 22, 2024 End: June 22, 2024 Dr. Andrew Camp MD Attending Provider Active Start: June 22, 2024 End: June 22, 2024 Dr. Andrew Camp MD Referring Provider Active Start: June 22, 2024 End: June 22, 2024 Rail Layer Relationship Specialty Start Date End Date Kvng Fu MD [address] [facility], [place] [address] PCP - General Internal Medicine 01/10/15 Naomi Light, [employer] TE[employer]ER.SEED ANALYST [address] [place] [address] [employer] Internal Medicine 04/03/24 Rail Layer Relationship Specialty Start Date End Date Kvng Fu MD [address] [place] [address] PCP - General Internal Medicine 01/10/15 Naomi Light, [employer] TE[employer]ER.SEED ANALYST [address] [place] [address] [employer] Internal Medicine 04/03/24 Rail Layer Relationship Specialty Start Date End Date Kvng Fu MD [address] [place] [address] PCP - General Internal Medicine 01/10/15 Naomi Light, [employer] TE[employer]ER.SEED ANALYST [address] [place] [address] [employer] Internal Medicine 04/03/24 Rail Layer Relationship Specialty Start Date End Date Kvng Fu MD [address] [place] [address] PCP - General Internal Medicine 01/10/15 Naomi Light, [employer] TE[employer]ER.SEED ANALYST [address] [place] [address] [employer] Internal Medicine 04/03/24 Rail Layer Relationship Specialty Start Date End Date Kvng Fu MD [address] [place] [address] PCP - General Internal Medicine 01/10/15 Naomi Light, [employer] TE[employer]ER.SEED ANALYST [address] [facility] [place] [address] [employer] Internal Medicine 04/03/24 Rail Layer Relationship Specialty Start Date End Date Kvng Fu MD [address] [place] [address] PCP - General Internal Medicine 01/10/15 Naomi Light, [employer]LE[employer] TE[employer]ER.SEED ANALYST [address] [facility] [place] [address] [employer] Internal Medicine 04/03/24 Rail Layer Relationship Specialty Start Date End Date Kvng Fu MD [address] [place] [address] PCP - General Internal Medicine 01/10/15 Naomi Light, [employer]LE[employer] TE[employer]ER.SEED ANALYST [address] [place] [address] [employer] Internal Medicine 04/03/24 Rail Layer Relationship Specialty Start Date End Date Kvng Fu MD [address] [place] [address] PCP - General Internal Medicine 01/10/15 Naomi Light, [employer]LE[employer] TEACHER.SEED ANALYST [address] [place] [address] [employer] Internal Medicine 04/03/24 Rail Layer Relationship Specialty Start Date End Date Kvng Fu MD [address] [place] [address] PCP - General Internal Medicine 01/10/15 Naomi Light, [employer] TE[employer]ER.SEED ANALYST [address] [place] [address] [employer] Internal Medicine 04/03/24 Team Status: Active Member Role/Relationship Status Dates Dr. Kvng Fu MD Primary Care Provider Active Team Status: Inactive Member Role/Relationship Status Dates Dr. Kvng Fu MD Primary Care Provider Active Start: November 06, 2024 End: November 06, 2024 Dr. Landen Crenshaw DO Referring Provider Active Start: November 06, 2024 End: November 06, 2024 Dr. Landen Crenshaw DO Emergency Provider Active Start: November 06, 2024 End: November 06, 2024 Rail Layer Relationship Specialty Start Date End Date Kvng Fu MD [address] [place] [address] PCP - General Internal Medicine 01/10/15 Naomi Light, [employer] TEACHER.SEED ANALYST [address] [place] [address] [employer] Internal Medicine 04/03/24 Administered Medications Administered Medications (un recognized section and content) Medication Order MAR Action Action Date Dose Rate Site tuberculin skin test, unspecified formulation Given 11/14/2013 0.1 ml FOR RECORDS PERTAINING TO PATIENTS WHO ARE OR HAVE BEEN ENROLLED IN A CHEMICAL DEPENDENCY/SUBSTANCEABUSE PROGRAM, SOME INFORMATION MAY BE OMITTED. This clinical summary was aggregated from multiple sources. Caution should be exercised in using it in the provision of clinical care. This summary normalizes information from multiple sources, and as a consequence, information in this document may materially change the coding, format and clinical context of patient data. In addition, data may be omitted in some cases. CLINICAL DECISIONS SHOULD BE BASED ON THE PRIMARY CLINICAL RECORDS. [employer] provides no warranty or guarantee of the accuracy or completeness of information in this document.
== END 2024-11-06 16:26 | disposition home or self-care (01) ==
PROVIDERS: Emergency Provider Emergency Medicine; PCP Internal Medicine; Referring Provider Emergency Medicine; Visit Provider Emergency Medicine
DX: L03.115 Cellulitis of right lower limb (principal); I10 Essential (primary) hypertension; F17.210 Nicotine dependence, cigarettes, uncomplicated; Z96.641 Presence of right artificial hip joint
CPT/HCPCS: 80048; 85025; 93971; 96365; 99283; A4216

== ENCOUNTER → 2024-11-24 | Outpatient (CLI) | payer MEDICARE, SELFPAY ==
[2024-11-24 13:52] LABS: Barbiturate Urine NEGATIVE (< 200 ng/mL); Benzodiazepine Urine NEGATIVE (< 200 ng/mL); PCP Urine NEGATIVE (< 25 ng/mL); THC Urine NEGATIVE (< 50 ng/mL)
== END | disposition home or self-care (01) ==
LOC: LAB 11:01
PROVIDERS: PCP Internal Medicine; Referring Provider Anesthesiology Pain Medicine; Visit Provider Anesthesiology Pain Medicine
DX: F11.20 Opioid dependence, uncomplicated (principal)
CPT/HCPCS: 36415; 80307